=== PATIENT | female | born 1960 | race Caucasian/White ===

== ENCOUNTER 2022-11-15 09:31 | Outpatient (CLI) | payer MEDICAID, SELFPAY ==
--- NOTE | 2022-11-15 09:45 | CRLHL7_ITS ---
For Patients: As a result of the Century Cures Act, medical imaging exams and procedure reports are released immediately into your electronic medical record. You may view this report before your referring provider. If you have questions, please contact your health care provider. BILATERAL DIGITAL SCREENING MAMMOGRAM WITH TOMOSYNTHESIS AND COMPUTER-AIDED DETECTION CLINICAL HISTORY: Routine screening exam. COMPARISON: 10/12/2021, 09/28/2020, 06/02/2019. TECHNIQUE: Digital mammogram in CC and MLO projections including computer-aided detection (CAD). Tomosynthesis utilized. BREAST COMPOSITION: There are areas of scattered fibroglandular density. FINDINGS: RIGHT Breast: No suspicious findings. LEFT Breast: Focal asymmetric density retroareolar plane MLO view only 9 cm from the nipple. IMPRESSION: LEFT breast asymmetry/mass. RECOMMENDATIONS: Additional mammographic views of the LEFT breast including 3D spot compression MLO and 3D true lateral. LEFT breast ultrasound may also be required. BI-RADS Category 0: Incomplete: Need Additional Imaging Evaluation and/or Prior Mammograms for Comparison [facility] will contact the patient for follow-up. A lay language report of this examination will be provided to the patient. Dictated by Noble Bedolla MD @ 11/15/2022 12:45:51 PM jj/Dictated by: Noble Bedolla MD @ 11/15/2022 12:45:00 PM (Electronically Signed)
== END 2022-11-15 09:32 | disposition home or self-care (01) ==
LOC: MAMMO 09:32
PROVIDERS: PCP Family Medicine; Visit Provider Family Medicine
DX: Z12.31 Encounter for screening mammogram for malignant neoplasm of breast (principal); N63.20 Unspecified lump in the left breast, unspecified quadrant
CPT/HCPCS: 77063; 77067

== ENCOUNTER 2022-11-21 09:23 | Outpatient (CLI) | payer MEDICAID, SELFPAY ==
--- NOTE | 2022-11-21 09:45 | CRLHL7_ITS ---
For Patients: As a result of the Cures Act, medical imaging exams and procedure reports are released immediately into your electronic medical record. You may view this report before your referring provider. If you have questions, please contact your health care provider. DIGITAL DIAGNOSTIC LEFT MAMMOGRAM USING TOMOSYNTHESIS AND COMPUTER-AIDED DETECTION CLINICAL HISTORY: LEFT breast mass/asymmetry. COMPARISON: 11/15/2022, 10/12/2021, 09/28/2020. TECHNIQUE: Digital LEFT mammogram in two projections. Tomosynthesis and CAD utilized. BREAST COMPOSITION: There are areas of scattered fibroglandular density. FINDINGS: 3D true lateral and 3D spot compression MLO LEFT breast mammogram images submitted. Benign intramammary lymph node is present within the retroareolar plane 9 cm from the nipple. No suspicious masses or architectural distortion. Benign calcifications. No adenopathy. IMPRESSION: Benign intramammary lymph node measuring 4.5 millimeters. No findings concerning for malignancy. RECOMMENDATIONS: Annual BILATERAL screening mammography. Results and recommendations discussed with the patient. BI-RADS Category 2: Benign A lay language report of this examination will be provided to the patient. Dictated by Noble Bedolla MD @ 11/21/2022 10:08:32 AM jj/Dictated by: Noble Bedolla MD @ 11/21/2022 10:08:00 AM (Electronically Signed)
== END 2022-11-21 09:24 | disposition home or self-care (01) ==
LOC: MAMMO 09:23
PROVIDERS: PCP Family Medicine; Visit Provider Family Medicine
DX: N63.20 Unspecified lump in the left breast, unspecified quadrant (principal); R92.8 Other abnormal and inconclusive findings on diagnostic imaging of breast
CPT/HCPCS: 77065; G0279

== ENCOUNTER 2023-02-06 13:54 | Outpatient (RCR) | payer MEDICAID, SELFPAY | END 2023-06-06 23:59 | disposition home or self-care (01) | PROVIDERS: PCP Family Medicine; Visit Provider Family Medicine | DX: M72.2 Plantar fascial fibromatosis (principal); M62.81 Muscle weakness (generalized); Z51.89 Encounter for other specified aftercare | CPT/HCPCS: 97110; 97162 ==

== ENCOUNTER 2024-01-28 10:03 | Outpatient (CLI) | payer OTHER, SELFPAY | END 2024-01-28 10:04 | disposition home or self-care (01) | LOC: FRMREF 10:05 | PROVIDERS: PCP Family Medicine; Visit Provider Family Medicine | DX: B35.1 Tinea unguium (principal); Z13.228 Encounter for screening for other metabolic disorders | CPT/HCPCS: 80053 ==

== ENCOUNTER 2024-02-19 13:53 | Outpatient (CLI) | payer OTHER, SELFPAY ==
--- NOTE | 2024-02-19 14:00 | CRLHL7_ITS ---
For Patients: As a result of the Century Cures Act, medical imaging exams and procedure reports are released immediately into your electronic medical record. You may view this report before your referring provider. If you have questions, please contact your health care provider. DXA BONE MINERAL DENSITY STUDY Reason for exam: History of osteopenia. Current height (in): 64. Weight (lb): 170. Menopause age: 53. Ethnicity: White. 1. Have you had a previous hip or vertebral fracture? No. 2. Have you had any fractures during your adult life which did not result from significant trauma (e.g., auto accident)? No. 3. Did either of your parents have a hip fracture? No. 4. Do you smoke? No. 5. Have you ever taken Glucocorticoids? Yes. 6. Do you have rheumatoid arthritis? No. 7. Do you have secondary osteoporosis? No. 8. Do you drink 3 or more alcoholic drinks per day? No. 9. Are you being treated for osteoporosis? No. 10. Have you ever taken any of the following medications: Actonel, Evista, Fosamax, Miacalcin, Reclast, Boniva, Forteo, HRT (i.e., estrogen/hormone therapy), Protelos, Prolia, Vitamin D, Calcium, other ??? please specify. ANSWER: Yes, Actonel (i.e., risedronate), vitamin D, and calcium. 11. Do you have any of the following medical conditions: Anorexia or bulimia, asthma or emphysema, end stage renal disease, hyperparathyroidism, any seizure disorders, cancer, inflammatory bowel diseases, hysterectomy, other ??? please specify. ANSWER: Yes, asthma or emphysema, hysterectomy. 12. What was your maximum height (inches)? 65.5. 13. Do you perform weight bearing exercise regularly? Yes. 14. Do you regularly consume dairy products? No. 15. Do you drink caffeinated beverages? Yes. 16. At what age did your period start? 14. 17. Are you premenopausal? No. 18. How many full-term pregnancies have you had? 2. 19. Have you ever missed your period for more than 6 months in a row (not including or menopause)? Yes. TECHNIQUE: Bone mineral density study was performed using the [employer]. FINDINGS: The results of the study expressed as bone mineral density (BMD) are as follows: Lumbar spine L1 to L3: BMD: 0.849 g/cm2. T-score: -1.5. Z-score: 0.0 Neck Left: BMD: 0.601 g/cm2. T-score: -2.2. Z-score: -0.8 Right: BMD: 0.613 g/cm2. T-score: -2.1. Z-score: -0.7 Total Left: BMD: 0.761 g/cm2. T-score: -1.5. Z-score: -0.4 Right: BMD: 0.771 g/cm2. T-score: -1.4. Z-score: -0.3 IMPRESSION: Osteopenia. *Comparison exams done prior to 01/2020 were performed on different unit, [employer]. COMPARISON: Compared with scan of 10/16/2018, the bone mineral density has decreased by 2.2 percent at the spine and decreased by 4.8 percent at the hip. FRAX 10-year Fracture Risk Major Osteoporotic Fracture: 17% Hip Fracture: 2.8% Reported Risk Factors: [place] () Neck BMD=0.601, BMI=29.2, glucocorticoids. ANAYELI VÁSQUEZ M.D. Transcribed: 1:20 p.m. [email or web address] jj/Dictated by: Anayeli Vásquez MD @ 02/21/2024 8:11:00 AM (Electronically Signed)
== END 2024-02-19 13:54 | disposition home or self-care (01) ==
LOC: RAD 13:54
PROVIDERS: PCP Family Medicine; Visit Provider Family Medicine
DX: M85.80 Other specified disorders of bone density and structure, unspecified site (principal); M85.89 Other specified disorders of bone density and structure, multiple sites
CPT/HCPCS: 77080

== ENCOUNTER 2024-05-06 14:01 | Outpatient (CLI) | payer MEDICAID, SELFPAY ==
--- NOTE | 2024-05-06 14:00 | CRLHL7_ITS ---
For Patients: As a result of the Century Cures Act, medical imaging exams and procedure reports are released immediately into your electronic medical record. You may view this report before your referring provider. If you have questions, please contact your health care provider. BILATERAL SCREENING MAMMOGRAM WITH COMPUTER-AIDED DETECTION AND TOMOSYNTHESIS TECHNIQUE: CC and MLO views were obtained. These mammographic images have been obtained using full-field digital technique. These mammographic images were interpreted with the benefit of computer-aided detection. Breast Tomosynthesis was used in this interpretation. COMPARISON FILM: 11/21/22, 11/15/22, 10/12/21. FINDINGS: There are scattered areas of fibroglandular density IMPRESSION: There is no radiographic evidence for malignancy. ASSESSMENT: BI-RADS Category 1: Negative RECOMMENDATION: Routine screening mammogram in 1 year. A lay language report of this examination will be provided to the patient. Noble Bedolla M.D. Diagnostic Radiologist [email or web address] GLENN/Dictated by: Noble Bedolla MD @ 05/14/2024 12:36:00 PM (Electronically Signed)
== END 2024-05-06 14:02 | disposition home or self-care (01) ==
LOC: MAMMO 14:03
PROVIDERS: PCP Family Medicine; Visit Provider Family Medicine
DX: Z12.31 Encounter for screening mammogram for malignant neoplasm of breast (principal)
CPT/HCPCS: 77063; 77067

== ENCOUNTER 2024-12-04 09:05 | Outpatient (CLI) | payer OTHER, SELFPAY | END 2024-12-04 09:06 | disposition home or self-care (01) | PROVIDERS: PCP Family Medicine; Visit Provider Physician Assistant | DX: R10.11 Right upper quadrant pain (principal) | CPT/HCPCS: 80053; 83690 ==

== ENCOUNTER 2024-12-04 10:18 | Outpatient (CLI) | payer OTHER, SELFPAY ==
--- NOTE | 2024-12-04 11:41 | CRLHL7_ITS ---
For Patients: As a result of the Century Cures Act, medical imaging exams and procedure reports are released immediately into your electronic medical record. You may view this report before your referring provider. If you have questions, please contact your health care provider. INDICATION: Right upper quadrant abdomen pain. TECHNIQUE: Ultrasound abdomen limited. Sonographic images of the right upper quadrant were obtained using barrera-scale and color Doppler images. COMPARISON: None. FINDINGS: Liver: Heterogeneous/echogenic hepatic parenchyma suggestive of chronic hepatocellular disease. No suspicious masses. No intrahepatic biliary dilatation. There is a 4.9 centimeter right hepatic lobe echogenic lesion. Gallbladder: Mildly distended gallbladder with biliary sludge and wall thickening. No stones. No pericholecystic fluid. Negative sonographic Bailey`s sign. Common bile duct: 4 mm. Pancreas: Unremarkable. Right kidney: Normal in size. Normal echotexture and cortex. No suspicious masses, stones, or hydronephrosis. Vasculature: Proximal abdominal aorta and IVC are unremarkable. IMPRESSION: Heterogeneous/echogenic hepatic parenchyma suggestive of chronic hepatocellular disease, including steatosis. Mildly distended gallbladder with biliary sludge and wall thickening. No stones or pericholecystic edema. Negative sonographic Bailey`s sign per geographical historian. Constellation of findings are nonspecific and favored to be related to chronic hepatocellular disease. Acute cholecystitis not entirely excluded but thought less likely. Recommend correlation with localized physical examination and laboratory values. No biliary obstruction. Incidental 4.9 centimeter right hepatic lobe echogenic lesion. According to documentation, this is a known hemangioma. However, no prior studies for comparison. Recommend correlation with prior imaging once available. Dictated by Joseph Locke MD @ 12/04/2024 12:17:20 PM (Electronically Signed)
== END 2024-12-04 10:19 | disposition home or self-care (01) ==
LOC: US 10:20
PROVIDERS: PCP Family Medicine; Visit Provider Physician Assistant
DX: R10.11 Right upper quadrant pain (principal); K76.9 Liver disease, unspecified
CPT/HCPCS: 76705

== ENCOUNTER 2024-12-07 09:26 | Day surgery (SDC) | payer OTHER, SELFPAY ==
[2024-12-07] VITALS (21 sets, daily range): BP systolic 124–180; BP diastolic 71–100; PULSE 54–87; RESP 16–18; TEMP 36.2–36.9; O2SAT 2–98; BMI 30.5
--- NOTE | 2024-12-07 10:45 | P.GSHP_ITS ---
History of Present Illness History of Present Illness Date Seen: 12/07/24 Chief complaint: Laparoscopic Cholecystectomy Narrative: The patient is a 64-year-old female who last or 4 days ago, felt upper abdominal pain approximately 11:00 p.m.. She states that it started as a feel ing of gas and bloating across her upper abdomen. This radiated to her back. It got worse and she vomited twice and also had diarrhea. She did have some Zofran at home which helped her symptoms. She also had hydrocodone at home which helped her to fall asleep. The next day she had right upper quadrant tenderness. She then went in to be seen. She states that 1 month ago she had a similar episode. This was less severe. She did not have a fever. Because she continued to have symptoms she was seen in urgent care. There she had labs as well as a gallbladder ultrasound. There was gallbladder wall thickening noted. She tried to eat a protein bar in her symptoms came back. Surgery was called. At the time I did have a discussion with the patient over the phone. She felt that she would prefer to try to eat and if she could get through the weekend by being able to take in liquids at least, then she would like to wait until Saturday to proceed with cholecystectomy. Since our phone conversation, she states that she has not had any further pain. She was able to eat without difficulty this weekend. In 2008 she states she also had abdominal pain worked out. It was felt to be musculoskeletal at the time. She was found to be anemic and also was found to have a liver hemangioma. She has had colon cancer screening with Cologuard which has always been negative. She did have an upper endoscopy and a colonoscopy in 2008 which were negative. Currently she denies any chest pain or shortness of breath. She does have decreased exercise intolerance which she attributes to being out of shape rather than cardiac or pulmonary. [facility] Medical History (Updated 12/07/24 @ 11:03 by Kristina Carnes MD) Sciatica ?M54.30 - Sciatica, unspecified side (ICD-10) Sleep apnea ?G47.30 - Sleep apnea, unspecified (ICD-10) Hair thinning ?L65.9 - Nonscarring hair loss, unspecified (ICD-10) Tear of medial meniscus of right knee ?S83.241A - Other tear of medial meniscus, current injury, right knee, initial encounter (ICD-10) Osteoarthritis of left knee ?M17.12 - Unilateral primary osteoarthritis, left knee (ICD-10) Osteoarthritis of right knee ?M17.11 - Unilateral primary osteoarthritis, right knee (ICD-10) Eczema ?L30.9 - Dermatitis, unspecified (ICD-10) Binge eating ?R63.2 - Polyphagia (ICD-10) Irritable bowel syndrome ?K58.9 - Irritable bowel syndrome without diarrhea (ICD-10) Actinic keratosis ?L57.0 - Actinic keratosis (ICD-10) Left carpal tunnel syndrome ?G56.02 - Carpal tunnel syndrome, left upper limb (ICD-10) GERD (gastroesophageal reflux disease) ?K21.9 - Gastro-esophageal reflux disease without esophagitis (ICD-10) On postmenopausal hormone replacement therapy ?Z79.890 - Hormone replacement therapy (ICD-10) Migraine headache ?G43.909 - Migraine, unspecified, not intractable, without status migrainosus (ICD-10) Environmental and seasonal allergies ?J30.89 - Other allergic rhinitis (ICD-10) Difficulty sleeping ?G47.9 - Sleep disorder, unspecified (ICD-10) Depression ?F32.A - Depression, unspecified (ICD-10) Asthma ?J45.909 - Unspecified asthma, uncomplicated (ICD-10) Guillain-Chazy syndrome (~1996) ?G61.0 - Guillain-Chazy syndrome (ICD-10) LAUREANO (obstructive sleep apnea) ?G47.33 - Obstructive sleep apnea (adult) (pediatric) (ICD-10) Recurrent subluxation of left temporomandibular joint ?M24.49 - Recurrent dislocation, other specified joint (ICD-10) Surgical History (Updated 12/07/24 @ 10:58 by Kristina Carnes MD) H/O gastrostomy ?Z98.890 - Other specified postprocedural states (ICD-10) H/O tracheostomy ?Z98.890 - Other specified postprocedural states (ICD-10) H/O hernia repair ?Z98.890 - Other specified postprocedural states (ICD-10) ?Z87.19 - Personal history of other diseases of the digestive system (ICD-10) History of vaginal hysterectomy ?Z90.710 - Acquired absence of both cervix and uterus (ICD-10) Family History Mother High blood pressure Osteoarthritis Osteoporosis Father Atrial fibrillation Melanoma Renal cell carcinoma Cancer Family history of alcohol abuse Heart disease Paternal Grandmother Stroke Atrial fibrillation Diabetes Son Diabetes Other Alcohol dependence Drug dependence Family history of psychiatric disorder Family history of substance abuse Social History Narrative: . 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 No drug use. 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 She exercises intermittently. Smoking Status: Never smoker Do you use any of these nicotine containing products: None Second hand tobacco smoke exposure: No How often do you have a drink containing alcohol: monthly or less AUDIT-C Alcohol total score: 1 Non-prescribed substance use: denies use Caffeine: No Meds Home Medications and Allergies Home Medications ?Medication ?Instructions ?Recorded ?Confirmed ?Type cholecalciferol (vitamin D3) 50 2,000 unit PO DAILY 02/28/22 12/07/24 History mcg (2,000 unit) tablet SAMe butanedisulfonate 400 ea PO 12/04/24 12/04/24 History mg-betaine 600 mg oral powder packet acetaminophen 650 mg 650 mg PO Q12H 12/04/24 12/07/24 History tablet,extended release (Tylenol Arthritis Pain) multivitamin 1 tab PO QAM 12/04/24 12/07/24 History uhzhbnketuxwy-JX-wbtdebybxxsld 5 ml PO 12/04/24 12/04/24 History mg-10 mg-325 mg/15 mL oral liquid (Vicks DayQuil Cold and Flu Relief) tamsulosin 0.4 mg capsule (Flomax) 0.4 mg PO QDAY 12/04/24 12/07/24 History Allergies Allergy/AdvReac Type Severity Reaction Status Date / Time bupropion Allergy Unknown Tremors Verified 12/04/24 09:30 Cephalosporins Allergy Unknown GI upset Verified 12/04/24 09:30 latex Allergy Unknown Rash Verified 12/04/24 09:30 promethazine Allergy Unknown Legs jump Verified 12/04/24 09:30 Macrolide Antibiotics Allergy Gastrointestinal Verified 12/04/24 09:30 Upset erythromycin base AdvReac Gastrointestinal Verified 12/04/24 09:30 Upset Macrolides Allergy Unknown GI upset Uncoded 12/04/24 09:30 Exam Narrative: Exam Narrative: General appearance: Alert, cooperative, and in no distress Eyes: PERRLA, eye lids clear, and sclera white HENT Head: Normocephalic Ears: External ears normal Pulmonary: Clear to auscultation bilaterally Cardiovascular Heart: Regular rate and rhythm Extremities: warm and well perfused Gastrointestinal Abdominal: Scars consistent with surgical history common mainly GJ tube scar noted in the left upper quadrant as well as a port site scar below the umbilicus. Patient is nontender with a negative Bailey sign though she states that pressure in the upper abdomen does cause some nausea. Musculoskeletal: Extremities: Upper: Both upper extremities have normal joint range of motion and intact strength. Lower: Both lower extremities have normal joint range of motion and intact strength. Skin: Normal skin color, texture, and turgor. Neurologic: No focal deficits Psychiatric: Alert, oriented, cooperative, normal affect. Const: Vital Signs, click to edit/add: Vital Signs - 24 hr 12/07/24 10:04 Temperature 98.4 F Pulse Rate 81 Respiratory Rate 16 Blood Pressure 124/71 Pulse Oximetry 95 Oxygen Delivery Me thod Room Air Results Results Labs: Labs from 12/04: White blood cell count 7.6 with a slight left shift. LFTs remarkable for AST of 139 an ALT of 100. Otherwise bilirubin and alkaline phosphatase within normal limits. Lipase within normal limits. Abdominal ultrasound report/results: report reviewed and image reviewed Additional studies: Abdominal ultrasound 12/04/2024: FINDINGS: Liver: Heterogeneous/echogenic hepatic parenchyma suggestive of chronic hepatocellular disease. No suspicious masses. No intrahepatic biliary dilatation. There is a 4.9 centimeter right hepatic lobe echogenic lesion. Gallbladder: Mildly distended gallbladder with biliary sludge and wall thickening. No stones. No pericholecystic fluid. Negative sonographic Bailey`s sign. Common bile duct: 4 mm. Pancreas: Unremarkable. Right kidney: Normal in size. Normal echotexture and cortex. No suspicious masses, stones, or hydronephrosis. Vasculature: Proximal abdominal aorta and IVC are unremarkable. IMPRESSION: Heterogeneous/echogenic hepatic parenchyma suggestive of chronic hepatocellular disease, including steatosis. Mildly distended gallbladder with biliary sludge and wall thickening. No stones or pericholecystic edema. Negative sonographic Bailey`s sign per biostatistics manager. Constellation of findings are nonspecific and favored to be related to chronic hepatocellular disease. Acute cholecystitis not entirely excluded but thought less likely. Recommend correlation with localized physical examination and laboratory values. No biliary obstruction. Incidental 4.9 centimeter right hepatic lobe echogenic lesion. According to documentation, this is a known hemangioma. However, no prior studies for comparison. Recommend correlation with prior imaging once available. Dictated by Joseph Locke MD @ 12/04/2024 12:17:20 PM Progress Note:A&P Assessment and plan (1) Biliary colic: Status: Acute Plan The patient is a 64-year-old female with what appears to be recent episode of biliary colic and likely cholecystitis based on imaging. I explained that the treatment for this is laparoscopic cholecystectomy. We discussed the procedure as well as risks and benefits of surgery which include bleeding, infection, bile leak, conversion to open or injury to other structures, specifically the common bile duct. We also discussed recovery. She does have mildly elevated AST and ALT, however no biliary dilatation and I believe this is likely secondary to the ultrasound findings of chronic hepatocellular disease/fatty liver. Therefore, I do not think planned cholangiogram is necessary. She is agreeable with this plan. She signed informed consent and we will plan on cholecystectomy today. No contraindications to anesthesia.
[2024-12-07] MEDS: LACTATED RINGERS 1000 ML 1,000 ML 100 ML IV (10:50)
[2024-12-07] MEDS: SODIUM CHLORIDE 0.9 % (FLUSH) 10 ML SYRINGE IVF (10:53)
--- NOTE | 2024-12-07 11:08 | P.GSOP_ITS ---
Operative Note Date of procedure: 12/07/24 Pre-op diagnosis: 1. Biliary colic 2. Concern for early cholecystitis Post-op diagnosis: same Type of Procedure: Laparoscopic cholecystectomy Indications: The patient is a 64-year-old female who presented to urgent care last week with right upper quadrant pain and nausea. She was found to have gallbladder wall thickening and sludge within her gallbladder. AST and ALT were mildly elevated. She had recurrence of symptoms when she tried to eat. However, she elected to go home and try a clear diet. Fortunately her symptoms resolved with this, however because of the severity of her symptoms and her ultrasound findings I recommended cholecystectomy and she agreed to proceed. Procedure Description: After discussing the risks and benefits of the procedure, the patient signed informed consent.? The operative site was marked and the patient was brought to the operating room and placed on the operating table in supine position.? Care was taken to pad the patient's pressure points.?? The patient was then intubated by anesthesia.?? The operative site was then prepped and draped in the usual sterile fashion.? A time-out was then performed. Entrance to the abdomen was gained via Mulligan technique below the umbilicus because the patient had a prior gastrostomy tube in the left upper quadrant. An incision was created and dissection was taken through the subcutaneous fat bluntly. The fascia was grasped between 2 Martin clamps and incised with a Moncada scissors. Peritoneum was then incised and the peritoneal cavity entered. A 10 mm port was then placed. The abdomen was insufflated. The patient's prior gastrostomy tube scarring was noted in the left abdomen. There were no other adhesions. Patient was then placed in reverse Trendelenburg with the right-side up. A 5 mm subxiphoid and 2 additional 5 mm ports along the right costal margin were all placed under direct vision. The gallbladder was noted to be distended. This was grasped and retracted cephalic. There were a few omental adhesions which were taken down with cautery. The infundibulum was grasped. A combination of hook cautery and blunt dissection was used to carefully dissect out the cystic duct and artery until they could clearly be seen entering the gallbladder without any intervening structures. The gallbladder was dissected off the cystic plate to achieve the critical view. Once this was achieved the cystic duct and artery were each clipped with 2 clips proximally and 1 clip distally and transected with the scissors. The gallbladder was then taken off of the liver bed and removed from the abdomen using an Endo-Catch bag. The gallbladder bed w as surveyed for hemostasis which appeared adequate. A small amount of bile and several tiny gallstones which had spilled were suctioned from the abdomen. The ports were then removed and the abdomen desufflated. The umbilical port fascia was closed with 0 Vicryl. The skin was closed with absorbable subcuticular suture. Sterile dressings were applied. Instrument sponge and needle counts were correct at the end of the case. The patient was then woken and transferred to the PACU in stable condition. The patient tolerated the procedure well. Findings: Distended gallbladder with numerous tiny gallstones. Anesthesia: GETA Surgeon: Kristina Carnes MD Estimated blood loss (mL): 10 Specimen: Gallbladder Condition: stable Disposition: PACU
[2024-12-07] MEDS: CEFAZOLIN 1 GM inj IVP (11:26)
[2024-12-07] MEDS: BUPIVACAINE 0.25% 30 ML INJECTION (12:10)
[2024-12-07] MEDS: KETOROLAC 15 MG/ML inj IVP (12:15)
--- NOTE | 2024-12-07 12:36 | P.ANES_ITS ---
Anesthesia Charges Start Date/Time Anesthesia Start Date: 12/07/24 Anesthesia Start Time: 11:04 Stop Date/Time Anesthesia Stop Date: 12/07/24 Anesthesia Stop Time: 12:33 Coding CPT Codes CPT Codes: ANESTH SURG UPPER ABDOMEN - 43734 ([id number]) P3 - PATIENT W/SEVERE SYS DISEASE, QK - FURNITURE FABRICATOR 2-4 CNCRNT ANES PROC, QX - DISPENSING AUDIOLOGIST SVC W/ MD MED DIRECTION
--- NOTE | 2024-12-07 12:36 | W.ANESCHARGE ---
Anesthesia Charges Start Date/Time Anesthesia Start Date: 12/07/24 Anesthesia Start Time: 11:04 Stop Date/Time Anesthesia Stop Date: 12/07/24 Anesthesia Stop Time: 12:33 Coding CPT Codes CPT Codes: ANESTH SURG UPPER ABDOMEN - 47118 ([id number]) P3 - PATIENT W/SEVERE SYS DISEASE, QK - COMMUNITY PLANNING TECHNICIAN 2-4 CNCRNT ANES PROC, QX - PIPE LINER SVC W/ MD MED DIRECTION
--- NOTE | 2024-12-07 12:37 | P.ANES_ITS ---
Anesthesia Charges Start Date/Time Anesthesia Start Date: 12/07/24 Anesthesia Start Time: 11:04 Stop Date/Time Anesthesia Stop Date: 12/07/24 Anesthesia Stop Time: 12:33 Coding CPT Codes CPT Codes: ANESTH SURG UPPER ABDOMEN - 07291 ([id number]) QK - CHIPPER 2-4 CNCRNT ANES PROC, QX - RETAIL SERVICE SPECIALIST SVC W/ MD MED DIRECTION, P3 - PATIENT W/SEVERE SYS DISEASE
--- NOTE | 2024-12-07 12:37 | W.ANESCHARGE ---
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
[2024-12-07] MEDS: ACETAMINOPHEN 325 MG TABLET 650 MG PO ×2 (13:13→18:52)
--- NOTE | 2024-12-07 14:52 | SUR.PHASEII ---
steri strip reinforced with 2x2 and band-aid. slight oozing. controlled.
[2024-12-07] MEDS: IPRAT-ALBUT 0.5-2.5 MG/3 ML NEB 1 NEB IH (15:26)
[2024-12-07] MEDS: HYDROCODONE-ACETAMIN 5-325 MG 1 TAB PO (16:04)
--- NOTE | 2024-12-07 16:15 | CRLHL7_ITS ---
For Patients: As a result of the Cures Act, medical imaging exams and procedure reports are released immediately into your electronic medical record. You may view this report before your referring provider. If you have questions, please contact your health care provider. INDICATION: Low oxygen level post operative TECHNIQUE: Chest radiograph 1 view COMPARISON: 04/24/2016 FINDINGS: The sensitivity and specificity of the exam are moderately limited by the patient`s body habitus. Mediastinum: The mediastinum is normal in appearance. The heart silhouette is normal in size and morphology. Lung: Both lungs are unremarkable in appearance. No sign of pleural effusion seen. No pneumothorax is identified. Bone and Soft tissue: Unremarkable for age. IMPRESSION: 1. No acute cardiopulmonary disease is seen. Dictated by: Kieran Hernandez MD @ 12/07/2024 17:17:46 (Electronically Signed)
--- NOTE | 2024-12-07 16:25 | SUR.PHASEII ---
During phase 2 recovery-Pt has had frequent drop of 02 saturation to 80-85% while sitting, awake. She states that the alarms are what alerts her to needing to take a breath. Her level does pop back up to mid 90's after taking deep breaths from hearing alarm. She does not feel short of breath. Consulted with Anesthesia. Duo neb given. Pt does not have Cpap or 02 at home. Continues to have low 02 spells frequently while awake and talking. Decision made to admit patient overnight due to low 0xygen levels. Dr. Carnes contacted.
--- NOTE | 2024-12-07 18:03 | P.IMCN_ITS ---
Date of Consult Patient: [facility] Patient Consult date: 12/07/24 Requesting Physician: General Surgery Primary Care Provider: Koki De MD Consult Narrative Narrative: Martita Steel is a 64 year old female with asthma admitted to the hospital for laparoscopic cholecystectomy. Procedure performed today by Dr. Carnes. She is requesting consultation for management of postoperative hypoxia. Procedure performed without apparent complications. Postoperatively she has been doing well except in recovery she was noted to be hypoxic. She was placed on supplemental oxygen which resolved the hypoxia. She also received nebulizer treatment which briefly resolved hypoxia but then it returned. She did not have dyspnea associated with her hypoxia. Because that she was admitted for eval uation and management of postoperative hypoxia. She reports no recent respiratory illness. She was feeling well prior to surgery. She has lifelong history of asthma which is managed with Symbicort and p.r.n. albuterol. She reports primarily she has cough variant asthma and uses the albuterol only a couple times a week. She does not typically have wheezing. She does report that she has had some worsening of exertional dyspnea over the years. She has attributed this to being out of shape. Cholecystectomy was done because she was reporting nausea vomiting and back pain and had an ultrasound that showed sludge and gallbladder wall thickening. Also noted was change in the echotexture of the liver suggestive of hepatic steatosis or other chronic hepatitis. She has no previous history of liver disease, jaundice, viral hepatitis except as a young adult she had infectious mono causing acute hepatitis which resolved. Since surgery she reports feeling well. She has had 1 Arcanum tablet for pain. Pain is currently minimal. Review of Systems Narrative: She reports feeling fine with minimal pain and no dyspnea [facility] Medical History (Updated 12/07/24 @ 18:24 by Greg Dorantes MD) Chronic hepatitis ?K73.9 - Chronic hepatitis, unspecified (ICD-10) Sciatica ?M54.30 - Sciatica, unspecified side (ICD-10) Sleep apnea ?G47.30 - Sleep apnea, unspecified (ICD-10) Hair thinning ?L65.9 - Nonscarring hair loss, unspecified (ICD-10) Tear of medial meniscus of right knee ?S83.241A - Other tear of medial meniscus, current injury, right knee, initial encounter (ICD-10) Osteoarthritis of left knee ?M17.12 - Unilateral primary osteoarthritis, left knee (ICD-10) Osteoarthritis of right knee ?M17.11 - Unilateral primary osteoarthritis, right knee (ICD-10) Eczema ?L30.9 - Dermatitis, unspecified (ICD-10) Binge eating ?R63.2 - Polyphagia (ICD-10) Irritable bowel syndrome ?K58.9 - Irritable bowel syndrome without diarrhea (ICD-10) Actinic keratosis ?L57.0 - Actinic keratosis (ICD-10) Left carpal tunnel syndrome ?G56.02 - Carpal tunnel syndrome, left upper limb (ICD-10) GERD (gastroesophageal reflux disease) ?K21.9 - Gastro-esophageal reflux disease without esophagitis (ICD-10) On postmenopausal hormone replacement therapy ?Z79.890 - Hormone replacement therapy (ICD-10) Migraine headache ?G43.909 - Migraine, unspecified, not intractable, without status migrainosus (ICD-10) Environmental and seasonal allergies ?J30.89 - Other allergic rhinitis (ICD-10) Difficulty sleeping ?G47.9 - Sleep disorder, unspecified (ICD-10) Depression ?F32.A - Depression, unspecified (ICD-10) Asthma ?J45.909 - Unspecified asthma, uncomplicated (ICD-10) 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 - Guillain-Martin syndrome (ICD-10) LAUREANO (obstructive sleep apnea) ?G47.33 - Obstructive sleep apnea (adult) (pediatric) (ICD-10) Recurrent subluxation of left temporomandibular joint ?M24.49 - Recurrent dislocation, other specified joint (ICD-10) Surgical History (Updated 12/07/24 @ 18:22 by Greg Dorantes MD) Status post laparoscopic cholecystectomy ?Z90.49 - Acquired absence of other specified parts of digestive tract (ICD- 10) H/O gastrostomy ?Z98.890 - Other specified postprocedural states (ICD-10) H/O tracheostomy ?Z98.890 - Other specified postprocedural states (ICD-10) H/O hernia repair ?Z98.890 - Other specified postprocedural states (ICD-10) ?Z87.19 - Personal history of other diseases of the digestive system (ICD-10) History of vaginal hysterectomy ?Z90.710 - Acquired absence of both cervix and uterus (ICD-10) Family History Mother High blood pressure Osteoarthritis Osteoporosis Father Atrial fibrillation Melanoma Renal cell carcinoma Cancer Family history of alcohol abuse Heart disease Paternal Grandmother Stroke Atrial fibrillation Diabetes Son Diabetes Brother FHx: cancer of prostate Other Alcohol dependence Drug dependence Family history of psychiatric disorder Family history of substance abuse Social History Narrative: . 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 No drug use. 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 She exercises intermittently. Smoking Status: Never smoker Do you use any of these nicotine containing products: None Second hand tobacco smoke exposure: No How often do you have a drink containing alcohol: monthly or less AUDIT-C Alcohol total score: 1 Non-prescribed substance use: denies use Caffeine: No Meds Home Medications and Allergies Home Medications ?Medication ?Instructions ?Recorded ?Confirmed ?Type cholecalciferol (vitamin D3) 50 2,000 unit PO DAILY 02/28/22 12/07/24 History mcg (2,000 unit) tablet SAMe butanedisulfonate 400 ea PO 12/04/24 12/04/24 History mg-betaine 600 mg oral powder packet acetaminophen 650 mg 650 mg PO Q12H 12/04/24 12/07/24 History tablet,extended release (Tylenol Arthritis Pain) multivitamin 1 tab PO QAM 12/04/24 12/07/24 History ofzvglloyyoia-QJ-syeblfadnigxs 5 ml PO 12/04/24 12/04/24 History mg-10 mg-325 mg/15 mL oral liquid (Vicks DayQuil Cold and Flu Relief) tamsulosin 0.4 mg capsule (Flomax) 0.4 mg PO QDAY 12/04/24 12/07/24 History Home Medication Comments: Also albuterol inhaler, Symbicort, escitalopram, estradiol patch and cream, fexofenadine, finasteride, 5 FU cream p.r.n., multivitamin, omeprazole, ondansetron p.r.n., tamsulosin, trazodone 25-50 mg at bedtime. Allergies Allergy/AdvReac Type Severity Reaction Status Date / Time bupropion Allergy Unknown Tremors Verified 12/04/24 09:30 Cephalosporins Allergy Unknown GI upset Verified 12/04/24 09:30 latex Allergy Unknown Rash Verified 12/04/24 09:30 promethazine Allergy Unknown Legs jump Verified 12/04/24 09:30 Macrolide Antibiotics Allergy Gastrointestinal Verified 12/04/24 09:30 Upset erythromycin base AdvReac Gastrointestinal Verified 12/04/24 09:30 Upset Exam Narrative: Exam Narrative: She is alert appears in no distress. Breathing is unlabored. O2 sats are upper 90s on 1 L per nasal cannula then 92-94% on room air. Oropharynx with small airway but otherwise normal. Neck is supple without mass or adenopathy. Respirations are clear to auscultation. No wheezing rales rhonchi. Good air exchange all lung amado. Cardiovascular: S1, S2, regular rate and rhythm. Hands are normal. No clubbing. No cyanosis. Good capillary refill. Lower extremities without edema. Const: Vital Signs, click to edit/add: Vital Signs - 24 hr 12/07/24 10:04 12/07/24 12:33 12/07/24 12:35 Temperature 98.4 F 97.1 F L Pulse Rate 81 80 81 Pulse Rate [Left P ulse Oximeter] Respiratory Rate 16 16 16 Blood Pressure 124/71 155/100 H 175/77 H Blood Pressure [Le ft Arm] Pulse Oximetry 95 95 95 Oxygen Delivery Id thod Room Air Room Air Room Air Oxygen Flow Rate 12/07/24 12:40 12/07/24 12:45 12/07/24 12:50 Temperature 98.0 F Pulse Rate 80 81 80 Pulse Rate [Left P ulse Oximeter] Respiratory Rate 16 16 16 Blood Pressure 180/80 H 144/77 H 147/76 H Blood Pressure [Le ft Arm] Pulse Oximetry 98 98 97 Oxygen Delivery Me thod Room Air Room Air Room Air Oxygen Flow Rate 12/07/24 13:00 12/07/24 13:15 12/07/24 13:30 Temperature 97.8 F Pulse Rate 61 57 L 65 Pulse Rate [Left P ulse Oximeter] Respiratory Rate 16 16 16 Blood Pressure 148/77 H 161/81 H 155/85 H Blood Pressure [Le ft Arm] Pulse Oximetry 92 98 95 Oxygen Delivery Id thod Room Air Nasal Cannula Nasal Cannula Oxygen Flow Rate 2 2 12/07/24 13:45 12/07/24 14:00 12/07/24 14:15 Temperature Pulse Rate 57 L 54 L 75 Pulse Rate [Left P ulse Oximeter] Respiratory Rate 16 16 16 Blood Pressure 147/80 H 142/74 H 140/77 H Blood Pressure [Le ft Arm] Pulse Oximetry 92 95 94 Oxygen Delivery Me thod Nasal Cannula Nasal Cannula Room Air Oxygen Flow Rate 2 2 12/07/24 14:30 12/07/24 15:00 12/07/24 15:01 Temperature Pulse Rate 70 74 Pulse Rate [Left P ulse Oximeter] Respiratory Rate 16 16 Blood Pressure 142/77 H Blood Pressure [Le ft Arm] Pulse Oximetry 94 92 79 L Oxygen Delivery Me thod Room Air Room Air Oxygen Flow Rate 12/07/24 15:30 12/07/24 15:45 12/07/24 16:00 Temperature Pulse Rate 75 72 72 Pulse Rate [Left P ulse Oximeter] Respiratory Rate 16 16 16 Blood Pressure Blood Pressure [Le ft Arm] Pulse Oximetry 98 90 85 L Oxygen Delivery Me thod Room Air Room Air Oxygen Flow Rate 12/07/24 16:15 12/07/24 16:30 12/07/24 16:45 Temperature Pulse Rate 70 87 Pulse Rate [Left P ulse Oximeter] 71 Respiratory Rate 16 16 18 Blood Pressure 138/77 Blood Pressure [Le ft Arm] 140/84 H Pulse Oximetry 90 97 2 L Oxygen Delivery Me thod Nasal Cannula Nasal Cannula Nasal Cannula Oxygen Flow Rate 2 2 2 Documenting provider has reviewed patient's vital signs: yes Assessment and Plan Assessment and plan (1) Postoperative hypoxia: Problem comment: No obvious complication from surgery. Resolved spontaneously over a few hours. Suspected could be related to sedation from anesthesia plus underlying sleep apnea and asthma. Status: Acute (2) Status post laparoscopic cholecystectomy: Problem comment: 12/07/2024, Dr. Carnes. No complications. Status: Acute (3) LAUREANO (obstructive sleep apnea): Problem comment: History of sleep apnea treated with an oral appliance which caused TMJ problems and no longer fit so she no longer uses it. I recommend she revisit sleep apnea evaluation and treatment Status: Acute (4) Chronic hepatitis: Problem comment: Based on ultrasound from November 2024. Suspect hepatic steatosis. Outpatient follow-up of LFTs. Consider hepatitis C testing. Consider evaluation and treatment for metabolic liver disease Status: Acute (5) Asthma: Status: Acute Plan Patient admitted for laparoscopic cholecystectomy with postoperative hypoxia. Postoperative hypoxia is now resolved. I believe she can be safely discharged to home. I recommend outpatient follow-up for liver disease and sleep apnea ev aluation and treatment which she is in agreement with. Total Time Spent Total Time Spent: Total time spent today is 60 minutes in reviewing outside records, coordination of care, discussion with patient and other providers ongoing management of postop hypoxia, liver disease and sleep apnea
--- NOTE | 2024-12-07 18:58 | PC.NURSE ---
Pt on room air, tolerating well, sating >90%. Ambulating in room and denied SOB and lightheadedness. Reports minimal pain, ice and PRN Tylenol effective. After speaking with provider, patient is discharging home. Education reviewed, no questions or concerns at this time. Pt is discharging home via .
== END 2024-12-07 19:30 | disposition home or self-care (01) ==
LOC: OR 10:56 → MEDSURG 18:02
PROVIDERS: PCP Family Medicine; Visit Provider Surgery
PROC: 0FT44ZZ Resection of Gallbladder, Percutaneous Endoscopic Approach (ICD-10-PCS; CPT 47562; principal; 2024-12-07 10:45)
DX: K80.10 Calculus of gallbladder with chronic cholecystitis without obstruction (principal); R10.11 Right upper quadrant pain; G47.33 Obstructive sleep apnea (adult) (pediatric); J45.909 Unspecified asthma, uncomplicated; R09.02 Hypoxemia; K73.9 Chronic hepatitis, unspecified
CPT/HCPCS: 47562; 00790; 71045; 88304; A9270; J0665; J0690; J1100; J1171; J1885; J2704; J2710; J3010; J7120

== ENCOUNTER 2024-12-13 11:08 | Inpatient (IN) | payer OTHER, SELFPAY ==
[2024-12-13] VITALS (7 sets, daily range): BP systolic 127–152; BP diastolic 72–88; PULSE 65–74; RESP 14–24; TEMP 36.1–36.9; O2SAT 92–100; BMI 29.9; BMI 30.3
--- NOTE | 2024-12-13 11:10 | ED.GENADULT ---
HPI - General Adult General Date Seen: 12/13/24 Chief complaint: Abdominal Pain Stated complaint: Gall bladder removed Saturday, Having pain Time Seen by Provider: 12/13/24 11:10 History of Present Illness HPI narrative: 64 yo F with past medical history of gallstones, biliary colic, status post laparoscopic cholecystectomy on 12/[address] Tovar, also past medical history of osteoarthritis, irritable bowel syndrome, GERD, asthma, depression, seasonal allergies, migraine headaches and chronic hepatitis. She reports that her she had her surgery last week and had been doing very well. Having minimal ongoing abdominal pain and generally doing okay. She had taken any Meridian for couple of days. No fevers. Appetite normal. Stool output normal. This morning at about 10 20 she coughed and felt an abrupt onset of us pretty severe pain in her right upper quadrant radiating to her right shoulder, similar to her episodes of biliary colic prior to surgery. The pain is intense. It makes her nauseous but no vomiting. She is not having a fever. She took 1 Meridian but it is not started help with her pain yet. She came here to the ER. She has been having fairly diffuse pain and now feels as though her abdomen is a little bit bloated. Per Dr. tovar's notes, the patient had a laparoscopic cholecystectomy. Operative note mentions omental adhesions which were taken down,. There was a small amount of bile and several tiny gallstones which had spilled from the gallbladder and resection from the abdomen. Per old records from Urgent Care on 12/04 white count was 7.6, hemoglobin 12.8, platelet count 3 per 49. Basic metabolic profile was normal. BUN 17, creatinine 0.6. AST was 139, ALT was 100. Alk-phos was 78. Total bilirubin was 0.8. Lipase was 92. Gallbladder ultrasound 12/04/2024 IMPRESSION: Heterogeneous/echogenic hepatic parenchyma suggestive of chronic hepatocellular disease, including steatosis. Mildly distended gallbladder with biliary sludge and wall thickening. No stones or pericholecystic edema. Negative sonographic Bailey`s sign per centrifugal extractor operator. Constellation of findings are nonspecific and favored to be related to chronic hepatocellular disease. Acute cholecystitis not entirely excluded but thought less likely. Recommend correlation with localized physical examination and laboratory values. No biliary obstruction. Incidental 4.9 centimeter right hepatic lobe echogenic lesion. According to documentation, this is a known hemangioma. However, no prior studies for comparison. Recommend correlation with prior imaging once available. Related Data Home Medications ?Medication ?Instructions ?Recorded ?Confirmed cholecalciferol (vitamin D3) 50 2,000 unit PO DAILY 02/28/22 12/07/24 mcg (2,000 unit) tablet SAMe butanedisulfonate 400 ea PO 12/04/24 12/04/24 mg-betaine 600 mg oral powder packet acetaminophen 650 mg 650 mg PO Q12H 12/04/24 12/07/24 tablet,extended release (Tylenol Arthritis Pain) multivitamin 1 tab PO QAM 12/04/24 12/07/24 [id number]-UX-ckmwbecfsdcru 5 ml PO 12/04/24 12/04/24 mg-10 mg-325 mg/15 mL oral liquid (Vicks DayQuil Cold and Flu Relief) tamsulosin 0.4 mg capsule (Flomax) 0.4 mg PO QDAY 12/04/24 12/07/24 Previous Rx's ?Medication ?Instructions ?Recorded fluorouracil 5 % topical cream 1 applic topical .UD #40 grams 06/06/23 ondansetron 4 mg disintegrating 4 mg PO Q8H PRN nausea and 10/21/23 tablet vomiting #30 tabs albuterol sulfate 90 mcg/actuation 2 puff inhalation Q6H PRN 01/28/24 aerosol inhaler bronchospasm #8.5 grams epinephrine 0.3 mg/0.3 mL 0.3 mg (0.3 mL) IM .As Needed PRN 01/28/24 injection, auto-injector anaphylaxis #2 ea escitalopram oxalate 10 mg tablet 10 mg PO QDAY #90 tabs 01/28/24 estradiol 0.01% (0.1 mg/gram) 1 g vaginal QWEEK #42.5 grams 01/28/24 vaginal cream estradiol 0.05 mg/24 hr semiweekly 1 patch transdermal .Twice Weekly 01/28/24 transdermal patch #8 ea fexofenadine 180 mg tablet 180 mg PO QDAY #90 tabs 01/28/24 ([facility]) omeprazole 20 mg capsule,delayed 20 mg PO DAILY #90 caps 01/28/24 release trazodone 50 mg tablet 50 - 100 mg (1 - 2 x 50 mg) PO 01/28/24 .Bedtime #120 tabs triamcinolone acetonide 0.1 % 1 applic topical BID PRN skin 01/28/24 topical cream reaction #80 grams budesonide-formoterol HFA 160 2 puff inhalation BID #10.2 grams 02/06/24 mcg-4.5 mcg/actuation aerosol inhaler (Symbicort) finasteride 5 mg tablet 5 mg PO DAILY #90 tabs 04/23/24 hydrocodone 5 mg-acetaminophen 325 1 - 2 tab PO Q6H PRN Pain #20 tabs 12/07/24 mg tablet Allergies Allergy/AdvReac Type Severity Reaction Status Date / Time bupropion Allergy Unknown Tremors Verified 12/04/24 09:30 Cephalosporins Allergy Unknown GI upset Verified 12/04/24 09:30 latex Allergy Unknown Rash Verified 12/04/24 09:30 promethazine Allergy Unknown Legs jump Verified 12/04/24 09:30 Macrolide Antibiotics Allergy Gastrointestinal Verified 12/04/24 09:30 Upset erythromycin base AdvReac Gastrointestinal Verified 12/04/24 09:30 Upset PFSH PFSH Medical History (Updated 12/13/24 @ 15:45 by Darius Rodas MD) Biliary colic ?K80.50 - Calculus of bile duct without cholangitis or cholecystitis without obstruction (ICD-10) Chronic hepatitis ?K73.9 - Chronic hepatitis, unspecified (ICD-10) Sciatica ?M54.30 - Sciatica, unspecified side (ICD-10) Sleep apnea ?G47.30 - Sleep apnea, unspecified (ICD-10) Hair thinning ?L65.9 - Nonscarring hair loss, unspecified (ICD-10) Tear of medial meniscus of right knee ?S83.241A - Other tear of medial meniscus, current injury, right knee, initial encounter (ICD-10) Osteoarthritis of left knee ?M17.12 - Unilateral primary osteoarthritis, left knee (ICD-10) Osteoarthritis of right knee ?M17.11 - Unilateral primary osteoarthritis, right knee (ICD-10) Eczema ?L30.9 - Dermatitis, unspecified (ICD-10) Binge eating ?R63.2 - Polyphagia (ICD-10) Irritable bowel syndrome ?K58.9 - Irritable bowel syndrome without diarrhea (ICD-10) Actinic keratosis ?L57.0 - Actinic keratosis (ICD-10) Left carpal tunnel syndrome ?G56.02 - Carpal tunnel syndrome, left upper limb (ICD-10) GERD (gastroesophageal reflux disease) ?K21.9 - Gastro-esophageal reflux disease without esophagitis (ICD-10) On postmenopausal hormone replacement therapy ?Z79.890 - Hormone replacement therapy (ICD-10) Migraine headache ?G43.909 - Migraine, unspecified, not intractable, without status migrainosus (ICD-10) Environmental and seasonal allergies ?J30.89 - Other allergic rhinitis (ICD-10) Difficulty sleeping ?G47.9 - Sleep disorder, unspecified (ICD-10) Depression ?F32.A - Depression, unspecified (ICD-10) Asthma ?J45.909 - Unspecified asthma, uncomplicated (ICD-10) Guillain-[place] syndrome (~1996) ?G61.0 - Guillain-[place] syndrome (ICD-10) LAUREANO (obstructive sleep apnea) ?G47.33 - Obstructive sleep apnea (adult) (pediatric) (ICD-10) Recurrent subluxation of left temporomandibular joint ?M24.49 - Recurrent dislocation, other specified joint (ICD-10) Surgical History (Updated 12/07/24 @ 18:22 by Greg Dorantes MD) Status post laparoscopic cholecystectomy ?Z90.49 - Acquired absence of other specified parts of digestive tract (ICD-10) H/O gastrostomy ?Z98.890 - Other specified postprocedural states (ICD-10) H/O tracheostomy ?Z98.890 - Other specified postprocedural states (ICD-10) H/O hernia repair ?Z98.890 - Other specified postprocedural states (ICD-10) ?Z87.19 - Personal history of other diseases of the digestive system (ICD-10) History of vaginal hysterectomy ?Z90.710 - Acquired absence of both cervix and uterus (ICD-10) Family History Mother High blood pressure Osteoarthritis Osteoporosis Father Atrial fibrillation Melanoma Renal cell carcinoma Cancer Family history of alcohol abuse Heart disease Paternal Grandmother Stroke Atrial fibrillation Diabetes Son Diabetes Brother FHx: cancer of prostate Other Alcohol dependence Drug dependence Family history of psychiatric disorder Family history of substance abuse Social History Narrative: . 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 No drug use. 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 She exercises intermittently. Smoking Status: Never smoker Do you use any of these nicotine containing products: None Second hand tobacco smoke exposure: No How often do you have a drink containing alcohol: monthly or less AUDIT-C Alcohol total score: 1 Non-prescribed substance use: denies use Caffeine: No Exam Narrative: Exam Narrative: Constitutional: Appears well-developed and well-nourished. Alert. Conversant. Uncomfortable and moves very slowly because of abdominal pain. Polite. Non toxic. HENT: Head: Atraumatic. Nose: Nose normal. Mouth/Throat: Oral mucosa is clear and moist. no trismus Eyes: Conjunctivae normal. EOM normal. Pupils equal, round, and reactive to light. No scleral icterus. Neck: Normal range of motion. Neck supple. No tracheal deviation present. Cardiovascular: Normal rate, regular rhythm. No gallop. No friction rub. No murmur heard. Symmetric radial artery pulses Pulmonary/Chest: Effort normal. No stridor. No respiratory distress. No wheezes. No rales. No rhonchi Abdominal: Soft. Bowel sounds normal. Mild distension. Non tympanic. No mass. Diffuse tenderness. No rebound. Fairly diffuse guarding. She has for laparoscopic incisions. All of them are surrounded by a small amount of subcutaneous ecchymosis but no erythema. No large bruising. Musculoskeletal: RUE: Normal range of motion. No tenderness. No deformity LUE: Normal range of motion. No tenderness. No deformity RLE: Normal range of motion. No edema. No tenderness. No deformity LLE: Normal range of motion. No edema. No tenderness. No deformity Neurological: Alert and oriented to person, place, and time. Normal strength. CN II-VII intact. No sensory deficit. GCS eye subscore is 4. GCS verbal subscore is 5. GCS motor subscore is 6. Normal coordination Skin: Skin is warm and dry. No rash noted. No pallor. Normal capillary refill. Psychiatric: Normal mood. Normal affect. Const: Vital Signs, click to edit/add: Vital Signs - 24 hr 12/13/24 11:16 12/13/24 13:30 Temperature 96.9 F L Pulse Rate [Pulse Oximeter] 68 70 Respiratory Rate 24 14 Blood Pressure [Ri ght Upper Arm] 144/85 H 128/78 Pulse Oximetry 100 96 Oxygen Delivery Me thod Room Air Room Air Course Course ED Course: Recheck-feeling better after Dilaudid. Able to accomplish better abdominal and cardiovascular exam. Reevaluation(s) Reevaluation #1: Recheck-discussed with surgery, Dr. Latham who agrees that we should admit the patient for observation and pain control as well as LFT trending and plan for MRCP tomorrow to screen for possible retained CBD stone. Reevaluation #2: Recheck-phone consult placed to hospitalist at 2:39 p.m.. Hospitalist was busy and could not take the admission at that time. Recheck-phone consult again placed hospitalist at 3:39 p.m.. Hospitalist, Dr. Aguilar accepts for admission. Please see hospitalist notes for further details about admission status and further workup. Vital Signs Vital signs: Initial Vital Signs Temperature 96.9 F L 12/13/24 11:16 Temperature Source Temporal Artery Scan 12/13/24 11:16 Pulse Rate 68 12/13/24 11:16 Respiratory Rate 24 12/13/24 11:16 Blood Pressure 144/85 H 12/13/24 11:16 Blood Pressure Mean 104 12/13/24 11:16 Pulse Oximetry 100 12/13/24 11:16 Oxygen Delivery Method Room Air 12/13/24 11:16 Vital Signs Temperature 96.9 F L 12/13/24 11:16 Pulse Rate 68 12/13/24 11:16 Respiratory Rate 24 12/13/24 11:16 Blood Pressure 144/85 H 12/13/24 11:16 Pulse Oximetry 100 12/13/24 11:16 Oxygen Delivery Method Room Air 12/13/24 11:16 Temperature 96.9 F L 12/13/24 11:16 Pulse Rate 70 12/13/24 13:30 Respiratory Rate 14 12/13/24 13:30 Blood Pressure 128/78 12/13/24 13:30 Pulse Oximetry 96 12/13/24 13:30 Oxygen Delivery Method Room Air 12/13/24 13:30 Medications Administered Medications: Generic Name Dose Route Start Last Admin Trade Name Freq PRN Reason Stop Dose Admin Hydromorphone HCl 0.5 mg 12/13/24 11:24 12/13/24 14:42 Hydromorphone 0.5 Mg/0.5 Ml Inj IVP 0.5 mg Q1H PRN Administration Pain Discontinued Medications Generic Name Dose Route Start Last Admin Trade Name Freq PRN Reason Stop Dose Admin Sodium Chloride 500 mls @ 500 mls/hr 12/13/24 11:24 12/13/24 13:24 0.9 % Sodium Chloride 500 Ml IV 12/13/24 12:23 Infused .Q1H ONE Infusion Ondansetron HCl 4 mg 12/13/24 11:24 12/13/24 11:53 Ondansetron 2 Mg/Ml Inj IVP 12/13/24 11:25 4 mg ONCE ONE Administration Medical Decision Making [facility] Narrative Medical decision making narrative: Pleasant 64-year-old female who is 6 days status post laparoscopic cholecystectomy presenting to the ER today with abrupt onset of severe recurrent right upper quadrant pain radiating to her right shoulder blade that happened this morning after she sneeze. She was quite uncomfortable upon presentation but after IV Dilaudid is resting much more comfortably. CT scan is obtained to look for possible bile leak, abscess, bleeding, or other surgical complication. Fortunately CT scan is normal. CT does showed nonobstructing kidney stone but no evidence for hydronephrosis. She is not febrile and white count is normal. LFTs are mildly abnormal with transaminases rising compared to their measurement from 10 days ago. Total bilirubin is still unchanged 0.8. When we look at the fraction of direct versus indirect bilirubin we see an elevated direct bilirubinemia of 0.6, accounting for 75% of her total bilirubin. This raises concern, but is not definitive for, possible biliary obstruction. In consultation with surgery, plan will be to admit to hospitalist service for pain control, hemodynamic and lab monitoring and plans for MRCP tomorrow. I have discussed with the Radiology Department and they confirmed that they do have an open slot for MRCP to be obtained in the morning. At this point, surgery does not think, and I agree, that we need to transfer for immediate ERCP. Discussed the plan of care with the patient was in agreement. Hospitalist, Dr. Aguilar, will admit. Lab Data Labs: Lab Results 12/13/24 Range/Units 12:00 WBC 8.13 (4.50-11.00) K/uL RBC 4.61 (4.00-5.20) m/uL Hgb 13.3 (12.0-16.0) gm/dL Hct 41.2 (33.0-51.0) % MCV 89 (80-100) fL MCH 29 (26-34) pg MCHC 32 (32-36) gm/dL RDW Coeff of Jim 12.0 (11.5-15.5) % Plt Count 389 (140-440) K/uL Neut % (Auto) 71.8 (42.0-72.0) % Lymph % (Auto) 14.8 L (20-44) % [place] % (Auto) 10.1 (0.0-11.0) % Eos % (Auto) 2.3 (0.0-7.0) % Baso % (Auto) 0.5 (0.0-3.0) % Neut # (Auto) 5.84 (1.7-7.0) K/uL Lymph # (Auto) 1.20 (0.90-2.90) K/uL [place] # (Auto) 0.80 (0.00-0.90) K/UL Eos # (Auto) 0.19 (0.00-0.50) K/uL Baso # (Auto) 0.04 (0.00-0.30) K/uL Abs Immat Gran (auto) 0.04 (0.00-0.30) K/uL Imm/Tot Granulo (auto) 0.5 % Sodium 140 (135-149) mmol/L Potassium 3.8 (3.6-5.1) mmol/L Chloride 103 (96-114) mmol/L Carbon Dioxide 30 (20-32) mmol/L Anion Gap 7 (7-15) mEq/L BUN 17 (7-30) mg/dL Creatinine 0.6 (0.5-1.5) mg/dL Estimated Creat Clear 49.72 Estimated GFR 101 ml/min Glucose 109 (60-115) mg/dL Lactate 1.5 (0.5-1.9) mmol/L Calcium 9.7 (8.4-10.6) mg/dL Total Bilirubin 0.8 (0.1-1.5) mg/dL Direct Bilirubin 0.6 H (0.0-0.5) mg/dL AST 252 H (12-35) U/L ALT 102 H (4-35) U/L Alkaline Phosphatase 123 (40-150) U/L Total Protein 7.4 (6.0-8.3) g/dL Albumin 4.3 (3.3-5.0) g/dL Lipase 145 (23-300) U/L Discharge Plan Discharge Clinical Impression: Abdominal pain, RUQ, Abnormal LFTs Patient Disposition: Admitted As Observation Condition: Stable
--- OUTSIDE RECORDS SUMMARY | 2024-12-13 11:10 | XMS_ITS | Clinical Summary ---
Author Organization [facility] Address [address] [place] [address] Care Team Providers Care Blacksmith Apprentice Name Role Phone Koki De MD Primary Care Provider Allergies Active Allergy Reactions Criticality Noted Date Comments Citalopram Behavioral Disturbances 11/09/2020 Excessive eating but does tolerate Escitalopram Cephalosporins Diarrhea 05/18/2011 Lactase Other - Describe In Comment Field 11/09/2020 Asthma exacerbation Erythromycin GI Upset 05/18/2011 Gluten Other - Describe In Comment Field 11/09/2020 Asthma exacerbation - organic gluten products are ok Latex Rash 05/18/2011 Penicillins GI Upset 05/18/2011 Promethazine Anxiety 08/05/2012 Bupropion *Unknown 11/09/2020 Medications ibuprofen (ADVIL; MOTRIN) 200 mg tabletIndications: pain Take 400 mg by mouth every 6 hours if needed. Indications: PAIN Active acetaminophen (TYLENOL EXTRA STRGTH) 500 mg tablet Take 1,000 mg by mouth every 6 hours if needed. Max acetaminophen dose: 4000mg in 24 hrs. Active diclofenac topical (VOLTAREN) 1 % gel Apply topically to affected area(s) 4 times daily. 0 11/10/19 21 Active cholecalciferol (Vitamin D-3) 2,000 unit capsule Take 1 Capsule (2,000 units) by mouth once daily. 0 11/10/19 21 Active triamcinolone (ARISTOCORT; KENALOG) 0.1 % cream APPLY TO AFFECTED AREA(S) TWICE A DAY 04/17/20 22 Active fluorouracil 5% topical (EFUDEX) 5 % cream APPLY TOPICALLY TO AFFECTED AREA/ZONE ONCE WEEKLY DIRECTED 06/06/20 23 Active fexofenadine (HOWIE) 180 mg tabletIndications: Environmental allergies Take one tablet twice daily as needed for allergies. 200 Tablet 3 08/28/19 24 Active ciclopirox (CICLODAN) 8 % topical solution APPLY TO THE AFFECTED AREAS ON THE FEET AND TOES NIGHTLY FOR 4 MONTHS. 02/28/20 24 Active ondansetron (ZOFRAN ODT) [address] 4 mg on the tongue every 8 hours if needed for Nausea/Vomiting. 10/21/19 24 Active benzonatate (TESSALON) 200 mg capsule Take 200 mg by mouth 3 times daily if needed for Cough. 01/28/20 24 Active Phentermine HCl 30 mg capsuleIndications :Overweight TAKE 1 CAPSULE (30 MG) BY MOUTH ONCE DAILY BEFORE A MEAL. 30 Capsule 3 10/02/19 25 Active EPINEPHrine 0.3 mg/0.3 mL auto-injectorIndic ations:Hx of anaphylaxis Inject 0.3 mg (1 Pen) intramuscular each time if needed for Allergic Reaction. 2 Each 3 11/06/19 25 Active escitalopram oxalate 10 mg tabletIndications: Depression, major, in remission Take 1 Tablet (10 mg) by mouth once daily. 100 Tablet 3 11/06/19 25 Active estradioL 0.01% (0.1 mg/g) vaginal creamIndications:M enopausal symptoms Insert 1 g into the vagina once weekly. 42.5 g 2 11/06/19 25 Active omeprazole 20 mg Delayed-Release capsuleIndications :Chronic GERD Take 1 Capsule (20 mg) by mouth once daily before a meal. 100 Capsule 3 11/06/19 25 Active traZODone 50 mg tabletIndications: Sleep disturbance Take 0.5-1 Tablets (25-50 mg) by mouth at bedtime. 100 Tablet 3 11/06/19 25 Active Ventolin HFA 90 mcg/actuation inhalerIndications :Moderate persistent asthma without complication (HC) Inhale 1-2 Puffs by mouth every 4 hours if needed for Shortness Of Breath. 18 g 3 11/06/19 Active finasteride 5 mg tablet Take 1 Tablet (5 mg) by mouth once daily. 11/06/19 Active budesonide-formote roL 160-4.5 mcg/actuation (160-4.5 mcg each actuation) inhalerIndications :Moderate persistent asthma without complication (HC) Inhale 2 Puffs by mouth two times daily. 10.2 g 11 11/06/19 Active Active Problems Problem Noted Date Diagnosed Date Hx of anaphylaxis 05/09/2022 Menopausal symptoms 05/09/2022 Overweight 05/09/2022 Overview (07/24/2022): Using phentermine off label for weight maintenance(infomred consent given). Uses as needed. Environmental allergies 11/10/2020 Asthma, moderate persistent 11/09/2020 Osteopenia 11/09/2020 LAUREANO (obstructive sleep apnea) 11/09/2020 Depression, major, in remission 11/09/2020 Overview (06/15/2021): Psychologist: Zandra Sanches Chronic GERD 11/09/2020 Encounters Date Type Department Care Team Description 12/08/2024 Lab Requisition [facility] [phone] Kristina Carnes MD 12/07/2024 Orders Only [facility] Scanner 1 scan: (1-Ord) [facility], XR CHEST 1V PORTABLE, 12/07/2024 12/07/2024 Orders Only [facility] Scanner 1 scan: (1-Ord) [place], LAPAROSCOPIC CHOLECYSTECTOMY, 12/07/2024 12/04/2024 Orders Only [facility] Scanner 1 scan: (1-Ord) [facility], MULTIPLE LAB RESULTS, 12/04/2024 12/04/2024 Orders Only [facility] Scanner 1 scan: (1-Ord) [facility], US ABDOMEN LIMITED, 12/04/2024 11/05/2024 10:00 AM CDT Office Visit [facility] [address] [place] [address] Koki De MD Medication Management (phentermine); Immunization/Injectio n 11/05/2024 Travel 10/02/2024 Refill [facility] [address] [place] [address] Koki De MD Refill Request (Phentermine Hcl) from Last 3 Months Immunizations Immunization Administration Dates Next Due COVID-19 VACCINE SPIKEVAX (M ODERNA 50MCG/0.5ML) 12YO+ PFS 05/20/2024 COVID-19 vaccine (Moderna 100mcg/0.5mL) PF, MDV 09/06/2020,08/11/2020 COVID-19 vaccine (Moderna 50 mcg/0.5mL) 12YO+ BIVALENT PF, MDV 07/10/2022 Hepatitis A (Adult) 10/17/2016,09/22/2015 Hepatitis B, Unspecified 08/12/2002,08/12/1989,0 08/12/1988 INFLUENZA, IIV3 PF (AGE >= 6 MO) 05/20/2024 Influenza A (H1N1), Inactivated 06/16/2009 Influenza, IIV3 (Age >=3 years) 07/04/2010 Influenza, IIV4 05/14/2023,,06/15/2021,05/17,05/27/2019,05/14/2018 MMR 08/12/1991 Measles 08/12/1978 Mumps 08/12/1971,08/12/1962 Pneumococcal Conj 20-valent (Prevnar 20) 11/05/2024 Pneumococcal Poly,23-Valent (Pneumovax) 11/29/2003 Pneumococcal conj 13-Valent (Prevnar 13) 09/22/2015 Polio Virus, Unspecified 08/12/1973 RSV, Recombinant ADJ Reconst ituted (Arexvy 120MCG/0.5mL) 03/11/2024 Smallpox (Vaccinia) Live [id number] 08/12/1968 Td (Age >=7 Years) 08/12/2001,08/12/1991, 982 Tdap 03/06/2024,08/28/2023,06/02/2013 Zoster (Shingrix-RZV, recombinant) 01/10/2021, Family History Medical History Relation Name Comments Cancer-prostate Brother Alcoholism Father Atrial fibrillation Father Melanoma Father Scalp, metastas ized Obesity Father Anxiety disorder Mother Hypertension Mother Osteoporosis Mother Diabetes Son 1 Obesity Son 1 Relation Name Status Comments Brother Father Alive Mother Alive Son 1 Alive Son 2 Alive Social History Tobacco Use Types Packs/Day Years Used Date Smoking Tobacco: Never Smokeless Tobacco: Never Tobacco Cessation:Counseling Given: Yes Alcohol Use Standard Drinks/Week Comments Yes 0 (1 standard drink = 0.6 oz pur e alcohol) once monthly PHQ-2 Answer Date Recorded PHQ-2 TOTAL SCORE 0 11/05/2024 Social Connections Answer Date Recorded Do you often feel lonely or isolated from those around you? 0 05/15/2024 Financial Resource Strain Answer Date R ecorded Difficulty of Paying Living Expenses 3 05/15/2024 Difficulty of Paying Living Expenses Not on file 05/15/2024 Food Insecurity Answer Date Recorded Do you worry your food will run out before you are able to buy more? 1 05/15/2024 Transportation Needs Answer Date Record ed Does lack of transportation keep you from medica l appointments? 1 05/15/2024 Does lack of transportation keep you from work, meetings or getting things that you need? 1 05/15/2024 Housing Stability Answer Date Recorded What is your housing situation today? 1 05/15/2024 Utilities Answer Date Recorded Do you have trouble paying f or utilities (for example, heat, electricity, water, phone)? 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 Not on file Not on file Obstetrics History Last Filed Vital Signs Vital Sign Reading Time Taken Comments Blood Pressure 133/89 11/05/2024 10:03 AM CDT Pulse 76 11/05/2024 10:03 AM CDT Temperature 36.8 C (98.2 F) 08/05/2012 7:33 AM TURBO GENERATOR OILER Respiratory Rate 24 08/05/2012 7:33 AM TURBO GENERATOR OILER Oxygen Saturation 100% 11/05/2024 10:03 AM CDT Inhaled Oxygen Concentration - - Weight 78.5 kg (173 lb) 11/05/2024 10:03 AM CDT Height 163.8 cm (5' 4.5) 11/05/2024 10:03 AM CD T Body Mass Index 29.24 11/05/2024 10:03 AM CDT Plan of Treatment Upcoming Encounters Date Type Department Care Team (Late st Contact Info) Description 12/22/2024 1:45 PM CDT Office Visit [facility] [address] [place] [address] Kristina Carnes MD [address] [place] [address] 01/27/2025 4:00 PM CDT Office Visit [facility] [address] [place] [address] Koki De MD [address] [place] [address] Health Maintenance Due Date Last Done Comments HIV for age 15-65 1976 Hepatitis C screening for ag e 18-79 1979 Mammogram for age 45-75 05/06/2025 05/06/20 24, 11/21/2022, 11/15/2022, Additional history exists Fecal testing sDNA-FIT ([place] guard) for age 45-75 06/13/2025 06/13/2022 BMI (ht and wt on same day) for age 18+ 11/05/2025 11/05/2024, 08/28/2023, 01/03/2023, Additional history exists Depression screening for age 12+ 11/05/2025 11/05/2024, 05/20/2024, 01/03/2023, Additional history exists Lipids for age 45-75 09/16/2028 09/16/2023, 12/22/19 21 Tetanus booster 03/06/2034 03/06/2024, 08/12, 06/02/2013, Additional history exists Zoster (shingles) series for age 50+ Completed 01/10/2021, 11/09/2020 Tdap Completed 03/06/2024, 08/12, 06/02/2013 RSV vaccine for adults or Completed 03/11/2024 COVID-19 vaccine series Completed 05/20/20 24, 06/26/2023, 07/10/2022, Additional history exists Influenza Vaccine Completed 05/20/2024, , 06/18/2022, Additional history exists Pneumococcal series for age 50+ Completed 11/05/2024, 09/22/2015, 11/29/2003 Medical Devices Implanted Type Area Pulverizer Operator Device Identifier Shelf Expiration Date Model / Serial / Lot Mesh Hernia Inguinal Rt - [id number] Implanted:Qty: 1 on 05/24/[address] [facility] Right: Inguinal 09/12/2015 [id number] # / / [id number] Procedures Procedure Name Priority Date/Time Associated Diagnosis Comments LAB TRACKING EVENT Routine 12/07/2024 12 :00 PM CDT PATH TISSUE EXAM Routine 12/07/2024 12:0 0 PM CDT SCAN-RADIOLOGY REPORT 12/07/2024 12:00 AM CDT SCAN-OPERATIVE/PROC EDURE REPORT 12/07/2024 12:00 AM CDT SCAN-LABORATORY REPORT 12/04/2024 12:00 AM CDT SCAN-ULTRASOUND REPORT 12/04/2024 12:00 AM CDT SCAN-MAMMOGRAPHY REPORT 05/06/2024 12:00 AM CDT LIPID PANEL W REFLEX MEASURED LDL Routine 09/16/2023 7:43 AM TURBO GENERATOR OILER Lipid screening SDNA-FIT EXTERNAL (COLOGUARD) Routine 06/13/2022 10:15 AM CDT Screening for colon cancer from Last 3 Months or Most Recently Relevant to Health Maintenance Results * LAB TRACKING EVENT (12/07/2024 12:00 PM CDT) Other (Other) Client Collect / Unknown 12/07/2024 12:00 PM CDT 12/08/2024 6:37 AM CDT us Kristina Carnes MD LAB BILL ONLY Final Re sult [facility] [address] [place] [address], * PATH TISSUE EXAM (12/07/2024 12:00 PM CDT) Case Report Pathology Report Case: [id number] Authorizing Provider: Kristina Carnes MD Collected: 12/07/2024 1200 Ordering Location: [facility] Received: 12/08/2024 1413 Pathologist: Giovanny Alexander IV, MD Specimen: Gallbladder 12/10/2024 2:53 PM CDT [facility] Final Diagnosis A) GALLBLADDER, CHOLECYSTECTOMY: 1. Chronic cholecystitis 2. Cholelithiasis 3. Negative for dysplasia and malignancy 12/10/2024 2:[address] [facility] at 1453 CDT Clinical Information Ms. Steel is a 64 y.o. who undergoes cholecystectomy. 12/10/2024 2:53 PM CDT [facility] Gross Description A) Received in formalin, labeled with the patient's name and gallbladder, is a 9.8 x 4.5 x 1.3 cm disrupted gallbladder. There are multiple yellow gallstones identified. There is fine yellow stippling in the mucosa; no other lesions are identified. The average wall thickness is 0.2 cm. There is no abnormal wall thickening identified. No cystic duct lymph node is identified. Insulation Cupola Operator sections are submitted in one cassette. EVM 12/08/2024 12/10/2024 2:53 PM CDT [facility] Microscopic Description The final diagnosis is based on microscopic examination of appropriate sections of all specimens. 12/10/2024 2:53 PM CDT [facility] Additional Information Interpreted at [facility] - [address], [place] [address] 12/10/2024 2:[address] [facility] Other SPECIMEN FROM GALLBLADDER / Unknown 12/07/2024 12:00 PM CDT 12/08/2024 2:13 PM CDT us Kristina Carnes MD PATHOLOGY/CYTOLOGY Final Result [facility] [address] [place] [address], [place] * SCAN-RADIOLOGY REPORT (12/07/2024 12:00 AM CDT) Anatomical Region Laterality Modality Other us Scanner OTHER Final Result * SCAN-OPERATIVE/PROCEDURE REPORT (12/07/2024 12:00 AM CDT) us Scanner OTHER Final Result * SCAN-LABORATORY REPORT (12/04/2024 12:00 AM CDT) us Scanner OTHER Final Result * SCAN-ULTRASOUND REPORT (12/04/2024 12:00 AM CDT) Anatomical Region Laterality Modality Other us Scanner OTHER Final Result * SCAN-MAMMOGRAPHY REPORT (05/06/2024 12:00 AM CDT) Anatomical Region Laterality Modality Other us Scanner OTHER Final Result * LIPID PANEL W REFLEX MEASURED LDL (09/16/2023 7:43 AM TURBO GENERATOR OILER) CHOLESTEROL,TOTAL 198 100 - 199 mg/dL 09/16/2023 4:22 PM TURBO GENERATOR OILER [facility] Comment: Cholesterol, Total Reference Ranges Desirable <200 mg/dL Borderline 200-239 mg/dL High >=240 mg/dL TRIGLYCERIDES 88 <150 mg/dL 09/16/2023 4:22 PM TURBO GENERATOR OILER [facility] HDL CHOLESTEROL 62 >40 mg/dL 4:22 PM TURBO GENERATOR OILER [facility] NON-HDL CHOLESTEROL 136 <145 mg/dl 09/16/2023 4:22 PM TURBO GENERATOR OILER [facility] CHOL/HDL RATIO 3.19 <4.50 09/16/2023 4:22 PM TURBO GENERATOR OILER [facility] LDL CHOLESTEROL 118 <=130 mg/dL 09/16/2023 4:22 PM TURBO GENERATOR OILER [facility] VLDL CHOLESTEROL 18 <=30 mg/dL 09/16/2023 4:22 PM TURBO GENERATOR OILER [facility] PROVIDER ORDERED STATUS RANDOM 09/16/2023 4:22 PM TURBO GENERATOR OILER [facility] Blood BLOOD SPECIMEN / Unknown Venipuncture / Unknown 09/16/2023 7:43 AM TURBO GENERATOR OILER 09/16/2023 7:45 AM TURBO GENERATOR OILER us Koki eD MD CHEMISTRY Final Resul t [facility] [address] [place] [address], * sDNA-FIT External (Cologuard) [[id number]] (06/13/2022 10:15 AM CDT) NONINV COLON CA DNA+OCC BLD SCRN STL-IMP Negative Negative 06/21/2022 4:46 AM TURBO GENERATOR OILER [employer] (CLIA #:[id number]) Comment: NEGATIVE TEST RESULT. A negative Cologuard result indicates a low likelihood that a colorectal cancer (CRC) or advanced adenoma (adenomatous polyps with more advanced pre-malignant features) is present. The chance that a person with a negative Cologuard test has a colorectal cancer is less than 1 in 1500 (negative predictive value >99.9%) or has an advanced adenoma is less than 5.3% (negative predictive value 94.7%). These data are based on a prospective cross-sectional study of 10,000 individuals at average risk for colorectal cancer who were screened with both Cologuard and colonoscopy. (Deacon Klein al, N Engl J Med 2014;370(14):6977-9304) The normal value (reference range) for this assay is negative. COLOGUARD RE-SCREENING RECOMMENDATION: Periodic colorectal cancer screening is an important part of preventive healthcare for asymptomatic individuals at average risk for colorectal cancer. Following a negative Cologuard result, the [place] [employer] and U.S. Multi-Society Task Force screening guidelines recommend a Cologuard re-screening interval of 3 years. References: [place] [employer] Guideline for Colorectal Cancer Screening: https://www.cancer.org/cancer/kfyns-exsvfz-xpctiq/rxpqofvyh-lrtkietbf-aqshywo/ac s-rec ommendations.html.; Diogo DK, Gray CR, Eliot OneillK, Colorectal Cancer Screening: Recommendations for Physicians and Patients from the U.S. Multi-Society Task Force on Colorectal Cancer Screening , Am J Gastroenterology 2017; 112:4196-5560. TEST DESCRIPTION: Composite algorithmic analysis of stool DNA-biomarkers with hemoglobin immunoassay. Quantitative values of individual biomarkers are not reportable and are not associated with individual biomarker result reference ranges. Cologuard is intended for colorectal cancer screening of adults of either sex, 45 years or older, who are at average-risk for colorectal cancer (CRC). Cologuard has been approved for use by the U.S. FDA. The performance of Cologuard was established in a cross sectional study of average-risk adults aged 50-84. Cologuard performance in patients ages 45 to 49 years was estimated by sub-group analysis of near-age groups. Colonoscopies performed for a positive result may find as the most clinically significant lesion: colorectal cancer [4.0%], advanced adenoma (including sessile serrated polyps greater than or equal to 1cm diameter) [20%] or non- advanced adenoma [31%]; or no colorectal neoplasia [45%]. These estimates are derived from a prospective cross-sectional screening study of 10,000 individuals at average risk for colorectal cancer who were screened with both Cologuard and colonoscopy. (Deacon Klein al, N Engl J Med 2014;370(14):6605-8985.) Cologuard may produce a false negative or false positive result (no colorectal cancer or precancerous polyp present at colonoscopy follow up). A negative Cologuard test result does not guarantee the absence of CRC or advanced adenoma (pre-cancer). The current Cologuard screening interval is every 3 years. ([place] [employer] and U.S. Multi-Society Task Force). Cologuard performance data in a 10,000 patient pivotal study using colonoscopy as the reference method can be accessed at the following location: [email or web address]/results. Additional description of the Cologuard test process, warnings and precautions can be found at www.colUbimord.com. Stool specimen (specimen) (Rectum) 06/13/2022 10:15 AM CDT 06/14/2022 5:14 PM CDT Caryl Huang MD URINE Final Result [employer] (CLIA #:[id number]) [address] [place] [address], from Last 3 Months or Most Recently Relevant to Health Maintenance Insurance [facility] Advance Directives * Full Code (Latest Code Status on File) Date Activated Date Inactivated Comments 05/24/2011 9:05 AM 05/24/2011 7:25 PM Care Teams Blacksmith Apprentice Relationship Specialty Start Date End Date Koki De MD [address] [place] [address] PCP - General Family Practice 12/18/22
--- NOTE | 2024-12-13 11:24 | CRLHL7_ITS ---
For Patients: As a result of the Century Cures Act, medical imaging exams and procedure reports are released immediately into your electronic medical record. You may view this report before your referring provider. If you have questions, please contact your health care provider. INDICATION: Right upper quadrant pain TECHNIQUE: CT abdomen and pelvis acquired with 85 mL Isovue 370 IV contrast. COMPARISON: Right upper quadrant ultrasound 12/04/2024 FINDINGS: The visualized portions of the lung bases are clear. Lobulated hypoechoic area within the right hepatic lobe measuring up to 5 cm, corresponds to the hyperechoic area seen on the ultrasound and most likely hemangioma. No intrahepatic biliary dilatation. The gallbladder is surgically absent. No unexpected abnormality in the surgical bed. The spleen, pancreas and adrenal glands are unremarkable. The kidneys enhance symmetrically without hydronephrosis. There is a 1.4 x 0.7 cm stone within the lower pole of the right kidney. Negative for left nephrolithiasis. The bladder is partially distended and unremarkable. There are no dilated loops of small bowel to suggest obstruction.The appendix is normal.There is no intraperitoneal free air or fluid. The visualized osseous structures are unremarkable. IMPRESSION: 1. Postsurgical changes of cholecystectomy. 2. Nonobstructing right renal calculi measuring 1.4 x 0.7 cm. Negative for hydronephrosis bilaterally. Dictated by Mabel Parikh MD @ 12/13/2024 1:17:05 PM Please note that all CT scans at this facility use dose modulation, iterative reconstruction, and/or weight-based dosing when appropriate to reduce radiation dose to as low as reasonably achievable. Dictated by: Mabel Parikh MD @ 12/13/2024 13:17:31 (Electronically Signed)
[2024-12-13] MEDS: HYDROmorphone 0.5 mg/0.5 ml inj IVP ×2 (11:53→14:42)
[2024-12-13] MEDS: ONDANSETRON 2 MG/ML inj 4 MG IVP (11:53)
[2024-12-13] MEDS: 0.9 % SODIUM CHLORIDE 500 ML 500 ML IV (11:54)
[2024-12-13 12:03] LABS: Lactate* 1.5 mmol/L (0.5-1.9)
[2024-12-13 12:04] LABS: Basophils Absolute Auto 0.04 K/uL (0.00-0.30); Basophils Percent Auto 0.5 % (0.0-3.0); Eosinophils Absolute Auto 0.19 K/uL (0.00-0.50); Eosinophils Percent Auto 2.3 % (0.0-7.0); Hematocrit 41.2 % (33.0-51.0); Hemoglobin* 13.3 gm/dL (12.0-16.0); Immature Granulocytes Abs Auto 0.04 K/uL (0.00-0.30); Immature Granulocytes Pct Auto 0.5 %; Lymphocytes Percent Auto 14.8 % (20-44); Mean Corpuscular HGB Conc 32 gm/dL (32-36); Mean Corpuscular Hemoglobin 29 pg (26-34); Mean Corpuscular Volume 89 fL (80-100); Monocytes Percent Auto 10.1 % (0.0-11.0); Neutrophils Absolute Auto 5.84 K/uL (1.7-7.0); Neutrophils Percent Auto 71.8 % (42.0-72.0); Platelet Count* 389 K/uL (140-440); Red Blood Count 4.61 m/uL (4.00-5.20); White Blood Count* 8.13 K/uL (4.50-11.00)
--- OUTSIDE RECORDS SUMMARY | 2024-12-13 12:05 | XMS_ITS | Clinical Summary ---
Author Organization [facility] Address [address] [place] [id number] Care Team Providers Care Neurology Technician Name Role Phone Koki De MD Primary Care Provider [phone] Allergies Active Allergy Reactions Criticality Noted Date [...] Department Care Team Description 12/08/2024 Lab Requisition [facility] [phone] Kristina Carnes MD 12/07/2024 Orders Only [facility] Scanner 1 scan: (1-Ord) [facility], XR CHEST 1V PORTABLE, 12/07/2024 12/07/2024 Orders Only [facility] Scanner 1 scan: (1-Ord) [place], LAPAROSCOPIC CHOLECYSTECTOMY, 12/07/2024 12/04/2024 Orders Only [facility] Scanner 1 scan: (1-Ord) [facility], MULTIPLE LAB RESULTS, 12/04/2024 12/04/2024 Orders Only [facility] Scanner 1 scan: (1-Ord) [facility], US ABDOMEN LIMITED, 12/04/2024 11/05/2024 10:00 AM CDT Office Visit [facility] [address] [place] [address] Koki De MD Medication Management (phentermine); Immunization/Injectio n 11/05/2024 Travel 10/02/2024 Refill [facility] [address] [place] [address] Koki De MD Refill Request (Phentermine Hcl) [...] ituted (Arexvy 120MCG/0.5mL) 03/11/2024 Smallpox (Vaccinia) Live [id number] 08[birth year]/1968 Td (Age >=7 Years) 08/12/2001,08/12/1991, 982 [...] on file Legal Sex Female 6:07 AM CAMPAIGN ANALYST Gender Identity Not on file Sexual Orientation Not on file 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 Not on file Not on file Obstetrics History Last Filed Vital Signs Vital Sign Reading Time Taken Comments Blood Pressure 133/89 11/05/2024 10:03 AM CDT Pulse 76 11/05/2024 10:03 AM CDT Temperature 36.8 C (98.2 F) 08/05/2012 7:33 AM CAMPAIGN ANALYST Respiratory Rate 24 08/05/2012 7:33 AM CAMPAIGN ANALYST Oxygen Saturation 100% 11/05/2024 10:03 AM CDT Inhaled Oxygen Concentration - - Weight 78.5 kg (173 lb) 11/05/2024 10:03 AM CDT Height 163.8 cm (5' 4.5) 11/05/2024 10:03 AM CD T Body Mass Index 29.24 11/05/2024 10:03 AM CDT Plan of Treatment Upcoming Encounters Date Type Department Care Team (Late st Contact Info) Description 12/22/2024 1:45 PM CDT Office Visit [facility] [address] [place] [address] Kristina Carnes MD [address] [place] [address] 01/27/2025 4:00 PM CDT Office Visit [facility] [address] [place] [address] Koki De MD [address] [place] [address] Health Maintenance Due Date Last Done Comments HIV for age 15-65 1976 Hepatitis C screening for ag e 18-79 1979 Mammogram for age 45-75 05/06/2025 05/06/20 24, 11/21/2022, 11/15/2022, Additional history exists Fecal testing sDNA-FIT ([place] guard) for age 45-75 06/13/2025 06/13/2022 BMI [...] 09/22/2015, 11/29/2003 Medical Devices Implanted Type Area Computer Forensic Examiner Device Identifier Shelf Expiration Date Model / Serial / Lot Mesh Hernia Inguinal Rt - [id number] Implanted:Qty: 1 on 05/24/2011 at [facility] Right: Inguinal 09/12/2015 [id number] / / [id number] Procedures Procedure Name Priority Date/Time Associated Diagnosis [...] REFLEX MEASURED LDL Routine 09/16/2023 7:43 AM CAMPAIGN ANALYST Lipid screening SDNA-FIT EXTERNAL (COLOGUARD) Routine 06/13/2022 10:15 AM CDT Screening for colon cancer from Last 3 Months or Most Recently Relevant to Health Maintenance Results * LAB TRACKING EVENT (12/07/2024 12:00 PM CDT) Other (Other) Client Collect / Unknown 12/07/2024 12:00 PM CDT 12/08/2024 6:37 AM CDT us Kristina Carnes MD LAB BILL ONLY Final Re sult [facility] [address] [place] [address], * PATH TISSUE EXAM (12/07/2024 12:00 PM CDT) Case Report Pathology Report Case: [id number] Authorizing Provider: Kristina Carnes MD Collected: 12/07/2024 1200 Ordering Location: [facility] Received: 12/08/2024 1413 Pathologist: Giovanny Alexander IV, MD Specimen: Gallbladder 12/10/2024 2:53 PM CDT [facility] Final Diagnosis A) GALLBLADDER, CHOLECYSTECTOMY: 1. Chronic cholecystitis 2. Cholelithiasis 3. Negative for dysplasia and malignancy 12/10/2024 2:[address] [facility] at 1453 CDT Clinical Information Ms. Steel is a 64 y.o. who undergoes cholecystectomy. 12/10/2024 2:53 PM CDT [facility] Gross Description A) [...] No cystic duct lymph node is identified. Health Program Manager sections are submitted in one cassette. EVM 12/08/2024 12/10/2024 2:53 PM CDT [facility] Microscopic Description The final diagnosis is based on microscopic examination of appropriate sections of all specimens. 12/10/2024 2:53 PM CDT [facility] Additional Information Interpreted at [facility] - [address], [place] [address] 12/10/2024 2:[address] [facility] Other SPECIMEN FROM GALLBLADDER / Unknown 12/07/2024 12:00 PM CDT 12/08/2024 2:13 PM CDT us Kristina Carnes MD PATHOLOGY/CYTOLOGY Final Result [facility] [address] [place] [address], [place] * SCAN-RADIOLOGY REPORT (12/07/2024 12:00 AM [...] W REFLEX MEASURED LDL (09/16/2023 7:43 AM CAMPAIGN ANALYST) CHOLESTEROL,TOTAL 198 100 - 199 mg/dL 09/16/2023 4:22 PM CAMPAIGN ANALYST [facility] Comment: Cholesterol, Total Reference Ranges Desirable <200 mg/dL Borderline 200-239 mg/dL High >=240 mg/dL TRIGLYCERIDES 88 <150 mg/dL 09/16/2023 4:22 PM CAMPAIGN ANALYST [facility] HDL CHOLESTEROL 62 >40 mg/dL 4:22 PM CAMPAIGN ANALYST [facility] NON-HDL CHOLESTEROL 136 <145 mg/dl 09/16/2023 4:22 PM CAMPAIGN ANALYST [facility] CHOL/HDL RATIO 3.19 <4.50 09/16/2023 4:22 PM CAMPAIGN ANALYST [facility] LDL CHOLESTEROL 118 <=130 mg/dL 09/16/2023 4:22 PM CAMPAIGN ANALYST [facility] VLDL CHOLESTEROL 18 <=30 mg/dL 09/16/2023 4:22 PM CAMPAIGN ANALYST [facility] PROVIDER ORDERED STATUS RANDOM 09/16/2023 4:22 PM CAMPAIGN ANALYST [facility] Blood BLOOD SPECIMEN / Unknown Venipuncture / Unknown 09/16/2023 7:43 AM CAMPAIGN ANALYST 09/16/2023 7:45 AM CAMPAIGN ANALYST us Koki De MD CHEMISTRY Final Resul t [facility] [address] [place] [address], * sDNA-FIT External (Cologuard) [[id number]] (06/13/2022 10:15 AM CDT) NONINV COLON CA DNA+OCC BLD SCRN STL-IMP Negative Negative 06/21/2022 4:46 AM CAMPAIGN ANALYST [facility] (CLIA #:[id number]) Comment: NEGATIVE TEST RESULT. A negative Cologuard [...] (Deacon Klein al, N Engl J Med 2014;370(14):3462-5272) The normal value (reference range) for this assay is negative. COLOGUARD RE-SCREENING RECOMMENDATION: Periodic colorectal cancer screening is an important part of preventive healthcare for asymptomatic individuals at average risk for colorectal cancer. Following a negative Cologuard result, the [place] Cancer Society and U.S. Multi-Society Task Force screening guidelines recommend a Cologuard re-screening interval of 3 years. References: [place] Cancer Society Guideline for Colorectal Cancer Screening: https://www.cancer.org/cancer/dewgr-ogkpxd-vucors/tzqgkjwwk-drzluvizu-hhzipzu/ac s-rec ommendations.html.; Diogo DK, Gray CR, Eliot OneillK, Colorectal Cancer Screening: Recommendations for Physicians and Patients from the U.S. Multi-Society Task Force on Colorectal Cancer Screening , Am J Gastroenterology 2017; 112:3084-2049. TEST DESCRIPTION: Composite algorithmic analysis of stool [...] (Deacon Klein al, N Engl J Med 2014;370(14):2229-6980.) Cologuard may produce a false negative or false positive result (no colorectal cancer or precancerous polyp present at colonoscopy follow up). A negative Cologuard test result does not guarantee the absence of CRC or advanced adenoma (pre-cancer). The current Cologuard screening interval is every 3 years. ([place] Cancer Society and U.S. Multi-Society Task Force). Cologuard performance data in a 10,000 patient pivotal study using colonoscopy as the reference method can be accessed at the following location: www.Pivotshare.LOAG/results. Additional description of the Cologuard test process, warnings and precautions can be found at www.colOrtho-tagrd.com. Stool specimen (specimen) (Rectum) 06/13/2022 10:15 AM CDT 06/14/2022 5:14 PM CDT Caryl Huang MD URINE Final Result [facility] (CLIA #:[id number]) [address] [place] [address], from Last 3 Months or Most Recently Relevant to Health Maintenance Insurance [facility] Advance Directives * Full Code (Latest Code Status on File) Date Activated Date Inactivated Comments 05/24/2011 9:05 AM 05/24/2011 7:25 PM Care Teams Neurology Technician Relationship Specialty Start Date End Date Koki De MD [address] [place] [address] PCP - General Family Practice 12/18/22
[2024-12-13 12:06] LABS: Slide Review Reflex No
[2024-12-13 12:24] LABS: Albumin* 4.3 g/dL (3.3-5.0); Chloride* 103 mmol/L (96-114); Potassium* 3.8 mmol/L (3.6-5.1); Sodium* 140 mmol/L (135-149)
[2024-12-13 12:26] LABS: Alanine Aminotransferase* 102 U/L (4-35); Anion Gap 7 mEq/L (7-15); Aspartate Amino Transferase* 252 U/L (12-35); Blood Urea Nitrogen* 17 mg/dL (7-30); Carbon Dioxide* 30 mmol/L (20-32); Creatinine* 0.6 mg/dL (0.5-1.5); Est. Creatinine Clearance* 49.72; Estimated Glomerular Filt Rate 101 ml/min
[2024-12-13 12:27] LABS: Alkaline Phosphatase* 123 U/L (40-150); Bilirubin Total* 0.8 mg/dL (0.1-1.5); Calcium* 9.7 mg/dL (8.4-10.6); Glucose* 109 mg/dL (60-115); Lipase* 145 U/L (23-300); Total Protein* 7.4 g/dL (6.0-8.3)
[2024-12-13 14:08] LABS: Bilirubin Direct* 0.6 mg/dL (0.0-0.5)
--- NOTE | 2024-12-13 16:33 | P.IMHP_ITS ---
Assessment and Plan Assessment and plan (1) Abdominal pain, RUQ: Problem comment: -status post laparoscopic cholecystectomy 6 days ago here at [facility]. We will need to rule out the possibility of a retained CBD stone. -Liver enzymes showed an unchanged elevated ALT level of about 100, but AST increased from 139 to 252 in a week. Mildly elevated direct bilirubin at 0.6. - CT abdomen showed Postsurgical changes of cholecystectomy. and a Nonobstructing right renal calculi measuring 1.4 x 0.7 cm. Negative for hydronephrosis bilaterally. -ED doctor contacted our on-call general surgeon Dr. Spence who accepted the patient . -Keep NPO. -pain management, antiemetics p.r.n. -Ordered MRCP. Status: Acute Assessment and Plan: -As above (2) Abnormal LFTs: Problem comment: As above Will trend LFTs Status: Acute (3) Status post laparoscopic cholecystectomy: Problem comment: 12/07/2024, Dr. Carnes. Status: Acute (4) LAUREANO (obstructive sleep apnea): Problem comment: -History of sleep apnea treated with an oral appliance which caused TMJ problems and no longer fit so she no longer uses it. -patient will need to revisit sleep apnea evaluation and treatment Status: Acute (5) Chronic hepatitis: Problem comment: Based on ultrasound from November 2024. Suspect hepatic steatosis. Outpatient follow-up for liver disease workup discussed with the patient and patient is in agreement and states that she will follow-up with her PCP. Status: Acute (6) Asthma: Problem comment: Patient uses inhalers. She states that the last time she needed p.o. steroids was more than a year and that she did not need any admissions for asthma exacerbations after her childhood. Status: Acute (7) GERD (gastroesophageal reflux disease): Problem comment: On omeprazole Status: Acute (8) Depression: Problem comment: On Lexapro Status: Acute Total Time Spent Total Time Spent: Time spent: Today I spent 75 minutes seeing the patient, discussing the patient with ER staff, reviewing Expanse and EPIC notes/diagnostics, discussing the care plan with our care time that includes social work, PT/OT, pharmacy, RT, intermediate and documenting my impressions and plan in the medical record. 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 Patient was doing well after surgery until this morning when she coughed and sneezed and she said after that she had developed a sudden severe right upper quadrant pain. She added that she filled it is just like the pain that she used to have prior to removing her gallbladder. She denies fevers but states that she has nausea. Last bowel movement was yesterday. At the ED, patient was hemodynamically stable. no leukocytosis. Her liver enzymes showed an unchanged elevated ALT level of about 100, but AST increased from 139 to 252 in a week. Mildly elevated direct bilirubin at 0.6. With a normal lipase level. CT abdomen showed Postsurgical changes of cholecystectomy. and a Nonobstructing right renal calculi measuring 1.4 x 0.7 cm. Negative for hydronephrosis bilaterally. ED doctor contacted our on-call general surgeon Dr. Spence who accepted the patient and asked for MRCP. Patient was admitted for further evaluation and treatment. Review of Systems Status of ROS: Reports: 6 or more systems reviewed and unremarkable except as noted in History and below [facility] Medical History (Updated 12/13/24 @ 18:47 by Vero Aguilar MD) Biliary colic ?K80.50 - Calculus of bile duct without cholangitis or cholecystitis without obstruction (ICD-10) Chronic hepatitis ?K73.9 - Chronic hepatitis, unspecified (ICD-10) Sciatica ?M54.30 - Sciatica, unspecified side (ICD-10) Sleep apnea ?G47.30 - Sleep apnea, unspecified (ICD-10) Hair thinning ?L65.9 - Nonscarring hair loss, unspecified (ICD-10) Tear of medial meniscus of right knee ?S83.241A - Other tear of medial meniscus, current injury, right knee, initial encounter (ICD-10) Osteoarthritis of left knee ?M17.12 - Unilateral primary osteoarthritis, left knee (ICD-10) Osteoarthritis of right knee ?M17.11 - Unilateral primary osteoarthritis, right knee (ICD-10) Eczema ?L30.9 - Dermatitis, unspecified (ICD-10) Binge eating ?R63.2 - Polyphagia (ICD-10) Irritable bowel syndrome ?K58.9 - Irritable bowel syndrome without diarrhea (ICD-10) Actinic keratosis ?L57.0 - Actinic keratosis (ICD-10) Left carpal tunnel syndrome ?G56.02 - Carpal tunnel syndrome, left upper limb (ICD-10) GERD (gastroesophageal reflux disease) ?K21.9 - Gastro-esophageal reflux disease without esophagitis (ICD-10) On postmenopausal hormone replacement therapy ?Z79.890 - Hormone replacement therapy (ICD-10) Migraine headache ?G43.909 - Migraine, unspecified, not intractable, without status migrainosus (ICD-10) Environmental and seasonal allergies ?J30.89 - Other allergic rhinitis (ICD-10) Difficulty sleeping ?G47.9 - Sleep disorder, unspecified (ICD-10) Depression ?F32.A - Depression, unspecified (ICD-10) Asthma ?J45.909 - Unspecified asthma, uncomplicated (ICD-10) 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 - Guillain-[place] syndrome (ICD-10) LAUREANO (obstructive sleep apnea) ?G47.33 - Obstructive sleep apnea (adult) (pediatric) (ICD-10) Recurrent subluxation of left temporomandibular joint ?M24.49 - Recurrent dislocation, other specified joint (ICD-10) Surgical History (Updated 12/13/24 @ 18:35 by Vero Aguilar MD) Status post laparoscopic cholecystectomy ?Z90.49 - Acquired absence of other specified parts of digestive tract (ICD- 10) H/O gastrostomy ?Z98.890 - Other specified postprocedural states (ICD-10) H/O tracheostomy ?Z98.890 - Other specified postprocedural states (ICD-10) H/O hernia repair ?Z98.890 - Other specified postprocedural states (ICD-10) ?Z87.19 - Personal history of other diseases of the digestive system (ICD-10) History of vaginal hysterectomy ?Z90.710 - Acquired absence of both cervix and uterus (ICD-10) Family History Mother High blood pressure Osteoarthritis Osteoporosis Father Atrial fibrillation Melanoma Renal cell carcinoma Cancer Family history of alcohol abuse Heart disease Paternal Grandmother Stroke Atrial fibrillation Diabetes Son Diabetes Brother FHx: cancer of prostate Other Alcohol dependence Drug dependence Family history of psychiatric disorder Family history of substance abuse Social History Narrative: . 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 No drug use. 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 She exercises intermittently. What is your current living situation?: I presently have a place to live Problems where you live: no known problems Problems where you live details: none In the past 12 months, utilities in danger of being shut off: no In past 12 months, lack of transportation kept you from medical appts, meetings, work, or getting things needed for daily living: no In the past 12 mos, have been you worried that your food would run out before you had money to buy more?: never true In the past 12 mos, the food you bought just didn't last and you didn't have money to buy more?: never true Highest level of school completed/degree received: Doctoral degree Smoking Status: Never smoker Do you use any of these nicotine containing products: None Second hand tobacco smoke exposure: No How often do you have a drink containing alcohol: monthly or less How often do you have six or more drinks on one occasion: Never AUDIT-C Alcohol total score: 1 Non-prescribed substance use: denies use Caffeine: No How often does anyone, including family, friends and others, physically hurt you : never How often does anyone, including family, friends and others, insult or talk down to you: never How often does anyone, including family, friends and others, threaten you with harm: never How often does anyone, including family, friends and others, scream or curse at you: never service: No Meds Home Medications and Allergies Home Medications ?Medication ?Instructions ?Recorded ?Confirmed ?Type cholecalciferol (vitamin D3) 50 2,000 unit PO DAILY 02/28/22 12/07/24 History mcg (2,000 unit) tablet SAMe butanedisulfonate 400 ea PO 12/04/24 12/04/24 History mg-betaine 600 mg oral powder packet acetaminophen 650 mg 650 mg PO Q12H 12/04/24 12/07/24 History tablet,extended release (Tylenol Arthritis Pain) multivitamin 1 tab PO QAM 12/04/24 12/07/24 History uepkhfrrrzfat-JD-xgxsxokavffsi 5 ml PO 12/04/24 12/04/24 History mg-10 mg-325 mg/15 mL oral liquid (Vicks DayQuil Cold and Flu Relief) tamsulosin 0.4 mg capsule (Flomax) 0.4 mg PO QDAY 12/04/24 12/07/24 History Allergies Allergy/AdvReac Type Severity Reaction Status Date / Time bupropion Allergy Unknown Tremors Verified 12/04/24 09:30 Cephalosporins Allergy Unknown GI upset Verified 12/04/24 09:30 latex Allergy Unknown Rash Verified 12/04/24 09:30 promethazine Allergy Unknown Legs jump Verified 12/04/24 09:30 Macrolide Antibiotics Allergy Gastrointestinal Verified 12/04/24 09:30 Upset erythromycin base AdvReac Gastrointestinal Verified 12/04/24 09:30 Upset Exam Narrative: Exam Narrative: Physical exam GENERAL: Pleasant. Comfortable, no acute distress. HEAD AND NECK: Atraumatic, normocephalic CARDIOVASCULAR: RRR. Normal S1, S2. No murmurs. RESPIRATORY: Clear to auscultation B/L. Good air entry B/L. No wheezes or rhonchi. GASTROINTESTINAL: Not distended, mildly tender to palpation at right upper quadrant. +ve bowel sounds x4. No rigidity, no guarding. No redness, warmth or swelling around the laparoscopic wounds. NEUROLOGY: Alert, awake, oriented X 3. Normal speech. PSYCH: Normal mood, normal affect. Const: Vital Signs, click to edit/add: Vital Signs - 24 hr 12/13/24 11:16 12/13/24 13:30 12/13/24 16:00 Temperature 96.9 F L Pulse Rate [Pulse Oximeter] 68 70 71 Respiratory Rate 24 14 16 Blood Pressure [Ri ght Upper Arm] 144/85 H 128/78 132/72 Pulse Oximetry 100 96 96 Oxygen Delivery Me thod Room Air Room Air Room Air Hospitalist - H&P: Result Labs Labs: Short CBC 12/13/24 Range/Units 12:00 WBC 8.13 (4.50-11.00) K/uL Hgb 13.3 (12.0-16.0) gm/dL Hct 41.2 (33.0-51.0) % Plt Count 389 (140-440) K/uL BMP 12/13/24 12:00 Sodium 140 Potassium 3.8 Chloride 103 Carbon Dioxide 30 BUN 17 Creatinine 0.6 Glucose 109 Calcium 9.7 Liver Function 12/13/24 Range/Units 12:00 Total Bilirubin 0.8 (0.1-1.5) mg/dL Direct Bilirubin 0.6 H (0.0-0.5) mg/dL AST 252 H (12-35) U/L ALT 102 H (4-35) U/L Alkaline Phosphatase 123 (40-150) U/L Albumin 4.3 (3.3-5.0) g/dL Imaging CT scan - abdomen: Attestation: I have reviewed the pertinent imaging results. Radiologist's impression: INDICATION: Right upper quadrant pain TECHNIQUE: CT abdomen and pelvis acquired with 85 mL Isovue 370 IV contrast. COMPARISON: Right upper quadrant ultrasound 12/04/2024 FINDINGS: The visualized portions of the lung bases are clear. Lobulated hypoechoic area within the right hepatic lobe measuring up to 5 cm, corresponds to the hyperechoic area seen on the ultrasound and most likely hemangioma. No intrahepatic biliary dilatation. The gallbladder is surgically absent. No unexpected abnormality in the surgical bed. The spleen, pancreas and adrenal glands are unremarkable. The kidneys enhance symmetrically without hydronephrosis. There is a 1.4 x 0.7 cm stone within the lower pole of the right kidney. Negative for left nephrolithiasis. The bladder is partially distended and unremarkable. There are no dilated loops of small bowel to suggest obstruction.The appendix is normal.There is no intraperitoneal free air or fluid. The visualized osseous structures are unremarkable. IMPRESSION: 1. Postsurgical changes of cholecystectomy. 2. Nonobstructing right renal calculi measuring 1.4 x 0.7 cm. Negative for hydronephrosis bilaterally. Dictated by Mabel Parikh MD @ 12/13/2024 1:17:05 PM Please note that all CT scans at this facility use dose modulation, iterative reconstruction, and/or weight-based dosing when appropriate to reduce radiation dose to as low as reasonably achievable. Dictated by: Mabel Parikh MD @ 12/13/2024 13:17:31
[2024-12-13] MEDS: LACTATED RINGERS 1000 ML 1,000 ML 75 ML IV (18:17)
[2024-12-13] MEDS: MORPHINE 2 MG/ML inj IVP ×2 (18:23→20:35)
--- NOTE | 2024-12-13 19:12 | PC.NURSE ---
End of Shift: Patient pleasant and cooperative. Patient vitally stable, lungs clear, BS WNL, IV running LR at 75. Patient independent in room and rated pain at most 4-5/10, morphine 2mg given once with pain improvement. Last BM yesterday, no urination since admission to floor.
[2024-12-13] MEDS: SODIUM CHLORIDE 0.9 % (FLUSH) 10 ML SYRINGE 5 ML IVF (20:40)
[2024-12-14] MEDS: MORPHINE 2 MG/ML inj IVP ×3 (01:11→10:49)
[2024-12-14 03:00] VITALS: RESP 18
--- NOTE | 2024-12-14 06:45 | PC.NURSE ---
End of shift [id number]: Pt AxOx4, pleasant, and cooperative with cares. Pt reported pain to the abdomen that was managed with repo, active ice, PRN medication, and distraction. LR running @ 75 ml/hr. Tolerating NPO diet well. Indep in room, continent of the bladder. Pt able to sleep for majority of the night. Pt appears resting with call light in reach.
[2024-12-14 06:53] LABS: Hematocrit 39.3 % (33.0-51.0); Hemoglobin* 12.5 gm/dL (12.0-16.0); Mean Corpuscular HGB Conc 32 gm/dL (32-36); Mean Corpuscular Hemoglobin 29 pg (26-34); Mean Corpuscular Volume 91 fL (80-100); Platelet Count* 319 K/uL (140-440); Red Blood Count 4.31 m/uL (4.00-5.20); White Blood Count* 5.36 K/uL (4.50-11.00)
[2024-12-14 06:55] LABS: Albumin* 3.9 g/dL (3.3-5.0); Chloride* 104 mmol/L (96-114); Sodium* 141 mmol/L (135-149)
[2024-12-14 06:56] LABS: Potassium* 4.1 mmol/L (3.6-5.1)
[2024-12-14 06:58] LABS: Alkaline Phosphatase* 185 U/L (40-150); Anion Gap 4 mEq/L (7-15); Blood Urea Nitrogen* 14 mg/dL (7-30); Carbon Dioxide* 33 mmol/L (20-32); Creatinine* 0.8 mg/dL (0.5-1.5); Est. Creatinine Clearance* 49.72; Estimated Glomerular Filt Rate 83 ml/min; Total Protein* 6.9 g/dL (6.0-8.3)
[2024-12-14 06:59] LABS: Glucose* 91 mg/dL (60-115)
[2024-12-14 07:00] VITALS: BP 131/80; PULSE 72; PULSE 73; RESP 18; TEMP 36.9; O2SAT 96
[2024-12-14 07:07] LABS: Slide Review Reflex No
[2024-12-14 07:30] LABS: Alanine Aminotransferase* 882 U/L (4-35); Aspartate Amino Transferase* 1280 U/L (12-35)
[2024-12-14] MEDS: LACTATED RINGERS 1000 ML 1,000 ML 75 ML IV (08:11)
[2024-12-14] MEDS: OMEPRAZOLE 20 MG CAPSULE DR PO (08:58)
[2024-12-14] MEDS: ESCITALOPRAM 10 MG TABLET PO (08:58)
[2024-12-14] MEDS: Budesonide-Formoterol [Symbicort] 160-4.5 mcg/actuation IH (08:58)
[2024-12-14] MEDS: FEXOFENADINE 180 MG TABLET PO (09:00)
[2024-12-14 09:19] LABS: Bilirubin Direct* 2.5 mg/dL (0.0-0.5)
[2024-12-14 09:20] LABS: Bilirubin Total* 3.3 mg/dL (0.1-1.5)
[2024-12-14] MEDS: LACTATED RINGERS 500 ML 500 ML IV (10:23)
[2024-12-14 11:00] VITALS: BP 172/93; PULSE 72; RESP 18; TEMP 37.1; O2SAT 98
[2024-12-14] MEDS: ONDANSETRON 2 MG/ML inj 4 MG IVP (12:32)
[2024-12-14] MEDS: HYDROmorphone 0.5 mg/0.5 ml inj IVP (12:32)
--- NOTE | 2024-12-14 14:55 | PC.NURSE ---
Discharge: Patient pleasant and cooperative, A&O. VSS, afebrile. SpO2 maintained above 90% on RA. Patient reports pain in her abdomen this shift, managed with PRN medication, see MAR. Independent in room. Transferred to higher level of care.
--- NOTE | 2024-12-14 14:55 | PM.GSPN ---
Subjective Subjective Date Seen: 12/14/24 Interval history: Lorenza underwent laparoscopic cholecystectomy 1 week ago. She had been doing well postoperatively with out significant pain and return to baseline GI function, however she was admitted yesterday with abrupt onset of severe pain in the right upper quadrant which radiated to shoulder. This was similar to the pain she had been having prior to surgery. She underwent a CT scan which was unremarkable, however total bilirubin was elevated at 0.08. She was admitted overnight with plans for MRCP. She states that she feels better today than yesterday but continues to have the pain. She noted that it came on with coughing Exam Narrative: Exam Narrative: General: No acute distress CV: Regular rate Respiratory: Breathing nonlabored on room air Abdomen: incisions clean, dry and intact without erythema. She does have ecchymosis around the umbilicus. Const: Vital Signs, click to edit/add: Vital Signs - 24 hr 12/13/24 16:00 12/13/24 16:41 12/13/24 18:54 Temperature 98 F Pulse Rate Pulse Rate [Pulse Oximeter] 71 66 Respiratory Rate 16 16 Blood Pressure [Le ft Arm\] 143/78 H Blood Pressure [Ri ght Upper Arm] 132/72 Pulse Oximetry 96 96 Oxygen Delivery Me thod Room Air Room Air Room Air 12/13/24 19:00 12/13/24 22:16 12/13/24 23:00 Temperature 98.4 F 98.2 F Pulse Rate 69 Pulse Rate [Pulse Oximeter] 65 74 Respiratory Rate 16 18 Blood Pressure [Le ft Arm\] 152/88 H 127/76 Blood Pressure [Ri ght Upper Arm] Pulse Oximetry 92 95 Oxygen Delivery Me thod Room Air Room Air 12/14/24 03:00 12/14/24 07:00 12/14/24 07:00 Temperature 98.5 F Pulse Rate Pulse Rate [Pulse Oximeter] 73 72 Respiratory Rate 18 18 18 Blood Pressure [Le ft Arm\] 131/80 Blood Pressure [Ri ght Upper Arm] Pulse Oximetry 96 Oxygen Delivery Me thod Room Air 12/14/24 11:00 Temperature 98.7 F Pulse Rate Pulse Rate [Pulse Oximeter] 72 Respiratory Rate 18 Blood Pressure [Le ft Arm\] 172/93 H Blood Pressure [Ri ght Upper Arm] Pulse Oximetry 98 Oxygen Delivery Ca thod Room Air Labs/Imaging Labs Labs: White blood cell count yesterday and today were both within normal limits. Total bilirubin 3.3 from 0.8 yesterday Direct bilirubin 2.5 from 0.6 yesterday AST 12 80 from 252 yesterday ALT 882 from 08/13 yesterday Alkaline phosphatase 185 from 09/03 yesterday Lipase yesterday normal Imaging Imaging: CT Abdomen/Pelvis IMPRESSION: 1. Postsurgical changes of cholecystectomy. 2. Nonobstructing right renal calculi measuring 1.4 x 0.7 cm. Negative for hydronephrosis bilaterally. Dictated by: Mabel Parikh MD @ 12/13/2024 13:17:31 Progress Note:A&P Assessment and plan (1) Choledocholithiasis: Status: Acute (2) Abnormal LFTs: Status: Acute Plan The patient is a 64-year-old female who is 1 week status post laparoscopic cholecystectomy now with sudden onset of abdominal pain and elevated LFTs. CT does not show evidence of bile leak. Unable to obtain an MRI because availability (the machine is down) . I suspect that she has a retained common bile duct stone. This likely rolled during surgery given that she had multiple tiny stones identified. Arrangements have been made for the patient to obtain an ERCP. That will be done today.
== END 2024-12-14 13:45 | disposition short-term general hospital (02) | DRG 395 ==
LOC: ED 15:45 → MEDSURG 16:29
PROVIDERS: Student in an Organized Health Care Education/Training Program; Admitting Provider Family Medicine; Emergency Provider Emergency Medicine; PCP Family Medicine; Visit Provider Family Medicine
DX: K91.86 Retained cholelithiasis following cholecystectomy (principal); R94.5 Abnormal results of liver function studies; R10.11 Right upper quadrant pain; K73.9 Chronic hepatitis, unspecified; G47.33 Obstructive sleep apnea (adult) (pediatric); K58.9 Irritable bowel syndrome, unspecified; K21.9 Gastro-esophageal reflux disease without esophagitis; J45.909 Unspecified asthma, uncomplicated; N20.0 Calculus of kidney; F32.A Depression, unspecified
CPT/HCPCS: 36415; 74177; 80053; 82248; 83605; 83690; 85025; 85027; 99284; 99285; A9270; G0378; J1171; J2270; J2405; J7030; J7120; Q9967

== ENCOUNTER 2024-12-14 13:29 | Outpatient (CLI) | payer OTHER, SELFPAY | END 2024-12-14 13:30 | disposition home or self-care (01) | LOC: AMB 12-17 09:44 | PROVIDERS: PCP Family Medicine; Visit Provider Student in an Organized Health Care Education/Training Program | DX: K80.50 Calculus of bile duct without cholangitis or cholecystitis without obstruction (principal); R79.89 Other specified abnormal findings of blood chemistry | CPT/HCPCS: A0425; A0434 ==

== ENCOUNTER 2024-12-17 18:34 | Outpatient (CLI) | payer OTHER, SELFPAY | END 2024-12-17 18:35 | disposition home or self-care (01) | LOC: AMB 12-18 10:27 | PROVIDERS: PCP Family Medicine; Visit Provider Student in an Organized Health Care Education/Training Program | DX: R10.9 Unspecified abdominal pain (principal) ==

== ENCOUNTER 2024-12-17 19:13 | Emergency (ER) | payer OTHER, SELFPAY ==
[2024-12-17] VITALS (21 sets, daily range): BP systolic 125–155; BP diastolic 66–93; PULSE 65–99; RESP 16–18; TEMP 36.4–36.7; O2SAT 87–98; BMI 36.6
--- NOTE | 2024-12-17 19:48 | ED_ITS ---
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 Lorenza had cholecystectomy on December 07. She had increasing pain subsequent to the surgery and on December 14 underwent ERCP with retrieval of a 4 mm stone and placement of a pancreatic duct stent. She was told that the retrieval was somewhat difficult. She notes however that she was feeling much better until today when she had the sudden onset of increasing right upper quadrant pain associated with nausea. She has not had fevers or chills. She was given a t otal of 100 mcg of fentanyl in the ambulance which seemed to help along with Zofran 4 mg. She does note that the pain seems to be increasing at this time. Has not had any diarrhea fevers. Related Data Home Medications ?Medication ?Instructions ?Recorded ?Confirmed cholecalciferol (vitamin D3) 50 2,000 unit PO DAILY 02/28/22 12/14/24 mcg (2,000 unit) tablet SAMe butanedisulfonate 400 ea PO 12/04/24 12/04/24 mg-betaine 600 mg oral powder packet acetaminophen 650 mg 650 mg PO Q12H 12/04/24 12/14/24 tablet,extended release (Tylenol Arthritis Pain) multivitamin 1 tab PO QAM 12/04/24 12/14/24 [id number] 5 ml PO 12/04/24 12/04/24 mg-10 mg-325 mg/15 mL oral liquid (Vicks DayQuil Cold and Flu Relief) tamsulosin 0.4 mg capsule (Flomax) 0.4 mg PO DAILY 12/04/24 12/14/24 escitalopram oxalate 10 mg tablet 10 mg PO DAILY 12/14/24 12/14/24 fexofenadine 180 mg tablet 180 mg PO DAILY 12/14/24 12/14/24 (Carmenza Allergy) phentermine 30 mg capsule 30 mg PO DAILY 12/14/24 12/14/24 trazodone 50 mg tablet 50 - 100 mg PO HS 12/14/24 12/14/24 Previous Rx's ?Medication ?Instructions ?Recorded fluorouracil 5 % topical cream 1 applic topical .UD #40 grams 06/06/23 albuterol sulfate 90 mcg/actuation 2 puff inhalation Q6H PRN 01/28/24 aerosol inhaler bronchospasm #8.5 grams epinephrine 0.3 mg/0.3 mL 0.3 mg (0.3 mL) IM .As Needed PRN 01/28/24 injection, auto-injector anaphylaxis #2 ea estradiol 0.01% (0.1 mg/gram) 1 g vaginal QWEEK #42.5 grams 01/28/24 vaginal cream estradiol 0.05 mg/24 hr semiweekly 1 patch transdermal .Twice Weekly 01/28/24 transdermal patch #8 ea omeprazole 20 mg capsule,delayed 20 mg PO DAILY #90 caps 01/28/24 release triamcinolone acetonide 0.1 % 1 applic topical BID PRN skin 01/28/24 topical cream reaction #80 grams budesonide-formoterol HFA 160 2 puff inhalation BID #10.2 grams 02/06/24 mcg-4.5 mcg/actuation aerosol inhaler (Symbicort) finasteride 5 mg tablet 5 mg PO DAILY #90 tabs 04/23/24 Allergies Allergy/AdvReac Type Severity Reaction Status Date / Time bupropion Allergy Unknown Tremors Verified 12/17/24 20:24 Cephalosporins Allergy Unknown GI upset Verified 12/17/24 20:24 latex Allergy Unknown Rash Verified 12/17/24 20:24 promethazine Allergy Unknown Legs jump Verified 12/17/24 20:24 Macrolide Antibiotics Allergy Gastrointestinal Verified 12/17/24 20:24 Upset erythromycin base AdvReac Gastrointestinal Verified 12/17/24 20:24 Upset Review of Systems Status of ROS: Reports: 6 or more systems reviewed and unremarkable except as noted in History and below [facility] Medical History Biliary colic ?K80.50 - Calculus of bile duct without cholangitis or cholecystitis without obstruction (ICD-10) Chronic hepatitis ?K73.9 - Chronic hepatitis, unspecified (ICD-10) Sciatica ?M54.30 - Sciatica, unspecified side (ICD-10) Sleep apnea ?G47.30 - Sleep apnea, unspecified (ICD-10) Hair thinning ?L65.9 - Nonscarring hair loss, unspecified (ICD-10) Tear of medial meniscus of right knee ?S83.241A - Other tear of medial meniscus, current injury, right knee, initial encounter (ICD-10) Osteoarthritis of left knee ?M17.12 - Unilateral primary osteoarthritis, left knee (ICD-10) Osteoarthritis of right knee ?M17.11 - Unilateral primary osteoarthritis, right knee (ICD-10) Eczema ?L30.9 - Dermatitis, unspecified (ICD-10) Binge eating ?R63.2 - Polyphagia (ICD-10) Irritable bowel syndrome ?K58.9 - Irritable bowel syndrome without diarrhea (ICD-10) Actinic keratosis ?L57.0 - Actinic keratosis (ICD-10) Left carpal tunnel syndrome ?G56.02 - Carpal tunnel syndrome, left upper limb (ICD-10) GERD (gastroesophageal reflux disease) ?K21.9 - Gastro-esophageal reflux disease without esophagitis (ICD-10) On postmenopausal hormone replacement therapy ?Z79.890 - Hormone replacement therapy (ICD-10) Environmental and seasonal allergies ?J30.89 - Other allergic rhinitis (ICD-10) Difficulty sleeping ?G47.9 - Sleep disorder, unspecified (ICD-10) Depression ?F32.A - Depression, unspecified (ICD-10) Asthma ?J45.909 - Unspecified asthma, uncomplicated (ICD-10) 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 - Guillain-[place] syndrome (ICD-10) LAUREANO (obstructive sleep apnea) ?G47.33 - Obstructive sleep apnea (adult) (pediatric) (ICD-10) Recurrent subluxation of left temporomandibular joint ?M24.49 - Recurrent dislocation, other specified joint (ICD-10) Surgical History Status post laparoscopic cholecystectomy ?Z90.49 - Acquired absence of other specified parts of digestive tract (ICD- 10) H/O gastrostomy ?Z98.890 - Other specified postprocedural states (ICD-10) H/O tracheostomy ?Z98.890 - Other specified postprocedural states (ICD-10) H/O hernia repair ?Z98.890 - Other specified postprocedural states (ICD-10) ?Z87.19 - Personal history of other diseases of the digestive system (ICD-10) History of vaginal hysterectomy ?Z90.710 - Acquired absence of both cervix and uterus (ICD-10) Family History Mother High blood pressure Osteoarthritis Osteoporosis Father Atrial fibrillation Melanoma Renal cell carcinoma Cancer Family history of alcohol abuse Heart disease Paternal Grandmother Stroke Atrial fibrillation Diabetes Son Diabetes Brother FHx: cancer of prostate Other Alcohol dependence Drug dependence Family history of psychiatric disorder Family history of substance abuse Social History Narrative: . 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 No drug use. 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 She exercises intermittently. What is your current living situation?: I presently have a place to live Problems where you live: no known problems Problems where you live details: none In the past 12 months, utilities in danger of being shut off: no In past 12 months, lack of transportation kept you from medical appts, meetings, work, or getting things needed for daily living: no In the past 12 mos, have been you worried that your food would run out before you had money to buy more?: never true In the past 12 mos, the food you bought just didn't last and you didn't have money to buy more?: never true Highest level of school completed/degree received: Doctoral degree Smoking Status: Never smoker Do you use any of these nicotine containing products: None Second hand tobacco smoke exposure: No How often do you have a drink containing alcohol: monthly or less How often do you have six or more drinks on one occasion: Never AUDIT-C Alcohol total score: 1 Non-prescribed substance use: denies use Caffeine: No How often does anyone, including family, friends and others, physically hurt you : never How often does anyone, including family, friends and others, insult or talk down to you: never How often does anyone, including family, friends and others, threaten you with harm: never How often does anyone, including family, friends and others, scream or curse at you: never service: No Exam Narrative: Exam Narrative: Alert and oriented. Mentating normally. Speech is normal. Heart with a regular rate and rhythm and lungs are clear. Abdomen shows some slight tende rness in the right upper quadrant. No rebound tenderness. Wounds from surgery are clean dry and intact with no drainage or surrounding erythema. Const: Vital Signs, click to edit/add: Vital Signs - 24 hr 12/17/24 19:21 12/17/24 21:00 Temperature 97.6 F 98.0 F Pulse Rate [Right Pulse Oximeter] 66 78 Respiratory Rate 16 18 Blood Pressure [Ri ght Upper Arm] 155/93 H 125/66 Pulse Oximetry 97 98 Oxygen Delivery Me thod Room Air Room Air Documenting provider has reviewed patient's vital signs: yes Course Course ED Course: Differential diagnosis includes malfunction of pancreatic stent, abdominal bleeding, infection, small-bowel obstruction. Will obtain abdominal CT with contrast. Will give 1 L of normal saline. Patient does note pain is returning and thus will use Dilaudid 0.5 mg IV. Labs to include CBC, comprehensive panel including direct bilirubin. Reevaluation(s) Reevaluation #1: Patient had improvement with Dilaudid. Unfortunately CT does show migration of the pancreatic stent. LFTs are pretty elevated at this time but improved from 12/14. Vital Signs Vital signs: Initial Vital Signs Temperature 97.6 F 12/17/24 19:21 Temperature Source Temporal Artery Scan 12/17/24 19:21 Pulse Rate 66 12/17/24 19:21 Pulse Rhythm Regular 12/17/24 19:21 Pulse Strength 3+ Normal 12/17/24 19:21 Respiratory Rate 16 12/17/24 19:21 Blood Pressure 155/93 H 12/17/24 19:21 Blood Pressure Mean 113 H 12/17/24 19:21 Blood Pressure Position Sitting 12/17/24 19:21 Pulse Oximetry 97 12/17/24 19:21 Oxygen Delivery Method Room Air 12/17/24 19:21 Vital Signs Temperature 97.6 F 12/17/24 19:21 Pulse Rate 66 12/17/24 19:21 Respiratory Rate 16 12/17/24 19:21 Blood Pressure 155/93 H 12/17/24 19:21 Pulse Oximetry 97 12/17/24 19:21 Oxygen Delivery Method Room Air 12/17/24 19:21 Temperature 97.2 F L 12/18/24 00:00 Pulse Rate 64 12/18/24 02:16 Respiratory Rate 18 12/18/24 01:35 Blood Pressure 133/84 12/18/24 00:00 Pulse Oximetry 95 12/18/24 02:16 Oxygen Delivery Method Room Air 12/18/24 01:35 Medications Administered Medications: Discontinued Medications Generic Name Dose Route Start Last Admin Trade Name Freq PRN Reason Stop Dose Admin Hydromorphone HCl 0.5 mg 12/17/24 19:59 12/17/24 20:36 Hydromorphone 0.5 Mg/0.5 Ml Inj IVP 12/17/24 20:00 0.5 mg ONCE ONE Administration Hydromorphone HCl 0.2 - 0.5 mg 12/17/24 23:07 12/18/24 02:44 Hydromorphone 0.5 Mg/0.5 Ml Inj IVP 0.5 mg Q2H PRN Administration Pain Sodium Chloride 1,000 mls @ 1,000 mls/hr 12/17/24 19:59 12/17/24 21:54 0.9 % Sodium Chloride 1000 Ml IV 12/17/24 20:58 Infused .Q1H CARRI Infusion Medical Decision Making MDM Narrative Medical decision making narrative: 1. Pancreatic stent migration-patient is status post cholecystectomy on 12/07 and ERCP with 4 mm stone removal on 12/14 with associated elevation of LFTs at that time. Patient had been doing well until this afternoon when she suddenly had increased pain nausea and vomiting. No fevers associated with this. Patient is noted to have migration of the pancreatic stent. A recheck of enzymes shows them to still be elevated but improved from 12/14. 1 L normal saline has been given. Pain control via EMS was with 100 mcg of fentanyl as well as Zofran. Patient was treated with Dilaudid here in the ED with good results. 2. Disposition-patient has been accepted by the [facility], accepting physician Dr. Goodson as she is needing specialty services with GI. Delayed acceptance given volumes. Patient will likely be in the ED for the majority of the night. Will continue with fluids and pain medications as needed. NPO after 0400 hours. This patient will be signed out to my partner Dr. Ashley pending transfer Medical Records Medical records reviewed: Yes I reviewed the patient's medical records Lab Data Lab results reviewed: Yes I reviewed the patient's lab results Labs: Lab Results 12/17/24 12/19/24 Range/Units Unknown 18:22 WBC 13.93 H (4.50-11.00) K/uL RBC 4.52 (4.00-5.20) m/uL Hgb 13.2 (12.0-16.0) gm/dL Hct 41.0 (33.0-51.0) % MCV 91 (80-100) fL MCH 29 (26-34) pg MCHC 32 (32-36) gm/dL RDW Coeff of Jim 12.3 (11.5-15.5) % Plt Count 394 (140-440) K/uL Neut % (Auto) 83.3 H (42.0-72.0) % Lymph % (Auto) 6.9 L (20-44) % [place] % (Auto) 7.1 (0.0-11.0) % Eos % (Auto) 1.8 (0.0-7.0) % Baso % (Auto) 0.5 (0.0-3.0) % Neut # (Auto) 11.60 H (1.7-7.0) K/uL Lymph # (Auto) 1.00 (0.90-2.90) K/uL [place] # (Auto) 1.00 H (0.00-0.90) K/UL Eos # (Auto) 0.30 (0.00-0.50) K/uL Baso # (Auto) 0.10 (0.00-0.30) K/uL Abs Immat Gran (auto) 0.10 (0.00-0.30) K/uL Imm/Tot Granulo (auto) 0.4 % Sodium 141 (135-149) mmol/L Potassium 3.9 (3.6-5.1) mmol/L Chloride 105 (96-114) mmol/L Carbon Dioxide 25 (20-32) mmol/L Anion Gap 11 (7-15) mEq/L BUN 15 (7-30) mg/dL Creatinine 0.6 (0.5-1.5) mg/dL Estimated Creat Clear 45.54 Estimated GFR 101 ml/min Glucose 105 (60-115) mg/dL Calcium 9.1 (8.4-10.6) mg/dL Total Bilirubin 0.8 (0.1-1.5) mg/dL Direct Bilirubin 0.5 (0.0-0.5) mg/dL AST 63 H (12-35) U/L ALT 268 H (4-35) U/L Alkaline Phosphatase 161 H (40-150) U/L Total Protein 7.5 (6.0-8.3) g/dL Albumin 4.3 (3.3-5.0) g/dL Lipase 237 (23-300) U/L Lab Acknowledgement Test Added Imaging Data CT scan - abdomen: Attestation: I have reviewed the pertinent imaging results. Radiologist's impression: FINDINGS: Lower chest: Scattered atelectasis. Liver: Similar 5 centimeter right inferior hepatic lobe lobulated cystic lesion. Gallbladder and bile ducts: Prior cholecystectomy. No intrahepatic ductal dilation. Pancreas: Unremarkable. No mass or inflammation. Spleen: Unremarkable. Normal in size. No masses. Adrenal glands: Unremarkable. No nodules. Kidneys: 11 millimeter nonobstructing right renal stone. No suspicious masses, or hydronephrosis. GI tract: Incidental 4.5 centimeter tubular radiopaque foreign body in the hepatic flexure colon (series 4/image 67), likely known pancreatic duct stent. Moderate colonic stool burden. No bowel obstruction. Vasculature: Abdominal aorta is normal in caliber. Mesenteric arteries are patent. Lymph nodes: No lymphadenopathy. Peritoneum/Abdominal Wall: Unremarkable. No sign of mass or infiltration. No free air or significant free fluid. Pelvis: Unremarkable. Bones: Unremarkable for age. IMPRESSION: Incidental 4.5 centimeter tubular radiopaque foreign body in the hepatic flexure colon, likely malpositioned pancreatic duct stent. Otherwise, no acute intra-abdominal/pelvic abnormality, including free intraperitoneal air or drainable fluid collections. Moderate colonic stool burden. Discharge Plan Discharge Clinical Impression: Displacement of pancreatic stent Abdominal pain Qualifiers: Abdominal location: right upper quadrant Qualified Code(s): R10.11 - Right upper quadrant pain Patient Disposition: Xfer [facility] Discharge Location: [facility] Condition: Improved Prescriptions: No Action cholecalciferol (vitamin D3) 50 mcg (2,000 unit) tablet 2,000 unit PO DAILY fluorouracil 5 % cream 1 applic topical .UD Qty: 40 0RF Rx Instructions: apply topically to affected area/zone once weekly albuterol sulfate 90 mcg/actuation HFA aerosol inhaler 2 puff inhalation Q6H PRN (Reason: bronchospasm) Qty: 8.5 12RF epinephrine 0.3 mg/0.3 mL auto-injector 0.3 mg IM .As Needed PRN (Reason: anaphylaxis) Qty: 2 12RF estradiol 0.05 mg/24 hr patch semiweekly 1 patch transdermal .Twice Weekly Qty: 8 12RF estradiol 0.01 % (0.1 mg/gram) cream 1 g vaginal QWEEK Qty: 42.5 3RF omeprazole 20 mg capsule,delayed release(DR/EC) 20 mg PO DAILY Qty: 90 3RF triamcinolone acetonide 0.1 % cream 1 applic topical BID PRN (Reason: skin reaction) Qty: 80 3RF tamsulosin [Flomax] 0.4 mg capsule 0.4 mg PO DAILY Vicks DayQuil Cold-Flu Relief 5-10-325 mg/15 mL liquid PO acetaminophen [Tylenol Arthritis Pain] 650 mg tablet extended release 650 mg PO Q12H multivitamin Tablet 1 tab PO QAM SAMe butanedisulfonate-betaine 400-600 mg powder in packet PO phentermine 30 mg capsule 30 mg PO DAILY trazodone 50 mg tablet 50 - 100 mg PO HS fexofenadine [Carmenza Allergy] 180 mg tablet 180 mg PO DAILY escitalopram oxalate 10 mg tablet 10 mg PO DAILY budesonide-formoterol [Symbicort] 160-4.5 mcg/actuation HFA aerosol inhaler 2 puff inhalation BID Qty: 10.2 12RF finasteride 5 mg tablet 5 mg PO DAILY Qty: 90 3RF Stand Alone Forms: [facility] Info Instructions
--- NOTE | 2024-12-17 19:59 | CRLHL7_ITS ---
For Patients: As a result of the Century Cures Act, medical imaging exams and procedure reports are released immediately into your electronic medical record. You may view this report before your referring provider. If you have questions, please contact your health care provider. INDICATION: History of ERCP and pancreatic duct stent. TECHNIQUE: CT abdomen and pelvis acquired with 100 cc Omnipaque 350 IV contrast. COMPARISON: December 13, 2024.. FINDINGS: Lower chest: Scattered atelectasis. Liver: Similar 5 centimeter right inferior hepatic lobe lobulated cystic lesion. Gallbladder and bile ducts: Prior cholecystectomy. No intrahepatic ductal dilation. Pancreas: Unremarkable. No mass or inflammation. Spleen: Unremarkable. Normal in size. No masses. Adrenal glands: Unremarkable. No nodules. Kidneys: 11 millimeter nonobstructing right renal stone. No suspicious masses, or hydronephrosis. GI tract: Incidental 4.5 centimeter tubular radiopaque foreign body in the hepatic flexure colon (series 4/image 67), likely known pancreatic duct stent. Moderate colonic stool burden. No bowel obstruction. Vasculature: Abdominal aorta is normal in caliber. Mesenteric arteries are patent. Lymph nodes: No lymphadenopathy. Peritoneum/Abdominal Wall: Unremarkable. No sign of mass or infiltration. No free air or significant free fluid. Pelvis: Unremarkable. Bones: Unremarkable for age. IMPRESSION: Incidental 4.5 centimeter tubular radiopaque foreign body in the hepatic flexure colon, likely malpositioned pancreatic duct stent. Otherwise, no acute intra-abdominal/pelvic abnormality, including free intraperitoneal air or drainable fluid collections. Moderate colonic stool burden. Please note that all CT scans at this facility use dose modulation, iterative reconstruction, and/or weight-based dosing when appropriate to reduce radiation dose to as low as reasonably achievable. Dictated by Joseph Locke MD @ 12/17/2024 9:07:55 PM (Electronically Signed)
[2024-12-17 20:26] LABS: Basophils Percent Auto 0.5 % (0.0-3.0); Eosinophils Percent Auto 1.8 % (0.0-7.0); Hemoglobin* 13.2 gm/dL (12.0-16.0); Immature Granulocytes Pct Auto 0.4 %; Lymphocytes Percent Auto 6.9 % (20-44); Mean Corpuscular HGB Conc 32 gm/dL (32-36); Mean Corpuscular Hemoglobin 29 pg (26-34); Mean Corpuscular Volume 91 fL (80-100); Monocytes Percent Auto 7.1 % (0.0-11.0); Neutrophils Percent Auto 83.3 % (42.0-72.0); Platelet Count* 394 K/uL (140-440); RDW Coefficient of Variation % 12.3 % (11.5-15.5); Red Blood Count 4.52 m/uL (4.00-5.20); Slide Review Reflex No; White Blood Count* 13.93 K/uL (4.50-11.00)
[2024-12-17 20:29] LABS: Albumin* 4.3 g/dL (3.3-5.0); Chloride* 105 mmol/L (96-114); Potassium* 3.9 mmol/L (3.6-5.1); Sodium* 141 mmol/L (135-149)
[2024-12-17 20:32] LABS: Alanine Aminotransferase* 268 U/L (4-35); Alkaline Phosphatase* 161 U/L (40-150); Anion Gap 11 mEq/L (7-15); Aspartate Amino Transferase* 63 U/L (12-35); Bilirubin Direct* 0.5 mg/dL (0.0-0.5); Bilirubin Total* 0.8 mg/dL (0.1-1.5); Blood Urea Nitrogen* 15 mg/dL (7-30); Calcium* 9.1 mg/dL (8.4-10.6); Carbon Dioxide* 25 mmol/L (20-32); Creatinine* 0.6 mg/dL (0.5-1.5); Est. Creatinine Clearance* 45.54; Estimated Glomerular Filt Rate 101 ml/min; Glucose* 105 mg/dL (60-115); Total Protein* 7.5 g/dL (6.0-8.3)
[2024-12-17] MEDS: 0.9 % SODIUM CHLORIDE 1000 ml 1,000 ML IV (20:34)
[2024-12-17] MEDS: HYDROmorphone 0.5 mg/0.5 ml inj IVP (20:36)
--- OUTSIDE RECORDS SUMMARY | 2024-12-17 21:06 | XMS_ITS | Clinical Summary ---
Author Organization [employer] [facility] Address [address] [place] [address] Care Team Providers Care Senior Chemical Engineer Name Role Phone Koki De MD Primary [...] Promethazine Anxiety 08/05/2012 Bupropion *Unknown 11/09/2020 Medications cholecalciferol (Vitamin D-3) 2,000 unit capsule Take 1 Capsule (2,000 units) by mouth once daily. 0 021 Active ondansetron (ZOFRAN ODT) [address] 4 mg on the tongue every 8 hours if needed for Nausea/Vomiting. 024 Active benzonatate (TESSALON) 200 mg capsule Take 200 mg by mouth 3 times daily if needed for Cough. 024 Active Phentermine HCl 30 mg capsuleIndication s:Overweight TAKE 1 CAPSULE (30 MG) BY MOUTH ONCE DAILY BEFORE A MEAL. 30 Capsule 3 025 Active EPINEPHrine 0.3 mg/0.3 mL auto-injectorIndi cations:Hx of anaphylaxis Inject 0.3 mg (1 Pen) intramuscular each time if needed for Allergic Reaction. 2 Each 3 Active escitalopram oxalate 10 mg tabletIndications :Depression, major, in remission Take 1 Tablet (10 mg) by mouth once daily. 100 Tablet 3 Active estradioL 0.01% (0.1 mg/g) vaginal creamIndications: Menopausal symptoms Insert 1 g into the vagina once weekly. 42.5 g 2 Active omeprazole 20 mg Delayed-Release capsuleIndication s:Chronic GERD Take 1 Capsule (20 mg) by mouth once daily before a meal. 100 Capsule 3 Active traZODone 50 mg tabletIndications :Sleep disturbance Take 0.5-1 Tablets (25-50 mg) by mouth at bedtime. 100 Tablet 3 Active Ventolin HFA 90 mcg/actuation inhalerIndication s:Moderate persistent asthma without complication (HC) Inhale 1-2 Puffs by mouth every 4 hours if needed for Shortness Of Breath. 18 g 3 Active finasteride 5 mg tablet Take 1 Tablet (5 mg) by mouth once daily. Active budesonide-formot Zuri 160-4.5 mcg/actuation (160-4.5 mcg each actuation) inhalerIndication s:Moderate persistent asthma without complication (HC) Inhale 2 Puffs by mouth two times daily. 10.2 g 11 Active fexofenadine (Carmenza Allergy) 60 mg tablet Take 60 mg by mouth two times daily. Active fluorouracil 5 % cream Apply topically to affected area(s) once weekly. APPLY TOPICALLY TO AFFECTED AREA / ZONE OF FACE ONCE WEEKLY Active triamcinolone 0.1 % cream Apply topically to affected area(s) 2 times daily if needed. Active ibuprofen (ADVIL; MOTRIN) 200 mg tabletIndications :pain Take 400 mg by mouth every 6 hours if needed. Indications: PAIN 2024 Discontinued (Pharmacist change per medication history (E-cancel not sent)) acetaminophen (TYLENOL EXTRA STRGTH) 500 mg tablet Take 1,000 mg by mouth every 6 hours if needed. Max acetaminophen dose: 4000mg in 24 hrs. 2024 Discontinued (Pharmacist change per medication history (E-cancel not sent)) diclofenac topical (VOLTAREN) 1 % gel Apply topically to affected area(s) 4 times daily. 0 021 2024 Discontinued (Pharmacist change per medication history (E-cancel not sent)) triamcinolone (ARISTOCORT; KENALOG) 0.1 % cream APPLY TO AFFECTED AREA(S) TWICE A DAY 022 2024 Discontinued (Pharmacist change per medication history (E-cancel not sent)) fluorouracil 5% topical (EFUDEX) 5 % cream APPLY TOPICALLY TO AFFECTED AREA/ZONE ONCE WEEKLY DIRECTED 023 2024 Discontinued (Pharmacist change per medication history (E-cancel not sent)) fexofenadine (CARMENZA) 180 mg tabletIndications :Environmental allergies Take one tablet twice daily as needed for allergies. 200 Tablet 3 024 2024 Discontinued (Pharmacist change per medication history (E-cancel not sent)) ciclopirox (CICLODAN) 8 % topical solution APPLY TO THE AFFECTED AREAS ON THE FEET AND TOES NIGHTLY FOR 4 MONTHS. 024 2024 Discontinued (Pharmacist change per medication history (E-cancel not sent)) Active Problems Problem Noted Date Diagnosed Date Choledocholithiasis 12/14/2024 Overview (12/14/2024): -conferenced with our gen surgery, [facility]. likely needs ERCP today given dramatic rise in bili, AST, ALT, Alk phos and ongoing pain with IV opioid need. Accepted and transfering am of 5/5 Hx of anaphylaxis 05/09/2022 Menopausal symptoms 05/09/2022 Overweight 05/09/2022 Overview (07/24/2022): Using phentermine off label for weight maintenance(infomred consent given). Uses as needed. Environmental allergies 11/10/2020 Asthma, moderate persistent 11/09/2020 Osteopenia 11/09/2020 LAUREANO (obstructive sleep apnea) 11/09/2020 Depression, major, in remission 11/09/2020 Overview (06/15/2021): Psychologist: Zandra Sanches Chronic GERD 11/09/2020 Encounters Date Type Department Care Team Description 5 Patient Outreach [facility] [address] [place] [address] Danisha Fox, RN Primary RN Care Management; Hospital F/U (LACE 66) 5 3:43 PM CDT Anesthesia Event [facility] [address] [place] [address] Jose Luis Rosales MD 5 2:35 PM CDT - 5 10:56 AM CDT Hospital Encounter [facility] [address] [place] [address] Janet Saavedra MD Peterson, Christopher Roy, MD [facility], [facility] Hospitalists Of Gerber Hart MD Puchalski, IRVIN Troy Choledocholithiasis (Primary Dx) Discharge Disposition: Home Self Care 5 1:55 PM CDT - 5 3:00 PM CDT Surgery [facility] [address] [place] [address] Alen Dumas MD ENDOSCOPIC RETROGRADE CHOLANGIOPANCREATOGRAPHY with spincterotomy and stone extraction and stent 5 Travel 5 Orders Only [facility] Scanner 1 scan: (1-Ord) [facility], ABDOMEN PELVIS W/ CON, 12/13/2024 5 Lab Requisition [facility] [phone] Kristina Carnes MD 5 Orders Only [facility] Scanner 1 scan: (1-Ord) [facility], XR CHEST 1V PORTABLE, 12/07/2024 5 Orders Only [facility] Scanner 1 scan: (1-Ord) [place], LAPAROSCOPIC CHOLECYSTECTOMY, 12/07/2024 5 Orders Only [facility] Scanner 1 scan: (1-Ord) [facility], MULTIPLE LAB RESULTS, 12/04/2024 5 Orders Only [facility] Scanner 1 scan: (1-Ord) [facility], US ABDOMEN LIMITED, 12/04/2024 5 10:00 AM CDT Office Visit [facility] [address] [place] [address] Koki De MD Medication Management (phentermine); Immunization/Injection 5 Travel 5 Refill [facility] [address] [place] [address] Koki De MD Refill Request (Phentermine Hcl) [...] IIV3 (Age >=3 years) 07/04/2010 Influenza, IIV4 05/14/2023, 2,06/15/2021,05/17,05/27/2019,05/14/2018 MMR 08/12/1991 Measles 08/12/1978 Mumps 08/12/1971,08/12/1962 Pneumococcal Conj 20-valent (Prevnar 20) 11/05/2024 Pneumococcal Poly,23-Valent (Pneumovax) 11/29/2003 Pneumococcal conj 13-Valent (Prevnar 13) 09/22/2015 Polio Virus, Unspecified 08/12/1973 RSV, Recombinant ADJ Reconst ituted (Arexvy 120MCG/0.5mL) 03/11/2024 Smallpox (Vaccinia) Live [id number] 08/12/1968 Td (Age >=7 Years) 08/12/2001,08/12/1991, 982 [...] or isolated from those around you? 0 12/14/2024 Financial Resource Strain Answer Date R ecorded Difficulty of Paying Living Expenses 3 05/15/2024 Difficulty of Paying Living Expenses Not on file 05/15/2024 Food Insecurity Answer Date Recorded Do you worry your food will run out before you are able to buy more? 1 12/14/2024 Transportation Needs Answer Date Record ed Does lack of transportation keep you from medica l appointments? 1 12/14/2024 Does lack of transportation keep you from work, meetings or getting things that you need? 1 12/14/2024 Housing Stability Answer Date Recorded What is your housing situation today? 1 12/14/2024 Interpersonal Safety Answer Date Record ed Are you being hit, kicked, p ushed or yelled at (see row info)? No 12/14/2024 Interpersonal Safety Abuse 12 - 18 Not on file 12/14/2024 Interpersonal Safety Ambulatory Vulnerability No t on file 12/14/2024 Utilities Answer Date Recorded Do you have trouble paying f or utilities (for example, heat, electricity, water, phone)? 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 Not on file Not on file Obstetrics History Last Filed Vital Signs Vital Sign Reading Time Taken Comments Blood Pressure 113/67 12/15/2024 8:36 AM CDT Pulse 70 12/15/2024 8:36 AM CDT Temperature 36.8 C (98.2 F) 12/15/2024 8:36 AM CDT Respiratory Rate 16 12/15/2024 8:36 AM CDT Oxygen Saturation 97% 12/15/2024 8:36 AM CDT Inhaled Oxygen Concentration - - Weight 78.5 kg (173 lb) 11/05/2024 10:03 AM CDT Height 163.8 cm (5' 4.5) 11/05/2024 10:03 AM CD T Body Mass Index 29.24 11/05/2024 10:03 AM CDT Plan of Treatment Upcoming Encounters Date Type Department Care Team (Late st Contact Info) Description 12/22/2024 1:45 PM CDT Office Visit [facility] [address] [place] [address] Kristina Carnes MD [address] [place] [address] 12/28/2024 10:25 AM CDT Office Visit [facility] [address] [place] [address] Koki De MD [address] [place] [address] 01/27/2025 4:00 PM CDT Office Visit [facility] [address] [place] [address] Koki De MD [address] [place] [address] Health Maintenance Due Date Last Done Comments HIV for age 15-65 1976 Hepatitis C screening for ag e 18-79 1979 Mammogram for age 45-75 05/06/2025 05/06/20 24, 11/21/2022, 11/15/2022, Additional history exists Fecal testing sDNA-FIT ([place] guard) for age 45-75 06/13/2025 06/13/2022, 05/20/2019 BMI (ht and wt on same day) [...] 09/22/2015, 11/29/2003 Medical Devices Implanted Type Area Neighborhood Planner Device Identifier Shelf Expiration Date Model / Serial / Lot Mesh Hernia Inguinal Rt - [id number] Implanted:Qty: 1 on 05/24/2011 at [facility] Right: Inguinal 09/12/2015 [id number] R# / / [id number] Stent Pancreatic [id number] Geenen Sof-Flex No Flap - [id number] Implanted:Qty: 1 on 12/14/2024 by Alen Dumas MD at [facility] 08/21/2027 GPSOS-SF- 5-5 / / [id number] Explanted Type Area Neighborhood Planner Device Identifier Shelf Expiration Date Model / Serial / Lot Stent Pancreatic [id number] Federico Sof-Flex No Flap - [id number] Explanted:Qty: 1 on 12/14/2024 at [facility] 08/21/2027 GPSOS-SF-5 - 5 / / [id number] Procedures Procedure Name Priority Date/Time Associated Diagnosis Comments SCAN CORRESP-LABORATORY RESULTS 12/15/2024 3:46 PM CDT SCAN CORRESP-LABORATORY RESULTS 12/15/2024 3:44 PM CDT SCAN CORRESP-IMAGING 12/15/2024 3:44 PM CDT WHITE BLOOD COUNT Early AM 12/15/2024 6:4 0 AM CDT BILIRUBIN,TOTAL Early AM 12/15/2024 6:40 AM CDT ALK PHOSPHATASE Early AM 12/15/2024 6:40 AM CDT ALT (SGPT) Early AM 12/15/2024 6:40 AM CDT AST (SGOT) Early AM 12/15/2024 6:40 AM CDT PROTIME-INR STAT 12/14/2024 6:41 PM CDT CBC W PLT NO DIFF STAT 12/14/2024 6:2 7 PM CDT BASIC METABOLIC PANEL STAT 12/14/2024 6:27 PM CDT LIPASE STAT 12/14/2024 6:27 PM CDT HEPATIC FUNCTION PANEL STAT 6:27 PM CDT XR ERCP BILIARY ONLY Routine 12/14/2024 5:29 PM CDT ENDOTRACHEAL TUBE Routine 12/14/2024 4:2 2 PM CDT ENDOSCOPY 12/14/2024 3:47 PM CDT ENDOSCOPIC ULTRASOUND UPPER 12/2024 3:33 PM CDT See note ENDOSCOPIC RETROGRADE CHOLANGIOPANCREATOGRAPHY WITH SPHINCTEROTOMY AND STENT PLACEMENT 12/14/2024 3:33 PM CDT See MD note ENDOSCOPY 12/14/2024 2:00 PM CDT SCAN-CT INTERPRETATION 12:00 AM CDT LAB TRACKING EVENT Routine 12/07/2024 12:00 PM CDT PATH TISSUE EXAM Routine 12/07/2024 12:00 PM CDT SCAN-RADIOLOGY REPORT 12/07/2024 12:00 AM CDT SCAN-OPERATIVE/PROCEDURE REPORT 12/07/2024 12:00 AM CDT SCAN-LABORATORY REPORT 12:00 AM CDT SCAN-ULTRASOUND REPORT 12:00 AM CDT SCAN-MAMMOGRAPHY REPORT 05/06/20 24 12:00 AM CDT LIPID PANEL W REFLEX MEASURE D LDL Routine 09/16/2023 7:43 AM HUC Lipid screening SDNA-FIT EXTERNAL (COLOGUARD) Routine 10:15 AM CDT Screening for colon cancer from Last 3 Months or Most Recently Relevant to Health Maintenance Results * SCAN CORRESP-LABORATORY RESULTS (12/15/2024 3:46 PM CDT) Only the most recent of2 resultswithin the time period is included. Narrative 12/15/2024 3:46 PM CDT Ordered by an unspecified provider. us Other Clinical Staff OTHER Final Resul t * SCAN CORRESP-IMAGING (12/15/2024 3:44 PM CDT) Anatomical Region Laterality Modality Other Narrative 12/15/2024 3:44 PM CDT Ordered by an unspecified provider. Other Clinical Staff OTHER Final Resul t * WHITE BLOOD COUNT (12/15/2024 6:40 AM CDT) WHITE BLOOD COUNT 6.8 4.5 - 11.0 thou/cu mm 12/15/2024 7:00 AM CDT [facility] NRBC 0.0 % 12/15/2024 7:00 AM CDT [facility] ABS NRBC 0.0 thou /cu mm 12/15/2024 7:00 AM CDT [facility] Blood BLOOD SPECIMEN / Unknown Venipuncture / Unknown 12/15/2024 6:40 AM CDT 12/15/2024 6:49 AM CDT Gerber Hart MD HEMATOLOGY Final Res ult Performing Organization Address City/[facility]/ZIP Co de Phone Number [facility] [address] [place] [address], [place] * BILIRUBIN,TOTAL (12/15/2024 6:40 AM CDT) BILIRUBIN,TOTA L 0.9 0.0 - 1.2 mg/dL 12/15/2024 7:25 AM CDT [facility] Blood BLOOD SPECIMEN / Unknown Venipuncture / Unknown 12/15/2024 6:40 AM CDT 12/15/2024 6:49 AM CDT Gerber Hart MD CHEMISTRY Final Res ult [facility] [address] [place] [address], [place] * (ABNORMAL) ALT (SGPT) (12/15/2024 6:40 AM CDT) ALT (SGPT) 605(H) 10 - 35 IU/L 12/15/2024 7:25 AM CDT [facility] Blood BLOOD SPECIMEN / Unknown Venipuncture / Unknown 12/15/2024 6:40 AM CDT 12/15/2024 6:49 AM CDT Gerber Hart MD CHEMISTRY Final Res ult Performing Organization Address [facility] Co de Phone Number [facility] [address] [address], [place] * (ABNORMAL) AST (SGOT) (12/15/2024 6:40 AM CDT) AST (SGOT) 360(H) 10 - 35 IU/L 12/15/2024 7:25 AM CDT [facility] Blood BLOOD SPECIMEN / Unknown Venipuncture / Unknown 12/15/2024 6:40 AM CDT 12/15/2024 6:49 AM CDT Gerber Hart MD CHEMISTRY Final Res ult Performing Organization Address [facility] de Phone Number [facility] [address] [address], [place] * (ABNORMAL) ALK PHOSPHATASE (12/15/2024 6:40 AM CDT) ALK PHOSPHATASE 217(H) 35 - 104 IU/L 12/15/2024 7:25 AM CDT [facility] Blood BLOOD SPECIMEN / Unknown Venipuncture / Unknown 12/15/2024 6:40 AM CDT 12/15/2024 6:49 AM CDT Gerber Hart MD CHEMISTRY Final Res ult Performing Organization Address [facility] Co de Phone Number [facility] [address] [place] [id number], [place] * PROTIME-INR (12/14/2024 6:41 PM CDT) INR 1.1 <1.3 12/14/2024 7:00 PM CDT [facility] PROTIME 12.4 10.6 - 12.4 sec 12/14/2024 7:00 PM CDT [facility] Blood BLOOD SPECIMEN / Unknown Non-Lab Venipuncture / Unknown 12/14/2024 6:41 PM CDT 12/14/2024 6:47 PM CDT Narrative [facility] - 12/14/2024 7:00 PM CDT Therapeutic Range 2.0-3.0 for most anticoagulated patients 2.5-3.5 or 4.0 for high risk patients The INR is only used for patients on stable oral anticoagulant therapy. It makes no significant contribution to the diagnosis or treatment of patients whose Protime is prolonged for other reasons. INR results are increased when heparin levels exceed 1.0 U/mL, which corresponds to an aPTT >125 seconds if the patient is on UFH. us Janet Saavedra MD HEMATOLOGY Final Result [facility] [address] [place] [address], * (ABNORMAL) CBC W PLT NO DIFF (12/14/2024 6:27 PM CDT) WHITE BLOOD COUNT 5.7 4.5 - 11.0 thou/cu mm 12/14/2024 6:43 PM CDT [facility] RED BLOOD COUNT 3.98(L) 4.00 - 5.20 mil/cu mm 12/14/2024 6:43 PM CDT [facility] HEMOGLOBIN 12.0 12.0 - 16.0 g/dL 12/14/2024 6:43 PM CDT [facility] HEMATOCRIT 36.8 33.0 - 51.0 % 12/14/2024 6:43 PM CDT [facility] MCV 93 80 - 100 fL 12/14/2024 6:43 PM CDT [facility] MCH 30.2 26.0 - 34.0 pg 12/14/2024 6:43 PM CDT [facility] MCHC 32.6 32.0 - 36.0 g/dL 12/14/2024 6:43 PM CDT [facility] RDW 12.7 11.5 - 15.5 % 12/14/2024 6:43 PM CDT [facility] PLATELET COUNT 485(H) 140 - 440 thou/cu mm 12/14/2024 6:43 PM CDT [facility] MPV 11.9(H) 6.5 - 11.0 fL 12/14/2024 6:43 PM CDT [facility] NRBC 0.0 % 12/14/2024 6:43 PM CDT [facility] ABS NRBC 0.0 thou /cu mm 12/14/2024 6:43 PM CDT [facility] Blood BLOOD SPECIMEN / Unknown Non-Lab Venipuncture / Unknown 12/14/2024 6:27 PM CDT 12/14/2024 6:33 PM CDT us Janet Saavedra MD HEMATOLOGY Final Result Performing Organization Address City/[facility]/ZIP Co de Phone Number [facility] [address] [place] [address], * LIPASE (12/14/2024 6:27 PM CDT) LIPASE 27.2 13.0 - 60.0 IU/L 12/14/2024 6:58 PM CDT [facility] Blood BLOOD SPECIMEN / Unknown Non-Lab Venipuncture / Unknown 12/14/2024 6:27 PM CDT 12/14/2024 6:33 PM CDT us Janet Saavedra MD CHEMISTRY Final Result [facility] [address] [place] [address], [place] * (ABNORMAL) HEPATIC FUNCTION PANEL (12/14/2024 6:27 PM CDT) ALBUMIN 3.6(L) 4.0 - 4.9 g/dL 12/14/2024 7:18 PM CDT [facility] PROTEIN,TOTAL 6.4 6.0 - 8.0 g/dL 12/14/2024 7:18 PM CDT [facility] BILIRUBIN,TOTAL 3.4(H) 0.0 - 1.2 mg/dL 12/14/2024 7:18 PM CDT [facility] BILIRUBIN,DIRECT 1.9(H) 0.0 - 0.2 mg/dL 12/14/2024 7:18 PM CDT [facility] BILIRUBIN,INDIRE CT 1.5(H) 0.2 - 0.8 mg/dL 12/14/2024 7:18 PM CDT [facility] ALK PHOSPHATASE 223(H) 35 - 104 IU/L 12/14/2024 7:18 PM CDT [facility] ALT (SGPT) 846(H) 10 - 35 IU/L 12/14/2024 7:18 PM CDT [facility] AST (SGOT) 838(H) 10 - 35 IU/L 12/14/2024 7:18 PM CDT [facility] Blood BLOOD SPECIMEN / Unknown Non-Lab Venipuncture / Unknown 12/14/2024 6:27 PM CDT 12/14/2024 6:33 PM CDT us Janet Saavedra MD CHEMISTRY Final Result [facility] [address] [place] [address], * (ABNORMAL) BASIC METABOLIC PANEL (12/14/2024 6:27 PM CDT) SODIUM 138 136 - 145 mmol/L 12/14/2024 6:58 PM CDT [facility] POTASSIUM 4.8 3.5 - 5.1 mmol/L 12/14/2024 6:58 PM T [facility] CHLORIDE 103 98 - 107 mmol/L 12/14/2024 6:58 PM T [facility] CO2,TOTAL 21(L) 22 - 29 mmol/L 12/14/2024 6:58 PM CDT [facility] ANION GAP 14 5 - 18 12/14/2024 6:58 PM CDT [facility] GLUCOSE 62(L) 70 - 99 mg/dL 12/14/2024 6:58 PM T [facility] CALCIUM 9.0 8.8 - 10.4 mg/dL 12/14/2024 6:58 PM T [facility] Comment: Reference ranges for this test were updated on 06/16/2024 to reflect our healthy population more accurately. Reference range changes are not retroactively applied to results, but previous results using the same methodology can be interpreted in the context of the new reference range. BUN 11 8 - 23 mg/dL 12/14/2024 6:58 PM [facility] CREATININE 0.73 0.50 - 0.90 mg/dL 12/14/2024 6:58 PM T [facility] BUN/CREAT RATIO 15 10 - 20 6:58 PM T [facility] eGFR >90 >90 mL/min/1.7 3m2 12/14/2024 6:58 PM T [facility] Comment:As of 2021, eG FR is calculated by the CKD-EPI creatinine equation without race adjustment. eGFR can be influenced by muscle mass, exercise, and diet. The reported eGFR is an estimation only and is only applicable if the renal function is stable. Blood BLOOD SPECIMEN / Unknown Non-Lab Venipuncture / Unknown 12/14/2024 6:27 PM CDT 12/14/2024 6:33 PM CDT us Janet Saavedra MD CHEMISTRY Final Result [facility] [address] [place] [address], [place] * XR ERCP BILIARY ONLY (12/14/2024 5:29 PM CDT) Anatomical Region Laterality Modality GALLBLADDER, PANCREAS, LIVER Oth er Narrative 12/14/2024 4:01 PM CDT 16 minutes 9 seconds fluoroscopy time was provided. See operative/procedure report for further information. us Alen Dumas MD FLUOROSCOPY Final Result * HCHG STYLET PR1 (12/14/2024 4:22 PM CDT) Narrative Dean Hernández CRNA - 12/14/2024 4:22 PM CDT Dean Hernández CRNA 12/14/2024 4:23 PM Procedure: ETT Patient location during procedure: OR ETT Properties Mask Ventilation: not attempted Final Technique: direct laryngoscopy and cricoid pressure Location: oral Tube Size: 7.0 mm Stylet: yes Laryngoscope Blade: Mac Blade Size: 3 Cormack-Lehane Grade View: 3 Insertion Attempts: 1 Placement Verification: auscultation, end tidal CO2, symmetrical chest wall movement and cuff palpation Assessment: pharynx clear, dentition unchanged and atraumatic Secured at: 21 Measured From: lips Difficulty: 0 (not difficult) us Jose Luis Rosales MD ANESTHESIA PX NOTE ORDERABL ES Final Result * ENDOSCOPY (12/14/2024 3:47 PM CDT) 12/14/2024 3:47 PM CDT Narrative Transcriptions Alen Dumas MD - 12/14/2024 5:51 PM CDT [facility] Patient Name: Martita Steel Procedure Date: 12/14/2024 Gender: Female Date of : 1960 Admit Type: Inpatient Procedure: ERCP Proceduralist: Alen Dumas MD - [id number] Indications/Pre-Op Diagnosis: Bile duct stone(s) Medications: General Anesthesia Procedure Description: Risk of bleeding, infection, perforation, pancreatitis, need for surgery, remote chance of and alternatives were discussed, andthe patient gave informed consent. The endoscope [id number] was passed through the and advancedto the duodenum. The ERCP was accomplished without difficulty. Thepatient tolerated the procedure well. Complications: No immediate complications. Estimated Blood Loss & Specimen: Estimated blood loss: none. Specimen collected: None Findings: The scope was passed under direct vision through the upper GI tract.The entire examined stomach was normal. The examined duodenum was normal. The major papilla was normal. The bile duct could not be cannulatedwith the short-nosed traction sphincterotome and guidewire. The bile ductwas deeply cannulated with the regular tipped cannula with glidewire. Contrast was injected. I personally interpreted the bile duct images. There was brisk flow of contrast through the ducts. Image quality was excellent. Contrast extended to the hepatic ducts. The lower third of the main bile duct contained one stone, which was 4 mm in diameter. Biliary sphincterotomy was made with a traction (standard) sphincterotome. There was no post-sphincterotomy bleeding. Thebiliary tree was swept with a 9 mm balloon starting at the bifurcation. One stone was removed. No stones remained. One 5 Fr by 5 cm pancreaticstent with two external flaps was placed into the ventral pancreatic duct.The stent was in good position. Impressions/Post-Op Diagnosis: - Choledocholithiasis was found. Complete removal was accomplished by biliary sphincterotomy and balloon extraction. - One pancreatic stent was placed into the ventral pancreatic duct. Recommendation: - Watch for pancreatitis, bleeding, perforation, and cholangitis. - Perform a flat plate abdominal x-ray in 2 weeks. Alen Dumas MD 12/14/2024 5:51:36 PM This report has been signed electronically. Note Initiated On: 12/14/2024 3:47 PM us Alen Dumas MD PROCEDURE ORD Final Result * ENDOSCOPY (12/14/2024 2:00 PM CDT) 12/14/2024 2:00 PM CDT Narrative Transcriptions Alen Dumas MD - 12/14/2024 5:48 PM CDT [facility] Patient Name: Martita Steel Procedure Date: 12/14/2024 Gender: Female Date of : 1960 Admit Type: Emergency Department Procedure: Upper EUS Proceduralist: Alen Dumas MD - [facility] Indications/Pre-Op Diagnosis: Suspected choledocholithiasis Medications: Monitored Anesthesia Care Procedure Description: Risk of bleeding, infection, perforation, pancreatitis, need for surgery, remote chance of and alternatives were discussed, andthe patient gave informed consent. Risk of bleeding, infection, perforation, pancreatitis, need for surgery, remote chance of and alternatives were discussed, andthe patient gave informed consent. The endoscope [id number] was introduced through the mouth, and advanced to the third part of duodenum. The upper EUS wasaccomplished without difficulty. The patient tolerated the procedure well. Complications: No immediate complications. Estimated Blood Loss & Specimen: Estimated blood loss: none. Specimen collected: None Findings: ENDOSCOPIC FINDING: : The entire examined stomach was normal. The examined duodenum was normal. ENDOSONOGRAPHIC FINDING: : There was no sign of significant endosonographic abnormality in the ampulla. No masses were identified. One stone was visualized endosonographically in the common bile duct. The stone measured 4 mm in greatest dimension. It was hyperechoic and characterized by shadowing. There was no sign of significant endosonographic abnormality in the pancreatic head. The pancreatic duct measured up to 2 mm in diameter.No masses, no cysts. Impressions/Post-Op Diagnosis: - One stone was visualized endosonographically in the common bileduct. Recommendation: - Perform an ERCP. Alen Dumas MD 12/14/2024 5:48:29 PM This report has been signed electronically. Note Initiated On: 12/14/2024 2:00 PM Alen Dumas MD PROCEDURE ORD Final Result * SCAN-CT INTERPRETATION (12/13/2024 12:00 AM CDT) Anatomical Region Laterality Modality Other us Scanner OTHER Final Result * LAB TRACKING EVENT (12/07/2024 12:00 PM CDT) Other (Other) Client Collect / Unknown 12/07/2024 12:00 PM CDT 12/08/2024 6:37 AM CDT us Kristina Carnes MD LAB BILL ONLY Final Re sult [facility] [address] [place] [address], * PATH TISSUE EXAM (12/07/2024 12:00 PM CDT) Case Report Pathology Report Case: [id number] Authorizing Provider: Kristina Carnes MD Collected: 12/07/2024 1200 Ordering Location: [facility] Received: 12/08/2024 1413 Pathologist: Giovanny Alexander IV, MD Specimen: Gallbladder 12/10/2024 2:53 PM CDT [facility] [employer] [facility] Final Diagnosis A) GALLBLADDER, CHOLECYSTECTOMY: 1. Chronic cholecystitis 2. Cholelithiasis 3. Negative for dysplasia and malignancy 12/10/2024 2:53 PM CDT [facility] [employer] [facility] EN[facility] at 1453 CDT Clinical Information Ms. Steel is a 64 y.o. who undergoes cholecystectomy. 12/10/2024 2:53 PM CDT [facility] EN[facility] Gross Description A) Received in [...] No cystic duct lymph node is identified. E Merchant sections are submitted in one cassette. EVM 12/08/2024 12/10/2024 2:53 PM CDT [facility] EN[facility] Microscopic Description The final diagnosis is based on microscopic examination of appropriate sections of all specimens. 12/10/2024 2:53 PM CDT [facility] [employer] [facility] ENTR[facility] LAB[facility]ATORY Additional [facility] - [address], [place] [address] 12/10/2024 2:53 PM CDT [facility] EN[facility] LAB[facility] Other SPECIMEN FROM GALLBLADDER / Unknown 12/07/2024 12:00 PM CDT 12/08/2024 2:13 PM CDT us Kristina Carnes MD PATHOLOGY/CYTOLOGY Final Result [facility] [address] [place] [address], [place] * SCAN-RADIOLOGY REPORT (12/07/2024 12:00 AM [...] W REFLEX MEASURED LDL (09/16/2023 7:43 AM HUC) CHOLESTEROL,TOTAL 198 100 - 199 mg/dL 09/16/2023 4:22 PM [facility]UC [facility]ORY Comment: Cholesterol, Total Reference Ranges Desirable <200 mg/dL Borderline 200-239 mg/dL High >=240 mg/dL TRIGLYCERIDES 88 <150 mg/dL 09/16/2023 4:22 PM [facility]UC [facility] TRAL [facility] HDL CHOLESTEROL 62 >40 mg/dL 4:22 PM [facility] NON-HDL CHOLESTEROL 136 <145 mg/dl 09/16/2023 4:22 PM [facility] TRAL LABORATORY CHOL/HDL RATIO 3.19 <4.50 09/16/2023 4:22 PM [facility] LDL CHOLESTEROL 118 <=130 mg/dL 09/16/2023 4:22 PM [facility] VLDL CHOLESTEROL 18 <=30 mg/dL 09/16/2023 4:22 PM [facility] TRAL LABORATORY PROVIDER ORDERED STATUS RANDOM 09/16/2023 4:22 PM [facility] TRAL LABORATORY Blood BLOOD SPECIMEN / Unknown Venipuncture / Unknown 09/16/2023 7:43 AM HUC 09/16/2023 7:45 AM HUC us Koki De MD CHEMISTRY Final Resul t [facility] [address] [place] [address], [place] * sDNA-FIT External (Cologuard) [[id number]] (06/13/2022 10:15 AM CDT) NONINV COLON CA DNA+OCC BLD SCRN STL-IMP Negative Negative 06/21/2022 4:46 AM H[facility] (CLIA #:[id number]) Comment: NEGATIVE TEST RESULT. A negative Cologuard [...] (Deacon Klein al, N Engl J Med 2014;370(14):0928-8958) The normal value (reference range) for this assay is negative. COLOGUARD RE-SCREENING RECOMMENDATION: Periodic colorectal cancer screening is an important part of preventive healthcare for asymptomatic individuals at average risk for colorectal cancer. Following a negative Cologuard result, the [place] Cancer Society and U.S. Multi-Society Task Force screening guidelines recommend a Cologuard re-screening interval of 3 years. References: [place] [employer] Guideline for Colorectal Cancer Screening: https://www.cancer.org/cancer/cvmla-soremb-gjqsyr/navelmleo-emcwjhgyb-klntqkn/ac s-rec ommendations.html.; Diogo DK, Gray CR, Eliot OneillK, Colorectal Cancer Screening: Recommendations for Physicians and Patients from the U.S. Multi-Society Task Force on Colorectal Cancer Screening , Am J Gastroenterology 2017; 112:3564-5593. TEST DESCRIPTION: Composite algorithmic analysis of stool [...] (Deacon Klein al, N Engl J Med 2014;370(14):5531-8025.) Cologuard may produce a false negative or false positive result (no colorectal cancer or precancerous polyp present at colonoscopy follow up). A negative Cologuard test result does not guarantee the absence of CRC or advanced adenoma (pre-cancer). The current Cologuard screening interval is every 3 years. ([place] Cancer Society and U.S. Multi-Society Task Force). Cologuard performance data in a 10,000 patient pivotal study using colonoscopy as the reference method can be accessed at the following location: www.PowWowHR.[facility] [place]/results. Additional description of the Cologuard test process, warnings and precautions can be found at www.TRAN.SL.[facility] [place]. Stool specimen (specimen) (Rectum) 06/13/2022 10:15 AM CDT 06/14/2022 5:14 PM CDT Caryl Huang MD URINE Final Result [facility] (CLIA #:[id number]) [address] [place] [address], [place] [phone] from Last 3 Months or Most Recently Relevant to Health Maintenance Insurance [facility] INDIV[employer] FAMILY [employer] Advance Directives * Full Code (Latest Code Status on File) Date Activated Date Inactivated Comments 12/14/2024 3:46 PM 12/15/2024 1:22 PM Question Answer Comments Code Status Discussion: Unable to Assess Preferences, Provider to review later * Full Code Date Activated Date Inactivated Comments 05/24/2011 9:05 AM 05/24/2011 7:25 PM Care Teams Senior Chemical Engineer Relationship Specialty Start Date End Date Koki De MD [address] [place] [address] PCP - General Family Practice 12/18/22
[2024-12-18] VITALS (11 sets, daily range): BP systolic 133; BP diastolic 84; PULSE 64–81; RESP 18; TEMP 36.2; O2SAT 90–98
[2024-12-18] MEDS: HYDROmorphone 0.5 mg/0.5 ml inj IVP (02:44)
[2024-12-19 18:54] LABS: Lipase* 237 U/L (23-300)
== END 2024-12-18 03:34 | disposition short-term general hospital (02) ==
PROVIDERS: Surgery; Emergency Provider Family Medicine; PCP Family Medicine
DX: R10.11 Right upper quadrant pain (principal); R94.5 Abnormal results of liver function studies; G89.18 Other acute postprocedural pain
CPT/HCPCS: 36415; 74177; 80048; 80076; 83690; 85025; 94761; 96374; 96375; 99284; 99285; J1171; J7030; Q9967

== ENCOUNTER 2024-12-18 02:48 | Outpatient (CLI) | payer OTHER, SELFPAY | END 2024-12-18 23:59 | disposition home or self-care (01) | LOC: AMB 01-01 08:55 | PROVIDERS: PCP Family Medicine; Visit Provider Internal Medicine | DX: R10.11 Right upper quadrant pain (principal); T85.528A Displacement of other gastrointestinal prosthetic devices, implants and grafts, initial encounter | CPT/HCPCS: A0425; A0427 ==

== ENCOUNTER 2024-12-30 10:52 | Emergency (ER) | payer OTHER, SELFPAY ==
[2024-12-30 10:56] VITALS: BP 179/90; PULSE 86; RESP 16; TEMP 36.6; O2SAT 96
--- OUTSIDE RECORDS SUMMARY | 2024-12-30 10:56 | XMS_ITS | Clinical Summary ---
Author Organization [facility] Address [address] [place] [address] Care Team Providers Care Chief Lifestyle Officer Name Role Phone Koki De MD Primary [...] Date Type Department Care Team Description 5 Travel 5 Telephone [facility] [address] [place] [address] Koki De MD Appointment 5 1:30 PM CDT Office Visit [facility] [address] [place] [address] Kristina Carnes MD Post-op (Laparoscopic cholecystectomy 12/07/24) 5 Travel 5 Patient Outreach [facility] [address] [place] [address] Danisha Fox, RN Primary RN Care Management; Hospital F/U (LACE 57) 5 4:01 AM CDT - 5 2:45 PM CDT Hospital Encounter [facility] [address] [place] [address] [facility] [place] Hospitalists Of [place], MD Teresa Whalen, Rani Gomez MD Discharge Disposition: Home Self Care 5 Travel 5 Orders Only [facility] Scanner 1 scan: (1-Ord) [facility], ABDOMEN PELVIS W CON , 12/17/2024 5 Patient Outreach [facility] [address] [place] [address] Danisha Fox, RN Primary RN Care Management; Hospital F/U (LACE 66) 5 3:43 PM CDT Anesthesia Event [facility] [address] [place], [place] [id number] Jose Luis Rosales MD 5 2:35 PM CDT - 5 10:56 AM CDT Hospital Encounter [facility] [address] [place] [address] Janet Saavedra MD Peterson, Ruben Yousif MD [facility] [place] Hospitalists Of Gerber Hart MD Puchalski, IRVIN Troy Choledocholithiasis (Primary Dx) Discharge Disposition: Home Self Care 5 1:55 PM CDT - 5 3:00 PM CDT Surgery [facility] [address] [place] [address] Alen Dumas MD ENDOSCOPIC RETROGRADE CHOLANGIOPANCREATOGRAPHY with spincterotomy and stone extraction and stent 5 Travel 5 Orders Only [facility] Scanner 1 scan: (1-Ord) [facility], ABDOMEN PELVIS W/ CON, 12/13/2024 5 Lab Requisition [facility] [phone] Kristina Carnes MD 5 Orders Only [facility] Scanner 1 scan: (1-Ord) [facility], XR CHEST 1V PORTABLE, 12/07/2024 5 Orders Only [facility] Scanner 1 scan: (1-Ord) [place], LAPAROSCOPIC CHOLECYSTECTOMY, 12/07/2024 5 Orders Only [facility] Scanner 1 scan: (1-Ord) [facility], MULTIPLE LAB RESULTS, 12/04/2024 5 Orders Only [facility] Scanner 1 scan: (1-Ord) [facility], US ABDOMEN LIMITED, 12/04/2024 5 10:00 AM CDT Office Visit [facility] [address] [place] [address] Koki De MD Medication Management (phentermine); Immunization/Injection 5 Travel 5 Refill [facility] [address] [place] [address] Koki De MD Refill Request (Phentermine Hcl) [...] ituted (Arexvy 120MCG/0.5mL) 03/11/2024 Smallpox (Vaccinia) Live [id number] 08/12/1968 Td (Age >=7 Years) 08/12/2001,08/12/1991, 982 [...] or isolated from those around you? 0 12/18/2024 Financial Resource Strain Answer Date R ecorded Difficulty of Paying Living Expenses 3 05/15/2024 Difficulty of Paying Living Expenses Not on file 05/15/2024 Food Insecurity Answer Date Recorded Do you worry your food will run out before you are able to buy more? 1 12/18/2024 Transportation Needs Answer Date Record ed Does lack of transportation keep you from medica l appointments? 1 12/18/2024 Does lack of transportation keep you from work, meetings or getting things that you need? 1 12/18/2024 Housing Stability Answer Date Recorded What is your housing situation today? 1 12/18/2024 Interpersonal Safety Answer Date Record ed Are you being hit, kicked, p ushed or yelled at (see row info)? No 12/18/2024 Interpersonal Safety Abuse 12 - 18 Not on file 12/18/2024 Interpersonal Safety Ambulatory Vulnerability No t on file 12/18/2024 Utilities Answer Date Recorded Do you have trouble paying f or utilities (for example, heat, electricity, water, phone)? 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 Not on file Not on file Obstetrics History Last Filed Vital Signs Vital Sign Reading Time Taken Comments Blood Pressure 132/78 12/22/2024 1:40 PM CDT Pulse 82 12/22/2024 1:40 PM CDT Temperature 36.6 C (97.8 F) 12/18/2024 8:30 AM CDT Respiratory Rate 16 12/18/2024 8:30 AM CDT Oxygen Saturation 99% 12/22/2024 1:40 PM CDT Inhaled Oxygen Concentration - - Weight 80 kg (176 lb 6.4 oz) 12/22/2024 1:40 PM CDT with shoes Height 163.8 cm (5' 4.5) 12/18/2024 4:00 AM CDT Body Mass Index 29.81 12/18/2024 4:00 AM CDT Plan of Treatment Upcoming Encounters Date Type Department Care Team (Late st Contact Info) Description 01/06/2025 1:55 PM CDT Office Visit [facility] [address] [place] [address] Koki De MD [address] [place] [address] 01/27/2025 4:00 PM CDT Office Visit [facility] [address] [place] [address] Koki De MD [address] [place] [address] Health Maintenance Due Date Last Done Comments HIV for age 15-65 1976 Hepatitis C screening for ag e 18-79 1979 Mammogram for age 45-75 05/06/2025 05/06/20 24, 11/21/2022, 11/15/2022, Additional history exists Fecal testing sDNA-FIT (Wiseman guard) for age 45-75 06/13/2025 06/13/2022, 05/20/2019 BMI (ht and wt on same day) for age 18+ 11/05/2025 11/05/2024, 08/28/2023, 01/03/2023, Additional history exists Depression screening for age 12+ 11/05/2025 11/06/19 25 Lipids for age 45-75 09/16/2028 09/16/2023, 12/22/19 21 Tetanus booster 03/06/2034 03/06/2024, 08/12, 06/02/2013, Additional history exists Hepatitis B series for 19+ Completed 08/12, 08/12/1989, 08/12/1988 Zoster (shingles) series for age 50+ Completed 01/10/2021, 11/09/2020 Tdap Completed 03/06/2024, 08/12, 06/02/2013 RSV vaccine for adults or Completed 03/11/2024 COVID-19 vaccine series Completed 05/20/20 24, 06/26/2023, 07/10/2022, Additional history exists Influenza Vaccine Completed 05/20/2024, , 06/18/2022, Additional history exists Pneumococcal series for age 50+ Completed 11/05/2024, 09/22/2015, 11/29/2003 Medical Devices Implanted Type Area Packaging Associate Device Identifier Shelf Expiration Date Model / Serial / Lot Mesh Hernia Inguinal Rt - [id number] Implanted:Qty: 1 on 05/24/2011 at [facility] Right: Inguinal 09/12/2015 [id number] R# / / [id number] Stent Pancreatic [id number] Geenen Sof-Flex No Flap - [id number] Implanted:Qty: 1 on 12/14/2024 by Alen Dumas MD at [facility] 08/21/2027 GPSOS-SF- 5-5 / / [id number] Explanted Type Area Packaging Associate Device Identifier Shelf Expiration Date Model / Serial / Lot Stent Pancreatic [id number] Geenen Sof-Flex No Flap - [id number] Explanted:Qty: 1 on 12/14/2024 at [facility] 08/21/2027 GPSOS-SF-5 - 5 / / [id number] Procedures Procedure Name Priority Date/Time Associated Diagnosis Comments HEMOGLOBIN Routine 12/22/2024 2:17 PM CDT Anemia, unspecified type HEPATIC FUNCTION PANEL Routine 2:17 PM CDT Elevated LFTs SCAN CORRESP-LABORATORY RESULTS 12/18/2024 1:38 PM CDT CBC W PLT NO DIFF Early AM 12/18/2024 6:2 7 AM CDT CREATININE Early AM 12/18/2024 6:27 AM CDT HEPATIC FUNCTION PANEL Early AM 6:27 AM CDT SCAN-CT INTERPRETATION 12:00 AM CDT SCAN CORRESP-LABORATORY RESULTS 12/15/2024 3:46 PM CDT [...] REPORT 12:00 AM CDT SCAN-MAMMOGRAPHY REPORT 05/06/20 12:00 AM CDT LIPID PANEL W REFLEX MEASURE D LDL Routine 09/16/2023 7:43 AM CONTROL PANEL OPERATOR CRUDE UNIT Lipid screening SDNA-FIT EXTERNAL (COLOGUARD) Routine 10:15 AM CDT Screening for colon cancer from Last 3 Months or Most Recently Relevant to Health Maintenance Results * HEMOGLOBIN (12/22/2024 2:17 PM CDT) HEMOGLOBIN 12.1 11.7 - 15.5 g/dL [facility] Blood BLOOD SPECIMEN / Unknown 12/22/2024 2:17 PM CDT 12/22/2024 2:17 PM CDT us Kristina Carnes MD HEMATOLOGY Final Re sult [employer] [facility] [address] [place] [address], [facility] [address] [place] [address] * (ABNORMAL) HEPATIC FUNCTION PANEL (12/22/2024 2:17 PM CDT) Only the most recent of3 resultswithin the time period is included. PROTEIN, TOTAL 6.6 6.1 - 8.1 g/dL [facility] ALBUMIN 4.1 3.6 - 5.1 g/dL [facility] GLOBULIN 2.5 1.9 - 3.7 g/dL (calc) [facility] ALBUMIN/GLOBULIN RATIO 1.6 1.0 - 2.5 (calc) [facility] BILIRUBIN, TOTAL 0.4 0.2 - 1.2 mg/dL [facility] BILIRUBIN, DIRECT 0.1 < OR = 0.2 mg/dL [facility] BILIRUBIN, INDIRECT 0.3 0.2 - 1.2 mg/dL (calc) [facility] ALKALINE PHOSPHATASE 137 37 - 153 U/L [facility] AST 21 10 - 35 U/L [facility] ALT 59(H) 6 - 29 U/L [facility] Blood BLOOD SPECIMEN / Unknown 12/22/2024 2:17 PM CDT 12/22/2024 2:17 PM CDT Kristina Carnes MD CHEMISTRY Final Re sult [employer] [facility] [address] [place] [address], [facility] [address] [place] [address] * SCAN CORRESP-LABORATORY RESULTS (12/18/2024 1:38 PM CDT) Only the most recent of3 resultswithin the time period is included. Narrative 12/18/2024 1:38 PM CDT Ordered by an unspecified provider. Other Clinical Staff OTHER Final Resul t * (ABNORMAL) CBC (12/18/2024 6:27 AM [facility]) Only the most recent of2 resultswithin the time period is included. WHITE BLOOD COUNT 6.5 4.5 - 11.0 thou/cu mm 12/18/2024 7:[address] [facility] RED BLOOD COUNT 3.86(L) 4.00 - 5.20 mil/cu mm 12/18/2024 7:[address] [facility] HEMOGLOBIN 11.1(L) 12.0 - 16.0 g/dL 12/18/2024 7:[address] [facility] HEMATOCRIT 35.1 33.0 - 51.0 % 12/18/2024 7:[address] [facility] MCV 91 80 - 100 fL 12/18/2024 7:[address] [facility] MCH 28.8 26.0 - 34.0 pg 12/18/2024 7:[address] [facility] MCHC 31.6(L) 32.0 - 36.0 g/dL 12/18/2024 7:[address] [facility] RDW 12.5 11.5 - 15.5 % 12/18/2024 7:[address] [facility] PLATELET COUNT 321 140 - 440 thou/cu mm 12/18/2024 7:[address] [facility] MPV 11.3(H) 6.5 - 11.0 fL 12/18/2024 7:[address] [facility] NRBC 0.0 % 12/18/2024 7:[address] [facility] ABS NRBC 0.0 thou /cu mm 12/18/2024 7:[address] [facility] Blood BLOOD SPECIMEN / Unknown Venipuncture / Unknown 12/18/2024 6:27 AM CDT 12/18/2024 6:52 AM CDT Yamila Franco MD HEMATOLOGY Final Resu lt Performing Organization Address [facility] Co de Phone Number [facility] [address] [place] [address], * CREATININE (12/18/2024 6:27 AM CDT) eGFR >90 >90 mL/min/1.7 3m2 12/18/2024 7:30 AM CDT [facility] Comment:As of 2021, eG FR is calculated by the CKD-EPI creatinine equation without race adjustment. eGFR can be influenced by muscle mass, exercise, and diet. The reported eGFR is an estimation only and is only applicable if the renal function is stable. CREATININE 0.67 0.50 - 0.90 mg/dL 12/18/2024 7:30 AM CDT [facility] Blood BLOOD SPECIMEN / Unknown Venipuncture / Unknown 12/18/2024 6:27 AM CDT 12/18/2024 6:52 AM CDT Yamila Franco MD CHEMISTRY Final Resu lt Performing Organization Address [facility] Co de Phone Number [facility] [address] [place] [address], * SCAN-CT INTERPRETATION (12/17/2024 12:00 AM CDT) Only the most recent of2 resultswithin the time period is included. Anatomical Region Laterality Modality Other us Scanner OTHER Final Result * SCAN CORRESP-IMAGING (12/15/2024 3:44 PM CDT) Anatomical Region Laterality Modality Other Narrative 12/15/2024 3:44 PM CDT Ordered by an unspecified provider. us Other Clinical Staff OTHER Final Resul t * WHITE BLOOD COUNT (12/15/2024 6:40 AM CDT) WHITE BLOOD COUNT 6.8 4.5 - 11.0 thou/cu mm 12/15/2024 7:00 AM CDT [facility] NRBC 0.0 % 12/15/2024 7:00 AM CDT [facility] ABS NRBC 0.0 thou /cu mm 12/15/2024 7:00 AM CDT [facility] Blood BLOOD SPECIMEN / Unknown Venipuncture / Unknown 12/15/2024 6:40 AM CDT 12/15/2024 6:49 AM CDT Gerber Hart MD HEMATOLOGY Final Res ult Performing Organization Address City/[facility]/ZIP Co de Phone Number [facility] [address] [place] [address], [place] * BILIRUBIN,TOTAL (12/15/2024 6:40 AM CDT) BILIRUBIN,TOTA L 0.9 0.0 - 1.2 mg/dL 12/15/2024 7:25 AM CDT [facility] Blood BLOOD SPECIMEN / Unknown Venipuncture / Unknown 12/15/2024 6:40 AM CDT 12/15/2024 6:49 AM CDT Gerber Hart MD CHEMISTRY Final Res ult Performing Organization Address [facility]/ZIP Co de Phone Number [facility] [address] [place] [address], [place] * (ABNORMAL) ALT (SGPT) (12/15/2024 6:40 AM CDT) ALT (SGPT) 605(H) 10 - 35 IU/L 12/15/2024 7:25 AM CDT [facility] Blood BLOOD SPECIMEN / Unknown Venipuncture / Unknown 12/15/2024 6:40 AM CDT 12/15/2024 6:49 AM CDT us Gerber Hart MD CHEMISTRY Final Res ult [facility] [address] [address], [place] * (ABNORMAL) AST (SGOT) (12/15/2024 6:40 AM CDT) AST (SGOT) 360(H) 10 - 35 IU/L 12/15/2024 7:25 AM CDT [facility] Blood BLOOD SPECIMEN / Unknown Venipuncture / Unknown 12/15/2024 6:40 AM CDT 12/15/2024 6:49 AM CDT Gerber Hart MD CHEMISTRY Final Res ult Performing Organization Address City/[facility]/ZIP Co de Phone Number [facility] [address] [address], [place] * (ABNORMAL) ALK PHOSPHATASE (12/15/2024 6:40 AM CDT) ALK PHOSPHATASE 217(H) 35 - 104 IU/L 12/15/2024 7:25 AM CDT [facility] Blood BLOOD SPECIMEN / Unknown Venipuncture / Unknown 12/15/2024 6:40 AM CDT 12/15/2024 6:49 AM CDT Gerber Hart MD CHEMISTRY Final Res ult [facility] [address] [address], [place] * PROTIME-INR (12/14/2024 6:41 PM CDT) INR 1.1 <1.3 12/14/2024 7:00 PM CDT [facility] PROTIME 12.4 10.6 - 12.4 sec 12/14/2024 7:00 PM CDT [facility] Blood BLOOD SPECIMEN / Unknown [...] seconds if the patient is on UFH. Janet Saavedra MD HEMATOLOGY Final Result Performing Organization Address [facility] Co de Phone Number [facility] [address] [place] [address], * LIPASE (12/14/2024 6:27 PM CDT) LIPASE 27.2 13.0 - 60.0 IU/L 12/14/2024 6:58 PM CDT [facility] Blood BLOOD SPECIMEN / Unknown Non-Lab Venipuncture / Unknown 12/14/2024 6:27 PM CDT 12/14/2024 6:33 PM CDT Janet Saavedra MD CHEMISTRY Final Result Performing Organization Address [facility] Co de Phone Number [facility] [address] [place] [address], * (ABNORMAL) BASIC METABOLIC PANEL (12/14/2024 6:27 PM CDT) SODIUM 138 136 - 145 mmol/L 12/14/2024 6:58 PM CDT [facility] POTASSIUM 4.8 3.5 - 5.1 mmol/L 12/14/2024 6:58 PM CDT [facility] CHLORIDE 103 98 - 107 mmol/L 12/14/2024 6:58 PM CDT [facility] CO2,TOTAL 21(L) 22 - 29 mmol/L 12/14/2024 6:58 PM CDT [facility] ANION GAP 14 5 - 18 12/14/2024 6:58 PM CDT [facility] GLUCOSE 62(L) 70 - 99 mg/dL 12/14/2024 6:58 PM CDT [facility] CALCIUM 9.0 8.8 - 10.4 mg/dL 12/14/2024 6:58 PM CDT [facility] Comment: Reference ranges for this test were updated on 06/16/2024 to reflect our healthy population more accurately. Reference range changes are not retroactively applied to results, but previous results using the same methodology can be interpreted in the context of the new reference range. BUN 11 8 - 23 mg/dL 12/14/2024 6:58 PM CDT [facility] CREATININE 0.73 0.50 - 0.90 mg/dL 12/14/2024 6:58 PM CDT [facility] BUN/CREAT RATIO 15 10 - 20 6:58 PM CDT [facility] eGFR >90 >90 mL/min/1.7 3m2 12/14/2024 6:58 PM CDT [facility] Comment:As of 2021, eG FR [...] [facility] [address] [place] [address], [place] * XR ERCP BILIARY ONLY (12/14/2024 5:29 PM CDT) Anatomical Region Laterality Modality GALLBLADDER, PANCREAS, LIVER Oth er Narrative 12/14/2024 4:01 PM CDT 16 minutes 9 seconds fluoroscopy time was provided. See operative/procedure report for further information. us Alen Dumas MD FLUOROSCOPY Final Result * HCHG STYLET PR1 (12/14/2024 4:22 PM CDT) Narrative Dean Hernández, SHOE TREER - 12/14/2024 4:22 PM CDT Dean Hernández, SHOE TREER 12/14/2024 4:23 PM Procedure: ETT Patient location [...] [facility] Patient Name: Martita Setel Procedure Date: 12/14/2024 Gender: Female Date of : 1960 Admit Type: Inpatient Procedure: ERCP Proceduralist: Alen Dumas MD - [facility] Indications/Pre-Op Diagnosis: Bile duct stone(s) Medications: General Anesthesia Procedure Description: Risk of bleeding, infection, perforation, pancreatitis, need for surgery, remote chance of and alternatives were discussed, andthe patient gave informed consent. The endoscope [id number] was passed through the and advancedto the [...] electronically. Note Initiated On: 12/14/2024 3:47 PM Alen Dumas MD PROCEDURE ORD Final Result * ENDOSCOPY (12/14/2024 2:00 PM CDT) 12/14/2024 2:00 PM CDT Narrative Transcriptions Alen Dumas MD - 12/14/2024 5:48 PM CDT [facility] Patient Name: Martita Steel Procedure Date: 12/14/2024 Gender: Female Date of : 1960 Admit Type: Emergency Department Procedure: Upper EUS Proceduralist: Alen Dumas MD - [facility] Indications/Pre-Op Diagnosis: Suspected choledocholithiasis Medications: Monitored Anesthesia Care Procedure Description: Risk of bleeding, infection, perforation, pancreatitis, need for surgery, remote chance of and alternatives were discussed, andthe patient gave informed consent. Risk of bleeding, infection, perforation, pancreatitis, need for surgery, remote chance of and alternatives were discussed, andthe patient gave informed consent. The endoscope [id number] was introduced through the mouth, and advanced [...] Dumas MD PROCEDURE ORD Final Result * LAB TRACKING EVENT (12/07/2024 12:00 PM CDT) Other (Other) Client Collect / Unknown 12/07/2024 12:00 PM CDT 12/08/2024 6:37 AM CDT Kristina Carnes MD LAB BILL ONLY Final Re sult [facility] [address] [place] [address], * PATH TISSUE EXAM (12/07/2024 12:00 PM CDT) Case Report Pathology Report Case: [id number] Authorizing Provider: Kristina Carnes MD Collected: 12/07/2024 1200 Ordering Location: [facility] Received: 12/08/2024 1413 Pathologist: Giovanny Alexander IV, MD Specimen: Gallbladder 12/10/2024 2:53 PM CDT [facility] Final Diagnosis A) GALLBLADDER, CHOLECYSTECTOMY: 1. Chronic cholecystitis 2. Cholelithiasis 3. Negative for dysplasia and malignancy 12/10/2024 2:53 PM CDT [facility] at 1453 CDT Clinical Information Ms. Steel is a 64 y.o. who undergoes cholecystectomy. 12/10/2024 2:53 PM CDT [facility] Gross Description A) Received in formalin, [...] No cystic duct lymph node is identified. Wastewater Treatment Supervisor sections are submitted in one cassette. EVM 12/08/2024 12/10/2024 2:53 PM CDT [facility] Microscopic Description The final diagnosis is based on microscopic examination of appropriate sections of all specimens. 12/10/2024 2:53 PM CDT [facility] Additional Information Interpreted at [facility] - [address] [place] [address]. [facility] [address] [address] 12/10/2024 2:53 PM CDT [facility] Other SPECIMEN FROM GALLBLADDER / Unknown 12/07/2024 12:00 PM CDT 12/08/2024 2:13 PM CDT us Kristina Carnes MD PATHOLOGY/CYTOLOGY Final Result Performing Organization Address City/State/[facility] Co de Phone Number [facility] [address] [place] [address], [place] * SCAN-RADIOLOGY REPORT (12/07/2024 12:00 AM [...] W REFLEX MEASURED LDL (09/16/2023 7:43 AM CONTROL PANEL OPERATOR CRUDE UNIT) CHOLESTEROL,TOTAL 198 100 - 199 mg/dL 09/16/2023 4:22 PM CONTROL PANEL OPERATOR CRUDE UNIT [facility] Comment: Cholesterol, Total Reference Ranges Desirable <200 mg/dL Borderline 200-239 mg/dL High >=240 mg/dL TRIGLYCERIDES 88 <150 mg/dL 09/16/2023 4:22 PM CONTROL PANEL OPERATOR CRUDE UNIT [facility] HDL CHOLESTEROL 62 >40 mg/dL 4:22 PM CONTROL PANEL OPERATOR CRUDE UNIT [facility] NON-HDL CHOLESTEROL 136 <145 mg/dl 09/16/2023 4:22 PM CONTROL PANEL OPERATOR CRUDE UNIT [facility] CHOL/HDL RATIO 3.19 <4.50 09/16/2023 4:22 PM CONTROL PANEL OPERATOR CRUDE UNIT [facility] LDL CHOLESTEROL 118 <=130 mg/dL 09/16/2023 4:22 PM CONTROL PANEL OPERATOR CRUDE UNIT [facility] VLDL CHOLESTEROL 18 <=30 mg/dL 09/16/2023 4:22 PM CONTROL PANEL OPERATOR CRUDE UNIT [facility] PROVIDER ORDERED STATUS RANDOM 09/16/2023 4:22 PM CONTROL PANEL OPERATOR CRUDE UNIT [facility] Blood BLOOD SPECIMEN / Unknown Venipuncture / Unknown 09/16/2023 7:43 AM CONTROL PANEL OPERATOR CRUDE UNIT 09/16/2023 7:45 AM CONTROL PANEL OPERATOR CRUDE UNIT us Koki De MD CHEMISTRY Final Resul t [facility] [address] [place] [address], [place] * sDNA-FIT External (Cologuard) [[id number]] (06/13/2022 10:15 AM CDT) NONINV COLON CA DNA+OCC BLD SCRN STL-IMP Negative Negative 06/21/2022 4:46 AM [facility] [employer] (CLIA #:[id number]) Comment: NEGATIVE TEST RESULT. A negative Cologuard [...] screened with both Cologuard and colonoscopy. (Deacon Ware et al, N Engl J Med 2014;370(14):7911-6714) The normal value (reference range) for this assay is negative. COLOGUARD RE-SCREENING RECOMMENDATION: Periodic colorectal cancer screening is an important part of preventive healthcare for asymptomatic individuals at average risk for colorectal cancer. Following a negative Cologuard result, the [place] [employer] and U.S. Multi-Society Task Force screening guidelines recommend a Cologuard re-screening interval of 3 years. References: [place] [employer] Guideline for Colorectal Cancer Screening: https://www.cancer.org/cancer/zuhlr-enrnxl-vlbqmq/kdilgdxff-eepnlkmuz-rkkchuz/ac s-rec ommendations.html.; Diogo LOUIS, Gray GARCIA, Eliot OneillK, Colorectal Cancer Screening: Recommendations for Physicians and Patients from the [place]. Multi-Society Task Force on Colorectal Cancer Screening , Am J Gastroenterology 2017; 112:3912-4399. TEST DESCRIPTION: Composite algorithmic analysis of stool [...] screened with both Cologuard and colonoscopy. (Deacon Hutton. et al, N Engl J Med 2014;370(14):3409-5952.) Cologuard may produce a false negative or false positive result (no colorectal cancer or precancerous polyp present at colonoscopy follow up). A negative Cologuard test result does not guarantee the absence of CRC or advanced adenoma (pre-cancer). The current Cologuard screening interval is every 3 years. ([employer] [employer] and [place] Multi-Society Task Force). Cologuard performance data in a 10,000 patient pivotal study using colonoscopy as the reference method can be accessed at the following location: www.SportsCrunch/results. Additional description of the Cologuard test process, warnings and precautions can be found at [email or web address]. Stool specimen (specimen) (Rectum) 06/13/2022 10:15 AM CDT 06/14/2022 5:14 PM CDT Caryl Huang MD URINE Final Result [employer] (CLIA #:[id number]) [place] [address], from Last 3 Months or Most Recently Relevant to Health Maintenance Insurance [facility] [employer] [facility] [employer]ILY [employer] Advance Directives * Full Code (Latest Code Status on File) Date Activated Date Inactivated Comments 12/18/2024 4:13 AM 12/18/2024 4:51 PM Question Answer Comments Code Status Discussion: Reviewed Preferences * Full Code Date Activated Date Inactivated Comments 12/14/2024 3:46 PM 12/15/2024 1:22 PM Question Answer Comments Code Status Discussion: Unable to Assess Preferences, Provider to review later * Full Code Date Activated Date Inactivated Comments 05/24/2011 9:05 AM 05/24/2011 7:25 PM Care Teams Chief Lifestyle Officer Relationship Specialty Start Date End Date Koki De MD [address] [place] [address] PCP - General Family Practice 12/18/22
--- NOTE | 2024-12-30 11:20 | CRLHL7_ITS ---
For Patients: As a result of the Century Cures Act, medical imaging exams and procedure reports are released immediately into your electronic medical record. You may view this report before your referring provider. If you have questions, please contact your health care provider. INDICATION: Right upper quadrant abdomen pain. TECHNIQUE: Ultrasound abdomen limited. Sonographic images of the right upper quadrant were obtained using barrera-scale and color Doppler images. COMPARISON: December 17, 2024. FINDINGS: Liver: Mild heterogeneous/echogenic hepatic parenchyma. Similar 4.6 centimeter right hepatic lobe echogenic lesion thought to represent hemangioma. No suspicious masses. No intrahepatic biliary dilatation. Gallbladder: Prior cholecystectomy. No drainable fluid collections. Common bile duct: 6 mm. Pancreas: Unremarkable. Right kidney: Normal in size. Normal echotexture and cortex. No suspicious masses, stones, or hydronephrosis. Vasculature: Proximal abdominal aorta and IVC are unremarkable. IMPRESSION: Prior cholecystectomy. No drainable fluid collections. No biliary obstruction. Similar 4.6 centimeter right hepatic lobe echogenic lesion thought to represent hemangioma. Mild heterogeneous/echogenic hepatic parenchyma, possibly chronic hepatocellular disease. Dictated by Joseph Locke MD @ 12/30/2024 12:40:09 PM (Electronically Signed)
--- NOTE | 2024-12-30 11:22 | ED.ABDPAIN ---
HPI - Abdominal Pain General Date Seen: 12/30/24 Chief Complaint: Abdominal Pain Stated Complaint: gallbladder removal back in November- having pain Time Seen by Provider: 12/30/24 11:11 Source: patient Mode of arrival: ambulatory Limitations: no limitations History of Present Illness HPI narrative: Patient is a 64-year-old female presenting to the emergency department with right upper quadrant pain. On December 07 she reported cholecystectomy. After that she return on 12/13/2024 and was transferred to [facility] for an ERCP. At that time a pancreatic stent was placed. She was doing well and then sent home but returned on 12/17/2024 and a stent home was malpositioned and was transferred back to [place]. By time she got avid was sent was within her abdomen and her symptoms have resolved. She was doing well up until this morning or 01:00 she had right upper quadrant pain again. She states it felt like her previous few episodes of pain but not nearly as severe. States pain got to a size about a 4/10 sharp stabbing pain. Pain is now a 2/10 after she took the oxycodone. She spoke to her pneumonia surgeon and was recommend to come to the emergency department for re-evaluation. She states her pain is tolerable at this time has minimal associated nausea. For states she feels comfortable at this time wants to make sure nothing else is going on. The denies fevers, chills, diarrhea, constipation, headache, lightheadedness, weakness, numbness, chest pain, abdominal pain. Related Data Home Medications ?Medication ?Instructions ?Recorded ?Confirmed cholecalciferol (vitamin D3) 50 2,000 unit PO DAILY 02/28/22 12/30/24 mcg (2,000 unit) tablet SAMe butanedisulfonate 400 ea PO 12/04/24 12/04/24 mg-betaine 600 mg oral powder packet acetaminophen 650 mg 650 mg PO Q12H 12/04/24 12/30/24 tablet,extended release (Tylenol Arthritis Pain) multivitamin 1 tab PO QAM 12/04/24 12/30/24 sjktvctskfheu-AK-[id number] 5 ml PO 12/04/24 12/04/24 mg-10 mg-325 mg/15 mL oral liquid (Vicks DayQuil Cold and Flu Relief) tamsulosin 0.4 mg capsule (Flomax) 0.4 mg PO DAILY 12/04/24 12/30/24 escitalopram oxalate 10 mg tablet 10 mg PO DAILY 12/14/24 12/30/24 fexofenadine 180 mg tablet 180 mg PO DAILY 12/14/24 12/30/24 (Carmenza Allergy) phentermine 30 mg capsule 30 mg PO DAILY 12/14/24 12/30/24 trazodone 50 mg tablet 50 - 100 mg PO HS 12/14/24 12/30/24 Previous Rx's ?Medication ?Instructions ?Recorded fluorouracil 5 % topical cream 1 applic topical .UD #40 grams 06/06/23 albuterol sulfate 90 mcg/actuation 2 puff inhalation Q6H PRN 01/28/24 aerosol inhaler bronchospasm #8.5 grams epinephrine 0.3 mg/0.3 mL 0.3 mg (0.3 mL) IM .As Needed PRN 01/28/24 injection, auto-injector anaphylaxis #2 ea estradiol 0.01% (0.1 mg/gram) 1 g vaginal QWEEK #42.5 grams 01/28/24 vaginal cream estradiol 0.05 mg/24 hr semiweekly 1 patch transdermal .Twice Weekly 01/28/24 transdermal patch #8 ea omeprazole 20 mg capsule,delayed 20 mg PO DAILY #90 caps 01/28/24 release triamcinolone acetonide 0.1 % 1 applic topical BID PRN skin 01/28/24 topical cream reaction #80 grams budesonide-formoterol HFA 160 2 puff inhalation BID #10.2 grams 02/06/24 mcg-4.5 mcg/actuation aerosol inhaler (Symbicort) finasteride 5 mg tablet 5 mg PO DAILY #90 tabs 04/23/24 Allergies Allergy/AdvReac Type Severity Reaction Status Date / Time bupropion Allergy Unknown Tremors Verified 12/30/24 12:57 Cephalosporins Allergy Unknown GI upset Verified 12/30/24 12:57 latex Allergy Unknown Rash Verified 12/30/24 12:57 promethazine Allergy Unknown Legs jump Verified 12/30/24 12:57 Macrolide Antibiotics Allergy Gastrointestinal Verified 12/30/24 12:57 Upset erythromycin base AdvReac Gastrointestinal Verified 12/30/24 12:57 Upset Review of Systems Status of ROS Reports: 10 or more systems reviewed and unremarkable except as noted in History and below [facility] Medical History Biliary colic ?K80.50 - Calculus of bile duct without cholangitis or cholecystitis without obstruction (ICD-10) Chronic hepatitis ?K73.9 - Chronic hepatitis, unspecified (ICD-10) Sciatica ?M54.30 - Sciatica, unspecified side (ICD-10) Sleep apnea ?G47.30 - Sleep apnea, unspecified (ICD-10) Hair thinning ?L65.9 - Nonscarring hair loss, unspecified (ICD-10) Tear of medial meniscus of right knee ?S83.241A - Other tear of medial meniscus, current injury, right knee, initial encounter (ICD-10) Osteoarthritis of left knee ?M17.12 - Unilateral primary osteoarthritis, left knee (ICD-10) Osteoarthritis of right knee ?M17.11 - Unilateral primary osteoarthritis, right knee (ICD-10) Eczema ?L30.9 - Dermatitis, unspecified (ICD-10) Binge eating ?R63.2 - Polyphagia (ICD-10) Irritable bowel syndrome ?K58.9 - Irritable bowel syndrome without diarrhea (ICD-10) Actinic keratosis ?L57.0 - Actinic keratosis (ICD-10) Left carpal tunnel syndrome ?G56.02 - Carpal tunnel syndrome, left upper limb (ICD-10) GERD (gastroesophageal reflux disease) ?K21.9 - Gastro-esophageal reflux disease without esophagitis (ICD-10) On postmenopausal hormone replacement therapy ?Z79.890 - Hormone replacement therapy (ICD-10) Environmental and seasonal allergies ?J30.89 - Other allergic rhinitis (ICD-10) Difficulty sleeping ?G47.9 - Sleep disorder, unspecified (ICD-10) Depression ?F32.A - Depression, unspecified (ICD-10) Asthma ?J45.909 - Unspecified asthma, uncomplicated (ICD-10) 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.0 - Guillain-[place] syndrome (ICD-10) LAUREANO (obstructive sleep apnea) ?G47.33 - Obstructive sleep apnea (adult) (pediatric) (ICD-10) Recurrent subluxation of left temporomandibular joint ?M24.49 - Recurrent dislocation, other specified joint (ICD-10) Surgical History Status post laparoscopic cholecystectomy ?Z90.49 - Acquired absence of other specified parts of digestive tract (ICD-10) H/O gastrostomy ?Z98.890 - Other specified postprocedural states (ICD-10) H/O tracheostomy ?Z98.890 - Other specified postprocedural states (ICD-10) H/O hernia repair ?Z98.890 - Other specified postprocedural states (ICD-10) ?Z87.19 - Personal history of other diseases of the digestive system (ICD-10) History of vaginal hysterectomy ?Z90.710 - Acquired absence of both cervix and uterus (ICD-10) Family History Mother High blood pressure Osteoarthritis Osteoporosis Father Atrial fibrillation Melanoma Renal cell carcinoma Cancer Family history of alcohol abuse Heart disease Paternal Grandmother Stroke Atrial fibrillation Diabetes Son Diabetes Brother FHx: cancer of prostate Other Alcohol dependence Drug dependence Family history of psychiatric disorder Family history of substance abuse Social History Narrative: . 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 No drug use. 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 She exercises intermittently. What is your current living situation?: I presently have a place to live Problems where you live: no known problems Problems where you live details: none In the past 12 months, utilities in danger of being shut off: no In past 12 months, lack of transportation kept you from medical appts, meetings, work, or getting things needed for daily living: no In the past 12 mos, have been you worried that your food would run out before you had money to buy more?: never true In the past 12 mos, the food you bought just didn't last and you didn't have money to buy more?: never true Highest level of school completed/degree received: Doctoral degree Smoking Status: Never smoker Do you use any of these nicotine containing products: None Second hand tobacco smoke exposure: No How often do you have a drink containing alcohol: monthly or less How often do you have six or more drinks on one occasion: Never AUDIT-C Alcohol total score: 1 Non-prescribed substance use: denies use Caffeine: No How often does anyone, including family, friends and others, physically hurt you: never How often does anyone, including family, friends and others, insult or talk down to you: never How often does anyone, including family, friends and others, threaten you with harm: never How often does anyone, including family, friends and others, scream or curse at you: never service: No Exam Narrative: Exam Narrative: Const: Well-nourished, Well-developed, in mild distress Eyes: PERRL, no conjunctival injection, and symmetrical lids HENT: Atraumatic external nose and ears. Moist mucous membranes. Neck: Symmetric, trachea midline, No thyromegaly. CVS: RRR, No murmurs or gallops. Peripheral pulses 2+ and equal in all extremities RESP: Unlabored respiratory effort. Clear to auscultation bilaterally. GI: Moderate right upper quadrant tenderness, Nondistended, No rebound or guarding. MSK:Extremities w/o deformity, Normal Active ROM Skin: Warm, Dry. No rashes or lesions. Neuro: Normal Muscle tone, No focal neurological deficits. Psych: Awake, Alert, & Oriented x3. Appropriate mood and affect. Const: Vital Signs, click to edit/add: Vital Signs - 24 hr 12/30/24 10:56 Temperature 97.8 F Pulse Rate [Right Pulse Oximeter] 86 Respiratory Rate 16 Blood Pressure [Ri ght Upper Arm] 179/90 H Pulse Oximetry 96 Oxygen Delivery Me thod Room Air Course Vital Signs Vital signs: Initial Vital Signs Temperature 97.8 F 12/30/24 10:56 Temperature Source Temporal Artery Scan 12/30/24 10:56 Pulse Rate 86 12/30/24 10:56 Pulse Rhythm Regular 12/30/24 10:56 Pulse Strength 3+ Normal 12/30/24 10:56 Respiratory Rate 16 12/30/24 10:56 Blood Pressure 179/90 H 12/30/24 10:56 Blood Pressure Mean 119 H 12/30/24 10:56 Blood Pressure Position Sitting 12/30/24 10:56 Pulse Oximetry 96 12/30/24 10:56 Oxygen Delivery Method Room Air 12/30/24 10:56 Vital Signs Temperature 97.8 F 12/30/24 10:56 Pulse Rate 86 12/30/24 10:56 Respiratory Rate 16 12/30/24 10:56 Blood Pressure 179/90 H 12/30/24 10:56 Pulse Oximetry 96 12/30/24 10:56 Oxygen Delivery Method Room Air 12/30/24 10:56 Temperature 97.8 F 12/30/24 10:56 Pulse Rate 86 12/30/24 10:56 Respiratory Rate 16 12/30/24 10:56 Blood Pressure 179/90 H 12/30/24 10:56 Pulse Oximetry 96 12/30/24 10:56 Oxygen Delivery Method Room Air 12/30/24 10:56 MDM - Abdominal Pain MDM Narrative Medical decision making narrative: Patient is a 64-year-old female presenting for right upper quadrant abdominal pain. Symptoms are concerning for possible obstructing stone again this. Seems unlikely to be SBO but was a possibility with her recent surgeries. Possibly pancreatitis. Order an ultrasound for better evaluation initially in the class inconclusive will move on to CT scan. She is not requesting anything for pain or nausea at this time. Will also order CBC, CMP, lipase. Lab work returned showing no concerning abnormalities. She has improving LFTs. Ultrasound returned showing some echogenic hepatic parenchyma possibly chronic hepatocellular disease. No other abnormality seen. CT returned showing no acute concerning abnormalities. Patient is feeling much better at this time. States her symptoms have almost fully resolved. Will discharge her home at this time. Lab Data Labs: Lab Results 12/30/24 Range/Units 11:33 WBC 6.38 (4.50-11.00) K/uL RBC 3.99 L (4.00-5.20) m/uL Hgb 11.5 L (12.0-16.0) gm/dL Hct 36.1 (33.0-51.0) % MCV 91 (80-100) fL MCH 29 (26-34) pg MCHC 32 (32-36) gm/dL RDW Coeff of Jim 12.0 (11.5-15.5) % Plt Count 330 (140-440) K/uL Neut % (Auto) 62.2 (42.0-72.0) % Lymph % (Auto) 20.5 (20-44) % Graves % (Auto) 11.0 (0.0-11.0) % Eos % (Auto) 4.9 (0.0-7.0) % Baso % (Auto) 0.9 (0.0-3.0) % Neut # (Auto) 3.97 (1.7-7.0) K/uL Lymph # (Auto) 1.31 (0.90-2.90) K/uL Graves # (Auto) 0.70 (0.00-0.90) K/UL Eos # (Auto) 0.31 (0.00-0.50) K/uL Baso # (Auto) 0.06 (0.00-0.30) K/uL Abs Immat Gran (auto) 0.03 (0.00-0.30) K/uL Imm/Tot Granulo (auto) 0.5 % Sodium 142 (135-149) mmol/L Potassium 3.8 (3.6-5.1) mmol/L Chloride 106 (96-114) mmol/L Carbon Dioxide 30 (20-32) mmol/L Anion Gap 6 L (7-15) mEq/L BUN 15 (7-30) mg/dL Creatinine 0.7 (0.5-1.5) mg/dL Estimated Creat Clear 49.72 Estimated GFR 97 ml/min Glucose 97 (60-115) mg/dL Calcium 9.1 (8.4-10.6) mg/dL Total Bilirubin 0.8 (0.1-1.5) mg/dL AST 37 H (12-35) U/L ALT 40 H (4-35) U/L Alkaline Phosphatase 91 (40-150) U/L Total Protein 6.8 (6.0-8.3) g/dL Albumin 4.1 (3.3-5.0) g/dL Lipase 92 (23-300) U/L Imaging Data CT scan abdomen pelvis: Radiologist's impression: No acute intra-abdominal or pelvic abnormality. Dictated by Judd Sánchez MD @ 12/30/2024 1:14:27 PM Please note that all CT scans at this facility use dose modulation, iterative reconstruction, and/or weight-based dosing when appropriate to reduce radiation dose to as low as reasonably achievable. Dictated by: Judd Sánchez MD @ 12/30/2024 13:14:45 US - abdomen: Attestation: I have reviewed the pertinent imaging results. Radiologist's impression: Prior cholecystectomy. No drainable fluid collections. No biliary obstruction. Similar 4.6 centimeter right hepatic lobe echogenic lesion thought to represent hemangioma. Mild heterogeneous/echogenic hepatic parenchyma, possibly chronic hepatocellular disease. Dictated by Joseph Locke MD @ 12/30/2024 12:40:09 PM Discharge Plan Discharge Clinical Impression: Abdominal pain, RUQ Patient Disposition: Home, Self-Care Condition: Stable Prescriptions: No Action cholecalciferol (vitamin D3) 50 mcg (2,000 unit) tablet 2,000 unit PO DAILY fluorouracil 5 % cream 1 applic topical .UD Qty: 40 0RF Rx Instructions: apply topically to affected area/zone once weekly albuterol sulfate 90 mcg/actuation HFA aerosol inhaler 2 puff inhalation Q6H PRN (Reason: bronchospasm) Qty: 8.5 12RF epinephrine 0.3 mg/0.3 mL auto-injector 0.3 mg IM .As Needed PRN (Reason: anaphylaxis) Qty: 2 12RF estradiol 0.05 mg/24 hr patch semiweekly 1 patch transdermal .Twice Weekly Qty: 8 12RF estradiol 0.01 % (0.1 mg/gram) cream 1 g vaginal QWEEK Qty: 42.5 3RF omeprazole 20 mg capsule,delayed release(DR/EC) 20 mg PO DAILY Qty: 90 3RF triamcinolone acetonide 0.1 % cream 1 applic topical BID PRN (Reason: skin reaction) Qty: 80 3RF tamsulosin [Flomax] 0.4 mg capsule 0.4 mg PO DAILY Vicks DayQuil Cold-Flu Relief 5-10-325 mg/15 mL liquid PO acetaminophen [Tylenol Arthritis Pain] 650 mg tablet extended release 650 mg PO Q12H multivitamin Tablet 1 tab PO QAM SAMe butanedisulfonate-betaine 400-600 mg powder in packet PO phentermine 30 mg capsule 30 mg PO DAILY trazodone 50 mg tablet 50 - 100 mg PO HS fexofenadine [Carmenza Allergy] 180 mg tablet 180 mg PO DAILY escitalopram oxalate 10 mg tablet 10 mg PO DAILY budesonide-formoterol [Symbicort] 160-4.5 mcg/actuation HFA aerosol inhaler 2 puff inhalation BID Qty: 10.2 12RF finasteride 5 mg tablet 5 mg PO DAILY Qty: 90 3RF Follow Up/Referrals: Koki De MD [Primary Care Provider, Obstetrics] Stand Alone Forms: GN[employer] Analytic[employer]h Info Instructions
--- OUTSIDE RECORDS SUMMARY | 2024-12-30 11:32 | XMS_ITS | Clinical Summary ---
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 Role Phone Koki De MD Primary [...] Care Team Description 5 Travel 5 Telephone [facility] [address] [place] [address] Koki De MD Appointment 5 1:30 PM CDT Office Visit [facility] [address] [place] [address] Kristina Carnes MD Post-op (Laparoscopic cholecystectomy 12/07/24) 5 Travel 5 Patient Outreach [facility] [address] [place] [address] Danisha Fox, RN Primary RN Care Management; Hospital F/U (LACE 57) 5 4:01 AM CDT - 5 2:45 PM CDT Hospital Encounter [facility] [address] [place] [address] [facility] Hospitalists Of [place], MD Teresa Whalen, Rani Gomez MD Discharge Disposition: Home Self Care 5 Travel 5 Orders Only [facility] Scanner 1 scan: (1-Ord) [facility], ABDOMEN PELVIS W CON , 12/17/2024 5 Patient Outreach [facility] [address] [place] [address] Danisha Fox, RN Primary RN Care Management; Hospital F/U (LACE 66) 5 3:43 PM CDT Anesthesia Event [facility] [address] [place], [place] [id number] Jose Luis Rosales MD 5 2:35 PM CDT - 5 10:56 AM CDT Hospital Encounter [facility] [address] [place] [address] Janet Saavedra MD Peterson, Ruben Yousif MD [facility], [facility] Hospitalists Of Gerber Hart MD Puchalski, IRVIN Troy Choledocholithiasis (Primary Dx) Discharge Disposition: Home Self Care 5 1:55 PM CDT - 5 3:00 PM CDT Surgery [facility] [address] [place] [address] Alen Dumas MD ENDOSCOPIC RETROGRADE CHOLANGIOPANCREATOGRAPHY with spincterotomy and stone extraction and stent 5 Travel 5 Orders Only [facility] Scanner 1 scan: (1-Ord) [facility], ABDOMEN PELVIS W/ CON, 12/13/[address] [facility] [phone] Kristina Carnes MD 5 Orders Only [facility] Scanner 1 scan: (1-Ord) [facility], XR CHEST 1V PORTABLE, 12/07/2024 5 Orders Only [facility] Scanner 1 scan: (1-Ord) [place], LAPAROSCOPIC CHOLECYSTECTOMY, 12/07/2024 5 Orders Only [facility] Scanner 1 scan: (1-Ord) [facility], MULTIPLE LAB RESULTS, 12/04/2024 5 Orders Only [facility] Scanner 1 scan: (1-Ord) [facility], US ABDOMEN LIMITED, 12/04/2024 5 10:00 AM CDT Office Visit [facility] [address] [place] [address] Koki De MD Medication Management (phentermine); Immunization/Injection 5 Travel 5 Refill [facility] [address] [place] [address] Koki De MD Refill Request (Phentermine Hcl) [...] ituted (Arexvy 120MCG/0.5mL) 03/11/2024 Smallpox (Vaccinia) Live [id number] 08/[birth year]/1968 Td (Age >=7 Years) 08/12/2001,08/12/1991, 982 [...] on file Legal Sex Female 6:07 AM PROCED TECH Gender Identity Not on file Sexual Orientation [...] Description 01/06/2025 1:55 PM CDT Office Visit [facility] [address] [place] [address] Koki De MD [address] [place] [address] 01/27/2025 4:00 PM CDT Office Visit [facility] [address] [place] [address] Koki De MD [address] [place] [address] Health Maintenance Due Date Last Done Comments HIV for age 15-65 1976 Hepatitis C screening for ag e 18-79 1979 Mammogram for age 45-75 05/06/2025 05/06/20 24, 11/21/2022, 11/15/2022, Additional history exists Fecal testing sDNA-FIT (Woodrow guard) for age 45-75 06/13/2025 06/13/2022, 05/20/2019 [...] 09/22/2015, 11/29/2003 Medical Devices Implanted Type Area Research Soil Scientist Device Identifier Shelf Expiration Date Model / Serial / Lot Mesh Hernia Inguinal Rt - [id number] Implanted:Qty: 1 on 05/24/2011 at [facility] Right: Inguinal 09/12/2015 [id number]# / / [id number] Stent Pancreatic 2phw7uh Geenen Sof-Flex No Flap - [id number] Implanted:Qty: 1 on 12/14/2024 by Alen Dumas MD at [facility] Endoscopy 08/21/2027 GPSOS-SF- 5-5 / / [id number] Explanted Type Area Research Soil Scientist Device Identifier Shelf Expiration Date Model / Serial / Lot Stent Pancreatic [id number] Geenen Sof-Flex No Flap - [id number] Explanted:Qty: 1 on 12/14/2024 at [facility] Endoscopy 08/21/2027 GPSOS-SF-5 - 5 / / [id number] Procedures Procedure Name Priority Date/Time Associated Diagnosis [...] MEASURE D LDL Routine 09/16/2023 7:43 AM PROCED TECH Lipid screening SDNA-FIT EXTERNAL (COLOGUARD) Routine 10:15 AM CDT Screening for colon cancer from Last 3 Months or Most Recently Relevant to Health Maintenance Results * HEMOGLOBIN (12/22/2024 2:17 PM CDT) HEMOGLOBIN 12.1 11.7 - 15.5 g/dL [email or web address] Blood BLOOD SPECIMEN / Unknown 12/22/2024 2:17 PM CDT 12/22/2024 2:17 PM CDT us Kristina Carnes MD HEMATOLOGY Final Re sult [facility] [address] [place] [address], [email or web address] [address] [place] [address] * (ABNORMAL) HEPATIC FUNCTION PANEL (12/22/2024 2:17 PM CDT) Only the most recent of3 resultswithin the time period is included. PROTEIN, TOTAL 6.6 6.1 - 8.1 g/dL [facility] ALBUMIN 4.1 3.6 - 5.1 g/dL [email or web address] GLOBULIN 2.5 1.9 - 3.7 g/dL (calc) [facility] ALBUMIN/GLOBULIN RATIO 1.6 1.0 - 2.5 (calc) [facility] BILIRUBIN, TOTAL 0.4 0.2 - 1.2 mg/dL [facility] BILIRUBIN, DIRECT 0.1 < OR = 0.2 mg/dL [email or web address] BILIRUBIN, INDIRECT 0.3 0.2 - 1.2 mg/dL (calc) [facility] ALKALINE PHOSPHATASE 137 37 - 153 U/L [email or web address] AST 21 10 - 35 U/L [email or web address] ALT 59(H) 6 - 29 U/L [email or web address] Blood BLOOD SPECIMEN / Unknown 12/22/2024 2:17 PM CDT 12/22/2024 2:17 PM CDT Kristina Carnes MD CHEMISTRY Final Re sult [facility] [address] [place] [address], [email or web address] [address] [place] [address] * SCAN CORRESP-LABORATORY RESULTS (12/18/2024 1:38 PM CDT) Only the most recent of3 resultswithin the time period is included. Narrative 12/18/2024 1:38 PM CDT Ordered by an unspecified provider. Other Clinical Staff OTHER Final Resul t * (ABNORMAL) CBC (12/18/2024 6:27 AM [facility]) Only the most recent of2 resultswithin the time period is included. WHITE BLOOD COUNT 6.5 4.5 - 11.0 thou/cu mm 12/18/2024 7:01 AM [facility] RED BLOOD COUNT 3.86(L) 4.00 - 5.20 mil/cu mm 12/18/2024 7:01 AM [facility] HEMOGLOBIN 11.1(L) 12.0 - 16.0 g/dL 12/18/2024 7:01 AM [facility] HEMATOCRIT 35.1 33.0 - 51.0 % 12/18/2024 7:01 AM [facility] MCV 91 80 - 100 fL 12/18/2024 7:01 AM [facility] MCH 28.8 26.0 - 34.0 pg 12/18/2024 7:01 AM [facility] MCHC 31.6(L) 32.0 - 36.0 g/dL 12/18/2024 7:01 AM [facility] RDW 12.5 11.5 - 15.5 % 12/18/2024 7:01 AM [facility] PLATELET COUNT 321 140 - 440 thou/cu mm 12/18/2024 7:01 AM [facility] MPV 11.3(H) 6.5 - 11.0 fL 12/18/2024 7:01 AM [facility] NRBC 0.0 % 12/18/2024 7:01 AM [facility] ABS NRBC 0.0 thou /cu mm 12/18/2024 7:01 AM [facility] Blood BLOOD SPECIMEN / Unknown Venipuncture / Unknown 12/18/2024 6:27 AM CDT 12/18/2024 6:52 AM CDT Yamila Franco MD HEMATOLOGY Final Resu lt Performing Organization Address [facility] Co de Phone Number [facility] [address] [place] [address], * CREATININE (12/18/2024 6:27 AM CDT) eGFR >90 >90 mL/min/1.7 3m2 12/18/2024 7:30 AM CDT [facility] Comment:As of 2021, eG FR is calculated by the CKD-EPI creatinine equation without race adjustment. eGFR can be influenced by muscle mass, exercise, and diet. The reported eGFR is an estimation only and is only applicable if the renal function is stable. CREATININE 0.67 0.50 - 0.90 mg/dL 12/18/2024 7:30 AM CDT [facility] Blood BLOOD SPECIMEN / Unknown Venipuncture / Unknown 12/18/2024 6:27 AM CDT 12/18/2024 6:52 AM CDT Yamila Franco MD CHEMISTRY Final Resu lt Performing Organization Address [facility] Co de Phone Number [facility] [address] [place] [address], * SCAN-CT INTERPRETATION (12/17/2024 12:00 AM CDT) [...] 11.0 thou/cu mm 12/15/2024 7:00 AM CDT [facility] NRBC 0.0 % 12/15/2024 7:00 AM CDT [facility] ABS NRBC 0.0 thou /cu mm 12/15/2024 7:00 AM CDT [facility] Blood BLOOD SPECIMEN / Unknown Venipuncture / Unknown 12/15/2024 6:40 AM CDT 12/15/2024 6:49 AM CDT Gerber Hart MD HEMATOLOGY Final Res ult Performing Organization Address City/[facility]/ZIP Co de Phone Number [facility] [address] [place] [address], [place] * BILIRUBIN,TOTAL (12/15/2024 6:40 AM CDT) BILIRUBIN,TOTA L 0.9 0.0 - 1.2 mg/dL 12/15/2024 7:25 AM CDT [facility] Blood BLOOD SPECIMEN / Unknown Venipuncture / Unknown 12/15/2024 6:40 AM CDT 12/15/2024 6:49 AM CDT Gerber Hart MD CHEMISTRY Final Res ult Performing Organization Address [facility]/ZIP Co de Phone Number [facility] [address] [place] [address], [place] * (ABNORMAL) ALT (SGPT) (12/15/2024 6:40 AM CDT) ALT (SGPT) 605(H) 10 - 35 IU/L 12/15/2024 7:25 AM CDT [facility] Blood BLOOD SPECIMEN / Unknown Venipuncture / Unknown 12/15/2024 6:40 AM CDT 12/15/2024 6:49 AM CDT us Gerber Hart MD CHEMISTRY Final Res ult [facility] [address] [address], [place] * (ABNORMAL) AST (SGOT) (12/15/2024 6:40 AM CDT) AST (SGOT) 360(H) 10 - 35 IU/L 12/15/2024 7:25 AM CDT [facility] Blood BLOOD SPECIMEN / Unknown Venipuncture / Unknown 12/15/2024 6:40 AM CDT 12/15/2024 6:49 AM CDT Gerber Hart MD CHEMISTRY Final Res ult Performing Organization Address City/[facility]/ZIP Co de Phone Number [facility] [address] [address], [place] * (ABNORMAL) ALK PHOSPHATASE (12/15/2024 6:40 AM CDT) ALK PHOSPHATASE 217(H) 35 - 104 IU/L 12/15/2024 7:25 AM CDT [facility] Blood BLOOD SPECIMEN / Unknown Venipuncture / Unknown 12/15/2024 6:40 AM CDT 12/15/2024 6:49 AM CDT Gerber Hart MD CHEMISTRY Final Res ult [facility] [address] [address], [place] * PROTIME-INR (12/14/2024 6:41 PM CDT) INR 1.1 <1.3 12/14/2024 7:00 PM CDT [facility] PROTIME 12.4 10.6 - 12.4 sec 12/14/2024 7:00 PM CDT [facility] Blood BLOOD SPECIMEN / Unknown Non-Lab Venipuncture / Unknown 12/14/2024 6:41 PM CDT 12/14/2024 6:47 PM CDT Narrative [facility] - 12/14/2024 7:00 PM CDT [...] MD HEMATOLOGY Final Result Performing Organization Address [facility] Co de Phone Number [facility] [address] [place] [address], * LIPASE (12/14/2024 6:27 PM CDT) LIPASE 27.2 13.0 - 60.0 IU/L 12/14/2024 6:58 PM CDT [facility] Blood BLOOD SPECIMEN / Unknown Non-Lab Venipuncture / Unknown 12/14/2024 6:27 PM CDT 12/14/2024 6:33 PM CDT Janet Saavedra MD CHEMISTRY Final Result Performing Organization Address [facility] Co de Phone Number [facility] [address] [place] [address], * (ABNORMAL) BASIC METABOLIC PANEL (12/14/2024 6:27 PM CDT) SODIUM 138 136 - 145 mmol/L 12/14/2024 6:58 PM CDT [facility] POTASSIUM 4.8 3.5 - 5.1 mmol/L 12/14/2024 6:58 PM CDT [facility] CHLORIDE 103 98 - 107 mmol/L 12/14/2024 6:58 PM CDT [facility] CO2,TOTAL 21(L) 22 - 29 mmol/L 12/14/2024 6:58 PM CDT [facility] ANION GAP 14 5 - 18 12/14/2024 6:58 PM CDT [facility] GLUCOSE 62(L) 70 - 99 mg/dL 12/14/2024 6:58 PM CDT [facility] CALCIUM 9.0 8.8 - 10.4 mg/dL 12/14/2024 6:58 PM CDT [facility] Comment: Reference ranges for this test were updated on 06/16/2024 to reflect our healthy population more accurately. Reference range changes are not retroactively applied to results, but previous results using the same methodology can be interpreted in the context of the new reference range. BUN 11 8 - 23 mg/dL 12/14/2024 6:58 PM CDT [facility] CREATININE 0.73 0.50 - 0.90 mg/dL 12/14/2024 6:58 PM CDT [facility] BUN/CREAT RATIO 15 10 - 20 6:58 PM CDT [facility] eGFR >90 >90 mL/min/1.7 3m2 12/14/2024 6:58 PM CDT [facility] Comment:As of [...] us Janet Saavedra MD CHEMISTRY Final Result [facility] [address] [place] [address], [place] * XR ERCP BILIARY ONLY (12/14/2024 5:29 PM CDT) Anatomical Region Laterality Modality GALLBLADDER, PANCREAS, LIVER Oth er Narrative 12/14/2024 4:01 PM CDT 16 minutes 9 seconds fluoroscopy time was provided. See operative/procedure report for further information. us Alen Dumas MD FLUOROSCOPY Final Result * HCHG STYLET PR1 (12/14/2024 4:22 PM CDT) Narrative Dean Hernández, SENIOR LIVING ADVISOR - 12/14/2024 4:22 PM CDT Dean Hernández, SENIOR LIVING ADVISOR 12/14/2024 4:23 PM Procedure: ETT Patient location [...] Procedure: ERCP Proceduralist: Alen Dumas MD - [facility] Indications/Pre-Op Diagnosis: Bile duct stone(s) Medications: General Anesthesia Procedure Description: Risk of bleeding, infection, perforation, pancreatitis, need for surgery, remote chance of and alternatives were discussed, andthe patient gave informed consent. The endoscope [id number] was passed through the and advancedto the [...] Dumas MD - 12/14/2024 5:48 PM CDT [facility] Patient Name: Martita Steel [...] andthe patient gave informed consent. The endoscope [id number] was introduced through the mouth, and advanced [...] MD LAB BILL ONLY Final Re sult [facility] [address] [place] [address], * PATH TISSUE EXAM (12/07/2024 12:00 PM CDT) Case Report Pathology Report Case: [id number] Authorizing Provider: Kristina Carnes MD Collected: 12/07/2024 1200 Ordering Location: [facility] Received: 12/08/2024 1413 Pathologist: Giovanny Alexander IV, MD Specimen: Gallbladder 12/10/2024 2:53 PM CDT [facility] Final Diagnosis A) GALLBLADDER, CHOLECYSTECTOMY: 1. Chronic cholecystitis 2. Cholelithiasis 3. Negative for dysplasia and malignancy 12/10/2024 2:53 PM CDT [facility] at 1453 CDT Clinical Information Ms. Steel is a 64 y.o. who undergoes cholecystectomy. 12/10/2024 2:53 PM CDT [facility] Gross Description A) Received in formalin, [...] No cystic duct lymph node is identified. Haul Driver sections are submitted in one cassette. EVM 12/08/2024 12/10/2024 2:53 PM CDT [facility] Microscopic Description The final diagnosis is based on microscopic examination of appropriate sections of all specimens. 12/10/2024 2:53 PM CDT [facility] Additional Information Interpreted at [facility] - [address] [place] [address]. [facility] [address], [place] [address] 12/10/2024 2:53 PM CDT [facility] Other SPECIMEN FROM GALLBLADDER / Unknown 12/07/2024 12:00 PM CDT 12/08/2024 2:13 PM CDT us Kristina Carnes MD PATHOLOGY/CYTOLOGY Final Result Performing Organization Address City/State/[facility] Co de Phone Number [facility] [address] [place] [address], [place] * SCAN-RADIOLOGY REPORT (12/07/2024 12:00 AM [...] W REFLEX MEASURED LDL (09/16/2023 7:43 AM PROCED TECH) CHOLESTEROL,TOTAL 198 100 - 199 mg/dL 09/16/2023 4:22 PM PROCED TECH [facility] Comment: Cholesterol, Total Reference Ranges Desirable <200 mg/dL Borderline 200-239 mg/dL High >=240 mg/dL TRIGLYCERIDES 88 <150 mg/dL 09/16/2023 4:22 PM PROCED TECH [facility] HDL CHOLESTEROL 62 >40 mg/dL 4:22 PM PROCED TECH [facility] NON-HDL CHOLESTEROL 136 <145 mg/dl 09/16/2023 4:22 PM PROCED TECH [facility] CHOL/HDL RATIO 3.19 <4.50 09/16/2023 4:22 PM PROCED TECH [facility] LDL CHOLESTEROL 118 <=130 mg/dL 09/16/2023 4:22 PM PROCED TECH [facility] VLDL CHOLESTEROL 18 <=30 mg/dL 09/16/2023 4:22 PM PROCED TECH [facility] PROVIDER ORDERED STATUS RANDOM 09/16/2023 4:22 PM PROCED TECH [facility] Blood BLOOD SPECIMEN / Unknown Venipuncture / Unknown 09/16/2023 7:43 AM PROCED TECH 09/16/2023 7:45 AM PROCED TECH us Koki De MD CHEMISTRY Final Resul t [facility] [address] [place] [address], [place] * sDNA-FIT External (Cologuard) [[id number]] (06/13/2022 10:15 AM CDT) NONINV COLON CA DNA+OCC BLD SCRN STL-IMP Negative Negative 06/21/2022 4:46 AM [facility] (CLIA #:[id number]) Comment: NEGATIVE TEST RESULT. A negative Cologuard [...] Ware et al, N Engl J Med 2014;370(14):6628-1183) The normal value (reference range) for this assay is negative. COLOGUARD RE-SCREENING RECOMMENDATION: Periodic colorectal cancer screening is an important part of preventive healthcare for asymptomatic individuals at average risk for colorectal cancer. Following a negative Cologuard result, the [employer] and U.S. Multi-Society Task Force screening guidelines recommend a Cologuard re-screening interval of 3 years. References: [employer] Guideline for Colorectal Cancer Screening: https://www.cancer.org/cancer/mfsaf-ckcziw-vxcbrz/rfbpxrqau-iyyvcputq-kdisxzm/ac s-rec ommendations.html.; Diogo LOUIS, Gray GARCIA, Eliot OneillK, Colorectal Cancer Screening: Recommendations for Physicians and Patients from the U.S. Multi-Society Task Force on Colorectal Cancer Screening , Am J Gastroenterology 2017; 112:2025-2153. TEST DESCRIPTION: Composite algorithmic analysis of stool [...] Hutton. et al, N Engl J Med 2014;370(14):7785-3095.) Cologuard may produce a false negative or false positive result (no colorectal cancer or precancerous polyp present at colonoscopy follow up). A negative Cologuard test result does not guarantee the absence of CRC or advanced adenoma (pre-cancer). The current Cologuard screening interval is every 3 years. ([employer] and U.S. Multi-Society Task Force). Cologuard performance data in a 10,000 patient pivotal study using colonoscopy as the reference method can be accessed at the following location: www.Voxy/results. Additional description of the Cologuard test process, warnings and precautions can be found at www.Bloomfirerd.com. Stool specimen (specimen) (Rectum) 06/13/2022 10:15 AM CDT 06/14/2022 5:14 PM CDT Caryl Huang MD URINE Final Result [facility] (CLIA #:[id number]) 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
[2024-12-30 11:39] LABS: Basophils Absolute Auto 0.06 K/uL (0.00-0.30); Basophils Percent Auto 0.9 % (0.0-3.0); Eosinophils Absolute Auto 0.31 K/uL (0.00-0.50); Eosinophils Percent Auto 4.9 % (0.0-7.0); Hematocrit 36.1 % (33.0-51.0); Hemoglobin* 11.5 gm/dL (12.0-16.0); Immature Granulocytes Abs Auto 0.03 K/uL (0.00-0.30); Immature Granulocytes Pct Auto 0.5 %; Lymphocytes Absolute Auto 1.31 K/uL (0.90-2.90); Lymphocytes Percent Auto 20.5 % (20-44); Mean Corpuscular HGB Conc 32 gm/dL (32-36); Mean Corpuscular Hemoglobin 29 pg (26-34); Mean Corpuscular Volume 91 fL (80-100); Neutrophils Absolute Auto 3.97 K/uL (1.7-7.0); Neutrophils Percent Auto 62.2 % (42.0-72.0); Platelet Count* 330 K/uL (140-440); Red Blood Count 3.99 m/uL (4.00-5.20); White Blood Count* 6.38 K/uL (4.50-11.00)
[2024-12-30 11:41] LABS: Slide Review Reflex No
[2024-12-30 11:57] LABS: Albumin* 4.1 g/dL (3.3-5.0); Chloride* 106 mmol/L (96-114); Potassium* 3.8 mmol/L (3.6-5.1); Sodium* 142 mmol/L (135-149)
[2024-12-30 11:59] LABS: Blood Urea Nitrogen* 15 mg/dL (7-30); Creatinine* 0.7 mg/dL (0.5-1.5); Est. Creatinine Clearance* 49.72; Estimated Glomerular Filt Rate 97 ml/min
[2024-12-30 12:00] LABS: Alanine Aminotransferase* 40 U/L (4-35); Alkaline Phosphatase* 91 U/L (40-150); Anion Gap 6 mEq/L (7-15); Aspartate Amino Transferase* 37 U/L (12-35); Bilirubin Total* 0.8 mg/dL (0.1-1.5); Calcium* 9.1 mg/dL (8.4-10.6); Carbon Dioxide* 30 mmol/L (20-32); Glucose* 97 mg/dL (60-115); Lipase* 92 U/L (23-300); Total Protein* 6.8 g/dL (6.0-8.3)
--- NOTE | 2024-12-30 12:14 | CRLHL7_ITS ---
For Patients: As a result of the Cures Act, medical imaging exams and procedure reports are released immediately into your electronic medical record. You may view this report before your referring provider. If you have questions, please contact your health care provider. INDICATION: Right upper quadrant pain. Recent cholecystectomy and pancreatic stent removal. TECHNIQUE: CT abdomen and pelvis acquired with 85 cc of Isovue 370 IV contrast. COMPARISON: CT abdomen and pelvis 12/17/2024. FINDINGS: Lower chest: Unremarkable. Liver: Lobulated lesion with peripheral enhancement suggesting hemangioma, unchanged. No new focal liver lesion. No intrahepatic biliary ductal dilatation. Spleen: Unremarkable. Pancreas: Unremarkable. Gallbladder and bile ducts: Cholecystectomy. Mild stranding about the gallbladder fossa is unchanged. Common bile duct is normal in caliber. Kidneys: Nonobstructing right renal stone is unchanged. No ureteral stones or hydronephrosis. Adrenal glands: Unremarkable. GI tract: Fecal loading of the colon. Previous stent in the GI tract is no longer present. No obstruction or acute inflammatory changes. No free air or free fluid. Lymph nodes: No pathologic lymphadenopathy. Vascular structures: Mild atherosclerotic disease. No abdominal aortic aneurysm. Pelvic Organs: Unremarkable. Bones: No acute or suspicious osseous abnormality. IMPRESSION: No acute intra-abdominal or pelvic abnormality. Dictated by Judd Sánchez MD @ 12/30/2024 1:14:27 PM Please note that all CT scans at this facility use dose modulation, iterative reconstruction, and/or weight-based dosing when appropriate to reduce radiation dose to as low as reasonably achievable. Dictated by: Judd Sánchez MD @ 12/30/2024 13:14:45 (Electronically Signed)
== END 2024-12-30 13:41 | disposition home or self-care (01) ==
PROVIDERS: Emergency Provider Student in an Organized Health Care Education/Training Program; PCP Family Medicine
DX: R10.11 Right upper quadrant pain (principal)
CPT/HCPCS: 36415; 74177; 76705; 80053; 83690; 85025; 99284; 99285; Q9967

== ENCOUNTER 2025-01-11 14:29 | Outpatient (CLI) | payer OTHER, SELFPAY | END 2025-01-11 14:30 | disposition home or self-care (01) | LOC: NFLDUCREF 14:30 | PROVIDERS: PCP Family Medicine; Visit Provider Physician Assistant | DX: R06.02 Shortness of breath (principal) | CPT/HCPCS: 85379 ==

== ENCOUNTER 2025-01-27 13:36 | Outpatient (CLI) | payer OTHER, SELFPAY ==
--- NOTE | 2025-01-27 13:40 | CRLHL7_ITS ---
For Patients: As a result of the Century Cures Act, medical imaging exams and procedure reports are released immediately into your electronic medical record. You may view this report before your referring provider. If you have questions, please contact your health care provider. INDICATION: BILATERAL SCREENING MAMMOGRAM, ASYMPTOMATIC 64 Y/O FEMALE COMPARISON: 05/06/2024, 11/15/2022, 10/12/2021 TECHNIQUE: Digital mammogram in CC and MLO projections including computer-aided detection (CAD) and tomosynthesis. BREAST COMPOSITION: There are scattered areas of fibroglandular density. FINDINGS: No suspicious findings. ASSESSMENT: BI-RADS 1 Negative RECOMMENDATION: Annual screening mammogram. A lay language report of this examination will be provided to the patient. Dictated by: Noble Bedolla MD @ 01/28/2025 10:07:16 (Electronically Signed)
== END 2025-01-27 13:37 | disposition home or self-care (01) ==
LOC: MAMMO 13:36
PROVIDERS: PCP Family Medicine; Visit Provider Family Medicine
DX: Z12.31 Encounter for screening mammogram for malignant neoplasm of breast (principal)
CPT/HCPCS: 77063; 77067

== ENCOUNTER 2025-01-30 23:51 | Emergency (ER) | payer OTHER, SELFPAY ==
--- OUTSIDE RECORDS SUMMARY | 2024-12-21 11:04 | XMS_ITS | Continuity of Care Document ---
Author Organization [facility] Address [address] [address] [place] [address] Phone Care Team Providers Care Technician Helper Instrument Name Role Phone German Bro DO Unavailable Unavailable Procedures Procedure Date Init Inpt E&M High Prolonged inpatient/obser Init Inpt E&M Moderate Subsqt Inpt Moderate Ugi Endo; W/endo Ultrasound Ex Ercp; W/sphincterotomy/papillo Ercp; W/endo Retro Remov Stone ERCP w/stent & sphinc Advance Directives Directive Yes / No Effective Date File Name No Information Encounters Encounter Description Practice Location Reason(s) For Visit Diagnoses Date Provider Providers Copied on Encounter [facility], [address] [address], [place], [id number], [place] tel:[phone] [facility] Choledocholithia sis 5 Adali Ackerman. [address] [facility], [facility] [place], [address] , [place]. tel: [phone] Init Inpt E&M High [facility], [address] [address], [place], [id number], [place] tel:[phone] [facility] No Information 5 Ever Cast. [address] [facility], [facility] [place], [id number] , [place]. tel:[phone] Referring Provider: Koki De MD, [address] [facility], [place], [address] . tel:[phone] [facility], [address] [address], [place], [place], [address], [place] tel:[phone] [facility] Choledocholithia sis 5 Alesia Lowry. [address] [facility], [place], [place], [address] , [place]. [phone] Init Inpt E&M Moderate [facility], [address] [address], [place], [address], [place] tel:[phone] [facility] No Information Adali MANZANO German. [address] [facility], [address], [place], [address] , [place]. [phone] Referring Provider: Koki De MD, [address] [facility], [place], [address] . tel:[phone] [facility], [address] [address], [place], [address], [place] tel:[phone] [facility] No Information Alesia Lowry. [address] [facility], [place], [address] , [place]. [phone] [place]: [place], [address] [place] [address] [address], [place], [address] . tel:[phone] Family History Family Member Type Diagnosis Age At Onset No Information Payers Payer name Insurance type Covered alliance party ID Authoriza tion(s) No Information Social History Type Description Quantity Date Captured Comments Sex Female Smoking Status No Information Chief Complaint And Reason For Visit No Information Reason For Referral Reason For Referral No Information Plan Of Treatment Date Type Action Status Referral Ordered: CMP Appointment date/timeframe: 01/04/2025 ordered Referral Ordered: Xray Abdomen Complete Appointment date/timeframe: 01/04/2025 ordered Referral Ordered: Xray Abdomen; Limited (AP View Only) (KUB) Appointment date/timeframe: 12/29/2024 ordered History Of Present Illness Encounter Date Complaint History Of Prese nt Illness No Information Functional Status Date Functional Assessmen t No Information Instructions Date Instruction Additional Infor mation No Information Assessments Type Assessment Date assessment Choledocholithiasis Patient Care Teams Name Effective Dates (start - stop) Status Members No Information
--- OUTSIDE RECORDS SUMMARY | 2024-12-21 11:04 | XMS_ITS | Continuity of Care Document ---
Author Organization [facility] Address [address] [address] [place] [address] Phone Care Team Providers Care Field Party Manager Name Role Phone German Bro DO Unavailable [...] Provider Providers Copied on Encounter [facility], [address] [address], [place], [address], [place] tel:[phone] [facility] Choledocholithia sis 5 Adali Ackerman. [address] [facility], [facility] [address], [facility] [place], [address] , [place]. tel:[phone] Init Inpt E&M High [facility], [address] [address], [place], [address], [place] tel:[phone] [facility] No Information 5 Ever Cast. [address] [facility], [facility] [address], [facility] [place], [address] , [place]. tel:[phone] Referring Provider: Koki De MD, [address] [facility], [place], [address] . tel:[phone] [facility], [address] [address], [place], [place], [address], [place] tel:[phone] [facility] Choledocholithia sis 5 Alesia Lowry. [address] [facility], [address], [place], [address] , [place]. [phone] Init Inpt E&M Moderate [facility], [address] [address], [place], [address], [place] tel:[phone] [facility] No Information Adali MANZANO German. [address] [facility], [address], [place], [place], [address] , [place]. [phone] Referring Provider: Koki De MD, [address] [facility], [place], [address] . tel:[phone] [facility], [address] [address], [place], [address], [place] tel:[phone] [facility] No Information Alesia Lowry. [address] [facility], [facility] [address], [place], [address] , [place]. [phone] Ref[place]: [place], [address] [place] [address] [address], [place], [address] . tel:[phone] Family History Family Member Type Diagnosis Age At Onset No Information Payers Payer name Insurance type Covered democrat ID Authoriza tion(s) No Information Social History [...]
--- OUTSIDE RECORDS SUMMARY | 2025-01-30 23:53 | XMS_ITS | Continuity of Care Document ---
Author Organization [place] [facility] Address [address] [place] [address] Assessment Encounter Date Assessment Date Assessment LastModified by Organization Details LastModified Time 01/14/2025 01/14/2025 ASSESSMENT: Patient is a good candidate for conservative care and the prognosis is for a favorable outcome that achieves the patients' goals. We discussed etiology, activity modifications, home care, and other treatment options. Initially, it is recommended that the patient receive in-office treatment 1 times per week for 8 weeks at which time a re-evaluation will be performed to determine an appropriate change in plan. Initially, treatment will focus on joint manipulation to restore range of motion and reduce pain. We will slowly progress to therapeutic exercises and activities to improve function, strength, and stability may also be used as warranted. If the patient is not responding as expected, more invasive procedures will be discussed along with a referral. All considerations above were discussed with the patient and questions answered to satisfaction. If the patient should have any additional questions, or should the condition evolve or worsen, the patient should not hesitate to contact our office. [email or web address] Not available 01/14/2025 19:34:32 Plan of Treatment Reminders Order Date Submit Date Provider Last Modified By Organization Details Last Modified Time Details Appointments None record ed. Lab None record ed. Referral None record ed. Procedures None record ed. Surgeries None record ed. Imaging None record ed. Medication Orders None record ed. Patient TargetsNo targets recorded. Patient InstructionsNo instructions recorded. Reason for Referral None Reported. Problems Name Problem SNOMED Code Status Onset Date Resolution Date Notes Provider Name and Address Organization Details Recorded Time Thoracic segmental dysfunction 460291823 Active 2024 Jefferson Andrade DC [address], [place], [address] , [place] [facility] 5 20:24:36 Neck pain 37302970 Active 2024 Not Available [facility] 09:55:49 Cervical segmental dysfunction 386793765 Active 2024 Jefferson Andrade [place] [address], [place], [address] , [place] [facility] 5 20:24:36 Lumbar segmental dysfunction 983907914 Active 2024 Jefferson Andrade [place] [address], [place], [address] , [place] [facility] 20:24:37 Lesion of lumbar spine 077692767 Active 2024 [facility] Luís AndradeSAVANNAH, [place] [address], [place], [address] , [facility] - [facility] 5 20:24:37 Low back pain 080741796 Active 2024 Jefferson AndradeSAVANNAH, DC [address], [place], [address] , [facility] - [facility] 5 10:50:54 Somatic dysfunction of sacral spine 010300505 Active 2024 Jefferson Andrade [place] [address], [place], [address] , [facility] - [facility] 5 10:50:54 Problem Notes None recorded. Procedures Surgical History Date Name Laterality Status Provider Name and Address Organization Details Recorded Time 5 23297: Spinal manipulation , 3 to 4 regions completed [place], [place] [address], [place], [address], [facility] - [facility] 01/28/2025 10:51:37 5 94241: Spinal manipulation , 3 to 4 regions completed [place], [place] [address], [place], [address], [facility] - [facility] 01/21/2025 14:53:15 5 12348: Spinal manipulation , 3 to 4 regions completed [facility] Luís Andrade [place] [address], [place], [address], [facility] [employer] [facility] 01/14/2025 19:34:32 5 25927: Spinal manipulation , 3 to 4 regions completed Jefferson AndradeSAVANNAH, [place] [address], [place], [address], [facility] [employer] [facility] 01/07/2025 20:24:49 Imaging Results None recorded. Procedure Notes None recorded. Medical Equipment None Reported. Medications Name Sig Start Date Stop Date Status Note LastModified by Organization Details LastModified Time prednisone 10 mg tablet TAKE 4 TABLETS BY MOUTH FOR 3 DAYS, 3 TABS FOR 3 DAYS, 2 TABS FOR 2 DAYS, AND 1 TABLET PER DAY FOR THE LAST 2 DAYS. active Not Available Not Available No t Available albuterol sulfate 2.5 mg/3 mL (0.083 %) solution for nebulization USE ONE VIAL IN NEBULIZER EVERY 4-6 HOURS NEEDED FOR SHORTNESS OF BREATH OR WHEEZING. active Not Available Not Available No t Available trazodone 50 mg tablet TAKE 0.5-1 TABLETS (25-50 MG) BY MOUTH AT BEDTIME. active Not Available Not Available No t Available fluconazole 150 mg tablet TAKE 1 TABLET (150 MG) BY MOUTH ONE TIME FOR 1 DOSE. IF SYMPTOMS PERSISTENT AFTER 72 HOURS, TAKE THE SECOND TABLET. active Not Available Not Available No t Available benzonatate 200 mg capsule TAKE 1 CAPSULE BY MOUTH TWICE A DAY NEEDED FOR COUGH. active Not Available Not Available No t Available hydrocodone 5 mg-acetamino phen 325 mg tablet TAKE 1 TO 2 TABLETS BY MOUTH EVERY SIX HOURS NEEDED FOR PAIN active Not Available Not Available No t Available fexofenadine 180 mg tablet TAKE ONE TABLET BY MOUTH EVERY DAY active Not Available Not Available No t Available estradiol 0.05 mg/24 hr semiweekly transdermal patch APPLY 1 PATCH TRANSDERMAL LY TWICE WEEKLY active Not Available Not Available No t Available triamcinolon e acetonide 0.1 % topical cream APPLY TO AFFECTED AREAS ON BODY 1-2X DAILY FOR UP TO 2 WEEKS AT A TIME, THEN TAKE A 2 WEEK BREAK. RESUME NEEDED. active Not Available Not Available No t Available phentermine 30 mg capsule TAKE 1 CAPSULE (30 MG) BY MOUTH ONCE DAILY BEFORE A MEAL. active Not Available Not Available No t Available ciclopirox 8 % topical solution APPLY TO THE AFFECTED AREAS ON THE FEET AND TOES NIGHTLY FOR 4 MONTHS. active Not Available Not Available No t Available terbinafine HCl 250 mg tablet TAKE ONE TABLET BY MOUTH ONCE DAILY FOR 8 WEEKS. active Not Available Not Available No t Available omeprazole 20 mg capsule,soha yed release TAKE 1 CAPSULE (20 MG) BY MOUTH ONCE DAILY BEFORE A MEAL. active Not Available Not Available No t Available epinephrine 0.3 mg/0.3 mL injection, auto-injecto r INJECT 0.3 MG (0.3 ML) INTRAMUSCUL LAKSHMI NEEDED NEEDED FOR ANAPHYLAXIS active Not Available Not Available Not Available estradiol 0.01% (0.1 mg/gram) vaginal cream INSERT 1 GRAM INTO THE VAGINA ONCE WEEKLY active Not Available Not Available Not Available finasteride 5 mg tablet TAKE ONE TABLET BY MOUTH (5MG) DAILY active Not Available Not Available No t Available Ventolin HFA 90 mcg/actuatio n aerosol inhaler INHALE 1-2 PUFFS BY MOUTH EVERY 4 HOURS IF NEEDED FOR SHORTNESS OF BREATH. active Not Available Not Available N ot Available escitalopram 10 mg tablet TAKE 1 TABLET (10 MG) BY MOUTH ONCE DAILY. active Not Available Not Available No t Available lisdexamfeta mine 20 mg capsule TAKE ONE CAPSULE BY MOUTH EVERY MORNING active Not Available Not Available No t Available Breyna 160 mcg-4.5 mcg/actuatio n HFA aerosol inhaler INHALE 2 PUFFS BY MOUTH TWO TIMES DAILY. active Not Available Not Available No t Available Vitals None Recorded Social History None recorded. Functional Status None recorded. Mental Status None recorded. Family History Nothing Reported. Medical History No medical history recorded. Gynecological HistoryNo gynecological history recorded. Obstetrics History GPAL:G 0 P 0 0 0 0 Past Encounters Encounter ID Performer Location Encounter Start Date Encounter Closed Date Diagnosis/Indication Diagnosis SNOMED-CT Code Diagnosis ICD10 Code Diagnosis Note [id number] Jefferson Andrade DC [facility] [address] [facility] [place] [place] [address] 01/07/2025 10:34:51 01/12/2025 17:01:39 Cervical segmental dysfunction 139518530 M99.01 Neck pain 23811868 M54.2 Thoracic s egmental dysfunction 017080947 M99.02 Lumbar seg mental dysfunction 955136378 M99.03 Lesion of lumbar spine 795355238 M99.01 [id number] Jefferson Andrade DC [facility] [address] [facility] [place] [address] 01/14/2025 10:57:34 01/15/2025 09:08:11 Cervical segmental dysfunction 819001396 M99.01 Neck pain 15628175 M54.2 Thoracic s egmental dysfunction 211819505 M99.02 Lumbar seg mental dysfunction 253484621 M99.03 Lesion of lumbar spine 373215087 M99.01 Health Concerns Section Related Observation LastModified by Organization Detai ls LastModified Time None Recorded Concern Status LastModified by Organization Details LastModified Time None Recorded Payers Encounter Date Sequence Insurance Name Policy Number Policy Ridley Covered Member ID Ridley Member ID Guarantor Name 01/14/2025 [facility] Lorenza Steel [id number] Lorenza Steel Notes Date Note Type Note Provider Name and Address Organization Details Recorded Time 01/14/2025 text/html HPI - Cervical SpineReported bypatient.Location: left Quality:aching Severity:moderate Duration:2 weeks Timing:gradual Alleviating Factors:ice Aggravating Factors:sitting Associated Symptoms:no numbness/tingling Jefferson Andrade DC [address], [place], [address], [facility] - [facility] 01/14/2025 19:35:18 OBGyn Episode No OBEpisode recorded.
--- OUTSIDE RECORDS SUMMARY | 2025-01-30 23:53 | XMS_ITS | Continuity of Care Document ---
Author Organization [place] [facility] Address [address] [place] [address] Assessment Encounter Date Assessment Date Assessment LastModified by Organization Details LastModified Time 01/21/2025 01/21/2025 ASSESSMENT: Patient is a good candidate for [...] to contact our office. [email or web address] Not available 01/21/2025 14:53:15 Plan of Treatment Reminders Order Date Submit [...] Organization Details Recorded Time Thoracic segmental dysfunction 761933116 Active 2024 Jefferson Andrade DC [address], [place], [address] , [place] [facility] 5 20:24:36 Neck pain 88071069 Active 2024 Not Available [facility] 09:55:49 Cervical segmental dysfunction 517757945 Active 2024 Jefferson Andrade [place] [address], [place], [address] , [place] [facility] 5 20:24:36 Lumbar segmental dysfunction 949563293 Active 2024 Jefferson Andrade [place] [address], [place], [address] , [place] [facility] 20:24:37 Lesion of lumbar spine 663348537 Active 2024 [facility] Lu[place], [place] [address], [place], [address] , [facility] - [facility] 5 20:24:37 Low back pain 105914019 Active 2024 [place], [place] [address], [place], [address] , [facility] - [facility] 5 10:50:54 Somatic dysfunction of sacral spine 167543620 Active 2024 Jefferson Andrade [place] [address], [place], [address] , [facility] - [facility] 5 10:50:54 Problem Notes None recorded. Procedures Surgical History Date Name Laterality Status Provider Name and Address Organization Details Recorded Time 5 59140: Spinal manipulation , 3 to 4 regions completed [place], [place] [address], [place], [address], [facility] - [facility] 01/28/2025 10:51:37 5 06581: Spinal manipulation , 3 to 4 regions completed [place], [place] [address], [place], [address], [facility] 01/21/2025 14:53:15 5 61041: Spinal manipulation , 3 to 4 regions completed [facility] Luís Andrade [place] [address], [place], [address], [facility] [employer] [facility] 01/14/2025 19:34:32 5 19735: Spinal manipulation , 3 to 4 regions completed [place]LIN[place], [place] [address], [place], [address], [facility] [employer] [facility] 01/07/2025 20:24:49 Imaging Results None recorded. Procedure [...] SNOMED-CT Code Diagnosis ICD10 Code Diagnosis Note [id number] Jefferson Andrade DC [facility] [address] [facility] [place] [address] 01/07/2025 10:34:51 01/12/2025 17:01:39 Cervical segmental dysfunction 800362525 M99.01 Neck pain 52629543 M54.2 Thoracic s egmental dysfunction 694014852 M99.02 Lumbar seg mental dysfunction 735214647 M99.03 Lesion of lumbar spine 684596068 M99.01 [id number] Jefferson Andrade DC [facility] [address] [facility] [place] [address] 01/14/2025 10:57:34 01/15/2025 09:08:11 Cervical segmental dysfunction 660643892 M99.01 Neck pain 17433861 M54.2 Thoracic s egmental dysfunction 834507257 M99.02 Lumbar seg mental dysfunction 082320442 M99.03 Lesion of lumbar spine 374544508 M99.01 [id number] Jefferson Andrade DC [facility] [address] [place] [address] 01/21/2025 14:50:40 01/22/2025 09:00:58 Cervical segmental dysfunction 736238374 M99.01 Neck pain 90560714 M54.2 Thoracic s egmental dysfunction 144044662 M99.02 Lumbar seg mental dysfunction 846114062 M99.03 Lesion of lumbar spine 838529744 M99.01 Health Concerns Section Related Observation LastModified by Organization Detai ls LastModified Time None Recorded Concern Status LastModified by Organization Details LastModified Time None Recorded Payers Encounter Date Sequence Insurance Name Policy Number Policy Ridley Covered Member ID Ridley Member ID Guarantor Name 01/21/2025 [facility] Lorenza Steel [id number] Lorenza Steel Notes Date Note Type Note Provider Name and Address Organization Details Recorded Time 01/21/2025 text/html HPI - Cervical SpineReported bypatient.Location: left Quality:aching Severity:moderate Duration:2 weeks Timing:gradual Alleviating Factors:ice Aggravating Factors:sitting Associated Symptoms:no numbness/tingling Jefferson Andrade DC [address], [place], [address], [facility] 01/21/2025 14:54:21 OBGyn Episode No OBEpisode recorded.
--- OUTSIDE RECORDS SUMMARY | 2025-01-30 23:53 | XMS_ITS | Clinical Summary ---
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 024 Active EPINEPHrine 0.3 mg/0.3 mL auto-injectorIndi cations:Hx [...] daily before a meal. 100 Capsule 3 025 Active traZODone 50 mg tabletIndications :Sleep disturbance Take 0.5-1 Tablets (25-50 mg) by mouth at bedtime. 100 Tablet Active Ventolin HFA 90 mcg/actuation inhalerIndication s:Moderate persistent asthma without complication (HC) Inhale 1-2 Puffs by mouth every 4 hours if needed for Shortness Of Breath. 18 g 025 Active finasteride 5 mg tablet Take 1 [...] area(s) 2 times daily if needed. Active Phentermine HCl 30 mg capsuleIndication s:Overweight TAKE 1 CAPSULE (30 MG) BY MOUTH ONCE DAILY BEFORE A MEAL. 30 Capsule 5 025 Active predniSONE 1 mg tabletIndications :Moderate persistent asthma with exacerbation (HC),History of adrenal insufficiency Take 9 tablets daily x 4 days. Decrease by 1 tablet every 4 days until gone. 180 Tablet 025 Active Phentermine HCl 30 mg capsuleIndication s:Overweight TAKE 1 CAPSULE (30 MG) BY MOUTH ONCE DAILY BEFORE A MEAL. 30 Capsule 3 025 2024 Discontinued fluconazole 150 mg tabletIndications :Thrush Take 1 Tablet (150 mg) by mouth one time for 1 dose. If symptoms persistent after 72 hours, take the second tablet. 2 Tablet 1 025 2024 Active Problems Problem Noted Date Diagnosed Date Choledocholithiasis 12/14/2024 Overview (12/14/2024): -conferenced with our gen surgery, MNALEXX. likely needs ERCP today given dramatic rise in bili, AST, ALT, Alk phos and ongoing pain with IV opioid need. Accepted and transfering am of 12/14 Hx of anaphylaxis 05/09/2022 Menopausal symptoms 05/09/2022 Overweight 05/09/2022 Overview (07/24/2022): Using phentermine off label for weight maintenance(infomred consent given). Uses as needed. Environmental allergies 11/10/2020 Asthma, moderate persistent 11/09/2020 Osteopenia 11/09/2020 LAUREANO (obstructive sleep apnea) 11/09/2020 Depression, major, in remission 11/09/2020 Overview (06/15/2021): Psychologist: Zandra Sanches Chronic GERD 11/09/2020 Encounters Date Type Department Care Team Description 5 4:00 PM CDT Office Visit [facility] [address] [place] [address] Koki De MD Physical (Patient would like to discuss tapering off prednisone for asthma) [address] [facility] Scanner 1 scan: (1-Ord) [facility], BILAT SCREENING MAMMO, ASYMPTOMATIC , 01/27/2025 5 Travel 5 Travel 5 Refill [facility] [address] [place] [address] Koki De MD Refill Request (Phentermine Hcl) 5 1:55 PM CDT Office Visit [facility] [address] [facility] [place] [address] Koki De MD ER Follow up (12/30/24 Abdominal pain ) 5 Travel [address] [facility] Scanner 1 scan: (1-Ord) [place], CT ABDOMEN , 12/30/[address] [facility] Scanner 1 scan: (1-Ord) [facility], 12/30/2024 5 Travel 5 Telephone [facility] [address] [facility] [place] [address] Koki De MD Appointment 5 1:30 PM CDT Office Visit [facility] [address] [place] [address] Kristina Carnes MD Post-op (Laparoscopic cholecystectomy 12/07/24) 5 Travel 5 Patient Outreach [facility] [address] [place] [address] Danisha Fox, RN Primary RN Care Management; Hospital F/U (LACE 57) 5 4:01 AM CDT - 5 2:45 PM CDT Hospital Encounter [facility] [address] [place], [place] [id number] [facility], [facility] Hospitalists Of Yamila Franco MD Schmidt, Rani Gomez MD Discharge Disposition: Home Self Care 5 Travel [address] [facility] Scanner 1 scan: (1-Ord) [facility], ABDOMEN PELVIS W CON , 12/17/2024 5 Patient Outreach [facility] [address] [place] [address] Danisha Fox, RN Primary RN Care Management; Hospital F/U (LACE 66) 5 3:43 PM CDT Anesthesia Event [facility] [address] [place] [address] Jose Luis Rosales MD 5 2:35 PM CDT - 5 10:56 AM CDT Hospital Encounter [facility] [address] [place] [address] Janet Saavedra MD Peterson, Christopher Roy, MD [facility], [facility] Hospitalists Of Gerber Hart MD Puchalski, IRVIN Troy Choledocholithiasis (Primary Dx) Discharge Disposition: Home Self Care 5 1:55 PM CDT - 5 3:00 PM CDT Surgery [facility] [address] [place] [address] Alen Dumas MD ENDOSCOPIC RETROGRADE CHOLANGIOPANCREATOGRAPHY with spincterotomy and stone extraction and stent 5 Travel [address] [facility] Scanner 1 scan: (1-Ord) [facility], ABDOMEN PELVIS W/ CON, 12/13/2024 5 Lab Requisition [facility] [phone] Kristina Carnes MD [address] [facility] Scanner 1 scan: (1-Ord) [facility], XR CHEST 1V PORTABLE, 12/07/[address] [facility] Scanner 1 scan: (1-Ord) [place], LAPAROSCOPIC CHOLECYSTECTOMY, 12/07/[address] [facility] Scanner 1 scan: (1-Ord) [facility], MULTIPLE LAB RESULTS, 12/04/[address] [facility] Scanner 1 scan: (1-Ord) [facility], [place] ABDOMEN LIMITED, 12/04/2024 5 10:00 AM CDT Office Visit [facility] [address] [place] [address] Koki De MD Medication Management (phentermine); Immunization/Injection 5 Travel from Last 3 Months Immunizations Immunization Administration Dates Next Due COVID-19 VACCINE SPIKEVAX (Peng SOLARES 50G/0.5ML) 12YO+ PFS 05/20/2024 COVID-19 vaccine (Moderna 100mcg/0.5mL) [...] ituted (Arexvy 120MCG/0.5mL) 03/11/2024 Smallpox (Vaccinia) Live [id number] 08/[birth year]/1968 Td (Age >=7 Years) 08/12/2001,08/12/1991, 982 [...] on file Legal Sex Female 6:07 AM 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 Gender Identity Not on file Sexual Orientation Not on file 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 Not on file Not on file Travel History Travel Start Travel End [place] 01/01/2025 01/04/2025 Obstetrics History Last Filed Vital Signs Vital Sign Reading Time Taken Comments Blood Pressure 128/83 01/27/2025 3:59 PM CDT Pulse 82 01/27/2025 3:59 PM CDT Temperature 37.1 C (98.7 F) 01/06/2025 2:09 PM CDT Respiratory Rate 16 12/18/2024 8:30 AM CDT Oxygen Saturation 96% 01/27/2025 3:59 PM CDT Inhaled Oxygen Concentration - - Weight 80.1 kg (176 lb 9.6 oz) 01/27/2025 3:59 P M CDT Height 163.8 cm (5' 4.49) 01/27/2025 3:59 PM CD T Body Mass Index 29.86 01/27/2025 3:59 PM CDT Plan of Treatment Health Maintenance Due Date Last Done Comments Fecal testing sDNA-FIT (Star guard) for age 45-75 06/13/2025 06/13/2022, 05/20/2019 Depression screening for age 12+ 11/05/2025 11/05/2024, 05/20/2024, 01/03/2023, Additional history exists BMI (ht and wt on same day) for age 18+ 01/27/2026 01/27/2025, 11/05/2024, 08/28/2023, Additional history exists Mammogram for age 45-75 01/27/2026 01/28/20, 05/06/2024, 11/21/2022, Additional history exists Lipids for age 45-75 [...] for age 50+ Completed 11/05/2024, 09/22/2015, 11/29/2003 HIV for age 15-65 Completed 01/06/2025 Hepatitis C screening for ag e 18-79 Completed 01/06/2025 Medical Devices Implanted Type Area Wood Pole Treater Device Identifier Shelf Expiration Date Model / Serial / Lot Mesh Hernia Inguinal Rt - [id number] Implanted:Qty: 1 on 05/24/2011 at [facility] Right: Inguinal 09/12/2015 [id number] R# / / [id number] Stent Pancreatic [id number] Geenen Sof-Flex No Flap - [id number] Implanted:Qty: 1 on 12/14/2024 by Alen Dumas MD at [facility] 08/21/2027 GPSOS-SF- 5-5 / / [id number] Explanted Type Area Wood Pole Treater Device Identifier Shelf Expiration Date Model / Serial / Lot Stent Pancreatic [id number] Geenen Sof-Flex No Flap - [id number] Explanted:Qty: 1 on 12/14/2024 at [facility] 08/21/2027 GPSOS-SF-5 - 5 / / [id number] Procedures Procedure Name Priority Date/Time Associated Diagnosis Comments SCAN-MAMMOGRAPHY REPORT 01/28/20 12:00 AM CDT ALT (SGPT) Routine 01/06/2025 3:02 PM CDT Abnormal liver ultrasound AST (SGOT) Routine 01/06/2025 3:02 PM CDT Abnormal liver ultrasound FERRITIN Routine 01/06/2025 3:02 PM CDT Abnormal liver ultrasound IRON PLUS IRON BINDING CAP Routine 01/06 3:02 PM CDT Abnormal liver ultrasound ANTI HIV 1/2 Routine 01/06/2025 3:02 PM CDT Screening for HIV (human immunodeficiency virus) ANTI HCV Routine 01/06/2025 3:02 PM CDT Abnormal liver ultrasound IGM ANTI-HBC Routine 01/06/2025 3:02 PM CDT Abnormal liver ultrasound HBSAG (HBS) Routine 01/06/2025 3:02 PM CDT Abnormal liver ultrasound ANTI HBS QUANT AHS Routine 01/06/2025 3:02 PM CDT Abnormal liver ultrasound SCAN-CT INTERPRETATION 12:00 AM CDT SCAN-ULTRASOUND REPORT 12:00 AM CDT HEMOGLOBIN Routine 12/22/2024 2:17 PM CDT Anemia, unspecified type HEPATIC FUNCTION PANEL Routine 2:17 PM CDT Elevated LFTs SCAN CORRESP-LABORATORY RESULTS 12/18/2024 1:38 PM CDT CBC W PLT NO DIFF Early AM 12/18/2024 6:27 AM CDT CREATININE Early AM 12/18/2024 6:27 AM CDT HEPATIC FUNCTION PANEL Early AM 6:27 AM CDT SCAN-CT INTERPRETATION 12:00 AM CDT SCAN CORRESP-LABORATORY RESULTS 12/15/2024 3:46 PM CDT SCAN CORRESP-LABORATORY RESULTS 12/15/2024 3:44 PM CDT SCAN CORRESP-IMAGING 12/15/2024 3:44 PM CDT WHITE BLOOD COUNT Early AM 12/15/2024 6:40 AM CDT BILIRUBIN,TOTAL Early AM 12/15/2024 6:40 AM CDT ALK PHOSPHATASE Early AM 12/15/2024 6:40 AM CDT ALT (SGPT) Early AM 12/15/2024 6:40 AM CDT AST (SGOT) Early AM 12/15/2024 6:40 AM CDT PROTIME-INR STAT 12/14/2024 6:41 PM CDT CBC W PLT NO DIFF STAT 12/14/2024 6:27 PM CDT BASIC METABOLIC PANEL STAT 12/14/2024 6:27 PM CDT LIPASE STAT 12/14/2024 6:27 PM CDT HEPATIC FUNCTION PANEL STAT 6:27 PM CDT XR ERCP BILIARY ONLY Routine 12/14/2024 5:29 PM CDT ENDOTRACHEAL TUBE Routine 12/14/2024 4:22 PM CDT ENDOSCOPY 12/14/2024 3:47 PM CDT ENDOSCOPIC ULTRASOUND UPPER 12/2024 3:33 PM CDT See note ENDOSCOPIC RETROGRADE CHOLANGIOPANCREATOGRAPHY WITH SPHINCTEROTOMY AND STENT PLACEMENT 12/14/2024 3:33 PM CDT See MD [employer] ENDOSCOPY 12/14/2024 2:00 PM CDT SCAN-CT INTERPRETATION 12:00 AM CDT LAB TRACKING EVENT Routine 12/07/2024 12:00 PM CDT PATH TISSUE EXAM Routine 12/07/2024 12:00 PM CDT SCAN-RADIOLOGY REPORT 12/07/2024 12:00 AM CDT SCAN-OPERATIVE/PROCEDURE REPORT 12/07/2024 12:00 AM CDT SCAN-LABORATORY REPORT 12:00 AM CDT SCAN-ULTRASOUND REPORT 12:00 AM CDT LIPID PANEL W REFLEX MEASURE D LDL Routine 09/16/2023 7:43 AM 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 Lipid screening SDNA-FIT EXTERNAL (COLOGUARD) Routine 10:15 AM CDT Screening for colon cancer from Last 3 Months or Most Recently Relevant to Health Maintenance Results * SCAN-MAMMOGRAPHY REPORT (01/27/2025 12:00 AM CDT) Anatomical Region Laterality Modality Other us Scanner OTHER Final Result * IRON PLUS IRON BINDING CAP (01/06/2025 3:02 PM CDT) IRON, TOTAL 114 45 - 160 mcg/dL [facility] IRON BINDING CAPACITY 414 250 - 450 mcg/dL (calc) [facility] % SATURATION 28 16 - 45 % (calc) [facility] Blood BLOOD SPECIMEN / Unknown 01/06/2025 3:02 PM CDT 01/06/2025 3:03 PM CDT Koki De MD CHEMISTRY Final Resul t Performing Organization Address City/[facility]/ZIP Co de Phone Number [facility] [address] [address], [place] [phone] [facility] [address] [place] [address] * HBSAG (01/06/2025 3:02 PM CDT) HEPATITIS B SURFACE ANTIGEN NON-REACTI VE NON-REACTI VE [facility] Comment: For additional information, please refer to http://education.[employer].AudioBoo/faq/GHO586 (This link is being provided for informational/ educational purposes only.) Blood BLOOD SPECIMEN / Unknown 01/06/2025 3:02 PM CDT 01/06/2025 3:03 PM CDT Koki De MD SEND OUTS Final Resul t Performing Organization Address [facility]/ZIP Co de Phone Number [facility] [place] [phone] [facility] [place] [address], [place] [phone] [facility] [address] [place] [address] * ANTI HCV (01/06/2025 3:02 PM CDT) Pathologist [facility] HEPATITIS C ANTIBODY NON-REACTI VE NON-REACT UCHE [facility] Comment: HCV antibody was non-reactive. There is no laboratory evidence of HCV infection. In most cases, no further action is required. However, if recent HCV exposure is suspected, a test for HCV RNA (test code 34196) is suggested. For additional information please refer to http://Verold.Verimatrix/faq/CEE54o6 (This link is being provided for informational/ educational purposes only.) Blood BLOOD SPECIMEN / Unknown 01/06/2025 3:02 PM CDT 01/06/2025 3:03 PM CDT Koki De MD SEND OUTS Final Resul t Performing Organization Address [facility] de Phone Number [employer] [facility] [employer] [address] [address], [facility] [address] [place] [address] * ANTI HBS QUANT AHS (01/06/2025 3:02 PM CDT) Pathologist [facility] HEPATITIS B SURFACE AB IMMUNITY, QN 91 > OR = 10 mIU/mL [facility] Comment: Patient has immunity to hepatitis B virus. For additional information, please refer to http://education.Verimatrix/faq/IQS011 (This link is being provided for informational/ educational purposes only). Blood BLOOD SPECIMEN / Unknown 01/06/2025 3:02 PM CDT 01/06/2025 3:03 PM CDT Koki De MD SEND OUTS Final Resul t Performing Organization Address [facility] de Phone Number [facility] [address] [place] [address], [facility] [address] [place] [address] * IGM ANTI-HBC (01/06/2025 3:02 PM CDT) Pathologist [facility] HEPATITIS B CORE ANTIBODY (IGM) NON-REACTI VE NON-REACTI VE [facility] Comment: For additional information, please refer to http://Verold.Verimatrix/faq/WIK633 (This link is being provided for informational/ educational purposes only.) Blood BLOOD SPECIMEN / Unknown 01/06/2025 3:02 PM CDT 01/06/2025 3:03 PM CDT us Koki De MD SEND OUTS Final Resul t [facility] [address] [place] [address], [facility] [address] [place] [address] * ANTI HIV 1/2 [24534.0] (01/06/2025 3:02 PM CDT) Pathologist [facility] HIV AG/AB, 4TH GEN NON-REACT UCHE NON-REACT UCHE [facility] Comment: HIV-1 antigen and HIV-1/HIV-2 antibodies were not detected. There is no laboratory evidence of HIV infection. PLEASE NOTE: This information has been disclosed to you from records whose confidentiality may be protected by state law. If your state requires such protection, then the state law prohibits you from making any further disclosure of the information without the specific written consent of the person to whom it pertains, or as otherwise permitted by law. A general authorization for the release of medical or other information is NOT sufficient for this purpose. For additional information please refer to http://[employer]/faq/GTK422 (This link is being provided for informational/ educational purposes only.) The performance of this assay has not been clinically validated in patients less than 2 years old. Blood BLOOD SPECIMEN / Unknown 01/06/2025 3:02 PM CDT 01/06/2025 3:03 PM CDT us Koki De MD SEND OUTS Final Resul t Performing Organization Address City/[facility]/ZIP Co de Phone Number [facility] [address] [place] [address], [place] [phone] [facility] [address] [place] [address] * ALT (SGPT) (01/06/2025 3:02 PM CDT) Only the most recent of2 resultswithin the time period is included. ALT 24 6 - 29 U/L [facility] Blood BLOOD SPECIMEN / Unknown 01/06/2025 3:02 PM CDT 01/06/2025 3:03 PM CDT us Koki De MD CHEMISTRY Final Resul t Performing Organization Address [facility] de Phone Number [employer] [facility] [employer] [facility] [address] [place] [address], [place] [phone] [facility] [address] [place] [address] * AST (SGOT) (01/06/2025 3:02 PM CDT) Only the most recent of2 resultswithin the time period is included. AST 23 10 - 35 U/L [facility] Blood BLOOD SPECIMEN / Unknown 01/06/2025 3:02 PM CDT 01/06/2025 3:03 PM CDT us Koki De MD CHEMISTRY Final Resul t Performing Organization Address [facility] Co de Phone Number [facility] [facility] [address] [place] [address], [place] [phone] [facility] [address] [facility] [place] [address] * (ABNORMAL) FERRITIN (01/06/2025 3:02 PM CDT) FERRITIN 14(L) 16 - 288 ng/mL [facility] Blood BLOOD SPECIMEN / Unknown 01/06/2025 3:02 PM CDT 01/06/2025 3:03 PM CDT us Koki De MD CHEMISTRY Final Resul t Performing Organization Address City/[facility]/ZIP Co de Phone Number [facility] [address] [facility] [place] [place] [address], [facility] [address] [place] [address] * SCAN-ULTRASOUND REPORT (12/30/2024 12:00 AM CDT) Only the most recent of2 resultswithin the time period is included. Anatomical Region Laterality Modality Other us Scanner OTHER Final Result * SCAN-CT INTERPRETATION (12/30/2024 12:00 AM CDT) Only the most recent of3 resultswithin the time period is included. Anatomical Region Laterality Modality Other us Scanner OTHER Final Result * HEMOGLOBIN (12/22/2024 2:17 PM CDT) HEMOGLOBIN 12.1 11.7 - 15.5 g/dL [facility] Blood BLOOD SPECIMEN / Unknown 12/22/2024 2:17 PM CDT 12/22/2024 2:17 PM CDT us Kristina Carnes MD HEMATOLOGY Final Re sult [facility] [address] [place] [address] [place] [address], [place] [phone] [facility] [address] [facility] [place] [address] * (ABNORMAL) HEPATIC FUNCTION PANEL (12/22/2024 2:17 PM CDT) Only the most recent of3 resultswithin the time period is included. Pathologist [facility] PROTEIN, TOTAL 6.6 6.1 - 8.1 g/dL [facility] ALBUMIN 4.1 3.6 - 5.1 g/dL [facility] GLOBULIN 2.5 1.9 - 3.7 g/dL (calc) [facility] ALBUMIN/GLOBULIN RATIO 1.6 1.0 - 2.5 (calc) [facility] BILIRUBIN, TOTAL 0.4 0.2 - 1.2 mg/dL [facility] BILIRUBIN, DIRECT 0.1 < OR = 0.2 mg/dL [facility] BILIRUBIN, INDIRECT 0.3 0.2 - 1.2 mg/dL (calc) [facility] ALKALINE PHOSPHATASE 137 37 - 153 U/L [facility] AST 21 10 - 35 U/L [facility] ALT 59(H) 6 - 29 U/L [facility] Blood BLOOD SPECIMEN / Unknown 12/22/2024 2:17 PM CDT 12/22/2024 2:17 PM CDT Kristina Carnes MD CHEMISTRY Final Re sult [facility] [place] [facility] [address] [facility] [place] [address], [facility] [address] [place] [address] * SCAN CORRESP-LABORATORY RESULTS (12/18/2024 1:38 PM CDT) Only the most recent of3 resultswithin the time period is included. Narrative 12/18/2024 1:38 PM CDT Ordered by an unspecified provider. Other Clinical Staff OTHER Final Resul t * (ABNORMAL) CBC (12/18/2024 6:27 AM [facility] Only the most recent of2 resultswithin the time period is included. WHITE BLOOD COUNT 6.5 4.5 - 11.0 thou/cu mm 12/18/2024 7:01 AM [facility] RED BLOOD COUNT 3.86(L) 4.00 - 5.20 mil/cu mm 12/18/2024 7:01 AM [facility] HEMOGLOBIN 11.1(L) 12.0 - 16.0 g/dL 12/18/2024 7:01 AM [facility] HEMATOCRIT 35.1 33.0 - 51.0 % 12/18/2024 7:01 AM [facility] MCV 91 80 - 100 fL 12/18/2024 7:01 AM [facility] MCH 28.8 26.0 - 34.0 pg 12/18/2024 7:01 AM [facility] MCHC 31.6(L) 32.0 - 36.0 g/dL 12/18/2024 7:01 AM [facility] RDW 12.5 11.5 - 15.5 % 12/18/2024 7:01 AM [facility] PLATELET COUNT 321 140 - 440 thou/cu mm 12/18/2024 7:01 AM [facility] MPV 11.3(H) 6.5 - 11.0 fL 12/18/2024 7:01 AM [facility] NRBC 0.0 % 12/18/2024 7:01 AM [facility] ABS NRBC 0.0 thou /cu mm 12/18/2024 7:01 AM [facility] Blood BLOOD SPECIMEN / Unknown Venipuncture / Unknown 12/18/2024 6:27 AM CDT 12/18/2024 6:52 AM CDT Yamila Franco MD HEMATOLOGY Final Resu lt Performing Organization Address [facility] Co de Phone Number [facility] [address] [place] [address], [place] * CREATININE (12/18/2024 6:27 AM CDT) eGFR >90 >90 mL/min/1.7 3m2 12/18/2024 7:30 AM CDT [facility] Comment:As of 2021, eG FR is calculated by the CKD-EPI creatinine equation without race adjustment. eGFR can be influenced by muscle mass, exercise, and diet. The reported eGFR is an estimation only and is only applicable if the renal function is stable. CREATININE 0.67 0.50 - 0.90 mg/dL 12/18/2024 7:30 AM CDT [facility] Blood BLOOD SPECIMEN / Unknown Venipuncture / Unknown 12/18/2024 6:27 AM CDT 12/18/2024 6:52 AM CDT Yamila Franco MD CHEMISTRY Final Resu lt Performing Organization Address [facility] Co de Phone Number [facility] [address] [place] [address], [place] * SCAN CORRESP-IMAGING (12/15/2024 3:44 PM CDT) Anatomical Region Laterality Modality Other Narrative 12/15/2024 3:44 PM CDT Ordered by an unspecified provider. Other Clinical Staff OTHER Final Resul t * WHITE BLOOD COUNT (12/15/2024 6:40 AM CDT) WHITE BLOOD COUNT 6.8 4.5 - 11.0 thou/cu mm 12/15/2024 7:00 AM CDT [facility] NRBC 0.0 % 12/15/2024 7:00 AM CDT [facility] ABS NRBC 0.0 thou /cu mm 12/15/2024 7:00 AM CDT [facility] Blood BLOOD SPECIMEN / Unknown Venipuncture / Unknown 12/15/2024 6:40 AM CDT 12/15/2024 6:49 AM CDT Gerber Hart MD HEMATOLOGY Final Res ult Performing Organization Address City/[facility]/ZIP Co de Phone Number [facility] [address] [phone], [place] * BILIRUBIN,TOTAL (12/15/2024 6:40 AM CDT) BILIRUBIN,TOTA L 0.9 0.0 - 1.2 mg/dL 12/15/2024 7:25 AM CDT [facility] Blood BLOOD SPECIMEN / Unknown Venipuncture / Unknown 12/15/2024 6:40 AM CDT 12/15/2024 6:49 AM CDT Gerber Hart MD CHEMISTRY Final Res ult Performing Organization Address [facility] Co de Phone Number [facility] [address] [place] [phone], [place] * (ABNORMAL) ALK PHOSPHATASE (12/15/2024 6:40 AM CDT) ALK PHOSPHATASE 217(H) 35 - 104 IU/L 12/15/2024 7:25 AM CDT [facility] Blood BLOOD SPECIMEN / Unknown Venipuncture / Unknown 12/15/2024 6:40 AM CDT 12/15/2024 6:49 AM CDT Gerber Hart MD CHEMISTRY Final Res ult Performing Organization Address City/[facility]/ZIP Co de Phone Number [facility] [address] [place], [place] [id number], [place] * PROTIME-INR (12/14/2024 6:41 PM CDT) INR 1.1 <1.3 12/14/2024 7:00 PM CDT [facility] PROTIME 12.4 10.6 - 12.4 sec 12/14/2024 7:00 PM CDT [facility] Blood BLOOD SPECIMEN / Unknown Non-Lab Venipuncture / Unknown 12/14/2024 6:41 PM CDT 12/14/2024 6:47 PM CDT Narrative [facility] - 12/14/2024 7:00 PM CDT Therapeutic [...] MD HEMATOLOGY Final Result Performing Organization Address City/[facility]/ZIP Co de Phone Number [facility] [address] [place] [address], * LIPASE (12/14/2024 6:27 PM CDT) LIPASE 27.2 13.0 - 60.0 IU/L 12/14/2024 6:58 PM CDT [facility] Blood BLOOD SPECIMEN / Unknown Non-Lab Venipuncture / Unknown 12/14/2024 6:27 PM CDT 12/14/2024 6:33 PM CDT Janet Saavedra MD CHEMISTRY Final Result Performing Organization Address [facility]/ZIP Co de Phone Number [facility] [address] [place] [address], * (ABNORMAL) BASIC METABOLIC PANEL (12/14/2024 6:27 PM CDT) SODIUM 138 136 - 145 mmol/L 12/14/2024 6:58 PM CDT [facility] POTASSIUM 4.8 3.5 - 5.1 mmol/L 12/14/2024 6:58 PM T [facility] CHLORIDE 103 98 - 107 mmol/L 12/14/2024 6:58 PM T [facility] CO2,TOTAL 21(L) 22 - 29 mmol/L 12/14/2024 6:58 PM CDT [facility] ANION GAP 14 5 - 18 12/14/2024 6:58 PM T [facility] GLUCOSE 62(L) 70 - 99 mg/dL 12/14/2024 6:58 PM T [facility] CALCIUM 9.0 8.8 - 10.4 mg/dL 12/14/2024 6:58 PM T [facility] Comment: Reference ranges for this test were updated on 06/16/2024 to reflect our healthy population more accurately. Reference range changes are not retroactively applied to results, but previous results using the same methodology can be interpreted in the context of the new reference range. BUN 11 8 - 23 mg/dL 12/14/2024 6:58 PM [facility] CREATININE 0.73 0.50 - 0.90 mg/dL 12/14/2024 6:58 PM T [facility] BUN/CREAT RATIO 15 10 - 20 6:58 PM T [facility] eGFR >90 >90 mL/min/1.7 3m2 12/14/2024 6:58 PM T [facility] Comment:As of 2021, eG FR [...] CDT Janet Saavedra MD CHEMISTRY Final Result [facility] [address] [place] [address], [place] * XR ERCP BILIARY ONLY (12/14/2024 [...] Procedure: ERCP Proceduralist: Alen Dumas MD - [facility] Indications/Pre-Op Diagnosis: Bile duct stone(s) Medications: General Anesthesia Procedure Description: Risk of bleeding, infection, perforation, pancreatitis, need for surgery, remote chance of and alternatives were discussed, andthe patient gave informed consent. The endoscope [id number] was passed through the and advancedto the [...] Dumas MD - 12/14/2024 5:48 PM CDT [place] [facility] Patient Name: Martita Steel Procedure Date: 12/14/2024 Gender: Female Date of : 1960 Admit Type: Emergency Department Procedure: Upper EUS Proceduralist: Alen Dumas MD - [facility] Indications/Pre-Op Diagnosis: Suspected choledocholithiasis Medications: Monitored Anesthesia Care Procedure Description: Risk of bleeding, infection, perforation, pancreatitis, need for surgery, remote chance of and alternatives were discussed, andthe patient gave informed consent. Risk of bleeding, infection, perforation, pancreatitis, need for surgery, remote chance of and alternatives were discussed, andthe patient gave informed consent. The endoscope [id number] was introduced through the mouth, and advanced [...] MD LAB BILL ONLY Final Re sult [facility] [address] [place] [address], * PATH TISSUE EXAM (12/07/2024 12:00 PM CDT) Case Report Pathology Report Case: [id number] Authorizing Provider: Kristina Carnes MD Collected: 12/07/2024 1200 Ordering Location: [facility] Received: 12/08/2024 1413 Pathologist: Giovanny Alexander IV, MD Specimen: Gallbladder 12/10/2024 2:53 PM CDT [facility] Final Diagnosis A) GALLBLADDER, CHOLECYSTECTOMY: 1. Chronic cholecystitis 2. Cholelithiasis 3. Negative for dysplasia and malignancy 12/10/2024 2:53 PM CDT [facility] at 1453 CDT Clinical Information Ms. Steel is a 64 y.o. who undergoes cholecystectomy. 12/10/2024 2:53 PM CDT [facility] Gross Description A) Received in [...] No cystic duct lymph node is identified. Potline Monitor sections are submitted in one cassette. EVM 12/08/2024 12/10/2024 2:53 PM CDT [facility] Microscopic Description The final diagnosis is based on microscopic examination of appropriate sections of all specimens. 12/10/2024 2:53 PM CDT [facility] Additional Information Interpreted at [facility] - [address], [place] [address] 12/10/2024 2:53 PM CDT [facility] Other SPECIMEN FROM GALLBLADDER / Unknown 12/07/2024 12:00 PM CDT 12/08/2024 2:13 PM CDT us Kristina Carnes MD PATHOLOGY/CYTOLOGY Final Result [facility] [address] [place] [address], [place] * SCAN-RADIOLOGY REPORT (12/07/2024 12:00 AM CDT) Anatomical Region Laterality Modality Other us Scanner OTHER Final Result * SCAN-OPERATIVE/PROCEDURE REPORT (12/07/2024 12:00 AM CDT) us Scanner OTHER Final Result * SCAN-LABORATORY REPORT (12/04/2024 12:00 AM CDT) us Scanner OTHER Final Result * LIPID PANEL W REFLEX MEASURED LDL (09/16/2023 7:43 AM 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) CHOLESTEROL,TOTAL 198 100 - 199 mg/dL 09/16/2023 4:22 PM 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 [facility] Comment: Cholesterol, Total Reference Ranges Desirable <200 mg/dL Borderline 200-239 mg/dL High >=240 mg/dL TRIGLYCERIDES 88 <150 mg/dL 09/16/2023 4:22 PM 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 [facility] HDL CHOLESTEROL 62 >40 mg/dL 4:22 PM 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 [facility] NON-HDL CHOLESTEROL 136 <145 mg/dl 09/16/2023 4:22 PM 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 [facility] CHOL/HDL RATIO 3.19 <4.50 09/16/2023 4:22 PM 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 [facility] LDL CHOLESTEROL 118 <=130 mg/dL 09/16/2023 4:22 PM 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 [facility] VLDL CHOLESTEROL 18 <=30 mg/dL 09/16/2023 4:22 PM 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 [facility] PROVIDER ORDERED STATUS RANDOM 09/16/2023 4:22 PM 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 [facility] Blood BLOOD SPECIMEN / Unknown Venipuncture / Unknown 09/16/2023 7:43 AM 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 09/16/2023 7:45 AM 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 us Koki De MD CHEMISTRY Final Resul t [facility] [address] [place] [address], * sDNA-FIT External (Cologuard) [[id number]] (06/13/2022 10:15 AM CDT) NONINV COLON CA DNA+OCC BLD SCRN STL-IMP Negative Negative 06/21/2022 4:46 AM [facility] (CLIA #:[id number]) Comment: NEGATIVE TEST RESULT. A negative Cologuard [...] Hutton. et al, N Engl J Med 2014;370(14):7466-9677) The normal value (reference range) for this assay is negative. COLOGUARD RE-SCREENING RECOMMENDATION: Periodic colorectal cancer screening is an important part of preventive healthcare for asymptomatic individuals at average risk for colorectal cancer. Following a negative Cologuard result, the [place] Cancer Society and U.S. Multi-Society Task Force screening guidelines recommend a Cologuard re-screening interval of 3 years. References: [place] [employer] Society Guideline for Colorectal Cancer Screening: https://www.cancer.org/cancer/obujy-jfjglq-wazgwn/pxpvhzvsw-axjbfvbfe-jhwqdwa/ac s-rec ommendations.html.; Diogo LOUIS, Gray GARCIA, Eliot OneillK, Colorectal Cancer Screening: Recommendations for Physicians and Patients from the U.S. Multi-Society Task Force on Colorectal Cancer Screening , Am J Gastroenterology 2017; 112:4864-7402. TEST DESCRIPTION: Composite algorithmic analysis of stool [...] Hutton. et al, N Engl J Med 2014;370(14):2673-6720.) Cologuard may produce a false negative or false positive result (no colorectal cancer or precancerous polyp present at colonoscopy follow up). A negative Cologuard test result does not guarantee the absence of CRC or advanced adenoma (pre-cancer). The current Cologuard screening interval is every 3 years. ([place] Cancer Society and U.S. Multi-Society Task Force). Cologuard performance data in a 10,000 patient pivotal study using colonoscopy as the reference method can be accessed at the following location: www.[employer]/results. Additional description of the Cologuard test process, warnings and precautions can be found at www.cologuard.com. Stool specimen (specimen) (Rectum) 06/13/2022 10:15 AM CDT 06/14/2022 5:14 PM CDT Carly Huang MD URINE Final Result [facility] (CLIA #:[id number]) [place] [address] [place] [address], from Last 3 Months or Most Recently Relevant to Health Maintenance Insurance M[place] [employer]ESS [id number] [facility] INDIVIDUAL AND FAMILY PLANS Advance Directives [...] 9:05 AM 05/24/2011 7:25 PM Care Teams Commodities Broker Relationship Specialty Start Date End Date Koki De MD [address] [place] [address] PCP - General Family Practice 12/18/22
--- OUTSIDE RECORDS SUMMARY | 2025-01-30 23:53 | XMS_ITS | Continuity of Care Document ---
Author Organization [place] - [facility] Address [address] [place] [address] Assessment Encounter Date Assessment Date Assessment LastModified by Organization Details LastModified Time 01/28/2025 01/28/2025 ASSESSMENT: Patient is a good candidate for [...] to contact our office. [email or web address] Not available 01/28/2025 10:50:53 Plan of Treatment Reminders Order Date Submit [...] Organization Details Recorded Time Thoracic segmental dysfunction 750324414 Active 2024 Jefferson Andrade [place] [address], [place], [address] , [place] [facility] 5 20:24:36 Neck pain 78820714 Active 2024 Not Available [facility] 09:55:49 Cervical segmental dysfunction 084432838 Active 2024 Jefferson Andrade [place] [address], [place], [address] , [place] - [facility] 5 20:24:36 Lumbar segmental dysfunction 185508119 Active 2024 Jefferson Andrade [place] [address], [place], [address] , [place] [facility] 20:24:37 Lesion of lumbar spine 258096083 Active 2024 [facility] [place] [address], [place], [address] , [facility] - [facility] 5 20:24:37 Low back pain 097893773 Active 2024 [place] [address], [place], [address] , [facility] - [facility] 5 10:50:54 Somatic dysfunction of sacral spine 761357814 Active 2024 Jefferson Andrade [place] [address], [place], [address] , [facility] - [facility] 5 10:50:54 Problem Notes None recorded. Procedures Surgical History Date Name Laterality Status Provider Name and Address Organization Details Recorded Time 5 90560: Spinal manipulation , 3 to 4 regions completed [place] [address], [place], [address], [facility] - [facility] 01/28/2025 10:51:37 5 77964: Spinal manipulation , 3 to 4 regions completed [place] [address], [place], [address], [facility] - [facility] 01/21/2025 14:53:15 5 84706: Spinal manipulation , 3 to 4 regions completed [facility] Luís Andrade [place] [address], [place], [address], [facility] 01/14/2025 19:34:32 5 07815: Spinal manipulation , 3 to 4 regions completed [place] [address], [place], [address], [facility] [employer] [facility] 01/07/2025 20:24:49 Imaging Results None recorded. [...] SNOMED-CT Code Diagnosis ICD10 Code Diagnosis Note [id number] Jefferson Andrade DC [facility] [address] [facility] [place] [address] 01/07/2025 10:34:51 01/12/2025 17:01:39 Cervical segmental dysfunction 859716569 M99.01 Neck pain 88808065 M54.2 Thoracic s egmental dysfunction 378167654 M99.02 Lumbar seg mental dysfunction 138143815 M99.03 Lesion of lumbar spine 848214148 M99.01 [id number] Jefferson Andrade DC [facility] & [address] [place] [address] 01/14/2025 10:57:34 01/15/2025 09:08:11 Cervical segmental dysfunction 088587281 M99.01 Neck pain 03638922 M54.2 Thoracic s egmental dysfunction 840290831 M99.02 Lumbar seg mental dysfunction 619760191 M99.03 Lesion of lumbar spine 714487975 M99.01 [id number] Jefferson Andrade DC [address] [place] [address] 01/21/2025 14:50:40 01/22/2025 09:00:58 Cervical segmental dysfunction 324521858 M99.01 Neck pain 02099322 M54.2 Thoracic s egmental dysfunction 268755432 M99.02 Lumbar seg mental dysfunction 520457297 M99.03 Lesion of lumbar spine 145936196 M99.01 [id number] Jefferson Andrade [place] [facility] & [address] [place] [address] 01/28/2025 09:50:13 01/28/2025 10:53:38 Lumbar segmental dysfunction 196525825 M99.03 Low back pain 902408152 M54.50 Somatic dy sfunction of sacral spine 355913755 M99.04 Thoracic s egmental dysfunction 110658558 M99.02 Health Concerns Section Related Observation LastModified by Organization Detai ls LastModified Time None Recorded Concern Status LastModified by Organization Details LastModified Time None Recorded Payers Encounter Date Sequence Insurance Name Policy Number Policy Ridley Covered Member ID Ridley Member ID Guarantor Name 01/28/2025 [facility] Lorenza Damián [id number] Lorenza Steel Notes Date Note Type Note Provider Name and Address Organization Details Recorded Time 01/28/2025 text/html HPI - Lumbar SpineReported bypatient.Location: left Quality:aching Severity:moderate Timing:morning Aggravating Factors:walking; lifting; carrying; twisting Alleviating Factors:rest Jefferson Andrade [place] [address], [place], [address], [facility] 01/28/2025 10:51:58 OBGyn Episode No OBEpisode recorded.
--- OUTSIDE RECORDS SUMMARY | 2025-01-30 23:54 | XMS_ITS | Data Portability ---
Author Organization [place] - [facility], [employer] - [facility] Address [address] [place] [address] Assessment Encounter Date Assessment Date Assessment LastModified by Organization Details LastModified Time 01/07/2025 01/07/2025 ASSESSMENT: Patient is a good candidate for [...] should not hesitate to contact our office. Not available 01/07/2025 20:24:36 01/14/2025 01/14/2025 ASSESSMENT: Patient is a good [...] should not hesitate to contact our office. Not available 01/14/2025 19:34:32 01/21/2025 01/21/2025 ASSESSMENT: Patient is a good [...] should not hesitate to contact our office. Not available 01/21/2025 14:53:15 01/28/2025 01/28/2025 ASSESSMENT: Patient is a good [...] should not hesitate to contact our office. Not available 01/28/2025 10:50:53 Plan of Treatment [...] Organization Details Recorded Time Thoracic segmental dysfunction 300130673 Active 2024 [facility] Lu[address] L[address], [place], [address] , [facility] 5 20:24:36 Neck pain 27236947 Active 2024 Not Available [facility] 09:55:49 Cervical segmental dysfunction 974970260 Active [address], [place], [address] , [facility] 5 20:24:36 Lumbar segmental dysfunction 636317146 Active [address], [place], [address] , [facility] 5 20:24:37 Lesion of lumbar spine 459704210 Active 2024 [facility] Luís [address], [place], [address] , [place] - [facility] 5 20:24:37 Low back pain 779420339 Active [address], [place], [address] , [place] [facility] 5 10:50:54 Somatic dysfunction of sacral spine 009201759 Active [address], [place], [address] , [facility] 5 10:50:54 Problem Notes None recorded. Procedures Surgical History Date Name Laterality Status Provider Name and Address Organization Details Recorded Time 5 37429: Spinal manipulation , 3 to 4 regions completed [facility] [place] [address], [place], [address], [facility] 01/28/2025 10:51:37 5 80633: Spinal manipulation , 3 to 4 regions completed [facility] [place] [address], [place], [address], [facility] 01/21/2025 14:53:15 5 00535: Spinal manipulation , 3 to 4 regions completed [facility] [place] [address], [place], [address], [facility] 01/14/2025 19:34:32 5 10039: Spinal manipulation , 3 to 4 regions completed [facility] [place] [address], [place], [address], [facility] 01/07/2025 20:24:49 Imaging Results None [...] SNOMED-CT Code Diagnosis ICD10 Code Diagnosis Note [id number] Jefferson Andrade [place] [facility] [address] [place] [address] 01/07/2025 10:34:51 01/12/2025 17:01:39 Cervical segmental dysfunction 705216144 M99.01 Neck pain 98363126 M54.2 Thoracic s egmental dysfunction 781933005 M99.02 Lumbar seg mental dysfunction 095665951 M99.03 Lesion of lumbar spine 594098655 M99.01 [id number] Jefferson Andrade DC [facility] & [address] [place] [address] 01/14/2025 10:57:34 01/15/2025 09:08:11 Cervical segmental dysfunction 179416721 M99.01 Neck pain 83160758 M54.2 Thoracic s egmental dysfunction 210180713 M99.02 Lumbar seg mental dysfunction 884658626 M99.03 Lesion of lumbar spine 818044566 M99.01 [id number] Jefferson Andrade [place] [address] [place] [address] 01/21/2025 14:50:40 01/22/2025 09:00:58 Cervical segmental dysfunction 943248288 M99.01 Neck pain 71449844 M54.2 Thoracic s egmental dysfunction 870312552 M99.02 Lumbar seg mental dysfunction 665748327 M99.03 Lesion of lumbar spine 447359412 M99.01 [id number] Jefferson Andrade [place] [facility] & [address] [place] [address] 01/28/2025 09:50:13 01/28/2025 10:53:38 Lumbar segmental dysfunction 393366285 M99.03 Low back pain 131095098 M54.50 Somatic dy sfunction of sacral spine 486505551 M99.04 Thoracic s egmental dysfunction 122527912 M99.02 Health Concerns Section Related Observation LastModified by Organization Detai ls LastModified Time None Recorded Concern Status LastModified by Organization Details LastModified Time None Recorded Advance Directives Directive None Recorded Payers Insurance Date Sequence Insurance Name Policy Number Policy Ridley Covered Member ID Ridley Member ID Guarantor Name 01/07/2025 [facility] Lorenza Steel [id number] Lorenza Steel 01/07/2025 1 [employer] [id number] Martita Steel [id number] Lorenza Steel Notes Date Note Type Note Provider Name and Address Organization Details Recorded Time 01/07/2025 text/html HPI - Cervical SpineReported bypatient.Location: left Quality:aching Severity:moderate Duration:2 weeks Timing:gradual Alleviating Factors:ice Aggravating Factors:sitting Associated Symptoms:no numbness/tingling Scot [place] [address], [place], [address], [facility] 01/07/2025 20:25:16 01/14/2025 text/html HPI - Cervical SpineReported bypatient.Location: left Quality:aching Severity:moderate Duration:2 weeks Timing:gradual Alleviating Factors:ice Aggravating Factors:sitting Associated Symptoms:no numbness/tingling Scot Lu[place], [place] [address], [place], [address], [facility] 01/14/2025 19:35:18 01/21/2025 text/html HPI - Cervical SpineReported bypatient.Location: left Quality:aching Severity:moderate Duration:2 weeks Timing:gradual Alleviating Factors:ice Aggravating Factors:sitting Associated Symptoms:no numbness/tingling Scot Lu[place], [place] [address], [place], [address], [facility] 01/21/2025 14:54:21 01/28/2025 text/html HPI - Lumbar SpineReported bypatient.Location: left Quality:aching Severity:moderate Timing:morning Aggravating Factors:walking; lifting; carrying; twisting Alleviating Factors:rest Scot Luís [place], [place] [address], [place], [address], [facility] 01/28/2025 10:51:58 OBGyn Episode No OBEpisode recorded.
--- OUTSIDE RECORDS SUMMARY | 2025-01-30 23:54 | XMS_ITS | Continuity of Care Document ---
Author Organization [place] [facility] Address [address] [place] [address] Assessment Encounter Date Assessment Date Assessment LastModified [...] to contact our office. [email or web address] Not available 01/07/2025 20:24:36 Plan of Treatment Reminders Order Date Submit [...] Organization Details Recorded Time Thoracic segmental dysfunction 372598819 Active 2024 Jefferson Andrade [place] [address], [place], [address] , [place] [facility] 5 20:24:36 Neck pain 28997300 Active 2024 Not Available [facility] 09:55:49 Cervical segmental dysfunction 842574583 Active 2024 Jefferson Andrade [place] [address], [place], [address] , [place] [facility] 5 20:24:36 Lumbar segmental dysfunction 671109286 Active 2024 Jefferson Andrade [place] [address], [place], [address] , [place] [facility] 20:24:37 Lesion of lumbar spine 368817382 Active 2024 [facility]ly [facility] Luís AndradeINTERLAKEN, [place] [address], [place], [address] , [facility] - [facility] 5 20:24:37 Low back pain 539245644 Active 2024 Jefferson AndradeINTERLAKEN, [place] [address], [place], [address] , [facility] - [facility] 5 10:50:54 Somatic dysfunction of sacral spine 575793431 Active 2024 Jefferson Andrade [place] [address], [place], [address] , [facility] - [facility] 5 10:50:54 Problem Notes None recorded. Procedures Surgical History Date Name Laterality Status Provider Name and Address Organization Details Recorded Time 5 13713: Spinal manipulation , 3 to 4 regions completed Louann, DC [address], [place], [address], [facility] - [facility] 01/28/2025 10:51:37 5 18055: Spinal manipulation , 3 to 4 regions completed Louann, [place] [address], [place], [address], [facility] - [facility] 01/21/2025 14:53:15 5 22536: Spinal manipulation , 3 to 4 regions completed [facility] Luís Andrade [place] [address], [place], [address], [facility] 01/14/2025 19:34:32 5 80926: Spinal manipulation , 3 to 4 regions completed Jefferson AndradeINTERLAKEN, [place] [address], [place], [address], [facility] [employer] [facility] 01/07/2025 20:24:49 Imaging Results None recorded. [...] SNOMED-CT Code Diagnosis ICD10 Code Diagnosis Note [id number] Jefferson Andrade DC [facility] [address] [facility] [place] [address] 01/07/2025 10:34:51 01/12/2025 17:01:39 Cervical segmental dysfunction 449820339 M99.01 Neck pain 13878624 M54.2 Thoracic s egmental dysfunction 310165080 M99.02 Lumbar seg mental dysfunction 021467396 M99.03 Lesion of lumbar spine 739922185 M99.01 Health Concerns Section Related Observation LastModified by Organization Detai ls LastModified Time None Recorded Concern Status LastModified by Organization Details LastModified Time None Recorded Payers Encounter Date Sequence Insurance Name Policy Number Policy Ridley Covered Member ID Ridley Member ID Guarantor Name 01/07/2025 ON LICENSE OF [facility] Lorenza Steel [id number] Lorenza Steel Notes Date Note Type Note Provider Name and Address Organization Details Recorded Time 01/07/2025 text/html HPI - Cervical SpineReported bypatient.Location: left Quality:aching Severity:moderate Duration:2 weeks Timing:gradual Alleviating Factors:ice Aggravating Factors:sitting Associated Symptoms:no numbness/tingling Jefferson Andrade DC [address] [place] [address], [place], [address], [facility] - [facility] 01/07/2025 20:25:16 OBGyn Episode No OBEpisode recorded.
[2025-01-31] VITALS: BP 153/83; PULSE 74; RESP 16; TEMP 36.3; O2SAT 100; BMI 30.9
--- NOTE | 2025-01-31 00:04 | ED.ABDPAIN ---
HPI - Abdominal Pain General Time Seen by Provider: 00:04 Date Seen: 01/31/25 Chief Complaint: Abdominal Pain Stated Complaint: abdominal pain, vomiting Time Seen by Provider: 01/31/25 00:04 Source: patient and RN notes reviewed Mode of arrival: ambulatory Limitations: no limitations History of Present Illness HPI narrative: This 64-year-old female is coming in with epigastric pain and nausea starting between 7 and 8:00 p.m. tonight. She had been outside doing some weeding, does not feel she had significant heat exposure. She did have some asthma that was problematic due to the [place] smoke, had 2 weeks of about 40 mg of prednisone daily. She has been tapering her prednisone now it is down to 9 mg. She is wondering about stress dosing steroids as she has been on steroids, does not feel should be able to take her own prednisone tonight due to her symptoms. The pain is sharp, radiates into the breast, does not feel like cardiac pain. She did have 2 smaller stools tonight, more mushy. She had her gallbladder out here on December 07 for biliary colic in concern for early cholecystitis. She was admitted on December 17 for increased right upper quadrant pain and elevated LFTs. MRI was unable to be done due to malfunction. She was transferred for ERCP for presumed retained common bile duct stone which was found. She notes no fevers. Pain is radiating into the breast, does go into her midback. She has tried Gas-X and Pepto-Bismol but did vomit both of those back up. She did just return from traveling, she does bring up possibility of gastroenteritis or food poisoning, her is not sick. Did discuss with Lorenza whom is a physician colleague that pancreatitis and bowel obstruction are also in my differential. MD elicited complaint: abdominal pain Related Data Home Medications ?Medication ?Instructions ?Recorded ?Confirmed cholecalciferol (vitamin D3) 50 2,000 unit PO DAILY 02/28/22 01/15/25 mcg (2,000 unit) tablet SAMe butanedisulfonate 400 ea PO 12/04/24 01/15/25 mg-betaine 600 mg oral powder packet acetaminophen 650 mg 650 mg PO Q12H 12/04/24 01/15/25 tablet,extended release (Tylenol Arthritis Pain) multivitamin 1 tab PO QAM 04/25/25 06/06/25 nctiexecowxfk-ST-eqmjygjiztllf 5 ml PO 12/04/24 01/15/25 mg-10 mg-325 mg/15 mL oral liquid (Vicks DayQuil Cold and Flu Relief) tamsulosin 0.4 mg capsule (Flomax) 0.4 mg PO DAILY 12/04/24 01/15/25 escitalopram oxalate 10 mg tablet 10 mg PO DAILY 12/14/24 01/15/25 fexofenadine 180 mg tablet 180 mg PO DAILY 12/14/24 01/15/25 (Carmenza Allergy) phentermine 30 mg capsule 30 mg PO DAILY 12/14/24 01/15/25 trazodone 50 mg tablet 50 - 100 mg PO HS 12/14/24 01/15/25 Previous Rx's ?Medication ?Instructions ?Recorded fluorouracil 5 % topical cream 1 applic topical .UD #40 grams 06/06/23 albuterol sulfate 90 mcg/actuation 2 puff inhalation Q6H PRN 01/28/24 aerosol inhaler bronchospasm #8.5 grams epinephrine 0.3 mg/0.3 mL 0.3 mg (0.3 mL) IM .As Needed PRN 01/28/24 injection, auto-injector anaphylaxis #2 ea estradiol 0.01% (0.1 mg/gram) 1 g vaginal QWEEK #42.5 grams 01/28/24 vaginal cream estradiol 0.05 mg/24 hr semiweekly 1 patch transdermal .Twice Weekly 01/28/24 transdermal patch #8 ea omeprazole 20 mg capsule,delayed 20 mg PO DAILY #90 caps 01/28/24 release triamcinolone acetonide 0.1 % 1 applic topical BID PRN skin 01/28/24 topical cream reaction #80 grams budesonide-formoterol HFA 160 2 puff inhalation BID #10.2 grams 02/06/24 mcg-4.5 mcg/actuation aerosol inhaler (Symbicort) finasteride 5 mg tablet 5 mg PO DAILY #90 tabs 04/23/24 albuterol sulfate 2.5 mg/3 mL 2.5 mg (3 mL) inhalation Q4-6H PRN 01/11/25 (0.083 %) solution for nebulization shortness of breath or wheezing #90 mL albuterol sulfate 2.5 mg/3 mL 2.5 mg (3 mL) inhalation Q4-6H PRN 01/15/25 (0.083 %) solution for nebulization shortness of breath or wheezing #180 mL prednisone 10 mg tablet 10 mg PO DIRECTED #27 tabs 01/15/25 Allergies Allergy/AdvReac Type Severity Reaction Status Date / Time bupropion Allergy Unknown Tremors Verified 01/15/25 08:58 Cephalosporins Allergy Unknown GI upset Verified 01/15/25 08:58 latex Allergy Unknown Rash Verified 01/15/25 08:58 promethazine Allergy Unknown Legs jump Verified 01/15/25 08:58 Macrolide Antibiotics Allergy Gastrointestinal Verified 01/15/25 08:58 Upset venlafaxine Allergy Verified 01/15/25 08:58 erythromycin base AdvReac Gastrointestinal Verified 01/15/25 08:58 Upset Review of Systems Status of ROS Reports: 6 or more systems reviewed and unremarkable except as noted in History and below [facility] Medical History Biliary colic ?K80.50 - Calculus of bile duct without cholangitis or cholecystitis without obstruction (ICD-10) Chronic hepatitis ?K73.9 - Chronic hepatitis, unspecified (ICD-10) Sciatica ?M54.30 - Sciatica, unspecified side (ICD-10) Sleep apnea ?G47.30 - Sleep apnea, unspecified (ICD-10) Hair thinning ?L65.9 - Nonscarring hair loss, unspecified (ICD-10) Tear of medial meniscus of right knee ?S83.241A - Other tear of medial meniscus, current injury, right knee, initial encounter (ICD-10) Osteoarthritis of left knee ?M17.12 - Unilateral primary osteoarthritis, left knee (ICD-10) Osteoarthritis of right knee ?M17.11 - Unilateral primary osteoarthritis, right knee (ICD-10) Eczema ?L30.9 - Dermatitis, unspecified (ICD-10) Binge eating ?R63.2 - Polyphagia (ICD-10) Irritable bowel syndrome ?K58.9 - Irritable bowel syndrome without diarrhea (ICD-10) Actinic keratosis ?L57.0 - Actinic keratosis (ICD-10) Left carpal tunnel syndrome ?G56.02 - Carpal tunnel syndrome, left upper limb (ICD-10) GERD (gastroesophageal reflux disease) ?K21.9 - Gastro-esophageal reflux disease without esophagitis (ICD-10) On postmenopausal hormone replacement therapy ?Z79.890 - Hormone replacement therapy (ICD-10) Environmental and seasonal allergies ?J30.89 - Other allergic rhinitis (ICD-10) Difficulty sleeping ?G47.9 - Sleep disorder, unspecified (ICD-10) Depression ?F32.A - Depression, unspecified (ICD-10) Asthma ?J45.909 - Unspecified asthma, uncomplicated (ICD-10) 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 - Guillain-Belington syndrome (ICD-10) LAUREANO (obstructive sleep apnea) ?G47.33 - Obstructive sleep apnea (adult) (pediatric) (ICD-10) Recurrent subluxation of left temporomandibular joint ?M24.49 - Recurrent dislocation, other specified joint (ICD-10) Surgical History Status post laparoscopic cholecystectomy ?Z90.49 - Acquired absence of other specified parts of digestive tract (ICD-10) H/O gastrostomy ?Z98.890 - Other specified postprocedural states (ICD-10) H/O tracheostomy ?Z98.890 - Other specified postprocedural states (ICD-10) H/O hernia repair ?Z98.890 - Other specified postprocedural states (ICD-10) ?Z87.19 - Personal history of other diseases of the digestive system (ICD-10) History of vaginal hysterectomy ?Z90.710 - Acquired absence of both cervix and uterus (ICD-10) Family History Mother High blood pressure Osteoarthritis Osteoporosis Father Atrial fibrillation Melanoma Renal cell carcinoma Cancer Family history of alcohol abuse Heart disease Paternal Grandmother Stroke Atrial fibrillation Diabetes Son Diabetes Brother FHx: cancer of prostate Other Alcohol dependence Drug dependence Family history of psychiatric disorder Family history of substance abuse Social History Narrative: . 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 No drug use. 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 She exercises intermittently. What is your current living situation?: I presently have a place to live Problems where you live: no known problems Problems where you live details: none In the past 12 months, utilities in danger of being shut off: no In past 12 months, lack of transportation kept you from medical appts, meetings, work, or getting things needed for daily living: no In the past 12 mos, have been you worried that your food would run out before you had money to buy more?: never true In the past 12 mos, the food you bought just didn't last and you didn't have money to buy more?: never true Highest level of school completed/degree received: Doctoral degree Smoking Status: Never smoker Do you use any of these nicotine containing products: None Second hand tobacco smoke exposure: No How often do you have a drink containing alcohol: monthly or less How often do you have six or more drinks on one occasion: Never AUDIT-C Alcohol total score: 1 Non-prescribed substance use: denies use Caffeine: No How often does anyone, including family, friends and others, physically hurt you: never How often does anyone, including family, friends and others, insult or talk down to you: never How often does anyone, including family, friends and others, threaten you with harm: never How often does anyone, including family, friends and others, scream or curse at you: never service: No Exam Const: Vital Signs, click to edit/add: Vital Signs - 24 hr 01/31/25 00:00 01/31/25 01:51 Temperature 97.4 F L 97.6 F Pulse Rate [Pulse Oximeter] 74 73 Respiratory Rate 16 14 Blood Pressure [Ri ght Upper Arm] 153/83 H 170/86 H Pulse Oximetry 100 100 Oxygen Delivery Me thod Room Air Nasal Cannula Oxygen Flow Rate 2 This 64-year-old female is alert, interactive, no apparent distress. She is hanging onto an emesis bag. Sclera clear, face atraumatic. Speech is normal. Lungs are clear come good air entry, wheeze or crackles, no tachypnea, no accessory muscle use. CV regular, no murmur, normal S1-S2. Abdomen is soft, no specific tenderness but she states she just globally feels discomfort but I am not really hurting her when palpating. There is no rebound or guarding, no organomegaly or masses. Skin visualized without jaundice or rash. Patient was ambulatory into the ED of her own accord. Documenting provider has reviewed patient's vital signs: yes Course Course ED Course: I do have concerns about pancreatitis or possibly bowel obstruction. Agree with her that this certainly could be gastroenteritis or food poisoning. At this time, we are placing an IV, will give her L of IV fluids, 4 mg IV Zofran and will give her 0.5 mg IV Dilaudid for her discomfort. We will proceed with CT imaging of her abdomen pelvis to help further identify any specific intra-abdominal pathology. Will get a full complement of labs. She is in agreement to this plan. For her asthma with her recent steroid use, will do 100 mg of IV hydrocortisone for stress dose treating. Reevaluation(s) Time of Reevaluation #1: 00:45 Reevaluation #1: Lorenza is having increased pain, will order more dilaudid. Time of Reevaluation #2: 01:54 Reevaluation #2: Have reviewed catheterization these labs and her CT report with her. She is feeling much better. It is possible that this is gastroenteritis. Did review that she had a normal troponin. Her nausea has improved. She only has a few tablets left of Zofran at home, will plan on giving her some a from [facility]. Did provide the 10 tablets. Given that we are not finding any acute pathology, will plan to discharge to home. Vital Signs Vital signs: Initial Vital Signs Temperature 97.4 F L 01/31/25 00:00 Temperature Source Temporal Artery Scan 01/31/25 00:00 Pulse Rate 74 01/31/25 00:00 Respiratory Rate 16 01/31/25 00:00 Blood Pressure 153/83 H 01/31/25 00:00 Blood Pressure Mean 106 H 01/31/25 00:00 Blood Pressure Position Sitting 01/31/25 00:00 Pulse Oximetry 100 01/31/25 00:00 Oxygen Delivery Method Room Air 01/31/25 00:00 Vital Signs Temperature 97.4 F L 01/31/25 00:00 Pulse Rate 74 01/31/25 00:00 Respiratory Rate 16 01/31/25 00:00 Blood Pressure 153/83 H 01/31/25 00:00 Pulse Oximetry 100 01/31/25 00:00 Oxygen Delivery Method Room Air 01/31/25 00:00 Temperature 97.6 F 01/31/25 01:51 Pulse Rate 73 01/31/25 01:51 Respiratory Rate 14 01/31/25 01:51 Blood Pressure 170/86 H 01/31/25 01:51 Pulse Oximetry 100 01/31/25 01:51 Oxygen Delivery Method Nasal Cannula 01/31/25 01:51 Oxygen Flow Rate 2 01/31/25 01:51 Medications Administered Medications: Generic Name Dose Route Start Last Admin Trade Name Joeq PRN Reason Stop Dose Admin Hydromorphone HCl 0.2 - 0.5 mg 01/31/25 00:46 01/31/25 01:01 Hydromorphone 0.5 Mg/0.5 Ml Inj IVP 0.5 mg Q1H PRN Administration Pain Sodium Chloride 1,000 mls @ 500 mls/hr 01/31/25 00:11 01/31/25 00:18 0.9 % Sodium Chloride 1000 Ml IV 01/31/25 02:10 500 mls/hr .Q2H CARRI Administration Discontinued Medications Generic Name Dose Route Start Last Admin Trade Name Joeq PRN Reason Stop Dose Admin Hydrocortisone Sodium Succinate 100 mg 01/31/25 00:12 01/31/25 00:17 Hydrocortisone Sod Succinate 50 Mg/Ml Inj IVP 01/31/25 00:13 100 mg ONCE ONE Administration Hydromorphone HCl 0.5 mg 01/31/25 00:09 01/31/25 00:17 Hydromorphone 0.5 Mg/0.5 Ml Inj IVP 01/31/25 00:10 0.5 mg ONCE ONE Administration Ondansetron HCl 4 mg 01/31/25 00:09 01/31/25 00:05 Ondansetron 2 Mg/Ml Inj IVP 01/31/25 00:10 4 mg ONCE ONE Administration MDM - Abdominal Pain Lab Data Labs: Lab Results 01/31/25 01/31/25 Range/Units 00:05 00:15 WBC 15.93 H (4.50-11.00) K/uL RBC 4.51 (4.00-5.20) m/uL Hgb 13.0 (12.0-16.0) gm/dL Hct 40.8 (33.0-51.0) % MCV 91 (80-100) fL MCH 29 (26-34) pg MCHC 32 (32-36) gm/dL RDW Coeff of Jim 12.6 (11.5-15.5) % Plt Count 368 (140-440) K/uL Neut % (Auto) 81.7 H (42.0-72.0) % Lymph % (Auto) 10.0 L (20-44) % Wythe % (Auto) 6.9 (0.0-11.0) % Eos % (Auto) 0.9 (0.0-7.0) % Baso % (Auto) 0.1 (0.0-3.0) % Neut # (Auto) 13.00 H (1.7-7.0) K/uL Lymph # (Auto) 1.60 (0.90-2.90) K/uL Wythe # (Auto) 1.10 H (0.00-0.90) K/UL Eos # (Auto) 0.10 (0.00-0.50) K/uL Baso # (Auto) 0.00 (0.00-0.30) K/uL Abs Immat Gran (auto) 0.10 (0.00-0.30) K/uL Imm/Tot Granulo (auto) 0.4 % Sodium 138 (135-149) mmol/L Potassium 3.9 (3.6-5.1) mmol/L Chloride 102 (96-114) mmol/L Carbon Dioxide 30 (20-32) mmol/L Anion Gap 6 L (7-15) mEq/L BUN 20 (7-30) mg/dL Creatinine 1.0 (0.5-1.5) mg/dL Estimated Creat Clear 49.72 Estimated GFR 63 ml/min Glucose 141 H (60-115) mg/dL Lactate 1.0 (0.5-1.9) mmol/L Calcium 9.2 (8.4-10.6) mg/dL Total Bilirubin 0.4 (0.1-1.5) mg/dL Direct Bilirubin 0.1 (0.0-0.5) mg/dL AST 89 H (12-35) U/L ALT 45 H (4-35) U/L Alkaline Phosphatase 88 (40-150) U/L Troponin I < 0.01 (0.01-0.04) ng/mL C-Reactive Protein < 0.5 L (0.5-1.0) mg/dL Total Protein 7.1 (6.0-8.3) g/dL Albumin 4.3 (3.3-5.0) g/dL Lipase 150 (23-300) U/L POC Creatinine 1.0 (0.6-1.3) mg/dl Discharge Plan Discharge Clinical Impression: Epigastric abdominal pain Patient Disposition: Home, Self-Care Condition: Stable Instructions: Gastroenteritis (ED), Epigastric Pain (ED) Additional Instructions: Can use Zofran per prescription is needed for further nausea/vomiting. Recommend frequent small sips of fluids every 5-10 minutes for hydration, can increase her diet as tolerated as you feel better. If you are not improving in the next couple of days, feel you are worsening at any point, please seek re-evaluation. If you develop fevers with the vomiting and have this ongoing abdominal pain, do recommend re-evaluation. It is possible that this is a gastroenteritis or ?food poisoning?. White blood count certainly could be elevated from illness or from your steroid use for your asthma. Other labs are reassuring and certainly the CT scan is reassuring. Activity Level: Activity as Tolerated Prescriptions: No Action cholecalciferol (vitamin D3) 50 mcg (2,000 unit) tablet 2,000 unit PO DAILY fluorouracil 5 % cream 1 applic topical .UD Qty: 40 0RF Rx Instructions: apply topically to affected area/zone once weekly albuterol sulfate 90 mcg/actuation HFA aerosol inhaler 2 puff inhalation Q6H PRN (Reason: bronchospasm) Qty: 8.5 12RF epinephrine 0.3 mg/0.3 mL auto-injector 0.3 mg IM .As Needed PRN (Reason: anaphylaxis) Qty: 2 12RF estradiol 0.05 mg/24 hr patch semiweekly 1 patch transdermal .Twice Weekly Qty: 8 12RF estradiol 0.01 % (0.1 mg/gram) cream 1 g vaginal QWEEK Qty: 42.5 3RF omeprazole 20 mg capsule,delayed release(DR/EC) 20 mg PO DAILY Qty: 90 3RF triamcinolone acetonide 0.1 % cream 1 applic topical BID PRN (Reason: skin reaction) Qty: 80 3RF tamsulosin [Flomax] 0.4 mg capsule 0.4 mg PO DAILY Vicks DayQuil Cold-Flu Relief 5-10-325 mg/15 mL liquid PO acetaminophen [Tylenol Arthritis Pain] 650 mg tablet extended release 650 mg PO Q12H multivitamin Tablet 1 tab PO QAM SAMe butanedisulfonate-betaine 400-600 mg powder in packet PO albuterol sulfate 2.5 mg /3 mL (0.083 %) solution for nebulization 2.5 mg inhalation Q4-6H PRN (Reason: shortness of breath or wheezing) Qty: 90 0RF prednisone 10 mg tablet 10 mg PO DIRECTED Qty: 27 1RF Rx Instructions: Take 4 pills per day for the first 3 days, 3 pills per day for the next 3 days, 2 pills for 2 days and 1 pill per day for the last 2 days. albuterol sulfate 2.5 mg /3 mL (0.083 %) solution for nebulization 2.5 mg inhalation Q4-6H PRN (Reason: shortness of breath or wheezing) Qty: 180 0RF phentermine 30 mg capsule 30 mg PO DAILY trazodone 50 mg tablet 50 - 100 mg PO HS fexofenadine [Carmenza Allergy] 180 mg tablet 180 mg PO DAILY escitalopram oxalate 10 mg tablet 10 mg PO DAILY budesonide-formoterol [Symbicort] 160-4.5 mcg/actuation HFA aerosol inhaler 2 puff inhalation BID Qty: 10.2 12RF finasteride 5 mg tablet 5 mg PO DAILY Qty: 90 3RF Follow Up/Referrals: Koki De MD [Primary Care Provider, Obstetrics] Stand Alone Forms: [employer] Info Instructions
[2025-01-31 00:05] VITALS: O2SAT 98
[2025-01-31] MEDS: ONDANSETRON 2 MG/ML inj 4 MG IVP (00:05)
--- NOTE | 2025-01-31 00:10 | CRLHL7_ITS ---
For Patients: As a result of the Cures Act, medical imaging exams and procedure reports are released immediately into your electronic medical record. You may view this report before your referring provider. If you have questions, please contact your health care provider. INDICATION: EPIGASTRIC PAIN, N/V FOLLOWING CHOLECYSTECTOMY. TECHNIQUE: CT abdomen and pelvis acquired with 89 cc of Isovue 370 IV contrast. COMPARISON: CT abdomen and pelvis 12/30/2024. FINDINGS: Lower chest: Unremarkable. Liver: Unchanged large hemangioma within the right hepatic lobe. No suspicious mass. Gallbladder and bile ducts: Status post cholecystectomy. No abnormal biliary ductal dilatation. Pancreas: Unremarkable. No mass or inflammation. Spleen: Unremarkable. Normal in size. No masses. Adrenal glands: Unremarkable. No nodules. Kidneys: 14 mm nonobstructing right nephrolith within the inferior pole GI tract: Unremarkable. Normal in caliber. No sign of mass or inflammation. Normal appendix. Vasculature: Abdominal aorta is normal in caliber. Mesenteric arteries are patent. Lymph nodes: No lymphadenopathy. Peritoneum/Abdominal Wall: Unremarkable. No free air or significant free fluid. Pelvis: Unremarkable. Bones: Unremarkable for age. IMPRESSION: No acute findings within the abdomen and pelvis. No evidence for cholecystectomy complication. Please note that all CT scans at this facility use dose modulation, iterative reconstruction, and/or weight-based dosing when appropriate to reduce radiation dose to as low as reasonably achievable. Dictated by Darius Corcoran MD @ 01/31/2025 1:20:55 AM (Electronically Signed)
--- OUTSIDE RECORDS SUMMARY | 2025-01-31 00:16 | XMS_ITS | Clinical Summary ---
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 Name Role Phone Koki De MD Primary [...] Description 5 4:00 PM CDT Office Visit [facility] [address] [place] [address] Koki De MD Physical (Patient would like to discuss tapering off prednisone for asthma) 5 Orders Only [facility] Scanner 1 scan: (1-Ord) [facility], BILAT SCREENING MAMMO, ASYMPTOMATIC , 01/27/2025 5 Travel 5 Travel 5 Refill [facility] [address] [place] [id number] Koki De MD Refill Request (Phentermine Hcl) 5 1:55 PM CDT Office Visit [facility] [address] [facility] [place] [id number] Koki De MD ER Follow up (12/30/24 Abdominal pain ) 5 Travel 5 Orders Only [facility] Scanner 1 scan: (1-Ord) [place], CT ABDOMEN , 12/30/2024 5 Orders Only [facility] Scanner 1 scan: (1-Ord) [facility], [facility], 12/30/2024 5 Travel 5 Telephone [facility] [address] [facility] [place] [id number] Koki De MD Appointment 5 1:30 PM CDT Office Visit [facility] [address] [place] [address] Kristina Carnes MD Post-op (Laparoscopic cholecystectomy 12/07/24) 5 Travel 5 Patient Outreach [facility] [address] [place] [address] Danisha Fox, RN Primary RN Care Management; Hospital F/U (LACE 57) 5 4:01 AM CDT - 5 2:45 PM CDT Hospital Encounter [facility] [address] [place], [place] [id number] [facility] [place] Hospitalists Of Yamila Franco MD Schmidt, Rani Gomez MD Discharge Disposition: Home Self Care 5 Travel 5 Orders Only [facility] Scanner 1 scan: (1-Ord) [facility], ABDOMEN PELVIS W CON , 12/17/2024 5 Patient Outreach [facility] [address] [place] [address] Danisha Fox, RN Primary RN Care Management; Hospital F/U (LACE 66) 5 3:43 PM CDT Anesthesia Event [facility] [address] [place] [address] Jose Luis Rosales MD 5 2:35 PM CDT - 5 10:56 AM CDT Hospital Encounter [facility] [address] [place] [address] Janet Saavedra MD Peterson, Christopher Roy, MD [facility], [facility] Hospitalists Of Gerber Hart MD Puchalski, IRVIN Troy Choledocholithiasis (Primary Dx) Discharge Disposition: Home Self Care 5 1:55 PM CDT - 5 3:00 PM CDT Surgery [facility] [address] [place] [address] Alen Dumas MD ENDOSCOPIC RETROGRADE CHOLANGIOPANCREATOGRAPHY with spincterotomy and stone extraction and stent 5 Travel 5 Orders Only [facility] Scanner 1 scan: (1-Ord) [facility], ABDOMEN PELVIS W/ CON, 12/13/2024 5 Lab Requisition [facility] [phone] Kristina Carnes MD 5 Orders Only [facility] Scanner 1 scan: (1-Ord) [facility], XR CHEST 1V PORTABLE, 12/07/2024 5 Orders Only [facility] Scanner 1 scan: (1-Ord) [place], LAPAROSCOPIC CHOLECYSTECTOMY, 12/07/2024 5 Orders Only [facility] Scanner 1 scan: (1-Ord) [facility], MULTIPLE LAB RESULTS, 12/04/2024 5 Orders Only [facility] Scanner 1 scan: (1-Ord) [facility], [place] ABDOMEN LIMITED, 12/04/2024 5 10:00 AM CDT Office Visit [facility] [address] [place] [address] Koki De MD Medication Management (phentermine); Immunization/Injection [...] ituted (Arexvy 120MCG/0.5mL) 03/11/2024 Smallpox (Vaccinia) Live [id number] 08/[birth year]/1968 Td (Age >=7 Years) 08/12/2001,08/12/1991, 982 [...] on file 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 Gender Identity Not on file Sexual Orientation Not on file 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 Right: Inguinal 09/12/2015 [id number] R# / / [id number] Stent Pancreatic [id number] Geenen Sof-Flex No Flap - [id number] Implanted:Qty: 1 on 12/14/2024 by Alen Dumas MD at [facility] 08/21/2027 GPSOS-SF- 5-5 / / [id number] Explanted Type Area Toll Line Repairer Device Identifier Shelf Expiration Date Model / Serial / Lot Stent Pancreatic [id number] Geenen Sof-Flex No Flap - [id number] Explanted:Qty: 1 on 12/14/2024 at [facility] 08/21/2027 GPSOS-SF-5 - 5 / / [id number] Procedures Procedure Name Priority Date/Time Associated Diagnosis [...] MEASURE D LDL Routine 09/16/2023 7:43 AM 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 SUPERVISOR Lipid screening SDNA-FIT EXTERNAL (COLOGUARD) Routine 10:15 [...] CHEMISTRY Final Resul t Performing Organization Address City/[facility] [address]/ZIP Co de Phone Number [facility] [address] [address], [place] [phone] [facility] [address] [place] [address] * HBSAG (01/06/2025 3:02 PM CDT) HEPATITIS B SURFACE ANTIGEN NON-REACTI VE NON-REACTI VE [facility] Comment: For additional information, please refer to http://education.MyRefers.Valyoo Technologies/faq/ZAC989 (This link is being provided for informational/ educational purposes only.) Blood BLOOD SPECIMEN / Unknown 01/06/2025 3:02 PM CDT 01/06/2025 3:03 PM CDT Koki De MD SEND OUTS Final Resul t Performing Organization Address [facility] [address]/ZIP Co de Phone Number [facility] [place] [address] [facility] [place] [address], [place] [phone] [employer] [address] [place] [address] * ANTI HCV (01/06/2025 3:02 PM CDT) Pathologist [facility] HEPATITIS C ANTIBODY NON-REACTI VE NON-REACT UCHE [employer] [facility] Comment: HCV antibody was non-reactive. There is no laboratory evidence of HCV infection. In most cases, no further action is required. However, if recent HCV exposure is suspected, a test for HCV RNA (test code 57511) is suggested. For additional information please refer to http://Blue Calypso.Dealo/faq/SDU62c5 (This link is being provided for informational/ educational purposes only.) Blood BLOOD SPECIMEN / Unknown 01/06/2025 3:02 PM CDT 01/06/2025 3:03 PM CDT Koki De MD SEND OUTS Final Resul t Performing Organization Address [facility] de Phone Number [facility] [address] [address], [facility] [address] [place] [address] * ANTI HBS QUANT AHS (01/06/2025 3:02 PM CDT) Pathologist [facility] HEPATITIS B SURFACE AB IMMUNITY, QN 91 > OR = 10 mIU/mL [facility] Comment: Patient has immunity to hepatitis B virus. For additional information, please refer to http://education.Dealo/faq/LIS838 (This link is being provided for informational/ educational purposes only). Blood BLOOD SPECIMEN / Unknown 01/06/2025 3:02 PM CDT 01/06/2025 3:03 PM CDT Koki De MD SEND OUTS Final Resul t Performing Organization Address [facility] de Phone Number [facility] [address] [place] [address], [facility] [address] [place] [address] * IGM ANTI-HBC (01/06/2025 3:02 PM CDT) Pathologist [facility] HEPATITIS B CORE ANTIBODY (IGM) NON-REACTI VE NON-REACTI VE [facility] Comment: For additional information, please refer to http://Blue Calypso.Dealo/faq/EDA672 (This link is being provided for informational/ educational purposes only.) Blood BLOOD SPECIMEN / Unknown 01/06/2025 3:02 PM CDT 01/06/2025 3:03 PM CDT us Koki De MD SEND OUTS Final Resul t [employer] [address] [place] [address], [employer] [facility] [address] [place] [address] * ANTI HIV 1/2 [12154.0] (01/06/2025 3:02 PM CDT) Pathologist [facility] HIV AG/AB, 4TH GEN NON-REACT UCHE NON-REACT UCHE [employer] [facility] Comment: HIV-1 antigen and HIV-1/HIV-2 antibodies [...] purpose. For additional information please refer to http://Ethertronics/faq/BTF788 (This link is being provided for informational/ educational purposes only.) The performance of this assay has not been clinically validated in patients less than 2 years old. Blood BLOOD SPECIMEN / Unknown 01/06/2025 3:02 PM CDT 01/06/2025 3:03 PM CDT us Koki De MD SEND OUTS Final Resul t Performing Organization Address City/[facility]/ZIP Co de Phone Number [employer] [address] [place] [address], [place] [phone] [facility] [address] [place] [address] * ALT (SGPT) (01/06/2025 3:02 PM CDT) Only the most recent of2 resultswithin the time period is included. ALT 24 6 - 29 U/L [facility] Blood BLOOD SPECIMEN / Unknown 01/06/2025 3:02 PM CDT 01/06/2025 3:03 PM CDT us Koki De MD CHEMISTRY Final Resul t Performing Organization Address [facility] de Phone Number [employer] [address] [place] [address], [place] [phone] [facility] [address] [place] [address] * AST (SGOT) (01/06/2025 3:02 PM CDT) Only the most recent of2 resultswithin the time period is included. AST 23 10 - 35 U/L [facility] Blood BLOOD SPECIMEN / Unknown 01/06/2025 3:02 PM CDT 01/06/2025 3:03 PM CDT us Koki De MD CHEMISTRY Final Resul t Performing Organization Address [facility] Co de Phone Number [employer] [address] [facility] [place] [address], [place] [phone] [facility] [address] [facility] [place] [address] * (ABNORMAL) FERRITIN (01/06/2025 3:02 PM CDT) FERRITIN 14(L) 16 - 288 ng/mL [facility] Blood BLOOD SPECIMEN / Unknown 01/06/2025 3:02 PM CDT 01/06/2025 3:03 PM CDT us Koki De MD CHEMISTRY Final Resul t Performing Organization Address City/[facility]/ZIP Co de Phone Number [facility] [address] [facility] [place] [address], [facility] [address] [place] [address] * SCAN-ULTRASOUND REPORT (12/30/2024 12:00 AM CDT) [...] Kristina Carnes MD HEMATOLOGY Final Re sult [facility] [address] [place] [address] [place] [address], [place] [phone] [facility] [address] [place] [address] * (ABNORMAL) HEPATIC FUNCTION PANEL (12/22/2024 2:17 PM CDT) Only the most recent of3 resultswithin the time period is included. Pathologist [facility] PROTEIN, TOTAL 6.6 6.1 - 8.1 g/dL [facility] ALBUMIN 4.1 3.6 - 5.1 g/dL [facility] GLOBULIN 2.5 1.9 - 3.7 g/dL (calc) [facility] ALBUMIN/GLOBULIN RATIO 1.6 1.0 - 2.5 (calc) [facility] BILIRUBIN, TOTAL 0.4 0.2 - 1.2 mg/dL [facility] BILIRUBIN, DIRECT 0.1 < OR = 0.2 mg/dL [facility] BILIRUBIN, INDIRECT 0.3 0.2 - 1.2 mg/dL (calc) [facility] ALKALINE PHOSPHATASE 137 37 - 153 U/L [facility] AST 21 10 - 35 U/L [facility] ALT 59(H) 6 - 29 U/L [facility] Blood BLOOD SPECIMEN / Unknown 12/22/2024 2:17 PM CDT 12/22/2024 2:17 PM CDT Kristina Carnes MD CHEMISTRY Final Re sult [facility] [address] [facility] [address], [facility] [address] [place] [address] * SCAN CORRESP-LABORATORY RESULTS (12/18/2024 1:38 PM CDT) Only the most recent of3 resultswithin the time period is included. Narrative 12/18/2024 1:38 PM CDT Ordered by an unspecified provider. Other Clinical Staff OTHER Final Resul t * (ABNORMAL) CBC (12/18/2024 6:27 AM [facility]) Only the most recent of2 resultswithin the time period is included. WHITE BLOOD COUNT 6.5 4.5 - 11.0 thou/cu mm 12/18/2024 7:01 AM [facility] RED BLOOD COUNT 3.86(L) 4.00 - 5.20 mil/cu mm 12/18/2024 7:01 AM [facility] HEMOGLOBIN 11.1(L) 12.0 - 16.0 g/dL 12/18/2024 7:01 AM [facility] HEMATOCRIT 35.1 33.0 - 51.0 % 12/18/2024 7:01 AM [facility] MCV 91 80 - 100 fL 12/18/2024 7:01 AM [facility] MCH 28.8 26.0 - 34.0 pg 12/18/2024 7:01 AM [facility] MCHC 31.6(L) 32.0 - 36.0 g/dL 12/18/2024 7:01 AM [facility] RDW 12.5 11.5 - 15.5 % 12/18/2024 7:01 AM [facility] PLATELET COUNT 321 140 - 440 thou/cu mm 12/18/2024 7:01 AM [facility] MPV 11.3(H) 6.5 - 11.0 fL 12/18/2024 7:01 AM [facility] NRBC 0.0 % 12/18/2024 7:01 AM [facility] ABS NRBC 0.0 thou /cu mm 12/18/2024 7:01 AM [facility] Blood BLOOD SPECIMEN / Unknown Venipuncture / Unknown 12/18/2024 6:27 AM CDT 12/18/2024 6:52 AM CDT Yamila Franco MD HEMATOLOGY Final Resu lt Performing Organization Address [facility] Co de Phone Number [facility] [address] [place] [address], [place] * CREATININE (12/18/2024 6:27 AM CDT) eGFR >90 >90 mL/min/1.7 3m2 12/18/2024 7:30 AM CDT [facility] Comment:As of 2021, eG FR is calculated by the CKD-EPI creatinine equation without race adjustment. eGFR can be influenced by muscle mass, exercise, and diet. The reported eGFR is an estimation only and is only applicable if the renal function is stable. CREATININE 0.67 0.50 - 0.90 mg/dL 12/18/2024 7:30 AM CDT [facility] Blood BLOOD SPECIMEN / Unknown Venipuncture / Unknown 12/18/2024 6:27 AM CDT 12/18/2024 6:52 AM CDT Yamila Franco MD CHEMISTRY Final Resu lt Performing Organization Address [facility] Co de Phone Number [facility] [address] [place] [address], [place] * SCAN CORRESP-IMAGING (12/15/2024 3:44 PM CDT) Anatomical Region Laterality Modality Other Narrative 12/15/2024 3:44 PM CDT Ordered by an unspecified provider. Other Clinical Staff OTHER Final Resul t * WHITE BLOOD COUNT (12/15/2024 6:40 AM CDT) WHITE BLOOD COUNT 6.8 4.5 - 11.0 thou/cu mm 12/15/2024 7:00 AM CDT [facility] NRBC 0.0 % 12/15/2024 7:00 AM CDT [facility] ABS NRBC 0.0 thou /cu mm 12/15/2024 7:00 AM CDT [facility] Blood BLOOD SPECIMEN / Unknown Venipuncture / Unknown 12/15/2024 6:40 AM CDT 12/15/2024 6:49 AM CDT Gerber Hart MD HEMATOLOGY Final Res ult Performing Organization Address City/[facility]/ZIP Co de Phone Number [facility] [address] [phone], [place] * BILIRUBIN,TOTAL (12/15/2024 6:40 AM CDT) BILIRUBIN,TOTA L 0.9 0.0 - 1.2 mg/dL 12/15/2024 7:25 AM CDT [facility] Blood BLOOD SPECIMEN / Unknown Venipuncture / Unknown 12/15/2024 6:40 AM CDT 12/15/2024 6:49 AM CDT Gerber Hart MD CHEMISTRY Final Res ult Performing Organization Address [facility] Co de Phone Number [facility] [address] [phone], [place] * (ABNORMAL) ALK PHOSPHATASE (12/15/2024 6:40 AM CDT) ALK PHOSPHATASE 217(H) 35 - 104 IU/L 12/15/2024 7:25 AM CDT [facility] Blood BLOOD SPECIMEN / Unknown Venipuncture / Unknown 12/15/2024 6:40 AM CDT 12/15/2024 6:49 AM CDT Gerber Hart MD CHEMISTRY Final Res ult Performing Organization Address City/[facility]/ZIP Co de Phone Number [facility] [address] [place], [place] [phone], [place] * PROTIME-INR (12/14/2024 6:41 PM CDT) INR 1.1 <1.3 12/14/2024 7:00 PM CDT [facility] PROTIME 12.4 10.6 - 12.4 sec 12/14/2024 7:00 PM CDT [facility] Blood BLOOD SPECIMEN / Unknown Non-Lab Venipuncture / Unknown 12/14/2024 6:41 PM CDT 12/14/2024 6:47 PM CDT Narrative [facility] - 12/14/2024 7:00 PM CDT Therapeutic [...] MD HEMATOLOGY Final Result Performing Organization Address City/[facility]/ZIP Co de Phone Number [facility] [address] [place] [address], * LIPASE (12/14/2024 6:27 PM CDT) LIPASE 27.2 13.0 - 60.0 IU/L 12/14/2024 6:58 PM CDT [facility] Blood BLOOD SPECIMEN / Unknown Non-Lab Venipuncture / Unknown 12/14/2024 6:27 PM CDT 12/14/2024 6:33 PM CDT Janet Saavedra MD CHEMISTRY Final Result Performing Organization Address [facility]/ZIP Co de Phone Number [facility] [address] [place] [address], * (ABNORMAL) BASIC METABOLIC PANEL (12/14/2024 6:27 PM CDT) SODIUM 138 136 - 145 mmol/L 12/14/2024 6:58 PM CDT [facility] POTASSIUM 4.8 3.5 - 5.1 mmol/L 12/14/2024 6:58 PM T [facility] CHLORIDE 103 98 - 107 mmol/L 12/14/2024 6:58 PM T [facility] CO2,TOTAL 21(L) 22 - 29 mmol/L 12/14/2024 6:58 PM CDT [facility] ANION GAP 14 5 - 18 12/14/2024 6:58 PM T [facility] GLUCOSE 62(L) 70 - 99 mg/dL 12/14/2024 6:58 PM T [facility] CALCIUM 9.0 8.8 - 10.4 mg/dL 12/14/2024 6:58 PM T [facility] Comment: Reference ranges for this test were updated on 06/16/2024 to reflect our healthy population more accurately. Reference range changes are not retroactively applied to results, but previous results using the same methodology can be interpreted in the context of the new reference range. BUN 11 8 - 23 mg/dL 12/14/2024 6:58 PM [facility] CREATININE 0.73 0.50 - 0.90 mg/dL 12/14/2024 6:58 PM T [facility] BUN/CREAT RATIO 15 10 - 20 6:58 PM T [facility] eGFR >90 >90 mL/min/1.7 3m2 12/14/2024 6:58 PM T [facility] Comment:As of 2021, eG FR [...] CDT Janet Saavedra MD CHEMISTRY Final Result [facility] [address] [place] [address], [place] * XR ERCP BILIARY ONLY (12/14/2024 [...] CDT) 12/14/2024 3:47 PM CDT Narrative Transcriptions Aeln Dumas MD - 12/14/2024 5:51 PM CDT [facility] Patient Name: Martita Steel Procedure Date: 12/14/2024 Gender: Female Date of : 1960 Admit Type: Inpatient Procedure: ERCP Proceduralist: Alen Dumas MD - [facility] Indications/Pre-Op Diagnosis: Bile duct stone(s) Medications: General Anesthesia Procedure Description: Risk of bleeding, infection, perforation, pancreatitis, need for surgery, remote chance of and alternatives were discussed, andthe patient gave informed consent. The endoscope [id number] was passed through the and advancedto the [...] Dumas MD - 12/14/2024 5:48 PM CDT [facility] Patient Name: Martita Steel Procedure Date: 12/14/2024 Gender: Female Date of : 1960 Admit Type: Emergency Department Procedure: Upper EUS Proceduralist: Alen Dumas MD - [facility] Indications/Pre-Op Diagnosis: Suspected choledocholithiasis Medications: Monitored Anesthesia Care Procedure Description: Risk of bleeding, infection, perforation, pancreatitis, need for surgery, remote chance of and alternatives were discussed, andthe patient gave informed consent. Risk of bleeding, infection, perforation, pancreatitis, need for surgery, remote chance of and alternatives were discussed, andthe patient gave informed consent. The endoscope [id number] was introduced through the mouth, and advanced [...] common bileduct. Recommendation: - Perform an ERCP. Aeln Dumas MD 12/14/2024 5:48:29 PM This report has been signed electronically. Note Initiated On: 12/14/2024 2:00 PM Alen Dumas MD PROCEDURE ORD Final Result * LAB TRACKING EVENT (12/07/2024 12:00 PM CDT) Other (Other) Client Collect / Unknown 12/07/2024 12:00 PM CDT 12/08/2024 6:37 AM CDT Kristina Carnes MD LAB BILL ONLY Final Re sult [facility] [address] [place] [address], * PATH TISSUE EXAM (12/07/2024 12:00 PM CDT) Case Report Pathology Report Case: [id number] Authorizing Provider: Kristina Carnes MD Collected: 12/07/2024 1200 Ordering Location: [facility] Received: 12/08/2024 1413 Pathologist: Giovanny Alexander IV, MD Specimen: Gallbladder 12/10/2024 2:53 PM CDT [facility] Final Diagnosis A) GALLBLADDER, CHOLECYSTECTOMY: 1. Chronic cholecystitis 2. Cholelithiasis 3. Negative for dysplasia and malignancy 12/10/2024 2:53 PM CDT [facility] at 1453 CDT Clinical Information Ms. Steel is a 64 y.o. who undergoes cholecystectomy. 12/10/2024 2:53 PM CDT [facility] Gross Description A) Received in [...] No cystic duct lymph node is identified. Irrigation Laborer sections are submitted in one cassette. EVM 12/08/2024 12/10/2024 2:53 PM CDT [facility] Microscopic Description The final diagnosis is based on microscopic examination of appropriate sections of all specimens. 12/10/2024 2:53 PM CDT [facility] Additional Information Interpreted at [facility] - [address], [place] [address] 12/10/2024 2:53 PM CDT [facility] Other SPECIMEN FROM GALLBLADDER / Unknown 12/07/2024 12:00 PM CDT 12/08/2024 2:13 PM CDT us Kristina Carnes MD PATHOLOGY/CYTOLOGY Final Result [facility] [address] [place] [address], [place] * SCAN-RADIOLOGY REPORT (12/07/2024 12:00 AM CDT) Anatomical Region Laterality Modality Other us Scanner OTHER Final Result * SCAN-OPERATIVE/PROCEDURE REPORT (12/07/2024 12:00 AM CDT) us Scanner OTHER Final Result * SCAN-LABORATORY REPORT (12/04/2024 12:00 AM CDT) us Scanner OTHER Final Result * LIPID PANEL W REFLEX MEASURED LDL (09/16/2023 7:43 AM [employer]EARCH [employer]EN[employer] SUPERVISOR) CHOLESTEROL,TOTAL 198 100 - 199 mg/dL 09/16/2023 4:22 PM [employer]EARCH [employer]EN[employer] SUPERVISOR [facility] Comment: Cholesterol, Total Reference Ranges Desirable <200 mg/dL Borderline 200-239 mg/dL High >=240 mg/dL TRIGLYCERIDES 88 <150 mg/dL 09/16/2023 4:22 PM [employer]EARCH [employer]EN[employer]SE SUPERVISOR [facility] [facility] HDL CHOLESTEROL 62 >40 mg/dL 4:22 PM [employer] [facility] NON-HDL CHOLESTEROL 136 <145 mg/dl 09/16/2023 4:22 PM [employer] [facility] CHOL/HDL RATIO 3.19 <4.50 09/16/2023 4:22 PM [employer] [facility] LDL CHOLESTEROL 118 <=130 mg/dL 09/16/2023 4:22 PM [employer] [facility] VLDL CHOLESTEROL 18 <=30 mg/dL 09/16/2023 4:22 PM [employer] [facility] PROVIDER ORDERED STATUS RANDOM 09/16/2023 4:22 PM [employer] [facility] Blood BLOOD SPECIMEN / Unknown Venipuncture / Unknown 09/16/2023 7:43 AM [employer]PER[employer]OR 09/16/2023 7:45 AM [employer] us Koki De MD CHEMISTRY Final Resul t [facility] [address] [place] [address], * sDNA-FIT External (Cologuard) [[id number]] (06/13/2022 10:15 AM CDT) NONINV COLON CA DNA+OCC BLD SCRN STL-IMP Negative Negative 06/21/2022 4:46 AM IdenIve (CLIA #:[id number]) Comment: NEGATIVE TEST RESULT. A negative Cologuard [...] Hutton. et al, N Engl J Med 2014;370(14):3429-1200) The normal value (reference range) for this assay is negative. COLOGUARD RE-SCREENING RECOMMENDATION: Periodic colorectal cancer screening is an important part of preventive healthcare for asymptomatic individuals at average risk for colorectal cancer. Following a negative Cologuard result, the [place] Cancer Society and U.S. Multi-Society Task Force screening guidelines recommend a Cologuard re-screening interval of 3 years. References: [place] Cancer Society Guideline for Colorectal Cancer Screening: https://www.cancer.org/cancer/qarfb-nyxvbp-yzstkf/btjxxcaqz-fezexdmbc-nluidej/ac s-rec ommendations.html.; Diogo LOUIS, Gray GARCIA, Eliot OneillK, Colorectal Cancer Screening: Recommendations for Physicians and Patients from the U.S. Multi-Society Task Force on Colorectal Cancer Screening , Am J Gastroenterology 2017; 112:4988-2748. TEST DESCRIPTION: Composite algorithmic analysis of stool [...] screened with both Cologuard and colonoscopy. (Deacon Htuton. et al, N Engl J Med 2014;370(14):8631-5011.) Cologuard may produce a false negative or false positive result (no colorectal cancer or precancerous polyp present at colonoscopy follow up). A negative Cologuard test result does not guarantee the absence of CRC or advanced adenoma (pre-cancer). The current Cologuard screening interval is every 3 years. (Australian Cancer Society and U.S. Multi-Society Task Force). Cologuard performance data in a 10,000 patient pivotal study using colonoscopy as the reference method can be accessed at the following location: www.Shout/results. Additional description of the Cologuard test process, warnings and precautions can be found at www.cologuard.com. Stool specimen (specimen) (Rectum) 06/13/2022 10:15 AM CDT 06/14/2022 5:14 PM CDT Caryl Huang MD URINE Final Result travayl (CLIA #:[id number]) [place] [address], from Last 3 Months or Most Recently Relevant to Health Maintenance Insurance [employer]ESS [id number] [facility] IN[employer]ID[employer] AND FAMILY PLANS Advance Directives [...] 9:05 AM 05/24/2011 7:25 PM Care Teams [employer] Supervisor Relationship Specialty Start Date End Date Koki De MD [address] [place] [address] PCP - General Family Practice 12/18/22
[2025-01-31] MEDS: HYDROmorphone 0.5 mg/0.5 ml inj IVP ×2 (00:17→01:01)
[2025-01-31] MEDS: HYDROCORTISONE SOD SUCCINATE 50 MG/ML inj 100 MG IVP (00:17)
[2025-01-31] MEDS: 0.9 % SODIUM CHLORIDE 1000 ml 1,000 ML 500 ML IV (00:18)
[2025-01-31 00:34] LABS: Albumin* 4.3 g/dL (3.3-5.0); Chloride* 102 mmol/L (96-114)
[2025-01-31 00:35] LABS: Potassium* 3.9 mmol/L (3.6-5.1); Sodium* 138 mmol/L (135-149)
[2025-01-31 00:37] LABS: Anion Gap 6 mEq/L (7-15); Blood Urea Nitrogen* 20 mg/dL (7-30); Carbon Dioxide* 30 mmol/L (20-32); Est. Creatinine Clearance* 49.72; Estimated Glomerular Filt Rate 63 ml/min
[2025-01-31 00:38] LABS: Alanine Aminotransferase* 45 U/L (4-35); Alkaline Phosphatase* 88 U/L (40-150); Aspartate Amino Transferase* 89 U/L (12-35); Bilirubin Direct* 0.1 mg/dL (0.0-0.5); Bilirubin Total* 0.4 mg/dL (0.1-1.5); Calcium* 9.2 mg/dL (8.4-10.6); Glucose* 141 mg/dL (60-115); Total Protein* 7.1 g/dL (6.0-8.3)
[2025-01-31 00:48] LABS: C Reactive Protein* < 0.5 mg/dL (0.5-1.0)
[2025-01-31 00:54] LABS: Troponin I* < 0.01 ng/mL (0.01-0.04)
[2025-01-31 00:56] LABS: Lipase* 150 U/L (23-300)
[2025-01-31 01:00] LABS: Basophils Percent Auto 0.1 % (0.0-3.0); Eosinophils Percent Auto 0.9 % (0.0-7.0); Hematocrit 40.8 % (33.0-51.0); Immature Granulocytes Pct Auto 0.4 %; Mean Corpuscular HGB Conc 32 gm/dL (32-36); Mean Corpuscular Hemoglobin 29 pg (26-34); Mean Corpuscular Volume 91 fL (80-100); Monocytes Percent Auto 6.9 % (0.0-11.0); Neutrophils Percent Auto 81.7 % (42.0-72.0); Platelet Count* 368 K/uL (140-440); RDW Coefficient of Variation % 12.6 % (11.5-15.5); Red Blood Count 4.51 m/uL (4.00-5.20); White Blood Count* 15.93 K/uL (4.50-11.00)
[2025-01-31 01:01] LABS: Slide Review Reflex No
[2025-01-31 01:51] VITALS: BP 170/86; PULSE 73; RESP 14; TEMP 36.4; O2SAT 100
== END 2025-01-31 02:26 | disposition home or self-care (01) ==
PROVIDERS: Emergency Provider Family Medicine; PCP Family Medicine
DX: R10.13 Epigastric pain (principal); R11.0 Nausea; J45.909 Unspecified asthma, uncomplicated
CPT/HCPCS: 36415; 74177; 80053; 82248; 82565; 83605; 83690; 84484; 85025; 86140; 94761; 96374; 96375; 99284; 99285; J1171; J1720; J2405; J7030; Q9967

== ENCOUNTER 2025-03-07 04:22 | Outpatient (CLI) | payer OTHER, SELFPAY | END 2025-03-07 04:23 | disposition home or self-care (01) | PROVIDERS: PCP Family Medicine; Visit Provider Family Medicine | DX: R10.9 Unspecified abdominal pain (principal); R11.2 Nausea with vomiting, unspecified | CPT/HCPCS: A0425; A0427 ==

== ENCOUNTER 2025-03-07 04:56 | Inpatient (IN) | payer OTHER, SELFPAY ==
[2025-03-07] VITALS (8 sets, daily range): BP systolic 133–175; BP diastolic 74–119; PULSE 71–97; RESP 16–20; TEMP 36.2–36.6; O2SAT 85–100; BMI 30.9; BMI 30.7; BMI 30.8
--- OUTSIDE RECORDS SUMMARY | 2025-03-07 04:58 | XMS_ITS | Continuity of Care Document ---
Author Organization [place] [facility] Address [address] [place] [address] Assessment Encounter Date Assessment Date Assessment LastModified [...] Organization Details Recorded Time Thoracic segmental dysfunction 172403310 Active 2024 Jefferson Andrade [place] [address], [place], [address] , [facility] 5 20:24:36 Neck pain 77489536 Active 2024 Not Available [facility] 5 09:55:49 Cervical segmental dysfunction 992847445 Active 2024 Jefferson Andrade [place] [address], [place], [address] , [facility] 5 20:24:36 Lumbar segmental dysfunction 580961426 Active 2024 Jefferson Andrade [place] [address], [place], [address] , [facility] - [facility] 5 20:24:37 Lesion of lumbar spine 593133503 Active 2024 Jefferson Andrade [place] [address], [place], [address] , [facility] 5 20:24:37 Low back pain 507822341 Active 2024 Jefferson Andrade [place] [address], [place], [address] , [facility] 5 10:50:54 Somatic dysfunction of sacral spine 531129133 Active 2024 Jefferson Andrade [place] [address], [place], [address] , [facility] 5 10:50:54 Problem Notes None recorded. Procedures Surgical History Date Name Laterality Status Provider Name and Address Organization Details Recorded Time 5 35272: Spinal manipulation , 3 to 4 regions [facility] [place] [address], [place], [address], [facility] 01/28/2025 10:51:37 5 05488: Spinal manipulation , 3 to 4 regions completed [facility] Luís AndradeJACKSON, [place] [address], [place], [address], [facility] 01/21/2025 14:53:15 5 04964: Spinal manipulation , 3 to 4 regions completed [facility] Luís Andrade [place] [address], [place], [address], [facility] 01/14/2025 19:34:32 5 14756: Spinal manipulation , 3 to 4 regions completed Jefferson Andrade [place] [address], [place], [address], [facility] 01/07/2025 20:24:49 Imaging Results None recorded. [...] SNOMED-CT Code Diagnosis ICD10 Code Diagnosis Note [id number] Jefferson Andrade DC [facility] [address] [place] [address] [facility] [place] [address] 01/07/2025 10:34:51 01/12/2025 17:01:39 Cervical segmental dysfunction 806154051 M99.01 Neck pain 83771655 M54.2 Thoracic s egmental dysfunction 734473968 M99.02 Lumbar seg mental dysfunction 840017290 M99.03 Lesion of lumbar spine 228268136 M99.01 [id number] Jefferson Andrade DC [facility] & [address] [facility] [address] 01/14/2025 10:57:34 01/15/2025 09:08:11 Cervical segmental dysfunction 878777746 M99.01 Neck pain 54107809 M54.2 Thoracic s egmental dysfunction 853025916 M99.02 Lumbar seg mental dysfunction 847805715 M99.03 Lesion of lumbar spine 563606147 M99.01 [id number] Jefferson Andrade DC [facility] [address] [place] [address] 01/21/2025 14:50:40 01/22/2025 09:00:58 Cervical segmental dysfunction 012466391 M99.01 Neck pain 91111777 M54.2 Thoracic s egmental dysfunction 573209759 M99.02 Lumbar seg mental dysfunction 104002389 M99.03 Lesion of lumbar spine 191894655 M99.01 Health Concerns Section Related Observation LastModified by Organization Detai ls LastModified Time None Recorded Concern Status LastModified by Organization Details LastModified Time None Recorded Payers Encounter Date Sequence Insurance Name Policy Number Policy Ridley Covered Member ID Ridley Member ID Guarantor Name 01/21/2025 [facility] Lorenza tSeel [id number] Lorenza [employer] Notes Date Note Type Note Provider Name and Address Organization Details Recorded Time 01/21/2025 text/html HPI - Cervical SpineReported by PatientHPIFor location, patient reportsleft. For quality, patient reportsaching. For severity, patient reportsmoderate. For duration, patient reports2 weeks. For timing, patient reportsgradual. For alleviating factors, patient reportsice. For aggravating factors, patient reportssitting. For associated symptoms, patient reportsno numbness/tingling. Jefferson Andrade DC [address], [place], [address], [facility] 01/21/2025 14:54:21 OBGyn Episode No OBEpisode recorded.
--- OUTSIDE RECORDS SUMMARY | 2025-03-07 04:58 | XMS_ITS | Clinical Summary ---
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 0 11/10/19 21 Active ondansetron (ZOFRAN ODT) [address] 4 mg on the tongue every 8 hours if needed for Nausea/Vomiting. 10/21/19 24 Active benzonatate (TESSALON) 200 mg capsule Take 200 mg by mouth 3 times daily if needed for Cough. 01/28/20 24 Active EPINEPHrine 0.3 mg/0.3 mL auto-injectorIndic ations:Hx of anaphylaxis Inject 0.3 mg (1 Pen) intramuscular each time if needed for Allergic Reaction. 2 Each 11/06/19 Active escitalopram oxalate 10 mg tabletIndications: Depression, major, in remission Take 1 Tablet (10 mg) by mouth once daily. 100 Tablet 11/06/19 25 Active estradioL 0.01% (0.1 mg/g) vaginal creamIndications:M enopausal symptoms Insert 1 g into the vagina once weekly. 42.5 g 2 11/06/19 Active omeprazole 20 mg Delayed-Release capsuleIndications :Chronic GERD Take 1 Capsule (20 mg) by mouth once daily before a meal. 100 Capsule 11/06/19 25 Active traZODone 50 mg tabletIndications: Sleep disturbance Take 0.5-1 Tablets (25-50 mg) by mouth at bedtime. 100 Tablet 11/06/19 Active Ventolin HFA 90 mcg/actuation inhalerIndications :Moderate persistent asthma without complication (HC) Inhale 1-2 Puffs by mouth every 4 hours if needed for Shortness Of Breath. 18 g 11/06/19 Active finasteride 5 mg tablet Take 1 Tablet (5 mg) by mouth once daily. 11/06/19 Active budesonide-formote roL 160-4.5 mcg/actuation (160-4.5 mcg each actuation) inhalerIndications :Moderate persistent asthma without complication (HC) Inhale 2 Puffs by mouth two times daily. 10.2 g 11 11/06/19 Active fexofenadine (Carmenza Allergy) 60 mg tablet Take 60 mg by mouth two times daily. Active fluorouracil 5 % cream Apply topically to affected area(s) once weekly. APPLY TOPICALLY TO AFFECTED AREA / ZONE OF FACE ONCE WEEKLY Active triamcinolone 0.1 % cream Apply topically to affected area(s) 2 times daily if needed. Active Phentermine HCl 30 mg capsuleIndications :Overweight TAKE 1 CAPSULE (30 MG) BY MOUTH ONCE DAILY BEFORE A MEAL. 30 Capsule 5 01/22/20 25 Active predniSONE 1 mg tabletIndications: Moderate persistent asthma with exacerbation (HC),History of adrenal insufficiency Take 9 tablets daily x 4 days. Decrease by 1 tablet every 4 days until gone. 180 Tablet 01/28/20 Active Active Problems Problem Noted Date Diagnosed Date Choledocholithiasis 12/14/2024 Overview (12/14/2024): -conferenced with our gen surgery, MAXIMILIAN. likely needs ERCP today given dramatic rise [...] Date Type Department Care Team Description 5 Refill [facility] [address] [place] [address] Koki De MD Refill Request (Estradiol patches) 5 Orders Only [facility] Scanner 1 scan: (1-Ord) [facility], ABDOMEN PELVIS W, 01/31/2025 5 4:00 PM CDT Office Visit [facility] [address] [place] [address] Koki De MD Physical (Patient would like to discuss tapering off prednisone for asthma) 5 Orders Only [facility] Scanner 1 scan: (1-Ord) [facility], BILAT SCREENING MAMMO, ASYMPTOMATIC , 01/27/2025 5 Travel 5 Travel 5 Refill [facility] [address] [place] [address] Koki De MD Refill Request (Phentermine Hcl) 5 1:55 PM CDT Office Visit [facility] [address] [place] [address] Koki De MD ER Follow up (12/30/24 Abdominal pain ) 5 Travel 5 Orders Only [facility] Scanner 1 scan: (1-Ord) [facility], [facility] ABDOMEN , 12/30/2024 5 Orders Only [facility] Scanner 1 scan: (1-Ord) [facility], 12/30/2024 5 Travel 5 Telephone [facility] [address] [place] [address] Koki De MD Appointment 5 1:30 PM CDT Office Visit [facility] [address] [place] [address] Kristina Carnes MD Post-op (Laparoscopic cholecystectomy 12/07/24) 5 Travel 5 Patient Outreach [facility] [address] [place] [address] Danisha Fox, RN Primary RN Care Management; Hospital F/U (LACE 57) 5 4:01 AM CDT - 5 2:45 PM CDT Hospital Encounter [facility] [address] [place] [address] [facility] Yamila Franco MD Schmidt, Christine Ann, MD Discharge Disposition: Home Self Care 5 Travel 5 Orders Only [facility] Scanner 1 scan: (1-Ord) [facility], ABDOMEN PELVIS W CON , 12/17/2024 5 Patient Outreach [facility] [address] [place] [address] Danisha Fox, RN Primary RN Care Management; Hospital F/U (LACE 66) 5 3:43 PM CDT Anesthesia Event [facility] [address] [place] [address] Jose Luis Rosales MD 5 2:35 PM CDT - 5 10:56 AM CDT Hospital Encounter [facility] [address] [place] [address] Janet Saavedra MD Peterson, Ruben Yousif MD [facility] [place], MD Yared Myers, IRVIN Troy Choledocholithiasis (Primary Dx) Discharge Disposition: Home Self Care 5 1:55 PM CDT - 5 3:00 PM CDT Surgery [facility] [address] [place] [address] Alen Dumas MD ENDOSCOPIC RETROGRADE CHOLANGIOPANCREATOGRAPHY with spincterotomy and stone extraction and stent 5 Travel 5 Orders Only [facility] Scanner 1 scan: (1-Ord) [facility], ABDOMEN PELVIS W/ CON, 12/13/2024 5 Lab Requisition [facility] [phone] Kristina Carnes MD 5 Orders Only [facility] Scanner 1 scan: (1-Ord) [facility], XR CHEST 1V PORTABLE, 12/07/2024 5 Orders Only [facility] Scanner 1 scan: (1-Ord) [facility], LAPAROSCOPIC CHOLECYSTECTOMY, 12/07/2024 from Last 3 Months Immunizations Immunization Administration [...] ituted (Arexvy 120MCG/0.5mL) 03/11/2024 Smallpox (Vaccinia) Live [id number] 08/[birth year]/1968 Td (Age >=7 Years) 08/12/2001,08/12/1991, 982 [...] on file Legal Sex Female 6:07 AM [employer] Gender Identity Not on file Sexual Orientation [...] Health Maintenance Due Date Last Done Comments Influenza Vaccine (#1) 2025 , 05/14/2023, 06/18/2022, Additional history exists Depression screening for age 12+ 11/05/2025 11/05/2024, 05/20/2024, 01/03/2023, Additional history exists BMI (ht and wt on same day) for age 18+ 01/27/2026 01/27/2025, 11/05/2024, 08/28/2023, Additional history exists Mammogram for age 45-75 01/27/2026 01/28/20, 05/06/2024, 11/21/2022, Additional history exists Fecal testing sDNA-FIT ([place] guard) for age 45-75 01/27/2028 01/26/2025, 06/13/2022, 05/20/2019 Lipids for age 45-75 09/16/2028 09/16/2023, 12/22/19 Tetanus booster 03/06/2034 03/06/2024, 08/12, 06/02/2013, Additional history exists Hepatitis B series for 19+ Completed 08/12, 08/12/1989, 08/12/1988 Zoster (shingles) series for age 50+ Completed 01/10/2021, 11/09/2020 RSV vaccine for adults or Completed 03/11/2024 COVID-19 vaccine series Completed 05/20/20 24, 06/26/2023, 07/10/2022, Additional history exists Pneumococcal series for age 50+ Completed 11/05/2024, 09/22/2015, 11/29/2003 HIV for age 15-65 Completed 01/06/2025 Hepatitis C screening for ag e 18-79 Completed 01/06/2025 Medical Devices Implanted Type Area Ball Warper Tender Device Identifier Shelf Expiration Date Model / Serial / Lot Mesh Hernia Inguinal Rt - [id number] Implanted:Qty: 1 on 05/24/2011 at [facility] Right: Inguinal 09/12/2015 [id number]# / / [id number] Stent Pancreatic [id number] Geenen Sof-Flex No Flap - [id number] Implanted:Qty: 1 on 12/14/2024 by Alen Dumas MD at [facility] Endoscopy 08/21/2027 GPSOS-SF- 5-5 / / [id number] Explanted Type Area Ball Warper Tender Device Identifier Shelf Expiration Date Model / Serial / Lot Stent Pancreatic [id number] Geenen Sof-Flex No Flap - [id number] Explanted:Qty: 1 on 12/14/2024 at [facility] Endoscopy 08/21/2027 GPSOS-SF-5 - 5 / / [id number] Procedures Procedure Name Priority Date/Time Associated Diagnosis Comments SCAN-CT INTERPRETATION 12:00 AM CDT SCAN-MAMMOGRAPHY REPORT 01/28/20 12:00 AM CDT ALT [...] STENT PLACEMENT 12/14/2024 3:33 PM CDT See note ENDOSCOPY 12/14/2024 2:00 PM CDT SCAN-CT INTERPRETATION 12:00 AM CDT LAB TRACKING EVENT Routine 12/07/2024 12:00 PM CDT PATH TISSUE EXAM Routine 12/07/2024 12:00 PM CDT SCAN-RADIOLOGY REPORT 12/07/2024 12:00 AM CDT SCAN-OPERATIVE/PROCEDURE REPORT 12/07/2024 12:00 AM CDT LIPID PANEL W REFLEX MEASURE D LDL Routine 09/16/2023 7:43 AM [employer] Lipid screening SDNA-FIT EXTERNAL (COLOGUARD) Routine 10:15 AM CDT Screening for colon cancer from Last 3 Months or Most Recently Relevant to Health Maintenance Results * SCAN-CT INTERPRETATION (01/31/2025 12:00 AM CDT) Only the most recent of4 resultswithin the time period is included. Anatomical Region Laterality Modality Other us Scanner OTHER Final Result * SCAN-MAMMOGRAPHY REPORT (01/27/2025 12:00 AM CDT) Anatomical Region Laterality Modality Other us Scanner OTHER Final Result * IRON PLUS IRON BINDING CAP (01/06/2025 3:02 PM CDT) IRON, TOTAL 114 45 - 160 mcg/dL [facility] IRON BINDING CAPACITY 414 250 - 450 mcg/dL (calc) [facility] % SATURATION 28 16 - 45 % (calc) [facility] Blood BLOOD SPECIMEN / Unknown 01/06/2025 3:02 PM CDT 01/06/2025 3:03 PM CDT us Koki De MD CHEMISTRY Final Resul t Performing Organization Address [facility] de Phone Number [email or web address] [facility] [address] [place] [address], [email or web address] [address] [place] [address] * HBSAG (01/06/2025 3:02 PM CDT) HEPATITIS B SURFACE ANTIGEN NON-REACTI VE NON-REACTI VE [facility] Comment: For additional information, please refer to http://[employer]HotelTonight/faq/QQP363 (This link is being provided for informational/ educational purposes only.) Blood BLOOD SPECIMEN / Unknown 01/06/2025 3:02 PM CDT 01/06/2025 3:03 PM CDT us Koki De MD SEND OUTS Final Resul t Performing Organization Address [facility] de Phone Number [email or web address] [facility] [address] [place] [phone], [email or web address] [address] [place] [address] * ANTI HCV (01/06/2025 3:02 PM CDT) HEPATITIS C ANTIBODY NON-REACTI VE NON-REACT UC[facility] Comment: HCV antibody was non-reactive. There is no laboratory evidence of HCV infection. In most cases, no further action is required. However, if recent HCV exposure is suspected, a test for HCV RNA (test code 22659) is suggested. For additional information please refer to http://[employer]HotelTonight/faq/DYU93f1 (This link is being provided for informational/ educational purposes only.) Blood BLOOD SPECIMEN / Unknown 01/06/2025 3:02 PM CDT 01/06/2025 3:03 PM CDT Koki De MD SEND OUTS Final Resul t Performing Organization Address [facility] de Phone Number [facility] [address] [place] [address], [place] [phone] [facility] [address] [place] [address] * ANTI HBS QUANT AHS (01/06/2025 3:02 PM CDT) HEPATITIS B SURFACE AB IMMUNITY, QN 91 > OR = 10 mIU/mL [facility] Comment: Patient has immunity to hepatitis B virus. For additional information, please refer to http://[employer]/faq/DNJ687 (This link is being provided for informational/ educational purposes only). Blood BLOOD SPECIMEN / Unknown 01/06/2025 3:02 PM CDT 01/06/2025 3:03 PM CDT Koki De MD SEND OUTS Final Resul t Performing Organization Address [facility] Co de Phone Number [facility] [employer] [facility] [address] [place] [address], [place] [phone] [facility] [address] [place] [address] * IGM ANTI-HBC (01/06/2025 3:02 PM CDT) HEPATITIS B CORE ANTIBODY (IGM) NON-REACTI VE NON-REACTI VE [facility] Comment: For additional information, please refer to http://[employer]/faq/ZCH206 (This link is being provided for informational/ educational purposes only.) Blood BLOOD SPECIMEN / Unknown 01/06/2025 3:02 PM CDT 01/06/2025 3:03 PM CDT Koki De MD SEND OUTS Final Resul t Performing Organization Address [facility]/ZIP Co de Phone Number [email or web address] [facility] [address] [place] [address], [facility] [address] [place] [address] * ANTI HIV 1/2 [21180.0] (01/06/2025 3:02 PM CDT) HIV AG/AB, 4TH GEN NON-REACT UCHE NON-REACT UCHE [facility] Comment: HIV-1 antigen and HIV-1/HIV-2 antibodies were [...] purpose. For additional information please refer to http://education.HotelTonight/faq/TKZ110 (This link is being provided for informational/ educational purposes only.) The performance of this assay has not been clinically validated in patients less than 2 years old. Blood BLOOD SPECIMEN / Unknown 01/06/2025 3:02 PM CDT 01/06/2025 3:03 PM CDT Koki De MD SEND OUTS Final Resul t [email or web address] [facility] [address] [facility] [place] [address], [facility] [address] [place] [address] * ALT (SGPT) (01/06/2025 3:02 PM CDT) Only the most recent of2 resultswithin the time period is included. ALT 24 6 - 29 U/L [facility] Blood BLOOD SPECIMEN / Unknown 01/06/2025 3:02 PM CDT 01/06/2025 3:03 PM CDT us Koki De MD CHEMISTRY Final Resul t [email or web address] [facility] [address] [place] [address], [place] [phone] [facility] [address] [place] [address] * AST (SGOT) (01/06/2025 3:02 PM CDT) Only the most recent of2 resultswithin the time period is included. AST 23 10 - 35 U/L [facility] Blood BLOOD SPECIMEN / Unknown 01/06/2025 3:02 PM CDT 01/06/2025 3:03 PM CDT us Koki De MD CHEMISTRY Final Resul t Performing Organization Address [facility]/ZIP Co de Phone Number [email or web address] [facility] [address] [place] [phone], [facility] [address] [place] [address] * (ABNORMAL) FERRITIN (01/06/2025 3:02 PM CDT) FERRITIN 14(L) 16 - 288 ng/mL [facility] Blood BLOOD SPECIMEN / Unknown 01/06/2025 3:02 PM CDT 01/06/2025 3:03 PM CDT us Koki De MD CHEMISTRY Final Resul t Performing Organization Address [facility] Co de Phone Number [email or web address] [facility] [address] [place] [address], [facility] [address] [place] [address] * SCAN-ULTRASOUND REPORT (12/30/2024 12:00 AM CDT) Anatomical Region Laterality Modality Other us Scanner OTHER Final Result * HEMOGLOBIN (12/22/2024 2:17 PM CDT) HEMOGLOBIN 12.1 11.7 - 15.5 g/dL [facility] Blood BLOOD SPECIMEN / Unknown 12/22/2024 2:17 PM CDT 12/22/2024 2:17 PM CDT Kristina Carnes MD HEMATOLOGY Final Re sult Performing Organization Address [facility] Co de Phone Number [email or web address] [facility] [address] [place] [phone], [email or web address] [address] [place] [phone] * (ABNORMAL) HEPATIC FUNCTION PANEL (12/22/2024 2:17 PM CDT) Only the most recent of3 resultswithin the time period is included. PROTEIN, TOTAL 6.6 6.1 - 8.1 g/dL [facility] ALBUMIN 4.1 3.6 - 5.1 g/dL [facility] GLOBULIN 2.5 1.9 - 3.7 g/dL (calc) [facility] ALBUMIN/GLOBULIN RATIO 1.6 1.0 - 2.5 (calc) [facility] BILIRUBIN, TOTAL 0.4 0.2 - 1.2 mg/dL [facility] BILIRUBIN, DIRECT 0.1 < OR = 0.2 mg/dL [facility] BILIRUBIN, INDIRECT 0.3 0.2 - 1.2 mg/dL (calc) [facility] ALKALINE PHOSPHATASE 137 37 - 153 U/L [facility] AST 21 10 - 35 U/L [facility] ALT 59(H) 6 - 29 U/L [facility] Blood BLOOD SPECIMEN / Unknown 12/22/2024 2:17 PM CDT 12/22/2024 2:17 PM CDT Kristina Carnes MD CHEMISTRY Final Re sult [email or web address] [facility] [address] [place] [address], [facility] [address] [place] [address] * SCAN CORRESP-LABORATORY RESULTS (12/18/2024 1:38 PM CDT) Only the most recent of3 resultswithin the time period is included. Narrative 12/18/2024 1:38 PM CDT Ordered by an unspecified provider. Other Clinical Staff OTHER Final Resul t * (ABNORMAL) CBC (12/18/2024 6:27 AM CDT) Only the most recent of2 resultswithin the time period is included. WHITE BLOOD COUNT 6.5 4.5 - 11.0 thou/cu mm 12/18/2024 7:01 AM CDT [facility] RED BLOOD COUNT 3.86(L) 4.00 - 5.20 mil/cu mm 12/18/2024 7:01 AM CDT [facility] HEMOGLOBIN 11.1(L) 12.0 - 16.0 g/dL 12/18/2024 7:01 AM CDT [facility] HEMATOCRIT 35.1 33.0 - 51.0 % 12/18/2024 7:01 AM CDT [facility] MCV 91 80 - 100 fL 12/18/2024 7:01 AM CDT [facility] MCH 28.8 26.0 - 34.0 pg 12/18/2024 7:01 AM CDT [facility] MCHC 31.6(L) 32.0 - 36.0 g/dL 12/18/2024 7:01 AM CDT [facility] RDW 12.5 11.5 - 15.5 % 12/18/2024 7:01 AM CDT [facility] PLATELET COUNT 321 140 - 440 thou/cu mm 12/18/2024 7:01 AM CDT [facility] MPV 11.3(H) 6.5 - 11.0 fL 12/18/2024 7:01 AM T [facility] NRBC 0.0 % 12/18/2024 7:01 AM CDT [facility] ABS NRBC 0.0 thou /cu mm 12/18/2024 7:01 AM T [facility] Blood BLOOD SPECIMEN / Unknown Venipuncture / Unknown 12/18/2024 6:27 AM CDT 12/18/2024 6:52 AM CDT Yamila Franco MD HEMATOLOGY Final Resu lt [facility] [address] [place] [address], * CREATININE (12/18/2024 6:27 AM CDT) eGFR >90 >90 mL/min/1.7 3m2 12/18/2024 7:30 AM CDT [facility] Comment:As of 2021, eG FR is calculated by the CKD-EPI creatinine equation without race adjustment. eGFR can be influenced by muscle mass, exercise, and diet. The reported eGFR is an estimation only and is only applicable if the renal function is stable. CREATININE 0.67 0.50 - 0.90 mg/dL 12/18/2024 7:30 AM CDT [facility] Blood BLOOD SPECIMEN / Unknown Venipuncture / Unknown 12/18/2024 6:27 AM CDT 12/18/2024 6:52 AM CDT us Yamila Franco MD CHEMISTRY Final Resu lt Performing Organization Address [facility] Co de Phone Number [facility] [address] [address], [place] * SCAN CORRESP-IMAGING (12/15/2024 3:44 PM CDT) Anatomical Region Laterality Modality Other Narrative 12/15/2024 3:44 PM CDT Ordered by an unspecified provider. us Other Clinical Staff OTHER Final Resul t * WHITE BLOOD COUNT (12/15/2024 6:40 AM CDT) WHITE BLOOD COUNT 6.8 4.5 - 11.0 thou/cu mm 12/15/2024 7:00 AM CDT [facility] NRBC 0.0 % 12/15/2024 7:00 AM CDT [facility] ABS NRBC 0.0 thou /cu mm 12/15/2024 7:00 AM CDT [facility] Blood BLOOD SPECIMEN / Unknown Venipuncture / Unknown 12/15/2024 6:40 AM CDT 12/15/2024 6:49 AM CDT us Gerber Hart MD HEMATOLOGY Final Res ult Performing Organization Address [facility]/ZIP Co de Phone Number [facility] [address] [address], [place] * BILIRUBIN,TOTAL (12/15/2024 6:40 AM CDT) BILIRUBIN,TOTA L 0.9 0.0 - 1.2 mg/dL 12/15/2024 7:25 AM CDT [facility] Blood BLOOD SPECIMEN / Unknown Venipuncture / Unknown 12/15/2024 6:40 AM CDT 12/15/2024 6:49 AM CDT Gerber Hart MD CHEMISTRY Final Res ult Performing Organization Address City/[facility]/ZIP Co de Phone Number [facility] [address] [place] [address], * (ABNORMAL) ALK PHOSPHATASE (12/15/2024 6:40 AM CDT) ALK PHOSPHATASE 217(H) 35 - 104 IU/L 12/15/2024 7:25 AM CDT [facility] Blood BLOOD SPECIMEN / Unknown Venipuncture / Unknown 12/15/2024 6:40 AM CDT 12/15/2024 6:49 AM CDT Gerber Hart MD CHEMISTRY Final Res ult Performing Organization Address [facility] Co de Phone Number [facility] [address] [place] [address], [place] * PROTIME-INR (12/14/2024 6:41 PM CDT) INR 1.1 <1.3 12/14/2024 7:00 PM CDT [facility] PROTIME 12.4 10.6 - 12.4 sec 12/14/2024 7:00 PM CDT [facility] Blood BLOOD SPECIMEN / Unknown Non-Lab Venipuncture / Unknown 12/14/2024 6:41 PM CDT 12/14/2024 6:47 PM CDT Narrative [facility] - 12/14/2024 7:00 PM CDT [...] us Janet Saavedra MD HEMATOLOGY Final Result [facility] [address] [place] [address], * LIPASE (12/14/2024 6:27 PM CDT) LIPASE 27.2 13.0 - 60.0 IU/L 12/14/2024 6:58 PM CDT [facility] Blood BLOOD SPECIMEN / Unknown Non-Lab Venipuncture / Unknown 12/14/2024 6:27 PM CDT 12/14/2024 6:33 PM CDT Janet Saavedra MD CHEMISTRY Final Result Performing Organization Address City/[facility]/ZIP Co de Phone Number [facility] [address] [place] [address], * (ABNORMAL) BASIC METABOLIC PANEL (12/14/2024 6:27 PM CDT) SODIUM 138 136 - 145 mmol/L 12/14/2024 6:58 PM CDT [facility] POTASSIUM 4.8 3.5 - 5.1 mmol/L 12/14/2024 6:58 PM CDT [facility] CHLORIDE 103 98 - 107 mmol/L 12/14/2024 6:58 PM CDT [facility] CO2,TOTAL 21(L) 22 - 29 mmol/L 12/14/2024 6:58 PM CDT [facility] ANION GAP 14 5 - 18 12/14/2024 6:58 PM CDT [facility] GLUCOSE 62(L) 70 - 99 mg/dL 12/14/2024 6:58 PM CDT [facility] CALCIUM 9.0 8.8 - 10.4 mg/dL 12/14/2024 6:58 PM CDT [facility] Comment: Reference ranges for this test were updated on 06/16/2024 to reflect our healthy population more accurately. Reference range changes are not retroactively applied to results, but previous results using the same methodology can be interpreted in the context of the new reference range. BUN 11 8 - 23 mg/dL 12/14/2024 6:58 PM CDT [facility] CREATININE 0.73 0.50 - 0.90 mg/dL 12/14/2024 6:58 PM CDT [facility] BUN/CREAT RATIO 15 10 - 20 6:58 PM CDT [facility] eGFR >90 >90 mL/min/1.7 3m2 12/14/2024 6:58 PM CDT [facility] Comment:As of 2021, eG [...] CDT Janet Saavedra MD CHEMISTRY Final Result [facility] [address] [place] [address], * XR ERCP BILIARY ONLY (12/14/2024 5:29 PM CDT) Anatomical Region Laterality Modality GALLBLADDER, PANCREAS, LIVER Oth er Narrative 12/14/2024 4:01 PM CDT 16 minutes 9 seconds fluoroscopy time was provided. See operative/procedure report for further information. Alen Dumas MD FLUOROSCOPY Final Result * [facility] STYLET PR1 (12/14/2024 4:22 PM CDT) Narrative Dean Hernández PROGRAM ANALYST - 12/14/2024 4:22 PM CDT Dean Hernández [...] Dumas MD - 12/14/2024 5:51 PM CDT [facility] Patient Name: Martita Steel Procedure Date: 12/14/2024 Gender: Female Date of : 1960 Admit Type: Inpatient Procedure: ERCP Proceduralist: Alen Dumas MD - [facility] Indications/Pre-Op Diagnosis: Bile duct stone(s) Medications: General Anesthesia Procedure Description: Risk of bleeding, infection, perforation, pancreatitis, need for surgery, remote chance of and alternatives were discussed, andthe patient gave informed consent. The endoscope [id number] was passed through the and advancedto the [...] Dumas MD - 12/14/2024 5:48 PM CDT [facility] Patient Name: Martita Steel Procedure Date: 12/14/2024 Gender: Female Date of : 1960 Admit Type: Emergency Department Procedure: Upper EUS Proceduralist: MD Stephania Samuel [facility] Indications/Pre-Op Diagnosis: Suspected choledocholithiasis Medications: Monitored Anesthesia Care Procedure Description: Risk of bleeding, infection, perforation, pancreatitis, need for surgery, remote chance of and alternatives were discussed, andthe patient gave informed consent. Risk of bleeding, infection, perforation, pancreatitis, need for surgery, remote chance of and alternatives were discussed, andthe patient gave informed consent. The endoscope [id number] was introduced through the mouth, and advanced [...] MD LAB BILL ONLY Final Re sult [facility] [address] [place] [address], [place] * PATH TISSUE EXAM (12/07/2024 12:00 PM CDT) Case Report Pathology Report Case: [id number] Authorizing Provider: Kristina Carnes MD Collected: 12/07/2024 1200 Ordering Location: [facility] Received: 12/08/2024 1413 Pathologist: Giovanny Alexander IV, MD Specimen: Gallbladder 12/10/2024 2:53 PM CDT [facility] Final Diagnosis A) GALLBLADDER, CHOLECYSTECTOMY: 1. Chronic cholecystitis 2. Cholelithiasis 3. Negative for dysplasia and malignancy 12/10/2024 2:53 PM CDT [facility] at 1453 CDT Clinical Information Ms. Steel is a 64 y.o. who undergoes cholecystectomy. 12/10/2024 2:53 PM CDT [facility] Gross Description A) Received [...] No cystic duct lymph node is identified. Sailmaker sections are submitted in one cassette. EVM 12/08/2024 12/10/2024 2:53 PM CDT [facility] Microscopic Description The final diagnosis is based on microscopic examination of appropriate sections of all specimens. 12/10/2024 2:53 PM CDT [facility] Additional Information Interpreted at [facility] - [address] [facility] [address] [address] 12/10/2024 2:53 PM CDT [facility] Other SPECIMEN FROM GALLBLADDER / Unknown 12/07/2024 12:00 PM CDT 12/08/2024 2:13 PM CDT us Kristina Carnes MD PATHOLOGY/CYTOLOGY Final Result Performing Organization Address City/State/[facility] Co de Phone Number [facility] [address] [place] [address], [place] * SCAN-RADIOLOGY REPORT (12/07/2024 12:00 AM CDT) Anatomical Region Laterality Modality Other us Scanner OTHER Final Result * SCAN-OPERATIVE/PROCEDURE REPORT (12/07/2024 12:00 AM CDT) us Scanner OTHER Final Result * LIPID PANEL W REFLEX MEASURED LDL (09/16/2023 7:43 AM [employer]) CHOLESTEROL,TOTAL 198 100 - 199 mg/dL 09/16/2023 4:22 PM [employer] [facility] Comment: Cholesterol, Total Reference Ranges Desirable <200 mg/dL Borderline 200-239 mg/dL High >=240 mg/dL TRIGLYCERIDES 88 <150 mg/dL 09/16/2023 4:22 PM [employer] [facility] HDL CHOLESTEROL 62 >40 mg/dL 4:22 PM [employer] [facility] NON-HDL CHOLESTEROL 136 <145 mg/dl 09/16/2023 4:22 PM [employer] [facility] CHOL/HDL RATIO 3.19 <4.50 09/16/2023 4:22 PM [employer] [facility] LDL CHOLESTEROL 118 <=130 mg/dL 09/16/2023 4:22 PM [employer] [facility] VLDL CHOLESTEROL 18 <=30 mg/dL 09/16/2023 4:22 PM [employer] [facility] PROVIDER ORDERED STATUS RANDOM 09/16/2023 4:22 PM [employer] [facility] Blood BLOOD SPECIMEN / Unknown Venipuncture / Unknown 09/16/2023 7:43 AM [employer] 09/16/2023 7:45 AM [employer] us Koki De MD CHEMISTRY Final Resul t [facility] 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
--- OUTSIDE RECORDS SUMMARY | 2025-03-07 04:59 | XMS_ITS | Data Portability ---
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 [facility] Address [address] [place] [address] Assessment Encounter Date Assessment Date Assessment LastModified [...] Organization Details Recorded Time Thoracic segmental dysfunction 420596442 Active 2024 [facility] Luís Leonard[address], [place], [address] , [facility] 5 20:24:36 Neck pain 24846943 Active 2024 Not Available [facility] 09:55:49 Cervical segmental dysfunction 225142331 Active 2024 [facility] Luís Landon[address], [place], [address] , [facility] 5 20:24:36 Lumbar segmental dysfunction 458215724 Active 2024 [facility] Lu[address] L[address], [place], [address] , [facility] 5 20:24:37 Lesion of lumbar spine 261376275 Active 2024 [facility] Lu[address], [place], [address] , [facility] 5 20:24:37 Low back pain 425921531 Active 2024 [facility] Lu[address], [place], [address] , [facility] 5 10:50:54 Somatic dysfunction of sacral spine 446313979 Active 2024 [facility] Lu[address], [place], [address] , [facility] 5 10:50:54 Problem Notes None recorded. Procedures Surgical History Date Name Laterality Status Provider Name and Address Organization Details Recorded Time 5 80908: Spinal manipulation , 3 to 4 regions completed [facility] [place] [address], [place], [address], [facility] 01/28/2025 10:51:37 5 23715: Spinal manipulation , 3 to 4 regions completed [place], [place] [address], [place], [address], [facility] 01/21/2025 14:53:15 5 59219: Spinal manipulation , 3 to 4 regions completed [place], [place] [address], [place], [address], [facility] 01/14/2025 19:34:32 5 98244: Spinal manipulation , 3 to 4 regions completed [place] [address], [place], [address], [facility] 01/07/2025 20:24:49 Imaging Results None recorded. Procedure [...] SNOMED-CT Code Diagnosis ICD10 Code Diagnosis Note [id number] Jefferson Andrade [place] [facility] & [address] [place] [address] 01/07/2025 10:34:51 01/12/2025 17:01:39 Cervical segmental dysfunction 823137028 M99.01 Neck pain 27268766 M54.2 Thoracic s egmental dysfunction 873139087 M99.02 Lumbar seg mental dysfunction 231196007 M99.03 Lesion of lumbar spine 608223768 M99.01 [id number] Jefferson Andrade DC [facility] & [address] [address] 01/14/2025 10:57:34 01/15/2025 09:08:11 Cervical segmental dysfunction 078468454 M99.01 Neck pain 93484574 M54.2 Thoracic s egmental dysfunction 567264122 M99.02 Lumbar seg mental dysfunction 384394926 M99.03 Lesion of lumbar spine 047021755 M99.01 [id number] Jefferson Andrade [place] [address] [address] 01/21/2025 14:50:40 01/22/2025 09:00:58 Cervical segmental dysfunction 806154713 M99.01 Neck pain 55205317 M54.2 Thoracic s egmental dysfunction 215848002 M99.02 Lumbar seg mental dysfunction 819452414 M99.03 Lesion of lumbar spine 847646974 M99.01 [id number] Jefferson Andrade [place] [facility] & [address] [place] [address] 01/28/2025 09:50:13 01/28/2025 10:53:38 Lumbar segmental dysfunction 196161447 M99.03 Low back pain 702316062 M54.50 Somatic dy sfunction of sacral spine 986051490 M99.04 Thoracic s egmental dysfunction 905238897 M99.02 Health Concerns Section Related Observation LastModified by Organization Detai ls LastModified Time None Recorded Concern Status LastModified by Organization Details LastModified Time None Recorded Advance Directives Directive None Recorded Payers Insurance Date Sequence Insurance Name Policy Number Policy Ridley Covered Member ID Ridley Member ID Guarantor Name 01/07/2025 [facility] Lorenza Steel [id number] Lorenza Steel 01/07/2025 1 [employer]) [id number] 1 Martita Steel [id number] Lorenza Steel Notes Date Note Type Note Provider Name and Address Organization Details Recorded Time 01/07/2025 text/html HPI - Cervical SpineReported by PatientHPIFor location, patient reportsleft. For quality, patient reportsaching. For severity, patient reportsmoderate. For duration, patient reports2 weeks. For timing, patient reportsgradual. For alleviating factors, patient reportsice. For aggravating factors, patient reportssitting. For associated symptoms, patient reportsno numbness/tingling. Jefferson Staley Aishaadrian [address], [place], [address], [facility] 01/07/2025 20:25:16 01/14/2025 text/html HPI - Cervical SpineReported by PatientHPIFor location, patient reportsleft. For quality, patient reportsaching. For severity, patient reportsmoderate. For duration, patient reports2 weeks. For timing, patient reportsgradual. For alleviating factors, patient reportsice. For aggravating factors, patient reportssitting. For associated symptoms, patient reportsno numbness/tingling. Jefferson Andrade[address], [address], [facility] [employer] [facility] 01/14/2025 19:35:18 01/21/2025 text/html HPI - Cervical SpineReported by PatientHPIFor location, patient reportsleft. For quality, patient reportsaching. For severity, patient reportsmoderate. For duration, patient reports2 weeks. For timing, patient reportsgradual. For alleviating factors, patient reportsice. For aggravating factors, patient reportssitting. For associated symptoms, patient reportsno numbness/tingling. Jefferson Andrade [place] [address], [place], [address], [facility] 01/21/2025 14:54:21 01/28/2025 text/html HPI - Lumbar SpineReported by PatientHPIFor location, patient reportsleft. For quality, patient reportsaching. For severity, patient reportsmoderate. For timing, patient reportsmorning. For aggravating factors, patient reportswalking,lifti ng,carrying, andtwisting. For alleviating factors, patient reportsrest. Jefferson Andrade [place] [address], [place], [address], [facility] 01/28/2025 10:51:58 OBGyn Episode No OBEpisode recorded.
--- OUTSIDE RECORDS SUMMARY | 2025-03-07 04:59 | XMS_ITS | Continuity of Care Document ---
Author Organization [place] - [facility] Address [address] [place] [address] Assessment Encounter Date Assessment Date Assessment LastModified [...] Organization Details Recorded Time Thoracic segmental dysfunction 661889884 Active 2024 Jefferson Andrade [place] [address], [place], [address] , [facility] 5 20:24:36 Neck pain 21553057 Active 2024 Not Available [facility] 09:55:49 Cervical segmental dysfunction 714439730 Active 2024 Jefferson Andrade [place] [address] [facility], [place], [address] , [facility] - [facility] 5 20:24:36 Lumbar segmental dysfunction 801020592 Active 2024 Jefferson Andrade [place] [address], [place], [address] , [facility] - [facility] 5 20:24:37 Lesion of lumbar spine 980376459 Active 2024 Jefferson Andrade [place] [address] [facility], [place], [address] , [facility] 5 20:24:37 Low back pain 063451646 Active 2024 Jefferson Andrade [place] [address], [place], [address] , [facility] 5 10:50:54 Somatic dysfunction of sacral spine 424741010 Active 2024 Jefferson Andrade [place] [address] [facility], [place], [address] , [facility] 5 10:50:54 Problem Notes None recorded. Procedures Surgical History Date Name Laterality Status Provider Name and Address Organization Details Recorded Time 5 08231: Spinal manipulation , 3 to 4 regions [facility] [place] [address] [facility], [place], [address], [facility] 01/28/2025 10:51:37 5 07305: Spinal manipulation , 3 to 4 regions completed [facility] Luís [place], [place] [address], [place], [address], [facility] 01/21/2025 14:53:15 5 87916: Spinal manipulation , 3 to 4 regions completed [facility] Luís Andrade [place] [address] [facility], [place], [address], [facility] 01/14/2025 19:34:32 5 18955: Spinal manipulation , 3 to 4 regions completed Jefferson Andrade [place] [address] [facility], [place], [address], [facility] 01/07/2025 20:24:49 Imaging Results None recorded. [...] SNOMED-CT Code Diagnosis ICD10 Code Diagnosis Note [id number] Jefferson Andrade DC [facility] [address] [place] [address] [place] [address] 01/07/2025 10:34:51 01/12/2025 17:01:39 Cervical segmental dysfunction 838563056 M99.01 Neck pain 47550211 M54.2 Thoracic s egmental dysfunction 455980080 M99.02 Lumbar seg mental dysfunction 239339011 M99.03 Lesion of lumbar spine 217912214 M99.01 [id number] Jefferson Andrade [place] [facility] & [address] [place] [address] 01/14/2025 10:57:34 01/15/2025 09:08:11 Cervical segmental dysfunction 148193058 M99.01 Neck pain 59818844 M54.2 Thoracic s egmental dysfunction 537683574 M99.02 Lumbar seg mental dysfunction 289104580 M99.03 Lesion of lumbar spine 230120236 M99.01 [id number] Jefferson Andrade DC [facility] & [address] [place] [address] 01/21/2025 14:50:40 01/22/2025 09:00:58 Cervical segmental dysfunction 574080105 M99.01 Neck pain 89926057 M54.2 Thoracic s egmental dysfunction 177844659 M99.02 Lumbar seg mental dysfunction 553287201 M99.03 Lesion of lumbar spine 119244099 M99.01 [id number] Jefferson Andrade [place] [facility] & [address] [place] [address] 01/28/2025 09:50:13 01/28/2025 10:53:38 Lumbar segmental dysfunction 698298943 M99.03 Low back pain 145401312 M54.50 Somatic dy sfunction of sacral spine 442385842 M99.04 Thoracic s egmental dysfunction 490236778 M99.02 Health Concerns Section Related Observation LastModified by Organization Detai ls LastModified Time None Recorded Concern Status LastModified by Organization Details LastModified Time None Recorded Payers Encounter Date Sequence Insurance Name Policy Number Policy Ridley Covered Member ID Ridley Member ID Guarantor Name 01/28/2025 [facility] Lorenza Steel [id number] Lorenza Steel Notes Date Note Type Note Provider Name and Address Organization Details Recorded Time 01/28/2025 text/html HPI - Lumbar SpineReported by PatientHPIFor location, patient reportsleft. For quality, patient reportsaching. For severity, patient reportsmoderate. For timing, patient reportsmorning. For aggravating factors, patient reportswalking,lift ing,carrying, andtwisting. For alleviating factors, patient reportsrest. Jefferson Andrade [place] [address] [facility], [place], [address], [facility] 01/28/2025 10:51:58 OBGyn Episode No OBEpisode recorded.
--- NOTE | 2025-03-07 05:40 | CRLHL7_ITS ---
For Patients: As a result of the Century Cures Act, medical imaging exams and procedure reports are released immediately into your electronic medical record. You may view this report before your referring provider. If you have questions, please contact your health care provider. INDICATION: Nausea, vomiting and diarrhea. Epigastric abdomen pain. TECHNIQUE: CT abdomen and pelvis acquired with 89 cc Isovue 370 IV contrast. COMPARISON: January 31, 2025. FINDINGS: Lower chest: Unremarkable. Liver: A 4 cm cavernous hemangioma in the inferior right lobe. Otherwise unremarkable. Gallbladder and bile ducts: Cholecystectomy. Pancreas: Mild peripancreatic edema. No focal lesion. Spleen: Unremarkable. Normal in size. No masses. Adrenal glands: Unremarkable. No nodules. Kidneys: A 1 cm nonobstructive stone in an inferior calyx of the right kidney. Kidneys otherwise unremarkable. GI tract: Unremarkable. Normal in caliber. No sign of mass or inflammation. Normal appendix. Vasculature: Abdominal aorta is normal in caliber. Mesenteric arteries are patent. Lymph nodes: No lymphadenopathy. Peritoneum/Abdominal Wall: Unremarkable. No sign of mass or infiltration. No free air or significant free fluid. Pelvis: Unremarkable. Bones: Unremarkable for age. IMPRESSION: Acute uncomplicated pancreatitis of moderate severity. Please note that all CT scans at this facility use dose modulation, iterative reconstruction, and/or weight-based dosing when appropriate to reduce radiation dose to as low as reasonably achievable. Dictated by Derik Vásquez MD @ 03/07/2025 6:49:01 AM (Electronically Signed)
[2025-03-07] MEDS: ONDANSETRON 2 MG/ML inj 4 MG IVP (05:47)
[2025-03-07] MEDS: LACTATED RINGERS 1000 ML 1,000 ML IV (05:47)
[2025-03-07 05:57] LABS: Creatinine, Point-of-Care* 0.8 mg/dl (0.6-1.3)
[2025-03-07 05:59] LABS: Hematocrit 44.4 % (33.0-51.0); Hemoglobin* 14.6 gm/dL (12.0-16.0); Immature Granulocytes Pct Auto 0.3 %; Mean Corpuscular HGB Conc 33 gm/dL (32-36); Mean Corpuscular Hemoglobin 29 pg (26-34); Mean Corpuscular Volume 87 fL (80-100); RDW Coefficient of Variation % 12.6 % (11.5-15.5); Red Blood Count 5.10 m/uL (4.00-5.20); White Blood Count* 20.77 K/uL (4.50-11.00)
--- NOTE | 2025-03-07 05:59 | ED.GENADULT ---
HPI - General Adult General Chief complaint: Abdominal Pain Stated complaint: nausea vomiting Time Seen by Provider: 03/07/25 05:29 Source: patient and EMS Mode of arrival: EMS Limitations: no limitations History of Present Illness HPI narrative: 64-year-old female presents to the emergency department for evaluation of abdominal pain, mainly epigastric in nature for the past 2-1/2 hours with gas and diarrhea starting about 3-1/2 hours ago. No trauma or injury. Called 911 due to severity. Is also having vomiting, partially digested food and bilious. No bloody stools or hematemesis. Has had monthly episodes similar to this since her cholecystectomy 3 months ago. Reports that this was otherwise uncomplicated. Achy constant pain mainly in the epigastric region is now radiating a little bit to the back. Was given fentanyl and Zofran via the EMS team and pain improved nausea somewhat but not completely. No recent abdominal imaging, no recent labs. No prior history of bowel obstructions. Cholecystectomy as stated above 3 months ago has also had an inguinal hernia repair and a vaginal hysterectomy, denies any other abdominal surgeries. No gynecological changes. No other systemic symptoms of illness, no dysuria. Did not try any other interventions prior to coming to ED, as she was unable to hold down any medications. Patient reports her past medical history is notable for history of GERD and IBS. She also has a history of sleep apnea, abnormal liver enzymes and prior mental health issues. Reports that her medications are appropriately up-to-date. Multiple allergies noted and reviewed. Prior cholecystectomy notes reviewed. Nonsmoker. ROS is notable for the GI symptoms and some generalized weakness as above, otherwise denies times 12 systems. Related Data Home Medications ?Medication ?Instructions ?Recorded ?Confirmed cholecalciferol (vitamin D3) 50 2,000 unit PO DAILY 02/28/22 02/25/25 mcg (2,000 unit) tablet SAMe butanedisulfonate 400 ea PO 12/04/24 02/25/25 mg-betaine 600 mg oral powder packet acetaminophen 650 mg 650 mg PO Q12H 12/04/24 02/25/25 tablet,extended release (Tylenol Arthritis Pain) multivitamin 1 tab PO QAM 12/04/24 02/25/25 iqqyibreebkvz-HF-qdcbqdmcqqtnb 5 ml PO 12/04/24 02/25/25 mg-10 mg-325 mg/15 mL oral liquid (Vicks DayQuil Cold and Flu Relief) tamsulosin 0.4 mg capsule (Flomax) 0.4 mg PO DAILY 12/04/24 02/25/25 escitalopram oxalate 10 mg tablet 10 mg PO DAILY 12/14/24 02/25/25 fexofenadine 180 mg tablet 180 mg PO DAILY 12/14/24 02/25/25 (Carmenza Allergy) phentermine 30 mg capsule 30 mg PO DAILY 12/14/24 02/25/25 trazodone 50 mg tablet 50 - 100 mg PO HS 12/14/24 02/25/25 Previous Rx's ?Medication ?Instructions ?Recorded fluorouracil 5 % topical cream 1 applic topical .UD #40 grams 06/06/23 albuterol sulfate 90 mcg/actuation 2 puff inhalation Q6H PRN 01/28/24 aerosol inhaler bronchospasm #8.5 grams epinephrine 0.3 mg/0.3 mL 0.3 mg (0.3 mL) IM .As Needed PRN 01/28/24 injection, auto-injector anaphylaxis #2 ea estradiol 0.01% (0.1 mg/gram) 1 g vaginal QWEEK #42.5 grams 01/28/24 vaginal cream omeprazole 20 mg capsule,delayed 20 mg PO DAILY #90 caps 01/28/24 release triamcinolone acetonide 0.1 % 1 applic topical BID PRN skin 01/28/24 topical cream reaction #80 grams budesonide-formoterol HFA 160 2 puff inhalation BID #10.2 grams 02/06/24 mcg-4.5 mcg/actuation aerosol inhaler (Symbicort) finasteride 5 mg tablet 5 mg PO DAILY #90 tabs 04/23/24 albuterol sulfate 2.5 mg/3 mL 2.5 mg (3 mL) inhalation Q4-6H PRN 01/11/25 (0.083 %) solution for nebulization shortness of breath or wheezing #90 mL albuterol sulfate 2.5 mg/3 mL 2.5 mg (3 mL) inhalation Q4-6H PRN 01/15/25 (0.083 %) solution for nebulization shortness of breath or wheezing #180 mL prednisone 10 mg tablet 10 mg PO DIRECTED #27 tabs 01/15/25 estradiol 0.05 mg/24 hr semiweekly 1 patch transdermal .Twice Weekly 02/16/25 transdermal patch #8 ea Allergies Allergy/AdvReac Type Severity Reaction Status Date / Time bupropion Allergy Unknown Tremors Verified 03/07/25 06:24 Cephalosporins Allergy Unknown GI upset Verified 03/07/25 06:24 latex Allergy Unknown Rash Verified 03/07/25 06:24 promethazine Allergy Unknown Legs jump Verified 03/07/25 06:24 Macrolide Antibiotics Allergy Gastrointestinal Verified 03/07/25 06:24 Upset venlafaxine Allergy Verified 03/07/25 06:24 erythromycin base AdvReac Gastrointestinal Verified 03/07/25 06:24 Upset PFSH PFSH Medical History Biliary colic ?K80.50 - Calculus of bile duct without cholangitis or cholecystitis without obstruction (ICD-10) Chronic hepatitis ?K73.9 - Chronic hepatitis, unspecified (ICD-10) Sciatica ?M54.30 - Sciatica, unspecified side (ICD-10) Sleep apnea ?G47.30 - Sleep apnea, unspecified (ICD-10) Hair thinning ?L65.9 - Nonscarring hair loss, unspecified (ICD-10) Tear of medial meniscus of right knee ?S83.241A - Other tear of medial meniscus, current injury, right knee, initial encounter (ICD-10) Osteoarthritis of left knee ?M17.12 - Unilateral primary osteoarthritis, left knee (ICD-10) Osteoarthritis of right knee ?M17.11 - Unilateral primary osteoarthritis, right knee (ICD-10) Eczema ?L30.9 - Dermatitis, unspecified (ICD-10) Binge eating ?R63.2 - Polyphagia (ICD-10) Irritable bowel syndrome ?K58.9 - Irritable bowel syndrome without diarrhea (ICD-10) Actinic keratosis ?L57.0 - Actinic keratosis (ICD-10) Left carpal tunnel syndrome ?G56.02 - Carpal tunnel syndrome, left upper limb (ICD-10) GERD (gastroesophageal reflux disease) ?K21.9 - Gastro-esophageal reflux disease without esophagitis (ICD-10) On postmenopausal hormone replacement therapy ?Z79.890 - Hormone replacement therapy (ICD-10) Environmental and seasonal allergies ?J30.89 - Other allergic rhinitis (ICD-10) Difficulty sleeping ?G47.9 - Sleep disorder, unspecified (ICD-10) Depression ?F32.A - Depression, unspecified (ICD-10) Asthma ?J45.909 - Unspecified asthma, uncomplicated (ICD-10) 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 - Guillain-[place] syndrome (ICD-10) LAUREANO (obstructive sleep apnea) ?G47.33 - Obstructive sleep apnea (adult) (pediatric) (ICD-10) Recurrent subluxation of left temporomandibular joint ?M24.49 - Recurrent dislocation, other specified joint (ICD-10) Surgical History Status post laparoscopic cholecystectomy ?Z90.49 - Acquired absence of other specified parts of digestive tract (ICD-10) H/O gastrostomy ?Z98.890 - Other specified postprocedural states (ICD-10) H/O tracheostomy ?Z98.890 - Other specified postprocedural states (ICD-10) H/O hernia repair ?Z98.890 - Other specified postprocedural states (ICD-10) ?Z87.19 - Personal history of other diseases of the digestive system (ICD-10) History of vaginal hysterectomy ?Z90.710 - Acquired absence of both cervix and uterus (ICD-10) Family History Mother High blood pressure Osteoarthritis Osteoporosis Father Atrial fibrillation Melanoma Renal cell carcinoma Cancer Family history of alcohol abuse Heart disease Paternal Grandmother Stroke Atrial fibrillation Diabetes Son Diabetes Brother FHx: cancer of prostate Other Alcohol dependence Drug dependence Family history of psychiatric disorder Family history of substance abuse Social History Narrative: . 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 No drug use. 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 She exercises intermittently. What is your current living situation?: I presently have a place to live Problems where you live: no known problems Problems where you live details: none In the past 12 months, utilities in danger of being shut off: no In past 12 months, lack of transportation kept you from medical appts, meetings, work, or getting things needed for daily living: no In the past 12 mos, have been you worried that your food would run out before you had money to buy more?: never true In the past 12 mos, the food you bought just didn't last and you didn't have money to buy more?: never true Highest level of school completed/degree received: Doctoral degree Smoking Status: Never smoker Do you use any of these nicotine containing products: None Second hand tobacco smoke exposure: No How often do you have a drink containing alcohol: monthly or less How often do you have six or more drinks on one occasion: Never AUDIT-C Alcohol total score: 1 Non-prescribed substance use: denies use Caffeine: No How often does anyone, including family, friends and others, physically hurt you: never How often does anyone, including family, friends and others, insult or talk down to you: never How often does anyone, including family, friends and others, threaten you with harm: never How often does anyone, including family, friends and others, scream or curse at you: never service: No Exam Const: Vital Signs, click to edit/add: Vital Signs - 24 hr 03/07/25 05:03 03/07/25 06:28 Temperature 97.4 F L Pulse Rate [Pulse Oximeter] 76 93 Respiratory Rate 16 18 Blood Pressure [Ri ght Upper Arm] 174/119 H 175/112 H Pulse Oximetry 95 97 Oxygen Delivery Me thod Room Air Room Air Documenting provider has reviewed patient's vital signs: yes Other: Diaphoretic, weak appearing. HENMT: Common normals: normocephalic Head and scalp: normocephalic Other: Dry oral membranes but otherwise mucosa appears normal. Lips are acyanotic. Eye: Common normals: conjunctivae normal and no scleral icterus General eye: normal appearance of both eyes Conjunctiva: conjunctiva(e) normal Neck & C-Spine: General: normal visual inspection Resp: Common normals: normal respiratory effort, no use of accessory muscles and clear to auscultation bilaterally Effort & inspection: able to speak in complete sentences Auscultation: clear to auscultation bilaterally Cardio: Common normals: regular rate and regular rhythm Rate: regular rate Rhythm: regular rhythm Other: Slight mid systolic click, S2 is normal. No gallop. GI: Other: Abdomen appears mildly distended. Healed laparoscopic scars noted. Bowel sounds are hyperactive in the left upper quadrant and hypoactive elsewhere. Tender to palpation of the epigastrium and left upper quadrant. No guarding. No obvious mass. Back & Pelvis: Common normals: thoracic and lumbar spine normal to inspection Extremity: Common normals: normal to inspection, full ROM, normal capillary refill and no pedal edema Psych: Common normals: cooperative and affect normal Attitude: engaged Insight: insight good Judgement: judgment good Skin: Common normals: no rashes or lesions noted General skin exam: no rashes or lesions noted Course Course ED Course: 64-year-old female with distended abdomen, abdominal pain and vomiting. Differential diagnosis suspicious for obstruction. Cannot exclude mass, pancreatitis, gallbladder surgery complication, ischemic bowel, viral syndrome, colitis, internal hernia, volvulus, gynecological issue, amongst many others. Recommend point of care creatinine so we can quickly proceed with CT of the abdomen. Peripheral IV has been placed. Fentanyl starting to wear off, will give 0.5 mg of IV Dilaudid. I do not think that any anti nausea medicine will be particularly effective but I would like to try an additional dose of Zofran. Typical intra-abdominal labs. Will bolus 1 L of LR, await findings. Update: Review of the records does show that she has been evaluated in both december and January for similar symptoms with no significant pertinent findings. Reevaluation(s) Time of Reevaluation #1: 07:20 Reevaluation #1: Counseled patient on findings. We are still waiting on the lipase level and I did call to confirm from lab that it had to be diluted and that is why it is not reported. That means it must be over 20,000. Certainly the CT is suggestive of acute pancreatitis also. Is quite curious as to why this is happening. She is not drinking alcohol, she does not have a history of significantly elevated lipids. I do wonder if there was potentially an injury to the pancreatic duct or common bile duct from her stone retrieval or the stent placement. She has had the suspicious episodes several times now. I have started her on maintenance IV fluids and we still have Dilaudid ordered p.r.n. but I think she would benefit from hospitalization for this pancreatitis and also should have an MRCP. Update: I have discussed my thoughts and findings with the hospitalist and they have accepted admission. I do not see any indications for antibiotics at this time but would certainly have a low threshold for starting those if fever or any hypotension develops. Vital Signs Vital signs: Initial Vital Signs Temperature 97.4 F L 03/07/25 05:03 Temperature Source Oral 03/07/25 05:03 Pulse Rate 76 03/07/25 05:03 Respiratory Rate 16 03/07/25 05:03 Blood Pressure 174/119 H 03/07/25 05:03 Blood Pressure Mean 137 H 03/07/25 05:03 Blood Pressure Position High-Fowlers 03/07/25 05:03 Pulse Oximetry 95 03/07/25 05:03 Oxygen Delivery Method Room Air 03/07/25 05:03 Vital Signs Temperature 97.4 F L 03/07/25 05:03 Pulse Rate 76 03/07/25 05:03 Respiratory Rate 16 03/07/25 05:03 Blood Pressure 174/119 H 03/07/25 05:03 Pulse Oximetry 95 03/07/25 05:03 Oxygen Delivery Method Room Air 03/07/25 05:03 Temperature 97.4 F L 03/07/25 05:03 Pulse Rate 93 03/07/25 06:28 Respiratory Rate 18 03/07/25 06:28 Blood Pressure 175/112 H 03/07/25 06:28 Pulse Oximetry 97 03/07/25 06:28 Oxygen Delivery Method Room Air 03/07/25 06:28 Medications Administered Medications: Generic Name Dose Route Start Last Admin Trade Name Freq PRN Reason Stop Dose Admin Hydromorphone HCl 0.5 mg 03/07/25 05:40 03/07/25 07:19 Hydromorphone 0.5 Mg/0.5 Ml Inj IVP 0.5 mg Q1H PRN Administration Pain Lactated Ringer's 1,000 mls @ 125 mls/hr 03/07/25 07:05 03/07/25 07:19 Lactated Ringers 1000 Ml IV 125 mls/hr .Q8H CARRI Administration Discontinued Medications Generic Name Dose Route Start Last Admin Trade Name Freq PRN Reason Stop Dose Admin Hydromorphone HCl 0.5 mg 03/07/25 05:40 03/07/25 05:47 Hydromorphone 0.5 Mg/0.5 Ml Inj IVP 03/07/25 05:41 0.5 mg ONCE ONE Administration Lactated Ringer's 1,000 mls @ 1,000 mls/hr 03/07/25 05:40 03/07/25 06:56 Lactated Ringers 1000 Ml IV 03/07/25 06:39 Infused .Q1H ONE Infusion Ondansetron HCl 4 mg 03/07/25 05:40 03/07/25 05:47 Ondansetron 2 Mg/Ml Inj IVP 03/07/25 05:41 4 mg ONCE ONE Administration Medical Decision Making Lab Data Lab results reviewed: Yes I reviewed the patient's lab results Lab results narrative: Significant leukocytosis, lipase is elevated and needs to be diluted but is not fully reported as of yet. There are no signs of biliary obstruction or major electrolyte abnormalities. Labs: Lab Results 03/07/25 03/07/25 03/07/25 Range/Units 05:40 05:50 06:34 WBC 20.77 H (4.50-11.00) K/uL RBC 5.10 (4.00-5.20) m/uL Hgb 14.6 (12.0-16.0) gm/dL Hct 44.4 (33.0-51.0) % MCV 87 (80-100) fL MCH 29 (26-34) pg MCHC 33 (32-36) gm/dL RDW Coeff of Jim 12.6 (11.5-15.5) % Plt Count 359 (140-440) K/uL Neut % (Auto) 87.2 H (42.0-72.0) % Lymph % (Auto) 5.4 L (20-44) % [place] % (Auto) 6.5 (0.0-11.0) % Eos % (Auto) 0.5 (0.0-7.0) % Baso % (Auto) 0.1 (0.0-3.0) % Neut # (Auto) 18.10 H (1.7-7.0) K/uL Lymph # (Auto) 1.10 (0.90-2.90) K/uL [place] # (Auto) 1.40 H (0.00-0.90) K/UL Eos # (Auto) 0.10 (0.00-0.50) K/uL Baso # (Auto) 0.00 (0.00-0.30) K/uL Abs Immat Gran (auto) 0.10 (0.00-0.30) K/uL Imm/Tot Granulo (auto) 0.3 % Sodium 141 (135-149) mmol/L Potassium 3.5 L (3.6-5.1) mmol/L Chloride 103 (96-114) mmol/L Carbon Dioxide 26 (20-32) mmol/L Anion Gap 12 (7-15) mEq/L BUN 21 (7-30) mg/dL Creatinine 0.7 (0.5-1.5) mg/dL Estimated Creat Clear 49.72 Estimated GFR 97 ml/min Glucose 158 H (60-115) mg/dL Lactate 1.2 (0.5-1.9) mmol/L Calcium 10.0 (8.4-10.6) mg/dL Total Bilirubin 0.6 (0.1-1.5) mg/dL AST 47 H (12-35) U/L ALT 35 (4-35) U/L Alkaline Phosphatase 93 (40-150) U/L C-Reactive Protein < 0.5 L (0.5-1.0) mg/dL Total Protein 7.7 (6.0-8.3) g/dL Albumin 4.5 (3.3-5.0) g/dL Procalcitonin 0.04 (<0.50) ng/mL Urine Color Yellow (Yellow) Urine Appearance Clear (Clear) Urine pH 8.0 (5.0-8.5) Ur Specific [place] 1.015 (1.000-1.030) Urine Protein 1+ A (Negative) Urine Glucose (UA) Negative (Negative) Urine Ketones Trace A (Negative) Urine Blood Negative (Negative) Urine Nitrite Negative (Negative) Urine Bilirubin Negative (Negative) Urine Urobilinogen 0.2 (0.2-1.0) Ur Leukocyte Esterase Negative (Negative) Urine RBC 0-2 (0-2) Urine WBC 5-10 A (0-5) Ur Squamous Epith Cells Few (None-Few) Urine Bacteria Few A (None) POC Creatinine 0.8 (0.6-1.3) mg/dl Imaging Data CT scan - abdomen: Attestation: I have reviewed the pertinent imaging results. My impression: Inflamed pancreas, some reactive changes around the 1st part of the small intestine as well. Nonobstructive kidney stone. No perforation or obstruction. Radiologist's impression: IMPRESSION: Acute uncomplicated pancreatitis of moderate severity. Please note that all CT scans at this facility use dose modulation, iterative reconstruction, and/or weight-based dosing when appropriate to reduce radiation dose to as low as reasonably achievable. Dictated by Derik Vásquez MD @ 03/07/2025 6:49:01 AM Discharge Plan Discharge Clinical Impression: Acute pancreatitis Patient Disposition: Admitted As Inpatient Condition: Stable
[2025-03-07 06:10] LABS: Lactate Sepsis w/Reflex* 1.2 mmol/L (0.5-1.9)
[2025-03-07 06:17] LABS: Immature Granulocytes Abs Auto 0.10 K/uL (0.00-0.30); Lymphocytes Absolute Auto 1.10 K/uL (0.90-2.90); Slide Review Reflex No
[2025-03-07 06:57] LABS: Appearance Urine Clear (Clear)
[2025-03-07 07:17] LABS: Albumin* 4.5 g/dL (3.3-5.0); Chloride* 103 mmol/L (96-114); Sodium* 141 mmol/L (135-149)
[2025-03-07 07:18] LABS: Potassium* 3.5 mmol/L (3.6-5.1)
[2025-03-07] MEDS: LACTATED RINGERS 1000 ML 1,000 ML 125 ML IV ×2 (07:19→17:34)
[2025-03-07 07:20] LABS: Alanine Aminotransferase* 35 U/L (4-35); Aspartate Amino Transferase* 47 U/L (12-35); Blood Urea Nitrogen* 21 mg/dL (7-30); Creatinine* 0.7 mg/dL (0.5-1.5); Est. Creatinine Clearance* 49.72; Estimated Glomerular Filt Rate 97 ml/min
[2025-03-07 07:21] LABS: Alkaline Phosphatase* 93 U/L (40-150); Anion Gap 12 mEq/L (7-15); Bilirubin Total* 0.6 mg/dL (0.1-1.5); Calcium* 10.0 mg/dL (8.4-10.6); Carbon Dioxide* 26 mmol/L (20-32); Glucose* 158 mg/dL (60-115); Total Protein* 7.7 g/dL (6.0-8.3)
[2025-03-07 07:37] LABS: Procalcitonin* 0.04 ng/mL (<0.50)
--- NOTE | 2025-03-07 08:04 | MR_ITS ---
Patient: SERENITY ESTRADA Facility:?[facility] Patient ID:?[id number] Site Patient ID:?[id number]. Site :?[id number] Study:?MRI-Abdomen/Pelvis MRCP WO-03/07/2025 5:23:28 PM Ordering Physician:?Yeison Alcantara Final Report: INDICATION: Acute pancreatitis. Post cholecystectomy. COMPARISON: CT scans of the abdomen and pelvis dated 07 March 2025 and 31 January 2025. TECHNIQUE: MRCP with heavily T2 weighted 2D and 3D MRCP images. T1 in and out of phase and T2 weighted images also performed. No gadolinium administered. Findings : Minimal diffuse fatty infiltration of the liver. 5.6 x 4.2 x 3.9 cm hemangioma in segment 5 and 6 of the liver is better evaluated on the previous CT scans. No other focal abnormalities identified in the visualized portions of the liver, spleen, adrenal glands, and kidneys. No hydronephrosis. Diffuse pancreatic/peripancreatic edema. No intra or extrahepatic bile duct dilation with the common bile duct measuring 6 mm. No filling defects in the biliary system. Normal size of the main pancreatic duct. Cholecystectomy. Impression : 1. Diffuse pancreatic/peripancreatic edema represents acute pancreatitis. No evidence of pancreatic necrosis on the previous CT scan. 2. No bile duct dilation. No choledocholithiasis. Normal size of the main pancreatic duct. Dictated by Rex Rodriguez MD @ 03/07/2025 6:04:15 PM (Electronic Signature)
[2025-03-07 08:06] LABS: Cholesterol* 241 mg/dL (90-199); HDL Cholesterol* 63 mg/dL (>=50); Triglycerides* 189 mg/dL (40-149)
--- NOTE | 2025-03-07 08:43 | PM.IMHP1 ---
Assessment and Plan Assessment and plan (1) Acute pancreatitis: Problem comment: -BISAP score 2. 2+SIRS (WBC and HR) and age >60 -intermediate risk for severe disease, organ failure, mortality -LR fluid, enteral feeds when able, MRCP, pain management, close monitoring Status: Acute (2) Status post laparoscopic cholecystectomy: Problem comment: 12/07/2024, Dr. Carnes. transferred to [facility] (12/14/24) 7 days post op for ERCP, retained stone Status: Acute (3) LAUREANO (obstructive sleep apnea): Problem comment: -History of sleep apnea treated with an oral appliance which caused TMJ problems and no longer fit so she no longer uses it. 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 -12/07 uncomplicated laparoscopic cholecystectomy with Dr. Carnes -12/13 admitted here with recurrent abdominal pain. Concern for choledocholithiasis -12/14 transferred to [facility] for an ERCP. Dr. Dumas we removed a 4 mm stone in the common bile duct via biliary sphincterotomy and balloon extraction. One pancreatic stent was placed into the ventral pancreatic duct. She was released later that day. -12/17 back to our ER. Transferred again to [place]. There was some thought because of very quick resolution of her symptoms that maybe she had past the stent that had been placed in her pancreas. -12/30 unclear abdominal pain that resolved quickly without admission or transfer -01/31 unclear abdominal pain that resolved quickly without admission or transfer -today acute pancreatitis ER COURSE: CT scan showing acute uncomplicated pancreatitis. Morphine, fluids. Admitted for treatment of acute pancreatitis. Etiology is unclear but may be related to previous procedures, ERCP on 12/14/2024. CODE STATUS: FULL CODE PCP: Koki De EMERGENCY CONTACT PLAN: Her spouse I've updated the PFSH, medications and allergies in the [facility] tabs. INVESTIGATIONS: LABS/MICRO/ECG/IMAGING Afebrile. Hypertensive. Minimally tachycardic. Respiratory rate unlabored. However mildly hypoxic requiring 1 to 1.5 L per nasal cannula oxygen CBC shows a markedly elevated white blood cell count at 20.77 Hemoglobin 14, platelets 359. Neutrophils 87%. Chemistries reveal a mildly low potassium at 3.5. Blood sugar 158. Essentially normal LFTs, normal bilirubin CRP is actually undetectable, procalcitonin 0.04 Triglycerides are only 189. LDL 140 Lipase 31,000 UA shows trace ketones, 1+ protein some 5-10 white blood cells. Urine culture pending. EKG is normal sinus rhythm with a rate of 88 CT abdomen pelvis Acute uncomplicated pancreatitis of moderate severity. REVIEW OF SYSTEMS: 12-point ROS completed with patient and negative unless otherwise stated in HPI or below. PHYSICAL EXAM: CONSTITUTIONAL: Conversive, good historian. A/O. Knows setting and context. GENERAL: Well-developed and above ideal body weight, in no respiratory distress. VITAL SIGNS: see record. HEENT: Sclerae are anicteric. No petechiae. CARDIAC: rhythm is regular. There is no S3 or rub. No harsh murmurs. Extremities show trace edema with symmetrical pulses. PULM: good air entry with no wheeze. ABDOMEN: Mildly distended, generally tender worse in the mid epigastric region. No guarding. NEURO: Speech is fluent. A brief neurologic exam is negative. SKIN: No rashes, petechiae, concerning changes PSYCHIATRIC: Euthymic. [facility] DVT: Lovenox GI: PO intake, IV PPI Time spent: Today I spent 75 minutes seeing the patient, discussing the patient with ER staff, reviewing [facility] and [facility] notes/diagnostics, discussing the care plan with our care time that includes social work, PT/OT, pharmacy, RT, long-term and documenting my impressions and plan in the medical record. MEDICAL NECESSITY FOR HOSPITALIZATION Anticipated midnights in the hospital: Admitting diagnosis: Acute pancreatitis Risk of morbidity and mortality: high Acuity is characterized as high and reflected in: Advanced age, SIRS signs with tachycardia and elevated white blood cell count at admission. Unclear etiology. Previous history of instrumentation and stenting. Need for IV fluids, IV pain medicine, IV analgesics. This patient will require hospital services as outlined in the assessment and plan in order to stabilize and be safely discharged to a lower level of care. Because of the risk and acuity as described above, this patient cannot be managed at a lower level of care. LENGTH OF STAY: 2 IP ? Anticipated LOS>2 midnights due to acuity of clinical presentation requiring inpatient level of care Medical Decision Making Medical Decision Making Has patient completed a Health Care Directive: No PFSH [facility] Medical History (Updated 03/07/25 @ 08:57 by Maricruz Latham MD) Biliary colic ?K80.50 - Calculus of bile duct without cholangitis or cholecystitis without obstruction (ICD-10) Chronic hepatitis ?K73.9 - Chronic hepatitis, unspecified (ICD-10) Sciatica ?M54.30 - Sciatica, unspecified side (ICD-10) Sleep apnea ?G47.30 - Sleep apnea, unspecified (ICD-10) Hair thinning ?L65.9 - Nonscarring hair loss, unspecified (ICD-10) Tear of medial meniscus of right knee ?S83.241A - Other tear of medial meniscus, current injury, right knee, initial encounter (ICD-10) Osteoarthritis of left knee ?M17.12 - Unilateral primary osteoarthritis, left knee (ICD-10) Osteoarthritis of right knee ?M17.11 - Unilateral primary osteoarthritis, right knee (ICD-10) Eczema ?L30.9 - Dermatitis, unspecified (ICD-10) Binge eating ?R63.2 - Polyphagia (ICD-10) Irritable bowel syndrome ?K58.9 - Irritable bowel syndrome without diarrhea (ICD-10) Actinic keratosis ?L57.0 - Actinic keratosis (ICD-10) Left carpal tunnel syndrome ?G56.02 - Carpal tunnel syndrome, left upper limb (ICD-10) GERD (gastroesophageal reflux disease) ?K21.9 - Gastro-esophageal reflux disease without esophagitis (ICD-10) On postmenopausal hormone replacement therapy ?Z79.890 - Hormone replacement therapy (ICD-10) Environmental and seasonal allergies ?J30.89 - Other allergic rhinitis (ICD-10) Difficulty sleeping ?G47.9 - Sleep disorder, unspecified (ICD-10) Depression ?F32.A - Depression, unspecified (ICD-10) Asthma ?J45.909 - Unspecified asthma, uncomplicated (ICD-10) Guillain-[place] syndrome (~1996) ?G61.0 - Guillain-[place] syndrome (ICD-10) LAUREANO (obstructive sleep apnea) ?G47.33 - Obstructive sleep apnea (adult) (pediatric) (ICD-10) Recurrent subluxation of left temporomandibular joint ?M24.49 - Recurrent dislocation, other specified joint (ICD-10) Surgical History (Updated 03/07/25 @ 08:57 by Maricruz Latham MD) Status post laparoscopic cholecystectomy ?Z90.49 - Acquired absence of other specified parts of digestive tract (ICD-10) H/O gastrostomy ?Z98.890 - Other specified postprocedural states (ICD-10) H/O tracheostomy ?Z98.890 - Other specified postprocedural states (ICD-10) H/O hernia repair ?Z98.890 - Other specified postprocedural states (ICD-10) ?Z87.19 - Personal history of other diseases of the digestive system (ICD-10) History of vaginal hysterectomy ?Z90.710 - Acquired absence of both cervix and uterus (ICD-10) Family History Mother High blood pressure Osteoarthritis Osteoporosis Father Atrial fibrillation Melanoma Renal cell carcinoma Cancer Family history of alcohol abuse Heart disease Paternal Grandmother Stroke Atrial fibrillation Diabetes Son Diabetes Brother FHx: cancer of prostate Other Alcohol dependence Drug dependence Family history of psychiatric disorder Family history of substance abuse Social History Narrative: . 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 No drug use. 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 She exercises intermittently. What is your current living situation?: I presently have a place to live Problems where you live: no known problems Problems where you live details: none In the past 12 months, utilities in danger of being shut off: no In past 12 months, lack of transportation kept you from medical appts, meetings, work, or getting things needed for daily living: no In the past 12 mos, have been you worried that your food would run out before you had money to buy more?: never true In the past 12 mos, the food you bought just didn't last and you didn't have money to buy more?: never true Highest level of school completed/degree received: Doctoral degree Smoking Status: Never smoker Do you use any of these nicotine containing products: None Second hand tobacco smoke exposure: No How often do you have a drink containing alcohol: monthly or less How often do you have six or more drinks on one occasion: Never AUDIT-C Alcohol total score: 1 Non-prescribed substance use: denies use Caffeine: No How often does anyone, including family, friends and others, physically hurt you: never How often does anyone, including family, friends and others, insult or talk down to you: never How often does anyone, including family, friends and others, threaten you with harm: never How often does anyone, including family, friends and others, scream or curse at you: never service: No Meds Home Medications and Allergies Home Medications ?Medication ?Instructions ?Recorded ?Confirmed ?Type cholecalciferol (vitamin D3) 50 2,000 unit PO DAILY 02/28/22 03/07/25 History mcg (2,000 unit) tablet fluorouracil 5 % topical cream 1 applic topical .UD #40 grams 06/06/23 03/07/25 Rx albuterol sulfate 90 mcg/actuation 2 puff inhalation Q6H PRN 01/28/24 03/07/25 Rx aerosol inhaler bronchospasm #8.5 grams epinephrine 0.3 mg/0.3 mL 0.3 mg (0.3 mL) IM .As Needed PRN 01/28/24 03/07/25 Rx injection, auto-injector anaphylaxis #2 ea estradiol 0.01% (0.1 mg/gram) 1 g vaginal QWEEK #42.5 grams 01/28/24 03/07/25 Rx vaginal cream omeprazole 20 mg capsule,delayed 20 mg PO DAILY #90 caps 01/28/24 03/07/25 Rx release triamcinolone acetonide 0.1 % 1 applic topical BID PRN skin 01/28/24 03/07/25 Rx topical cream reaction #80 grams budesonide-formoterol HFA 160 2 puff inhalation BID #10.2 grams 02/06/24 03/07/25 Rx mcg-4.5 mcg/actuation aerosol inhaler (Symbicort) finasteride 5 mg tablet 5 mg PO DAILY #90 tabs 04/23/24 03/07/25 Rx SAMe butanedisulfonate 400 ea PO 12/04/24 02/25/25 History mg-betaine 600 mg oral powder packet acetaminophen 650 mg 650 mg PO Q12H 12/04/24 03/07/25 History tablet,extended release (Tylenol Arthritis Pain) multivitamin 1 tab PO QAM 12/04/24 03/07/25 History tamsulosin 0.4 mg capsule (Flomax) 0.4 mg PO DAILY 12/04/24 03/07/25 History escitalopram oxalate 10 mg tablet 10 mg PO DAILY 12/14/24 03/07/25 History fexofenadine 180 mg tablet 180 mg PO DAILY 12/14/24 03/07/25 History (Carmenza Allergy) phentermine 30 mg capsule 30 mg PO DAILY 12/14/24 03/07/25 History trazodone 50 mg tablet 50 - 100 mg PO HS 12/14/24 03/07/25 History albuterol sulfate 2.5 mg/3 mL 2.5 mg (3 mL) inhalation Q4-6H PRN 01/15/25 03/07/25 Rx (0.083 %) solution for nebulization shortness of breath or wheezing #180 mL prednisone 10 mg tablet 10 mg PO DIRECTED #27 tabs 01/15/25 02/25/25 Rx estradiol 0.05 mg/24 hr semiweekly 1 patch transdermal .Twice Weekly 02/16/25 03/07/25 Rx transdermal patch #8 ea Allergies Allergy/AdvReac Type Severity Reaction Status Date / Time bupropion Allergy Unknown Tremors Verified 03/07/25 06:24 Cephalosporins Allergy Unknown GI upset Verified 03/07/25 06:24 latex Allergy Unknown Rash Verified 03/07/25 06:24 promethazine Allergy Unknown Legs jump Verified 03/07/25 06:24 Macrolide Antibiotics Allergy Gastrointestinal Verified 03/07/25 06:24 Upset venlafaxine Allergy Verified 03/07/25 06:24 erythromycin base AdvReac Gastrointestinal Verified 03/07/25 06:24 Upset Exam Const: Vital Signs, click to edit/add: Vital Signs - 24 hr 03/07/25 05:03 03/07/25 06:28 Temperature 97.4 F L Pulse Rate [Pulse Oximeter] 76 93 Respiratory Rate 16 18 Blood Pressure [Ri ght Upper Arm] 174/119 H 175/112 H Pulse Oximetry 95 97 Oxygen Delivery Me thod Room Air Room Air Hospitalist - H&P: Result Labs Labs: Short CBC 03/07/25 Range/Units 05:50 WBC 20.77 H (4.50-11.00) K/uL Hgb 14.6 (12.0-16.0) gm/dL Hct 44.4 (33.0-51.0) % Plt Count 359 (140-440) K/uL BMP 03/07/25 05:50 Sodium 141 Potassium 3.5 L Chloride 103 Carbon Dioxide 26 BUN 21 Creatinine 0.7 Glucose 158 H Calcium 10.0 Liver Function 03/07/25 Range/Units 05:50 Total Bilirubin 0.6 (0.1-1.5) mg/dL AST 47 H (12-35) U/L ALT 35 (4-35) U/L Alkaline Phosphatase 93 (40-150) U/L Albumin 4.5 (3.3-5.0) g/dL Urine 03/07/25 Range/Units 06:34 Urine Color Yellow (Yellow) Urine Appearance Clear (Clear) Urine pH 8.0 (5.0-8.5) Ur Specific [place] 1.015 (1.000-1.030) Urine Protein 1+ A (Negative) Urine Glucose (UA) Negative (Negative)
[2025-03-07] MEDS: ACETAMINOPHEN INJ 1,000 MG/100 ML VIAL 400 MG IVPB ×3 (09:58→21:43)
[2025-03-07] MEDS: PANTOPRAZOLE SODIUM 40 MG INJ 80 MG IVP (09:58)
[2025-03-07] MEDS: SODIUM CHLORIDE 0.9 % (FLUSH) 10 ML SYRINGE 5 ML IVF ×2 (09:59)
[2025-03-07] MEDS: ONDANSETRON ODT 4 MG TAB PO (16:07)
--- NOTE | 2025-03-07 18:16 | PC.NURSE ---
End of shift-- Very pleasant and cooperative, alert and oriented patient was admitted to med/surg. VSS, though mildly hypertensive, and pt is afebrile. SPO2 maintained >90% on RA while awake. While sleeping pt using O2 at 1.5L for LAUREANO and sats maintained >95% on 1.5L per n.c. She c/o abdominal pain which she rated as high as 5 out of 10 that appears well managed with IV Tylenol, Toradol and Dilaudid PRN. She c/o nausea once and was given Zofran Odt with stated relief. Tolerating small amounts of clear liquids without apparent difficulty. LS CTA. EKG showed NSR. She was up to the BR independently and tolerated it well.
[2025-03-07] MEDS: ENOXAPARIN 40 MG/0.4 ML INJ SUBCUT (21:43)
[2025-03-08] VITALS (7 sets, daily range): BP systolic 120–138; BP diastolic 77–88; PULSE 76–90; RESP 12–16; TEMP 36.2–37.3; O2SAT 93–98
[2025-03-08] MEDS: LACTATED RINGERS 1000 ML 1,000 ML 125 ML IV (01:10)
[2025-03-08] MEDS: ACETAMINOPHEN INJ 1,000 MG/100 ML VIAL 400 MG IVPB (02:59)
[2025-03-08 06:17] LABS: HCO3 VBG 31 mmol/L (21-28); PCO2 VBG 51 mmHG (40-50); PO2 VBG 40.8 mmHG (25-47); pH VBG 7.387 (7.32-7.43)
[2025-03-08 06:26] LABS: Hematocrit 38.4 % (33.0-51.0); Hemoglobin* 12.4 gm/dL (12.0-16.0); Mean Corpuscular HGB Conc 32 gm/dL (32-36); Mean Corpuscular Hemoglobin 29 pg (26-34); Mean Corpuscular Volume 90 fL (80-100); Red Blood Count 4.28 m/uL (4.00-5.20); White Blood Count* 6.79 K/uL (4.50-11.00)
[2025-03-08 06:39] LABS: Slide Review Reflex No
[2025-03-08 06:53] LABS: Albumin* 3.3 g/dL (3.3-5.0); Chloride* 103 mmol/L (96-114); Sodium* 137 mmol/L (135-149)
[2025-03-08 06:54] LABS: Potassium* 4.0 mmol/L (3.6-5.1)
[2025-03-08 06:56] LABS: Alanine Aminotransferase* 22 U/L (4-35); Anion Gap 4 mEq/L (7-15); Aspartate Amino Transferase* 28 U/L (12-35); Blood Urea Nitrogen* 14 mg/dL (7-30); Carbon Dioxide* 30 mmol/L (20-32); Creatinine* 0.7 mg/dL (0.5-1.5); Est. Creatinine Clearance* 49.72; Estimated Glomerular Filt Rate 97 ml/min
[2025-03-08 06:57] LABS: Alkaline Phosphatase* 63 U/L (40-150); Bilirubin Total* 0.6 mg/dL (0.1-1.5); Calcium* 8.8 mg/dL (8.4-10.6); Glucose* 103 mg/dL (60-115); Total Protein* 5.9 g/dL (6.0-8.3)
--- NOTE | 2025-03-08 07:09 | PC.NURSE ---
The patients abdominal pain is managed with multiple PRN medications. LR infusing @ 125, up ad shola. Clear liquid diet. Oxygen on PRN for low O2 due to LAUREANO. Call light within reach. No N/V. Asya WALLACE BSN
[2025-03-08] MEDS: PANTOPRAZOLE SODIUM 40 MG INJ IVP (08:44)
[2025-03-08] MEDS: SODIUM CHLORIDE 0.9 % (FLUSH) 10 ML SYRINGE 5 ML IVF ×3 (08:48→20:06)
[2025-03-08] MEDS: ACETAMINOPHEN 500 MG TABLET 1000 MG PO ×2 (11:43→19:27)
--- NOTE | 2025-03-08 12:06 | PM.GSCN ---
History of Present Illness Consult details Date Seen: 03/08/25 Consult date: 03/08/25 Narrative: Patient is a 64-year-old female who underwent laparoscopic cholecystectomy on 12/07/2024 for episodes of biliary colic. Preoperatively, AST was 139 and ALT was 100. Lipase, bilirubin and alkaline phosphatase were all within normal limits. There was no evidence of biliary obstruction with the common bile duct of 4 mm seen preoperatively. Approximately 10 days postoperatively (on 12/13), she presented to the emergency department with the abrupt onset of severe right upper quadrant pain similar to her prior episodes of biliary colic. Total bilirubin was normal, however direct bilirubin was noted to be slightly elevated at 0.6. AST was 252, ALT was 102. Lipase on presentation was again normal. She was admitted to the hospital and the following morning her labs were Total bilirubin 3.3 Direct bilirubin 2.5 AST 1280 ALT 882 Alkaline phosphatase 185 She was transferred to [facility] and underwent ERCP on 12/14. A 4 mm stone was found. She underwent sphincterotomy and stone removal. A pancreatic stent was placed into the ventral pancreatic duct. The following day, bilirubin returned to normal. Alkaline phosphatase was still mildly elevated at 217 and ALT and AST were still mildly elevated at 605 and 360. She presented again to the hospital with ongoing pain and was found to have a normal bilirubin and with persistently elevated transaminases and alkaline phosphatase, though these were coming down overall. She was again admitted at [facility]. Her pancreatic stent had been noted on CT scan to have migrated. Labs were trending down and she was discharged home on 12/18. She was seen in follow-up in clinic on 12/22. Liver tests were completely normal. She had 2 additional episodes of similar pain and was seen in the emergency department, on 12/31 and 01/31. Both times, lipase was normal, bilirubin and alkaline phosphatase were normal but AST and ALT were mildly elevated at 37 and 40. She states that she has been doing well other than these episodes, having no abdominal pain, when she developed sudden onset of right upper quadrant pain yesterday morning. This was accompanied by nausea vomiting and diarrhea. She does have a history of irritable bowel syndrome since her 20s. She thought that this may be related to that, however the pain persisted and was severe enough that she was brought to the emergency department. There she was found to have a lipase of 31, 000. She was admitted to the hospital and underwent MRCP this morning which did not show biliary obstruction, masses and the pancreatic duct was found to be normal. Today she is feeling better. She is getting Dilaudid for pain which makes her very sleepy. [facility] Medical History (Updated 03/07/25 @ 08:57 by Maricruz Latham MD) Biliary colic ?K80.50 - Calculus of bile duct without cholangitis or cholecystitis without obstruction (ICD-10) Chronic hepatitis ?K73.9 - Chronic hepatitis, unspecified (ICD-10) Sciatica ?M54.30 - Sciatica, unspecified side (ICD-10) Sleep apnea ?G47.30 - Sleep apnea, unspecified (ICD-10) Hair thinning ?L65.9 - Nonscarring hair loss, unspecified (ICD-10) Tear of medial meniscus of right knee ?S83.241A - Other tear of medial meniscus, current injury, right knee, initial encounter (ICD-10) Osteoarthritis of left knee ?M17.12 - Unilateral primary osteoarthritis, left knee (ICD-10) Osteoarthritis of right knee ?M17.11 - Unilateral primary osteoarthritis, right knee (ICD-10) Eczema ?L30.9 - Dermatitis, unspecified (ICD-10) Binge eating ?R63.2 - Polyphagia (ICD-10) Irritable bowel syndrome ?K58.9 - Irritable bowel syndrome without diarrhea (ICD-10) Actinic keratosis ?L57.0 - Actinic keratosis (ICD-10) Left carpal tunnel syndrome ?G56.02 - Carpal tunnel syndrome, left upper limb (ICD-10) GERD (gastroesophageal reflux disease) ?K21.9 - Gastro-esophageal reflux disease without esophagitis (ICD-10) On postmenopausal hormone replacement therapy ?Z79.890 - Hormone replacement therapy (ICD-10) Environmental and seasonal allergies ?J30.89 - Other allergic rhinitis (ICD-10) Difficulty sleeping ?G47.9 - Sleep disorder, unspecified (ICD-10) Depression ?F32.A - Depression, unspecified (ICD-10) Asthma ?J45.909 - Unspecified asthma, uncomplicated (ICD-10) 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 (ICD-10) LAUREANO (obstructive sleep apnea) ?G47.33 - Obstructive sleep apnea (adult) (pediatric) (ICD-10) Recurrent subluxation of left temporomandibular joint ?M24.49 - Recurrent dislocation, other specified joint (ICD-10) Surgical History (Updated 03/07/25 @ 08:57 by Maricruz Latham MD) Status post laparoscopic cholecystectomy ?Z90.49 - Acquired absence of other specified parts of digestive tract (ICD-10) H/O gastrostomy ?Z98.890 - Other specified postprocedural states (ICD-10) H/O tracheostomy ?Z98.890 - Other specified postprocedural states (ICD-10) H/O hernia repair ?Z98.890 - Other specified postprocedural states (ICD-10) ?Z87.19 - Personal history of other diseases of the digestive system (ICD-10) History of vaginal hysterectomy ?Z90.710 - Acquired absence of both cervix and uterus (ICD-10) Family History Mother High blood pressure Osteoarthritis Osteoporosis Father Atrial fibrillation Melanoma Renal cell carcinoma Cancer Family history of alcohol abuse Heart disease Paternal Grandmother Stroke Atrial fibrillation Diabetes Son Diabetes Brother FHx: cancer of prostate Other Alcohol dependence Drug dependence Family history of psychiatric disorder Family history of substance abuse Social History Narrative: . 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 No drug use. 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 She exercises intermittently. What is your current living situation?: I presently have a place to live Problems where you live: no known problems Problems where you live details: none In the past 12 months, utilities in danger of being shut off: no In past 12 months, lack of transportation kept you from medical appts, meetings, work, or getting things needed for daily living: no In the past 12 mos, have been you worried that your food would run out before you had money to buy more?: never true In the past 12 mos, the food you bought just didn't last and you didn't have money to buy more?: never true Highest level of school completed/degree received: Doctoral degree Smoking Status: Never smoker Do you use any of these nicotine containing products: None Second hand tobacco smoke exposure: No How often do you have a drink containing alcohol: monthly or less How often do you have six or more drinks on one occasion: Never AUDIT-C Alcohol total score: 1 Non-prescribed substance use: denies use Caffeine: No How often does anyone, including family, friends and others, physically hurt you: never How often does anyone, including family, friends and others, insult or talk down to you: never How often does anyone, including family, friends and others, threaten you with harm: never How often does anyone, including family, friends and others, scream or curse at you: never service: No Meds Home Medications and Allergies Home Medications ?Medication ?Instructions ?Recorded ?Confirmed ?Type cholecalciferol (vitamin D3) 50 2,000 unit PO DAILY 02/28/22 03/07/25 History mcg (2,000 unit) tablet fluorouracil 5 % topical cream 1 applic topical .UD #40 grams 06/06/23 03/07/25 Rx albuterol sulfate 90 mcg/actuation 2 puff inhalation Q6H PRN 01/28/24 03/07/25 Rx aerosol inhaler bronchospasm #8.5 grams epinephrine 0.3 mg/0.3 mL 0.3 mg (0.3 mL) IM .As Needed PRN 01/28/24 03/07/25 Rx injection, auto-injector anaphylaxis #2 ea estradiol 0.01% (0.1 mg/gram) 1 g vaginal QWEEK #42.5 grams 01/28/24 03/07/25 Rx vaginal cream omeprazole 20 mg capsule,delayed 20 mg PO DAILY #90 caps 01/28/24 03/07/25 Rx release triamcinolone acetonide 0.1 % 1 applic topical BID PRN skin 01/28/24 03/07/25 Rx topical cream reaction #80 grams budesonide-formoterol HFA 160 2 puff inhalation BID #10.2 grams 02/06/24 03/07/25 Rx mcg-4.5 mcg/actuation aerosol inhaler (Symbicort) finasteride 5 mg tablet 5 mg PO DAILY #90 tabs 04/23/24 03/07/25 Rx SAMe butanedisulfonate 400 ea PO 12/04/24 02/25/25 History mg-betaine 600 mg oral powder packet acetaminophen 650 mg 650 mg PO Q12H 12/04/24 03/07/25 History tablet,extended release (Tylenol Arthritis Pain) multivitamin 1 tab PO QAM 12/04/24 03/07/25 History tamsulosin 0.4 mg capsule (Flomax) 0.4 mg PO DAILY 12/04/24 03/07/25 History escitalopram oxalate 10 mg tablet 10 mg PO DAILY 12/14/24 03/07/25 History fexofenadine 180 mg tablet 180 mg PO DAILY 12/14/24 03/07/25 History (Carmenza Allergy) phentermine 30 mg capsule 30 mg PO DAILY 12/14/24 03/07/25 History trazodone 50 mg tablet 50 - 100 mg PO HS 12/14/24 03/07/25 History albuterol sulfate 2.5 mg/3 mL 2.5 mg (3 mL) inhalation Q4-6H PRN 01/15/25 03/07/25 Rx (0.083 %) solution for nebulization shortness of breath or wheezing #180 mL prednisone 10 mg tablet 10 mg PO DIRECTED #27 tabs 01/15/25 02/25/25 Rx estradiol 0.05 mg/24 hr semiweekly 1 patch transdermal .Twice Weekly 02/16/25 03/07/25 Rx transdermal patch #8 ea Allergies Allergy/AdvReac Type Severity Reaction Status Date / Time bupropion Allergy Unknown Tremors Verified 03/07/25 06:24 Cephalosporins Allergy Unknown GI upset Verified 03/07/25 06:24 latex Allergy Unknown Rash Verified 03/07/25 06:24 promethazine Allergy Unknown Legs jump Verified 03/07/25 06:24 Macrolide Antibiotics Allergy Gastrointestinal Verified 03/07/25 06:24 Upset venlafaxine Allergy Verified 03/07/25 06:24 erythromycin base AdvReac Gastrointestinal Verified 03/07/25 06:24 Upset Exam Narrative: Exam Narrative: General: No acute distress Const: Vital Signs, click to edit/add: Vital Signs - 24 hr 03/07/25 15:00 03/07/25 15:00 03/07/25 19:30 Temperature 97.5 F L Pulse Rate [Right Radial] 71 71 79 Respiratory Rate 18 18 18 Blood Pressure [Le ft Arm] Blood Pressure [Ri ght Arm] 152/98 H 154/96 H Pulse Oximetry 99 99 Oxygen Delivery Me thod Nasal Cannula Room Air Oxygen Flow Rate 1.5 03/07/25 23:00 03/08/25 03:00 03/08/25 07:00 Temperature 97.4 F L 97.1 F L Pulse Rate [Right Radial] 77 77 79 Respiratory Rate 16 16 14 Blood Pressure [Le ft Arm] 133/74 Blood Pressure [Ri ght Arm] 138/85 Pulse Oximetry 100 95 Oxygen Delivery Me thod Nasal Cannula Room Air Oxygen Flow Rate 1 03/08/25 08:35 03/08/25 11:00 Temperature 99.2 F 97.4 F L Pulse Rate [Right Radial] 79 76 Respiratory Rate 14 12 Blood Pressure [Le ft Arm] Blood Pressure [Ri ght Arm] 120/77 136/85 Pulse Oximetry 97 98 Oxygen Delivery Me thod Room Air Nasal Cannula Oxygen Flow Rate 1.5 Results Labs Labs: Lipase 12/04: 92 5: 145 12/14: 27.2 12/17: 237 (normal) 12/30: 92 01/31: 150 03/07: 31,000 03/08: 1864 Triglycerides on 03/07/25: 189 Bilirubin has never been elevated since 12/14/2024 AST and ALT have been mildly elevated it did return to normal on 03/08/2025 Imaging Additional studies: Patient: SERENITY ESTRADA :?1960 Study:?MRI-Abdomen/Pelvis MRCP WO-03/07/2025 5:23:28 PM Ordering Physician:Jacky Alcantara Final Report: INDICATION: Acute pancreatitis. Post cholecystectomy. COMPARISON: CT scans of the abdomen and pelvis dated 07 March 2025 and 31 January 2025. TECHNIQUE: MRCP with heavily T2 weighted 2D and 3D MRCP images. T1 in and out of phase and T2 weighted images also performed. No gadolinium administered. Findings : Minimal diffuse fatty infiltration of the liver. 5.6 x 4.2 x 3.9 cm hemangioma in segment 5 and 6 of the liver is better evaluated on the previous CT scans. No other focal abnormalities identified in the visualized portions of the liver, spleen, adrenal glands, and kidneys. No hydronephrosis. Diffuse pancreatic/peripancreatic edema. No intra or extrahepatic bile duct dilation with the common bile duct measuring 6 mm. No filling defects in the biliary system. Normal size of the main pancreatic duct. Cholecystectomy. Impression : 1. Diffuse pancreatic/peripancreatic edema represents acute pancreatitis. No evidence of pancreatic necrosis on the previous CT scan. 2. No bile duct dilation. No choledocholithiasis. Normal size of the main pancreatic duct. Dictated by Rex Rodriguez MD @ 03/07/2025 6:04:15 PM Progress Note:A&P Assessment and plan (1) Acute pancreatitis: Status: Acute (2) Status post laparoscopic cholecystectomy: Status: Acute Plan Lorenza is a 64-year-old female all fluid status post laparoscopic cholecystectomy 3 months ago with intermittent right upper quadrant pain of unclear etiology, now with acute pancreatitis. She has not previously had pancreatitis. MRCP was normal. Differential includes a 2nd retained common bile duct stone that has passed versus possible scarring from ERCP. Triglycerides have been normal. Calcium normal. Consider pharmacy review of medications. -elevated liver test would suggest biliary pathology. Autoimmune pancreatitis is rare though could consider IgG4 testing. -management of pancreatitis with NPO status IV fluids and pain meds until pain has resolved. -consider advancing diet tomorrow pain improves. -patient will benefit from discussion with GI given ongoing symptoms. Is there potential for biliary abnormality that could be seen on EUS that is not visible on MRCP?
--- NOTE | 2025-03-08 12:34 | NUTR.NU ---
RDN with nutrition screen for acute pancreatitis. RDN attempted to visit with patient x3. RDN will attempt to visit with patient and provide nutrition education at a later date.
--- NOTE | 2025-03-08 14:48 | PC.NURSE ---
[id number]: Pt. Is AOX4. VSS. Afebrile. Pt. Stated pain, meds given , pt. Reported improvement-see EMAR. Pt. Has tenderness LUQ ABD region. Pt. Tolerating full liquids well- per MD may have oatmeal as well. Pt. Ate, denied any N/V or pain post-meal. Pt. Saline locked, LR discontinued-see EMAR. Pt. Moving independently in room. Family visited. ?
--- NOTE | 2025-03-08 14:53 | P.IMPN_ITS ---
Assessment and Plan Assessment and plan (1) Acute pancreatitis: Problem comment: -on admission: BISAP score 2. 2+SIRS (WBC and HR) and age >60. intermediate risk for severe disease, organ failure, mortality -improving. -LR fluid resuscitation complete, enteral feeds advancing, MRCP reassuring, pain management Status: Acute (2) Status post laparoscopic cholecystectomy: Problem comment: 12/07/2024, Dr. Carnes. transferred to [facility] (12/14/24) 7 days post op for ERCP, retained stone Status: Acute (3) LAUREANO (obstructive sleep apnea): Problem comment: -History of sleep apnea treated with an oral appliance which caused TMJ problems and no longer fit so she no longer uses it. -patient will need to revisit sleep apnea evaluation and treatment Status: Acute (4) GERD (gastroesophageal reflux disease): Problem comment: On omeprazole Status: Acute (5) Depression: Problem comment: On Lexapro Status: Acute (6) Asthma: Status: Acute Subjective Date Seen: 03/08/25 Interval history: DAILY PROGRESS NOTE - HOSPITAL MEDICINE DAY #: 2 CC: Acute Pancreatitis 24 HOUR UPDATE: Pain is somewhat better. Lipase is down. Vital signs are stable. She is wanting to try some p.o. intake. NOTABLE LABS, MICRO, RADS, INTERVENTIONS: Vital signs stable. Still on 1.5 L nasal cannula oxygen. She satting 98%. White blood cell count has come down nicely. VBG is reassuring. Chemistries are normal. CRP is up a little bit was undetectable yesterday. Triglycerides are 189. Lipase is gone from 30/1 1000 down to 1800 Urine culture negative MRCP Impression : 1. Diffuse pancreatic/peripancreatic edema represents acute pancreatitis. No evidence of pancreatic necrosis on the previous CT scan. 2. No bile duct dilation. No choledocholithiasis. Normal size of the main pancreatic duct. OBJECTIVE: Alert, insightful VITALS: SEE ABOVE LUNGS: CLEAR. CARDIAC: S1S2. ABDOMEN: Soft. Mildly tender across the mid epigastrium. DISPOSITION/POTENTIAL DISCHARGE - Home in 2-3 days. TODAY I SPENT 50MINUTES SEEING THE PATIENT, REVIEWING EXPANSE AND EPIC NOTES/DIAGNOSTICS, DISCUSSING THE CARE PLAN WITH OUR CARE TIME THAT INCLUDES SOCIAL WORK, PT/OT, PHARMACY, RT, DETENTION AND DOCUMENTING MY IMPRESSIONS AND PLAN IN THE MEDICAL RECORD. Exam Const: Vital Signs, click to edit/add: Vital Signs - 24 hr 03/07/25 15:00 03/07/25 15:00 03/07/25 19:30 Temperature 97.5 F L Pulse Rate [Right Radial] 71 71 79 Respiratory Rate 18 18 18 Blood Pressure [Le ft Arm] Blood Pressure [Ri ght Arm] 152/98 H 154/96 H Pulse Oximetry 99 99 Oxygen Delivery Me thod Nasal Cannula Room Air Oxygen Flow Rate 1.5 03/07/25 23:00 03/08/25 03:00 03/08/25 07:00 Temperature 97.4 F L 97.1 F L Pulse Rate [Right Radial] 77 77 79 Respiratory Rate 16 16 14 Blood Pressure [Le ft Arm] 133/74 Blood Pressure [Ri ght Arm] 138/85 Pulse Oximetry 100 95 Oxygen Delivery Me thod Nasal Cannula Room Air Oxygen Flow Rate 1 03/08/25 08:35 03/08/25 11:00 Temperature 99.2 F 97.4 F L Pulse Rate [Right Radial] 79 76 Respiratory Rate 14 12 Blood Pressure [Le ft Arm] Blood Pressure [Ri ght Arm] 120/77 136/85 Pulse Oximetry 97 98 Oxygen Delivery Me thod Room Air Nasal Cannula Oxygen Flow Rate 1.5 Labs Labs: Laboratory Results - last 24 hr 03/08/25 03/08/25 05:56 07:45 WBC 6.79 RBC 4.28 Hgb 12.4 Hct 38.4 MCV 90 MCH 29 MCHC 32 Plt Count 260 VBG pH 7.387 VBG pCO2 51 H VBG pO2 40.8 VBG HCO3 31 H Sodium 137 Potassium 4.0 Chloride 103 Carbon Dioxide 30 Anion Gap 4 L BUN 14 Creatinine 0.7 Estimated Creat Clear 49.72 Estimated GFR 97 Glucose 103 Calcium 8.8 Total Bilirubin 0.6 AST 28 ALT 22 Alkaline Phosphatase 63 C-Reactive Protein 6.7 H Total Protein 5.9 L Albumin 3.3 Lipase 1864 H Lab Acknowledgement Test Added
--- NOTE | 2025-03-08 17:37 | PC.NURSE ---
End of shift [id number]: Pt AxOx4, pleasant, cooperative with cares. Requested pain medication for generalized abdomen pain, rated 2/10. Relief noted. Indep in room. Continent of bladder and bowels. Denies N/V/SOB/CP. Pt tolerating diet/fluids well. Pt in bed reading, call light within reach.
[2025-03-08] MEDS: ENOXAPARIN 40 MG/0.4 ML INJ SUBCUT (20:06)
[2025-03-09 03:00] VITALS: BP 151/87; PULSE 77; RESP 16; TEMP 36.3; O2SAT 92
[2025-03-09] MEDS: ACETAMINOPHEN 500 MG TABLET 1000 MG PO (03:03)
[2025-03-09] MEDS: SIMETHICONE 80 MG TAB.CHEW 160 MG PO (04:35)
--- NOTE | 2025-03-09 05:56 | PC.NURSE ---
End of shift report [id number]: VSS. Afebrile. Rates pain a 2/10, prn pain meds offered and given with relief. Bowel sounds active. Pt reports passing gas, denies nausea. Tolerating full liquid diet. Pt is ind in room, call light within reach.?
[2025-03-09 06:39] LABS: Hematocrit 35.8 % (33.0-51.0); Hemoglobin* 11.6 gm/dL (12.0-16.0); Mean Corpuscular HGB Conc 32 gm/dL (32-36); Mean Corpuscular Hemoglobin 29 pg (26-34); Mean Corpuscular Volume 89 fL (80-100); Red Blood Count 4.03 m/uL (4.00-5.20); White Blood Count* 6.98 K/uL (4.50-11.00)
[2025-03-09 06:45] LABS: Slide Review Reflex No
[2025-03-09 06:53] LABS: Chloride* 103 mmol/L (96-114)
[2025-03-09 06:54] LABS: Albumin* 3.6 g/dL (3.3-5.0); Potassium* 3.7 mmol/L (3.6-5.1); Sodium* 139 mmol/L (135-149)
[2025-03-09 06:56] LABS: Alanine Aminotransferase* 21 U/L (4-35); Aspartate Amino Transferase* 29 U/L (12-35); Blood Urea Nitrogen* 8 mg/dL (7-30); Creatinine* 0.6 mg/dL (0.5-1.5); Est. Creatinine Clearance* 49.72; Estimated Glomerular Filt Rate 101 ml/min
[2025-03-09 06:57] LABS: Alkaline Phosphatase* 68 U/L (40-150); Anion Gap 5 mEq/L (7-15); Bilirubin Total* 0.4 mg/dL (0.1-1.5); Calcium* 9.0 mg/dL (8.4-10.6); Carbon Dioxide* 31 mmol/L (20-32); Glucose* 98 mg/dL (60-115); Total Protein* 6.3 g/dL (6.0-8.3)
[2025-03-09 07:00] VITALS: BP 143/73; PULSE 69; RESP 16; TEMP 36.4; O2SAT 96
--- NOTE | 2025-03-09 10:22 | PC.NURSE ---
Discharge - Pt alert, oriented, pleasant. Independent in room. Denied pain, n/v, SOB. Tolerating advancing diet per MD. D/C education provided, RN discussed dietary options with pt verbalizing understanding. IV removed with catheter intact. Pt d/c to home with spouse via ambulation.
--- NOTE | 2025-03-09 13:19 | PM.DS1 ---
DS: Providers Provider Date Seen: 03/09/25 Date of admission: 03/07/25 08:22 Primary care physician: Koki De MD Admitting Clinician: Maricruz Latham MD Attending Physician on discharge: Gaurang Dorantes MD Date of Discharge: 03/09/25 DS: Diagnosis Discharge Diagnosis (1) Acute pancreatitis: Status: Acute Problem details: -on admission: BISAP score 2. 2+SIRS (WBC and HR) and age >60. intermediate risk for severe disease, organ failure, mortality -improving. -LR fluid resuscitation complete, enteral feeds advancing, MRCP reassuring, pain management (2) Status post laparoscopic cholecystectomy: Status: Acute Problem details: 12/07/2024, Dr. Carnes. 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 -12/07 uncomplicated laparoscopic cholecystectomy with Dr. Carnes -12/13 admitted here with recurrent abdominal pain. Concern for choledocholithiasis -12/14 transferred to [facility] for an ERCP. Dr. Dumas we removed a 4 mm stone in the common bile duct via biliary sphincterotomy and balloon extraction. One pancreatic stent was placed into the ventral pancreatic duct. She was released later that day. -12/17 back to our ER. Transferred again to [facility]. There was some thought because of very quick resolution of her symptoms that maybe she had past the stent that had been placed in her pancreas. -12/30 unclear abdominal pain that resolved quickly without admission or transfer -01/31 unclear abdominal pain that resolved quickly without admission or transfer -03/07 onset of severe epigastric pain with marked elevation of lipase and CT showing acute pancreatitis Patient was treated conservatively during her hospital stay. She had rapid resolution of her symptoms without specific intervention. Status at Discharge Overall status at discharge: patient is back to baseline Time Spent with Patient Time attestation: Total time spent providing and/or coordinating discharge services: Time spent: Greater than 30 minutes Exam Narrative: Exam Narrative: She is alert and appears in no distress. She gives her own history. Abdomen: Bowel sounds active. Abdomen is soft without tenderness or mass. Const: Vital Signs, click to edit/add: Vital Signs - 24 hr 03/08/25 15:00 03/08/25 19:00 03/08/25 23:00 Temperature 97.7 F 98.3 F 97.7 F Pulse Rate [Right Radial] 88 90 86 Respiratory Rate 16 16 16 Blood Pressure [Le ft Arm] 120/78 133/88 Blood Pressure [Ri ght Arm] 123/77 Pulse Oximetry 94 95 93 Oxygen Delivery Me thod Room Air Room Air Room Air 03/08/25 23:00 03/09/25 03:00 03/09/25 07:00 Temperature 97.4 F L 97.5 F L Pulse Rate [Right Radial] 86 77 69 Respiratory Rate 16 16 16 Blood Pressure [Le ft Arm] 151/87 H 143/73 H Blood Pressure [Ri ght Arm] Pulse Oximetry 92 96 Oxygen Delivery Me thod Room Air Room Air Documenting provider has reviewed patient's vital signs: yes DS: Data Data Completed and Pending Labs on day of discharge: Labs from last 24 hours 03/09/25 05:57 WBC 6.98 RBC 4.03 Hgb 11.6 L Hct 35.8 MCV 89 MCH 29 MCHC 32 Plt Count 260 Sodium 139 Potassium 3.7 Chloride 103 Carbon Dioxide 31 Anion Gap 5 L BUN 8 Creatinine 0.6 Estimated Creat Clear 49.72 Estimated GFR 101 Glucose 98 Calcium 9.0 Total Bilirubin 0.4 AST 29 ALT 21 Alkaline Phosphatase 68 C-Reactive Protein 14.6 H Total Protein 6.3 Albumin 3.6 Lipase 206 Imaging MRI - abdomen: Radiologist's impression: INDICATION: Acute pancreatitis. Post cholecystectomy. COMPARISON: CT scans of the abdomen and pelvis dated 07 March 2025 and 31 January 2025. TECHNIQUE: MRCP with heavily T2 weighted 2D and 3D MRCP images. T1 in and out of phase and T2 weighted images also performed. No gadolinium administered. Findings : Minimal diffuse fatty infiltration of the liver. 5.6 x 4.2 x 3.9 cm hemangioma in segment 5 and 6 of the liver is better evaluated on the previous CT scans. No other focal abnormalities identified in the visualized portions of the liver, spleen, adrenal glands, and kidneys. No hydronephrosis. Diffuse pancreatic/peripancreatic edema. No intra or extrahepatic bile duct dilation with the common bile duct measuring 6 mm. No filling defects in the biliary system. Normal size of the main pancreatic duct. Cholecystectomy. Impression : 1. Diffuse pancreatic/peripancreatic edema represents acute pancreatitis. No evidence of pancreatic necrosis on the previous CT scan. 2. No bile duct dilation. No choledocholithiasis. Normal size of the main pancreatic duct. CT scan - abdomen: Radiologist's impression: INDICATION: Nausea, vomiting and diarrhea. Epigastric abdomen pain. TECHNIQUE: CT abdomen and pelvis acquired with 89 cc Isovue 370 IV contrast. COMPARISON: January 31, 2025. FINDINGS: Lower chest: Unremarkable. Liver: A 4 cm cavernous hemangioma in the inferior right lobe. Otherwise unremarkable. Gallbladder and bile ducts: Cholecystectomy. Pancreas: Mild peripancreatic edema. No focal lesion. Spleen: Unremarkable. Normal in size. No masses. Adrenal glands: Unremarkable. No nodules. Kidneys: A 1 cm nonobstructive stone in an inferior calyx of the right kidney. Kidneys otherwise unremarkable. GI tract: Unremarkable. Normal in caliber. No sign of mass or inflammation. Normal appendix. Vasculature: Abdominal aorta is normal in caliber. Mesenteric arteries are patent. Lymph nodes: No lymphadenopathy. Peritoneum/Abdominal Wall: Unremarkable. No sign of mass or infiltration. No free air or significant free fluid. Pelvis: Unremarkable. Bones: Unremarkable for age. IMPRESSION: Acute uncomplicated pancreatitis of moderate severity. Discharge Plan Discharge Disposition: Home, Self-Care Date of Admission: 03/07/25 08:22 Attending Provider on Discharge: Greg Dorantes Primary Care Provider: Koki De I Condition: Stable Anticipated Discharge Date/Time: 03/09/25 08:40 Discharge Medications: Continued cholecalciferol (vitamin D3) 50 mcg (2,000 unit) tablet 2,000 unit PO DAILY fluorouracil 5 % cream 1 applic topical .UD Qty: 40 0RF Rx Instructions: apply topically to affected area/zone once weekly albuterol sulfate 90 mcg/actuation HFA aerosol inhaler 2 puff inhalation Q6H PRN (Reason: bronchospasm) Qty: 8.5 12RF epinephrine 0.3 mg/0.3 mL auto-injector 0.3 mg IM .As Needed PRN (Reason: anaphylaxis) Qty: 2 12RF estradiol 0.01 % (0.1 mg/gram) cream 1 g vaginal QWEEK Qty: 42.5 3RF omeprazole 20 mg capsule,delayed release(DR/EC) 20 mg PO DAILY Qty: 90 3RF triamcinolone acetonide 0.1 % cream 1 applic topical BID PRN (Reason: skin reaction) Qty: 80 3RF tamsulosin [Flomax] 0.4 mg capsule 0.4 mg PO DAILY acetaminophen [Tylenol Arthritis Pain] 650 mg tablet extended release 650 mg PO Q12H multivitamin Tablet 1 tab PO QAM SAMe butanedisulfonate-betaine 400-600 mg powder in packet PO prednisone 10 mg tablet 10 mg PO DIRECTED Qty: 27 1RF Rx Instructions: Take 4 pills per day for the first 3 days, 3 pills per day for the next 3 days, 2 pills for 2 days and 1 pill per day for the last 2 days. albuterol sulfate 2.5 mg /3 mL (0.083 %) solution for nebulization 2.5 mg inhalation Q4-6H PRN (Reason: shortness of breath or wheezing) Qty: 180 0RF phentermine 30 mg capsule 30 mg PO DAILY trazodone 50 mg tablet 50 - 100 mg PO HS fexofenadine [Carmenza Allergy] 180 mg tablet 180 mg PO DAILY escitalopram oxalate 10 mg tablet 10 mg PO DAILY budesonide-formoterol [Symbicort] 160-4.5 mcg/actuation HFA aerosol inhaler 2 puff inhalation BID Qty: 10.2 12RF finasteride 5 mg tablet 5 mg PO DAILY Qty: 90 3RF estradiol 0.05 mg/24 hr patch semiweekly 1 patch transdermal .Twice Weekly Qty: 8 0RF Discharge Orders: Discharge Order (Routine); Ordered 03/09/25 Ordered By: Greg Dorantes Patient Education: Pancreatitis (DC) Activity Level: No Restrictions Discharge Diet: Heart Healthy (2 gm sodium, low fat) and High Fiber Follow Up Appointments: Koki De MD [Primary Care Provider, Obstetrics] Provider,Not a Local [Non-Staff, Family Practice] Alen Dumas MD [Referring, Gastroenterology] Referral Note: next available appointment Forms: [facility] Info Instructions
== END 2025-03-09 08:30 | disposition home or self-care (01) | DRG 440 ==
LOC: ED 07:52 → MEDSURG 08:22
PROVIDERS: Admitting Provider Family Medicine; Emergency Provider Family Medicine; PCP Family Medicine; Visit Provider Family Medicine
DX: K85.90 Acute pancreatitis without necrosis or infection, unspecified (principal); Z90.49 Acquired absence of other specified parts of digestive tract; G47.33 Obstructive sleep apnea (adult) (pediatric); K21.9 Gastro-esophageal reflux disease without esophagitis; K58.9 Irritable bowel syndrome, unspecified; Z79.890 Hormone replacement therapy; J45.909 Unspecified asthma, uncomplicated; F32.A Depression, unspecified
CPT/HCPCS: 36415; 74177; 74181; 80053; 80061; 81001; 82565; 82803; 83605; 83690; 84145; 85025; 85027; 86140; 87086; 93005; 99284; 99285; A9270; J0131; J1171; J1650; J1885; J2405; J2470; J7120; Q9967

== ENCOUNTER 2025-03-24 14:55 | Outpatient (CLI) | payer OTHER, SELFPAY | END 2025-03-24 14:56 | disposition home or self-care (01) | PROVIDERS: PCP Family Medicine; Visit Provider Physician Assistant Surgical | DX: R10.9 Unspecified abdominal pain (principal) | CPT/HCPCS: 80053; 83690; 85651; 86140 ==

== ENCOUNTER 2025-04-09 15:07 | Outpatient (CLI) | payer OTHER, SELFPAY | END 2025-04-09 15:08 | disposition home or self-care (01) | PROVIDERS: PCP Family Medicine; Visit Provider Physician Assistant | DX: R10.11 Right upper quadrant pain (principal) | CPT/HCPCS: 80076; 83690 ==

== ENCOUNTER 2025-05-04 02:02 | Inpatient (IN) | payer OTHER, SELFPAY ==
--- OUTSIDE RECORDS SUMMARY | 2025-04-08 19:00 | XMS_ITS | Continuity of Care Document ---
Author Organization [facility] Address [address] [address] [place] [address] Phone Care Team Providers Care Assistant Spa Director Name Role Phone Alen Dumas MD Unavailable Unavailable Procedures Procedure Date Init Inpt E&M High Prolonged inpatient/obser Init Inpt E&M Moderate Subsqt Inpt Moderate Ugi Endo; W/endo Ultrasound Ex Ercp; W/sphincterotomy/papillo Ercp; W/endo Retro Remov Stone ERCP w/stent & sphinc Advance Directives Directive Yes / No Effective Date File Name No Information Encounters Encounter Description Practice Location Reason(s) For Visit Diagnoses Date Provider Providers Copied on Encounter [facility], [address] [address], [place], [place], [address], [place] tel:[phone] [facility] No Information 5 Alesia Lowry. [address] [facility] [facility] [address], [place], [address] , [place]. tel: [phone] [facility], [address] [address], [place], [place], [address], [place] tel:[phone] [facility] No Information 5 Alesia Lowry. [address], [address], [place], [place], [address] , [place]. tel: [phone] [facility], [address] [address], [place], [address], [place] tel:[phone] [facility] Abnormal LFTs Feb- 5 Alesia Lowry. [address] [facility] [address], [address], [place], [place], [address] , [place]. tel: [phone] [facility], [address] [address], [place], [place], [address], [place] tel:[phone] [facility] Choledocholithia sis 5 Jasurda DO German. [address] [facility] [address], [address], [place], [place], [address] , [place]. tel: [phone] Init Inpt E&M High [facility], [address] [address], [place], [place], [address], [place] tel:[phone] [facility] No Information 5 Ever Cast. [address] [facility] [address], [address], [place], [place], [address] , [place]. tel: [phone] Referring Provider: Koki De MD, [address], [place], [address] . tel:[phone] [facility], [address] [address], [place], [place], [address], [place] tel:[phone] [facility] Choledocholithia sis 5 Alesia Lowry. [address] [facility] [address], [address], [place], [place], [address] , [place]. tel: [phone] Init Inpt E&M Moderate [facility], [address] [address], [place], [address], [place] tel:[phone] [facility] No Information 5 Jasurda DO German. [address] [facility] [address], [address], [place], [place], [address] , [place]. tel: [phone] Referring Provider: Koki De MD, [address], [place], [address] . tel:[phone] [facility], [address] [address], [place], [address], [place] tel:[phone] [facility] No Information Alesia Lowry. [address], [address], [place], [id number] , [place]. tel:[phone] Referring Provider: Alen Dumas MD, [address] [facility] [address], [place], [address] . tel:[phone] Family History Family Member Type Diagnosis Age At Onset No Information Immunizations Vaccine Date Status Comments Pneumococcal conjugate vacci ne 20-valent (PCV20), polysaccharide [id number] conjugate, adjuvant, preservative free administered Note: [facility] bi-direct ional interface ; Source: Other Registry SARS-COV-2 (COVID-19) vaccin e, mRNA, spike protein, LNP, preservative free, 50 mcg/0.5 mL dose administered Note: [facility] bi-direct ional interface ; Source: Other Registry Respiratory syncytial virus (RSV), vaccine, recombinant, protein subunit RSV prefusion F, adjuvant reconstituted, 0.5 mL, preservative free administered Note: [facility] bi-direct ional interface ; Source: Other Registry tetanus toxoid, reduced diphtheria toxoid, and acellular pertussis vaccine, adsorbed administered Note: [facility] b i-directional interface ; Source: Other Registry tetanus toxoid, reduced diphtheria toxoid, and acellular pertussis vaccine, adsorbed administered Note: [facility] b i-directional interface ; Source: Other Registry SARS-COV-2 (COVID-19) vaccin e, mRNA, spike protein, LNP, preservative free, 50 mcg/0.5 mL dose administered Note: [facility] bi-direct ional interface ; Source: Other Registry Afluria Qd administered Note: M IIC bi-directional interface ; Source: Other Registry SARS-COV-2 (COVID-19) vaccin e, mRNA, spike protein, LNP, bivalent, preservative free, 50 mcg/0.5 mL or 25 mcg/0.25 mL dose administered Note: [facility] bi- directional interface ; Source: Other Registry Afluria Qd administered Note: M [facility] bi-directional interface ; Source: Other Registry SARS-COV-2 (COVID-19) vaccin e, mRNA, spike protein, LNP, preservative free, 100 mcg/0.5mL dose or 50 mcg/0.25mL dose administered Note: [facility] bi -directional interface ; Source: Other Registry SARS-COV-2 (COVID-19) vaccin e, mRNA, spike protein, LNP, preservative free, 100 mcg/0.5mL dose or 50 mcg/0.25mL dose administered Note: [facility] bi -directional interface ; Source: Other Registry Afluria Qd administered Note: M [facility] bi-directional interface ; Source: Other Registry zoster vaccine recombinant administered N ote: [facility] bi-directional interface ; Source: Other Registry zoster vaccine recombinant administered N ote: [facility] bi-directional interface ; Source: Other Registry SARS-COV-2 (COVID-19) vaccin e, mRNA, spike protein, LNP, preservative free, 100 mcg/0.5mL dose or 50 mcg/0.25mL dose administered Note: [facility] bi -directional interface ; Source: Other Registry SARS-COV-2 (COVID-19) vaccin e, mRNA, spike protein, LNP, preservative free, 100 mcg/0.5mL dose or 50 mcg/0.25mL dose administered Note: [facility] bi -directional interface ; Source: Other Registry Afluria Qd administered Note: M [facility] bi-directional interface ; Source: Other Registry Afluria Qd administered Note: M [facility] bi-directional interface ; Source: Other Registry Afluria Qd administered Note: M [facility] bi-directional interface ; Source: Other Registry Influenza administered Note: [facility] bi-d irectional interface ; Source: Other Registry Havrix administered Note: [facility] bi-d irectional interface ; Source: Other Registry Havrix administered Note: [facility] bi-d irectional interface ; Source: Other Registry Prevnar 13 administered Note: [facility] bi-d irectional interface ; Source: Other Registry influenza virus vaccine, unspecified formulation administered Note: [facility] bi-di rectional interface ; Source: Other Registry seasonal influenza, intrader mal, preservative free administered Note: [facility] bi-direct ional interface ; Source: Other Registry tetanus toxoid, reduced diphtheria toxoid, and acellular pertussis vaccine, adsorbed administered Note: [facility] b i-directional interface ; Source: Other Registry influenza virus vaccine, unspecified formulation administered Note: [facility] bi-di rectional interface ; Source: Other Registry Influenza, split virus, trivalent, injectable, contains preservative administered Note: [facility] bi-direct ional interface ; Source: Other Registry influenza virus vaccine, unspecified formulation administered Note: [facility] bi-di rectional interface ; Source: Other Registry influenza virus vaccine, unspecified formulation administered Note: [facility] bi-di rectional interface ; Source: Other Registry Afluria Qd [id number] administered Note: M IIC bi-directional interface ; Source: Other Registry Novel [id number], all formulations administered Note: [facility] bi-direct ional interface ; Source: Other Registry Influenza, split virus, trivalent, injectable, preservative free administered Note: [facility] bi-direct ional interface ; Source: Other Registry Influenza, split virus, trivalent, injectable, contains preservative administered Note: [facility] bi-direct ional interface ; Source: Other Registry Influenza, split virus, trivalent, injectable, contains preservative administered Note: [facility] bi-direct ional interface ; Source: Other Registry Pneumovax 23 administered Note: [facility] bi-d irectional interface ; Source: Other Registry hepatitis B vaccine, unspeci fied formulation administered Note: [facility] bi-direct ional interface ; Source: Other Registry measles, mumps and rubella v irus vaccine administered Note: [facility] bi-direct ional interface ; Source: Other Registry hepatitis B vaccine, unspeci fied formulation administered Note: [facility] bi-direct ional interface ; Source: Other Registry hepatitis B vaccine, unspeci fied formulation administered Note: [facility] bi-direct ional interface ; Source: Other Registry measles virus vaccine administered Note: [facility] bi-directional interface ; Source: Other Registry mumps virus vaccine administered Note: [place] [facility] bi-directional interface ; Source: Other Registry Vaccinia (smallpox, mpox) vaccine, live administered Note: [facility] bi-direct ional interface ; Source: Other Registry mumps virus vaccine administered Note: [place] [facility] bi-directional interface ; Source: Other Registry Payers Payer name Insurance type Covered green party ID Authoriza tion(s) No Information Social History Type Description Quantity Date Captured Comments Sex Female Smoking Status No Information Chief Complaint And Reason For Visit No Information Reason For Referral Reason For Referral No Information Plan Of Treatment Date Type Action Status Referral Ordered: EUS Appointment date/timeframe: 04/09/2025 ordered Referral Ordered: ERCP Appointment date/timeframe: 04/09/2025 ordered Referral Ordered: CMP Appointment date/timeframe: 01/04/2025 ordered Referral Ordered: Xray Abdomen Complete Appointment date/timeframe: 01/04/2025 ordered Referral Ordered: Xray Abdomen; Limited (AP View Only) (KUB) Appointment date/timeframe: 12/29/2024 ordered History Of Present Illness Encounter Date Complaint History Of Prese nt Illness No Information Functional Status Date Functional Assessmen t No Information Instructions Date Instruction Additional Infor mation No Information Assessments Type Assessment Date No Information Patient Care Teams Name Effective Dates (start - stop) Status Members No Information
--- OUTSIDE RECORDS SUMMARY | 2025-04-08 19:00 | XMS_ITS | Continuity of Care Document ---
Author Organization [facility] Address [address] [address] [place] [address] Phone Care Team Providers Care Color Television Console Monitor Name Role Phone Alen Dumas MD Unavailable [...] Diagnoses Date Provider Providers Copied on Encounter [facility], [address] [address], [place], [place], [address], [place] tel:[phone] [facility] No Information 5 Alesia Lowry. [address] [facility] [facility] [address], [place], [address] , [place]. tel: [phone] [facility], [address] [address], [place], [place], [address], [place] tel:[phone] [facility] No Information 5 Alesia Lowry. [address] [facility], [address], [place], [place], [address] , [place]. tel: [phone] [facility], [address] [address], [place], [place], [address], [place] tel:[phone] [facility] Abnormal LFTs Feb- 5 Alesia Lowry. [address] [facility] [address], [address], [place], [place], [address] , [place]. tel: [phone] [facility], [address] [address], [place], [place], [address], [place] tel:[phone] [facility] Choledocholithia sis 5 Jasurda DO German. [address] [facility] [address], [address], [place], [place], [address] , [place]. tel: [phone] Init Inpt E&M High [facility], [address] [address], [place], [place], [address], [place] tel:[phone] [facility] No Information 5 Ever Cast. [address] [facility] [address], [address], [place], [address] , [place]. tel: [phone] Referring Provider: Koki De MD, [address], [place], [address] . tel:[phone] [facility], [address] [address], [place], [place], [address], [place] tel:[phone] [facility] Choledocholithia sis 5 Alesia Lowry. [address] [facility] [address], [address], [place], [address] , [place]. tel: [phone] Init Inpt E&M Moderate [facility], [address] [address], [place], [address], [place] tel:[phone] [facility] No Information 5 Jasurda DO German. [address] [facility] [address], [address], [place], [place], [address] , [place]. tel: [phone] Referring Provider: Koki De MD, [address], [place], [address] . tel:[phone] [facility], [address] [address], [place], [address], [place] tel:[phone] [facility] No Information Alesia Lowry. [address] [facility], [address], [place], [address] , [place]. tel:[phone] Referring Provider: Alen Dumas MD, [address] [facility] [address], [place], [address] . tel:[phone] Family History Family Member Type Diagnosis Age At Onset No Information Immunizations Vaccine Date Status Comments Pneumococcal conjugate vacci ne 20-valent (PCV20), polysaccharide [id number] conjugate, adjuvant, preservative free administered Note: [facility] [...] interface ; Source: Other Registry Afluria Qd 4191-4597 administered Note: M [facility] bi-directional interface ; Source: Other Registry Novel [id number], all formulations administered Note: [facility] bi-direct ional [...] Other Registry mumps virus vaccine administered Note: [place] [facility] bi-directional interface ; Source: Other Registry Vaccinia (smallpox, mpox) vaccine, live administered Note: [facility] bi-direct ional interface ; Source: Other Registry mumps virus vaccine administered Note: [place] [facility] bi-directional interface ; Source: Other Registry Payers Payer name Insurance type Covered democrat [...]
[2025-05-04] VITALS (53 sets, daily range): BP systolic 119–188; BP diastolic 63–99; PULSE 61–84; RESP 16–20; TEMP 36.5–37; O2SAT 87–98; BMI 30.6; BMI 30.2; BMI 30.3
--- OUTSIDE RECORDS SUMMARY | 2025-05-04 02:04 | XMS_ITS | Clinical Summary ---
Author Organization [facility] Address [facility] [place] [address] Care Team Providers Care Manager Customs Name Role Phone Koki De MD Primary Care Provider [phone] Allergies Active Allergy Reactions Criticality Noted Date Comments Citalopram Behavioral Disturbances 11/09/2020 Excessive eating but does tolerate Escitalopram Cephalosporins Diarrhea 05/18/2011 Milk *Unknown 04/26/2025 Erythromycin GI Upset 05/18/2011 Gluten Other - Describe In Comment Field 11/09/2020 Asthma exacerbation - organic gluten products are ok Latex Rash 05/18/2011 Penicillins GI Upset 05/18/2011 Promethazine Anxiety 08/05/2012 Venlafaxine Other - Describe In Comment Field 03/18/2025 Sweating Bupropion *Unknown 11/09/2020 Medications cholecalciferol (Vitamin D-3) 2,000 unit capsule Take 1 Capsule (2,000 units) by mouth once daily. 0 021 Active ondansetron (ZOFRAN ODT) [address] 4 mg on the tongue every 8 hours if needed for Nausea/Vomiting . 024 Active benzonatate (TESSALON) 200 mg capsule Take 200 mg by mouth 3 times daily if needed for Cough. 024 Active EPINEPHrine 0.3 mg/0.3 mL auto-injectorInd ications:Hx of anaphylaxis Inject 0.3 mg (1 Pen) intramuscular each time if needed for Allergic Reaction. 2 Each Active escitalopram oxalate 10 mg tabletIndication s:Depression, major, in remission Take 1 Tablet (10 mg) by mouth once daily. 100 Tablet 3 Active estradioL 0.01% (0.1 mg/g) vaginal creamIndications :Menopausal symptoms Insert 1 g into the vagina once weekly. 42.5 g Active omeprazole 20 mg Delayed-Release capsuleIndicatio ns:Chronic GERD Take 1 Capsule (20 mg) by mouth once daily before a meal. 100 Capsule Active Ventolin HFA 90 mcg/actuation inhalerIndicatio ns:Moderate persistent asthma without complication (HC) Inhale 1-2 Puffs by mouth every 4 hours if needed for Shortness Of Breath. 18 g Active budesonide-formo teroL 160-4.5 mcg/actuation (160-4.5 mcg each actuation) inhalerIndicatio ns:Moderate persistent asthma without complication (HC) Inhale 2 Puffs by mouth two times daily. 10.2 g Active fexofenadine (Carmenza Allergy) 60 mg tablet Take 60 mg by mouth two times daily. Active fluorouracil 5 % cream Apply topically to affected area(s) once weekly. APPLY TOPICALLY TO AFFECTED AREA / ZONE OF FACE ONCE WEEKLY Active triamcinolone 0.1 % cream Apply topically to affected area(s) 2 times daily if needed. Active Phentermine HCl 30 mg capsuleIndicatio ns:Overweight TAKE 1 CAPSULE (30 MG) BY MOUTH ONCE DAILY BEFORE A MEAL. 30 Capsule 5 025 Active Qw-G-hflnl-B12-L .acid,plan-inu 65 mg iron- 50 mg-1 mg DFE cap Take 65 mg by mouth. Active prochlorperazine (Compazine) 25 mg suppositoryIndic ations:Acute pancreatitis without infection or necrosis, unspecified pancreatitis type (HC) Insert 1 Suppository (25 mg) rectally every 12 hours if needed for Nausea/Vomiting . 6 Suppository 025 Active traZODone (DESYREL) 50 mg tabletIndication s:Sleep disturbance Take 1.5 Tablets (75 mg) by mouth at bedtime. 145 Tablet 3 025 Active ketoconazole 2 % creamIndications :Seborrheic dermatitis Apply topically to affected area(s) two times daily. 60 g 025 Active finasteride (PROSCAR) 5 mg tabletIndication s:Hair loss TAKE ONE TABLET BY MOUTH (5MG) DAILY 93 Tablet 3 025 Active ondansetron (ZOFRAN) 8 mg tabletIndication s:Acute pancreatitis without infection or necrosis, unspecified pancreatitis type (HC) Take 1 Tablet (8 mg) by mouth every 8 hours if needed for Nausea/Vomiting . Active SEMIWEEKLY patch estradiol 0.05 mg/24 hr SEMIWEEKLY transdermal patchIndications :Menopausal symptoms Apply 1 Patch on dry, clean, hairless skin every Saturday and Saturday. 24 Patch 3 025 Active finasteride 5 mg tablet Take 1 Tablet (5 mg) by mouth once daily. 025 04/22 Discontinued ondansetron (ZOFRAN) 8 mg tabletIndication s:Acute pancreatitis without infection or necrosis, unspecified pancreatitis type (HC) Take 1 Tablet (8 mg) by mouth two times daily. 30 Tablet 025 04/26 Discontinued( *Medication adjustment) SEMIWEEKLY patch estradiol 0.05 mg/24 hr SEMIWEEKLY transdermal patch Apply 1 Patch on dry, clean, hairless skin every Saturday and Saturday. 024 04/26 Discontinued( Reorder (E-cancel not sent)) Active Problems Problem Noted [...] Encounters Date Type Department Care Team Description 04/26/2025 3:35 PM CDT Office Visit [facility] [address] [place] [address] Koki De MD Hospital F/U 04/26/2025 Travel 04/20/2025 Refill [facility] [address] [place] [address] Koki De MD Refill Request (Finasteride, Estradiol) 04/09/2025 11:20 AM CDT Anesthesia Event [facility] [address] [place] [address] Sridevi Dotson MD 04/09/2025 11:05 AM CDT - 04/09/2025 12:35 PM CDT Surgery [facility] [address] [place] [address] Alen Dumas MD ENDOSCOPIC ULTRASOUND UPPER 04/09/2025 9:33 AM CDT - 04/09/2025 1:15 PM CDT Hospital Encounter [facility] [address] [place] [address] Alen Dumas MD Abnormal liver enzymes Discharge Disposition: Home Self Care 04/08/2025 Travel 04/07/2025 3:35 PM CDT Office Visit [facility] [address] [place] [address] Koki De MD Preoperative Exam (preop 04/09 ) 04/07/2025 Travel 04/02/2025 Travel 03/18/2025 12:40 PM CDT [facility] [address] [facility] [address] Koki De MD Hospital F/U (Patient was at [facility] from the 03/07-03/09 for pancreatitis do to gallstones. Patient is feeling better since that visit. /Patient would also like to discuss medications.) 03/17/2025 Travel 03/07/2025 Orders Only [facility] Scanner 1 scan: (1-Ord) [facility], MR ABDOMEN WO CON, 03/07/2025 03/07/2025 Orders Only [facility] Scanner 1 scan: (1-Ord) [facility], CT ABDOMEN PELVIS WO CON, 03/07/2025 02/10/2025 Refill [facility] [address] [place] [address] Koki De MD Refill Request (Estradiol patches) from Last 3 Months Immunizations Immunization Administration Dates Next Due COVID-19 VACCINE SPIKEVAX (M ODERNA 50MCG/0.5ML) 12YO+ PFS 05/20/2024 COVID-19 vaccine (Moderna 100mcg/0.5mL) PF, MDV 09/06/2020,08/11/2020 COVID-19 vaccine (Moderna 50 mcg/0.5mL) 12YO+ BIVALENT PF, MDV 07/10/2022 Hepatitis A (Adult) 10/17/2016,09/22/2015 Hepatitis B, Unspecified 08/12/2002,08/12/1989,0 08/12/1988 INFLUENZA, IIV3 PF (AGE >= 6 MO) 05/20/2024 Influenza A (H1N1), Inactivated 06/16/2009 Influenza, High-dose Quadriv alent Inactivated 05/20/2017,05/16/2016,06/12/2014,06/09,06/02/2013,05/13/2012,06/07/2011 ,07/04/2010,06/16/2009,05/10/2009,11/12/2006,05/20/2006 Influenza, IIV3 (Age >=3 years) 07/04/2010 Influenza, IIV4 05/14/2023, 2,06/15/2021,05/17,05/27/2019,05/14/2018 MMR 08/12/1991 Measles 08/12/1978 Mumps 08/12/1971,08/12/1962 Pneumococcal Conj 20-valent (Prevnar 20) 11/05/2024 Pneumococcal Poly,23-Valent (Pneumovax) 11/29/2003 Pneumococcal conj 13-Valent (Prevnar 13) 09/22/2015 Polio Virus, Unspecified 08/12/1973 RSV, Recombinant ADJ Reconst ituted (Arexvy 120MCG/0.5mL) 03/11/2024 Smallpox (Vaccinia) Live [id number] 08/12/1968 Td (Age >=7 Years) 08/12/2001,08/12/1991, 982 Tdap 03/06/2024,08/28/2023,06/02/2013 Zoster (Shingrix-RZV, recombinant) 01/10/2021, Family History Medical History Relation Name Comments Cancer-prostate Brother Alcoholism Father Gene Atrial fibrillation Father Gene Melanoma Father Gene Scalp, metastas ized Obesity Father Gene Renal cell carcinoma of left kidney (HC) Father Gene s/p nephrectomy Anxiety disorder Mother Melissa Hypertension Mother Melissa Osteoarthritis Mother Melissa Osteoporosis Mother Melissa Depression Sister Lali Allergies Son 1 Kiran Asthma Son 1 Kiran Diabetes Son 1 Kiran Obesity Son 1 Kiran Allergies Son 2 Ponce Asthma Son 2 Ponce Relation Name Status Comments Brother Father Gene Alive Mother Melissa Alive Sister Lali Alive Son 1 Kiran Alive Son 2 Ponce Alive Social History Tobacco Use Types Packs/Day [...] on file Legal Sex Female 6:07 AM BREAD STACKER Gender Identity Not on file Sexual Orientation Not on file 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 Not on file Not on file Obstetrics History Last Filed Vital Signs Vital Sign Reading Time Taken Comments Blood Pressure 132/84 04/26/2025 4:19 PM CDT Pulse 73 04/26/2025 3:37 PM CDT Temperature 36.4 C (97.6 F) 04/09/2025 11:50 AM CDT Respiratory Rate 18 04/09/2025 11:50 AM CDT Oxygen Saturation 99% 04/26/2025 3:37 PM CDT Inhaled Oxygen Concentration - - Weight 79.4 kg (175 lb) 04/26/2025 3:37 PM CDT Height 163.8 cm (5' 4.49) 01/27/2025 3:59 PM CD T Body Mass Index 29.59 01/27/2025 3:59 PM CDT Plan of Treatment [...] 11/21/2022, Additional history exists Fecal testing sDNA-FIT ([place] guard) for age 45-75 01/27/2028 01/26/2025, 06/13/2022, [...] Completed 01/06/2025 Medical Devices Implanted Type Area Director Of Laboratory Operations Device Identifier Shelf Expiration Date Model / Serial / Lot Mesh Hernia Inguinal Rt - [id number] Implanted:Qty: 1 on 05/24/2011 at [facility] Right: Inguinal 09/12/2015 [id number] R# / / [id number] Stent Pancreatic [id number] Geenen Sof-Flex No Flap - [id number] Implanted:Qty: 1 on 12/14/2024 by Alen Dumas MD at [facility] 08/21/2027 GPSOS-SF- 5-5 / / [id number] Explanted Type Area Director Of Laboratory Operations Device Identifier Shelf Expiration Date Model / Serial / Lot Stent Pancreatic [id number] Geenen Sof-Flex No Flap - [id number] Explanted:Qty: 1 on 12/14/2024 at [facility] 08/21/2027 GPSOS-SF-5 - 5 / / [id number] Procedures Procedure Name Priority Date/Time Associated Diagnosis Comments XR ERCP BILIARY ONLY Routine 04/09/2025 11:51 AM CDT Abnormal liver enzymes ENDOSCOPY 04/09/2025 11:19 AM CDT ENDOSCOPY 04/09/2025 11:19 AM CDT ENDOSCOPIC RETROGRADE CHOLANGIOPANCREATOGRAPHY Tier 3: within 90 days 04/09/2025 11:10 AM CDT see md dictation ENDOSCOPIC ULTRASOUND professional sports scout 3: within 90 days 04/09/2025 11:10 AM CDT see md dictation SCAN-MRI INTERPRETATION 03/07/20 12:00 AM CDT SCAN-CT INTERPRETATION 12:00 AM CDT SCAN-MAMMOGRAPHY REPORT 01/28/20 12:00 AM CDT ANTI HIV 1/2 Routine 01/06/2025 3:02 PM CDT Screening for HIV (human immunodeficiency virus) ANTI HCV Routine 01/06/2025 3:02 PM CDT Abnormal liver ultrasound LIPID PANEL W REFLEX MEASURED LDL Routine 09/16/2023 7:43 AM BREAD STACKER Lipid screening SDNA-FIT EXTERNAL (COLOGUARD) Routine 06/13/2022 10:15 AM CDT Screening for colon cancer from Last 3 Months or Most Recently Relevant to Health Maintenance Results * XR ERCP BILIARY ONLY (04/09/2025 11:51 AM CDT) Anatomical Region Laterality Modality GALLBLADDER, PANCREAS, LIVER Oth er Narrative 04/09/2025 11:26 AM CDT 48 seconds fluoroscopy time was provided. See operative/procedure report for further information. Alen Dumas MD FLUOROSCOPY Final Result * ENDOSCOPY (04/09/2025 11:19 AM CDT) 04/09/2025 11:1 9 AM CDT Narrative Transcriptions Aeln Dumas MD - 04/09/2025 12:07 PM CDT [facility] Patient Name: Martita Steel Procedure Date: 04/09/2025 Gender: Female Date of : 1960 Admit Type: Ambulatory Procedure: ERCP Proceduralist: Alen Dumas MD - [facility] Referring MD: Alen Dumas MD Indications/Pre-Op Diagnosis: Abdominal pain of suspected biliary origin, Follow-up of bile duct stone(s) Medications: Monitored Anesthesia Care Procedure Description: Risk of bleeding, infection, perforation, pancreatitis, need for surgery, remote chance of and alternatives were discussed, andthe patient gave informed consent. The endoscope ERCP [id number] was passed through the mouth,and advanced to the duodenum and used to inject contrast into the bileduct. The ERCP was accomplished without difficulty. The patient toleratedthe procedure well. Complications: No immediate complications. Estimated Blood Loss & Specimen: Estimated blood loss: none. Specimen collected: None Findings: The scope was passed under direct vision through the upper GI tract.The entire examined stomach was normal. The examined duodenum was normal.A biliary sphincterotomy had been performed. The sphincterotomyappeared open. The bile duct was deeply cannulated with the 9 mm balloon and guidewire. Contrast was injected. I personally interpreted the bileduct images. There was brisk flow of contrast through the ducts. Image quality was excellent. Contrast extended to the hepatic ducts. The intra-hepatic and extra-hepatic biliary duct system was normal. The biliary tree was swept with a 9 mm balloon starting at thebifurcation. Nothing was found. Impressions/Post-Op Diagnosis: - Prior biliary sphincterotomy appeared open. - The cholangiogram was normal. - The biliary tree was swept and nothing was found. Recommendation: - Watch for pancreatitis, bleeding, perforation, and cholangitis. Alen Dumas MD 04/09/2025 12:07:11 PM This report has been signed electronically. Note Initiated On: 04/09/2025 11:19 AM us Alen Dumas MD PROCEDURE ORD Final Result * ENDOSCOPY (04/09/2025 11:19 AM CDT) 04/09/2025 11:1 9 AM CDT Narrative Transcriptions Alen Dumas MD - 04/09/2025 12:05 PM CDT [facility] Patient Name: Martita Steel Procedure Date: 04/09/2025 Gender: Female Date of : 1960 Admit Type: Ambulatory Procedure: Upper EUS Proceduralist: Alen Dumas MD - [facility] Referring MD: Alen Dumas MD Indications/Pre-Op Diagnosis: Acute pancreatitis, Epigastric abdominalpain Medications: Monitored Anesthesia Care Procedure Description: Risk of bleeding, infection, perforation, pancreatitis, need for surgery, remote chance of and alternatives were discussed, andthe patient gave informed consent. The endoscope [id number] was introduced through the mouth, and advanced [...] in the ampulla. No masses were identified. There was no sign of significant endosonographic abnormality in the common bile duct. The maximum diameter of the duct was 6 mm. Nostones, no biliary sludge, ducts of normal caliber and ducts with regular contour were identified. There was no sign of significant endosonographic abnormality in theleft lobe of the liver and in the right lobe of the liver. No focalpathology was identified. There was no sign of significant endosonographic abnormality in the pancreatic head, pancreatic body and pancreatic tail. The pancreatic duct measured up to 2 mm in diameter. No masses, no cysts. The aortopulmonary region (level 5), subcarinal mediastinum (level 7) and celiac region (level 20) nodes were endosonographically normal.No pathologic lymphadenopathy was identified. Impressions/Post-Op Diagnosis: - Normal stomach. - Normal examined duodenum. - There was no sign of significant pathology in the ampulla. - There was no sign of significant pathology in the common bileduct. - There was no evidence of significant pathology in the left lobe ofthe liver and in the right lobe of the liver. - There was no sign of significant pathology in the pancreatic head, pancreatic body and pancreatic tail. Recommendation: - Perform an ERCP. Alen Dumas MD 04/09/2025 12:05:24 PM This report has been signed electronically. Note Initiated On: 04/09/2025 11:19 AM us Alen Dumas MD PROCEDURE ORD Final Result * SCAN-MRI INTERPRETATION (03/07/2025 12:00 AM CDT) Anatomical Region Laterality Modality Other us Scanner OTHER Final Result * SCAN-CT INTERPRETATION (03/07/2025 12:00 AM CDT) Anatomical Region Laterality Modality Other us Scanner OTHER Final Result * SCAN-MAMMOGRAPHY REPORT (01/27/2025 12:00 AM CDT) Anatomical Region Laterality Modality Other us Scanner OTHER Final Result * ANTI HCV (01/06/2025 3:02 PM CDT) HEPATITIS C ANTIBODY NON-REACTI VE NON-REACT [facility] [employer] Comment: HCV antibody was non-reactive. There is no laboratory evidence of HCV infection. In most cases, no further action is required. However, if recent HCV exposure is suspected, a test for HCV RNA (test code 64556) is suggested. For additional information please refer to http://education.Hydrocision/faq/NYZ73u0 (This link is being provided for informational/ educational purposes only.) Blood BLOOD SPECIMEN / Unknown 01/06/2025 3:02 PM CDT 01/06/2025 3:03 PM CDT us Koki De MD SEND OUTS Final Resul t [facility] [address] [place] [address], [facility] [address] [place] [address] * ANTI HIV 1/2 [90667.0] (01/06/2025 3:02 PM CDT) Pathologist [facility] HIV AG/AB, 4TH GEN NON-REACT UC[facility] NON-REACT [facility] Comment: HIV-1 antigen and HIV-1/HIV-2 antibodies [...] purpose. For additional information please refer to http://education.Hydrocision/faq/ZJJ691 (This link is being provided for informational/ educational purposes only.) The performance of this assay has not been clinically validated in patients less than 2 years old. Blood BLOOD SPECIMEN / Unknown 01/06/2025 3:02 PM CDT 01/06/2025 3:03 PM CDT us Koki De MD SEND OUTS Final Resul t [facility] [address] [place] [address], [facility] [address] [place] [address] * LIPID PANEL W REFLEX MEASURED LDL (09/16/2023 7:43 AM BREAD STACKER) CHOLESTEROL,TOTAL 198 100 - 199 mg/dL 09/16/2023 4:22 PM BREAD STACKER [facility] Comment: Cholesterol, Total Reference Ranges Desirable <200 mg/dL Borderline 200-239 mg/dL High >=240 mg/dL TRIGLYCERIDES 88 <150 mg/dL 09/16/2023 4:22 PM BREAD STACKER [facility] HDL CHOLESTEROL 62 >40 mg/dL 4:22 PM BREAD STACKER [facility] NON-HDL CHOLESTEROL 136 <145 mg/dl 09/16/2023 4:22 PM BREAD STACKER [facility] CHOL/HDL RATIO 3.19 <4.50 09/16/2023 4:22 PM BREAD STACKER [facility] LDL CHOLESTEROL 118 <=130 mg/dL 09/16/2023 4:22 PM BREAD STACKER [facility] VLDL CHOLESTEROL 18 <=30 mg/dL 09/16/2023 4:22 PM BREAD STACKER [facility] PROVIDER ORDERED STATUS RANDOM 09/16/2023 4:22 PM BREAD STACKER [facility] Blood BLOOD SPECIMEN / Unknown Venipuncture / Unknown 09/16/2023 7:43 AM BREAD STACKER 09/16/2023 7:45 AM BREAD STACKER us Koki De MD CHEMISTRY Final Resul t [facility] [address] [place] [address], * sDNA-FIT External (Cologuard) [[id number]] (06/13/2022 10:15 AM CDT) NONINV COLON CA DNA+OCC BLD SCRN STL-IMP Negative Negative 06/21/2022 4:46 AM BREAD STACKER [facility] (CLIA #:[id number]) Comment: NEGATIVE TEST RESULT. A negative Cologuard [...] (Deacon Klein al, N Engl J Med 2014;370(14):5423-6459) The normal value (reference range) for this assay is negative. COLOGUARD RE-SCREENING RECOMMENDATION: Periodic colorectal cancer screening is an important part of preventive healthcare for asymptomatic individuals at average risk for colorectal cancer. Following a negative Cologuard result, the [place] [employer] and U.S. Multi-Society Task Force screening guidelines recommend a Cologuard re-screening interval of 3 years. References: [place] [employer] Guideline for Colorectal Cancer Screening: https://www.cancer.org/cancer/bwblm-vdmdpt-ezeboq/nnnpysdmn-zsbthjnvv-rvgykxv/ac s-rec ommendations.html.; Diogo DK, Gray CR, Eliot OneillK, Colorectal Cancer Screening: Recommendations for Physicians and Patients from the U.S. Multi-Society Task Force on Colorectal Cancer Screening , Am J Gastroenterology 2017; 112:2928-0075. TEST DESCRIPTION: Composite algorithmic analysis of stool [...] (Deacon Klein al, N Engl J Med 2014;370(14):6115-1776.) Cologuard may produce a false negative or false positive result (no colorectal cancer or precancerous polyp present at colonoscopy follow up). A negative Cologuard test result does not guarantee the absence of CRC or advanced adenoma (pre-cancer). The current Cologuard screening interval is every 3 years. ([place] [employer] and U.S. Multi-Society Task Force). Cologuard performance data in a 10,000 patient pivotal study using colonoscopy as the reference method can be accessed at the following location: www.[facility]/results. Additional description of the Cologuard test process, warnings and precautions can be found at www.Bion[employer].com. Stool specimen (specimen) (Rectum) 06/13/2022 10:15 AM CDT 06/14/2022 5:14 PM CDT Caryl Huang MD URINE Final Result [facility] (CLIA #:[id number]) [address] [place] [address], from Last 3 Months or Most Recently Relevant to Health Maintenance Insurance [facility] INDIV[employer] FAMILY PLANS Advance Directives * Full Code (Latest Code Status on File) Date Activated Date Inactivated Comments 04/09/2025 10:26 AM 04/09/2025 3:25 PM Question Answer Comments Code Status Discussion: Unable to Assess Preferences, Provider to review later * Full Code Date Activated Date Inactivated Comments 04/09/2025 10:26 AM 04/09/2025 10:26 AM Question Answer Comments Code Status Discussion: Unable to Assess Preferences, Provider to review later * Full Code Date Activated Date Inactivated Comments 12/18/2024 4:13 AM 12/18/2024 4:51 PM Question Answer Comments Code Status Discussion: Reviewed Preferences * Full Code Date Activated Date Inactivated Comments 12/14/2024 3:46 PM 12/15/2024 1:22 PM Question Answer Comments Code Status Discussion: Unable to Assess Preferences, Provider to review later * Full Code Date Activated Date Inactivated Comments 05/24/2011 9:05 AM 05/24/2011 7:25 PM Care Teams Manager Customs Relationship Specialty Start Date End Date Koki De MD [address] [place] [address] PCP - General Family Practice 12/18/22
--- NOTE | 2025-05-04 02:21 | ED.GENADULT ---
HPI - General Adult General Chief complaint: Abdominal Pain Stated complaint: abdominal pain Time Seen by Provider: 05/04/25 02:21 History of Present Illness HPI narrative: . CC: Epigastric Pain, Nausea pain started around 0045. took 8mg po zofran and 600 mg ibuprofen with no relief. denies diarrhea, vomiting. 64-year-old woman presenting to the emergency department with concern of epigastric area pain. Actually it seemed to be radiating throughout her chest and even into her left arm she gestures. And into her back. History of pancreatitis and she believes this is likely the same thing. Began about 2-1/2 hours prior to this interview and has escalated. She believes she has been having smaller episodes that seem to settle with some Zofran. She did take 8 mg of Zofran as well as ibuprofen but has not found relief with this. Does have a history of irritable bowel syndrome and has been having regular but small soft bowel movements. History is a little complicated with a history of gallstones and biliary colic and laparoscopic cholecystectomy at and November this year. She was hospitalized with pain ultimately receiving an ERCP and retrieval of a 4 mm stone and placement of a pancreatic duct stent. On follow-up visits with concern of pain, stent was noted to have migrated and she was transferred. Stent was removed. Then experienced subsequent flares of pain with unclear source. On March 07, 2025 significant lipase elevation of over 30,[address] imaging confirming acute pancreatitis but otherwise unremarkable. Dr. Steel notes that there was a question apparently a whether not she might still be forming/Juve stones to be contributing to pain in the absence of other findings; that maybe sooner evaluation with onset of pain might capture more convincing elevation of transaminases? No fever. No vomiting Related Data Home Medications ?Medication ?Instructions ?Recorded ?Confirmed cholecalciferol (vitamin D3) 50 2,000 unit PO DAILY 02/28/22 04/13/25 mcg (2,000 unit) tablet SAMe butanedisulfonate 400 ea PO 12/04/24 04/13/25 mg-betaine 600 mg oral powder packet acetaminophen 650 mg 650 mg PO Q12H 12/04/24 04/13/25 tablet,extended release (Tylenol Arthritis Pain) multivitamin 1 tab PO QAM 12/04/24 04/13/25 escitalopram oxalate 10 mg tablet 10 mg PO DAILY 12/14/24 04/13/25 fexofenadine 180 mg tablet 180 mg PO DAILY 12/14/24 04/13/25 (Carmenza Allergy) phentermine 30 mg capsule 30 mg PO DAILY 12/14/24 04/13/25 trazodone 50 mg tablet 50 - 100 mg PO HS 12/14/24 04/13/25 ondansetron HCl 8 mg tablet 8 mg PO BID 04/09/25 04/13/25 Previous Rx's ?Medication ?Instructions ?Recorded fluorouracil 5 % topical cream 1 applic topical .UD #40 grams 06/06/23 albuterol sulfate 90 mcg/actuation 2 puff inhalation Q6H PRN 01/28/24 aerosol inhaler bronchospasm #8.5 grams epinephrine 0.3 mg/0.3 mL 0.3 mg (0.3 mL) IM .As Needed PRN 01/28/24 injection, auto-injector anaphylaxis #2 ea estradiol 0.01% (0.1 mg/gram) 1 g vaginal QWEEK #42.5 grams 01/28/24 vaginal cream omeprazole 20 mg capsule,delayed 20 mg PO DAILY #90 caps 01/28/24 release triamcinolone acetonide 0.1 % 1 applic topical BID PRN skin 01/28/24 topical cream reaction #80 grams budesonide-formoterol HFA 160 2 puff inhalation BID #10.2 grams 02/06/24 mcg-4.5 mcg/actuation aerosol inhaler (Symbicort) finasteride 5 mg tablet 5 mg PO DAILY #90 tabs 04/23/24 albuterol sulfate 2.5 mg/3 mL 2.5 mg (3 mL) inhalation Q4-6H PRN 01/15/25 (0.083 %) solution for nebulization shortness of breath or wheezing #180 mL estradiol 0.05 mg/24 hr semiweekly 1 patch transdermal .Twice Weekly 02/16/25 transdermal patch #8 ea indomethacin 25 mg capsule See Rx Instructions PO TID #30 caps 03/24/25 Allergies Allergy/AdvReac Type Severity Reaction Status Date / Time bupropion Allergy Unknown Tremors Verified 05/04/25 02:12 Cephalosporins Allergy Unknown GI upset Verified 05/04/25 02:12 latex Allergy Unknown Rash Verified 05/04/25 02:12 promethazine Allergy Unknown Legs jump Verified 05/04/25 02:12 Macrolide Antibiotics Allergy Gastrointestinal Verified 05/04/25 02:12 Upset venlafaxine Allergy Verified 05/04/25 02:12 erythromycin base AdvReac Gastrointestinal Verified 05/04/25 02:12 Upset Review of Systems Status of ROS: Reports: 6 or more systems reviewed and unremarkable except as noted in History and below [facility] Medical History Tear of medial meniscus of right knee ?S83.241A - Other tear of medial meniscus, current injury, right knee, initial encounter (ICD-10) Osteoarthritis of left knee ?M17.12 - Unilateral primary osteoarthritis, left knee (ICD-10) Left carpal tunnel syndrome ?G56.02 - Carpal tunnel syndrome, left upper limb (ICD-10) Osteoarthritis of right knee ?M17.11 - Unilateral primary osteoarthritis, right knee (ICD-10) Biliary colic ?K80.50 - Calculus of bile duct without cholangitis or cholecystitis without obstruction (ICD-10) Chronic hepatitis ?K73.9 - Chronic hepatitis, unspecified (ICD-10) Sciatica ?M54.30 - Sciatica, unspecified side (ICD-10) Sleep apnea ?G47.30 - Sleep apnea, unspecified (ICD-10) Hair thinning ?L65.9 - Nonscarring hair loss, unspecified (ICD-10) Eczema ?L30.9 - Dermatitis, unspecified (ICD-10) Binge eating ?R63.2 - Polyphagia (ICD-10) Irritable bowel syndrome ?K58.9 - Irritable bowel syndrome without diarrhea (ICD-10) Actinic keratosis ?L57.0 - Actinic keratosis (ICD-10) GERD (gastroesophageal reflux disease) ?K21.9 - Gastro-esophageal reflux disease without esophagitis (ICD-10) On postmenopausal hormone replacement therapy ?Z79.890 - Hormone replacement therapy (ICD-10) Environmental and seasonal allergies ?J30.89 - Other allergic rhinitis (ICD-10) Difficulty sleeping ?G47.9 - Sleep disorder, unspecified (ICD-10) Depression ?F32.A - Depression, unspecified (ICD-10) Asthma ?J45.909 - Unspecified asthma, uncomplicated (ICD-10) Guillain-[place] syndrome (~1996) ?G61.0 - Guillain-[place] syndrome (ICD-10) LAUREANO (obstructive sleep apnea) ?G47.33 - Obstructive sleep apnea (adult) (pediatric) (ICD-10) Recurrent subluxation of left temporomandibular joint ?M24.49 - Recurrent dislocation, other specified joint (ICD-10) Surgical History Status post laparoscopic cholecystectomy ?Z90.49 - Acquired absence of other specified parts of digestive tract (ICD-10) H/O gastrostomy ?Z98.890 - Other specified postprocedural states (ICD-10) H/O tracheostomy ?Z98.890 - Other specified postprocedural states (ICD-10) H/O hernia repair ?Z98.890 - Other specified postprocedural states (ICD-10) ?Z87.19 - Personal history of other diseases of the digestive system (ICD-10) History of vaginal hysterectomy ?Z90.710 - Acquired absence of both cervix and uterus (ICD-10) Family History Mother High blood pressure Osteoarthritis Osteoporosis Father Atrial fibrillation Melanoma Renal cell carcinoma Cancer Family history of alcohol abuse Heart disease Paternal Grandmother Stroke Atrial fibrillation Diabetes Son Diabetes Brother FHx: cancer of prostate Other Alcohol dependence Drug dependence Family history of psychiatric disorder Family history of substance abuse Social History Narrative: . 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 No drug use. 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 She exercises intermittently. What is your current living situation?: I presently have a place to live Problems where you live: no known problems Problems where you live details: none In the past 12 months, utilities in danger of being shut off: no In past 12 months, lack of transportation kept you from medical appts, meetings, work, or getting things needed for daily living: no In the past 12 mos, have been you worried that your food would run out before you had money to buy more?: never true In the past 12 mos, the food you bought just didn't last and you didn't have money to buy more?: never true Highest level of school completed/degree received: Doctoral degree Smoking Status: Never smoker Do you use any of these nicotine containing products: None Second hand tobacco smoke exposure: No How often do you have a drink containing alcohol: monthly or less How often do you have six or more drinks on one occasion: Never AUDIT-C Alcohol total score: 1 Non-prescribed substance use: denies use Caffeine: No How often does anyone, including family, friends and others, physically hurt you: never How often does anyone, including family, friends and others, insult or talk down to you: never How often does anyone, including family, friends and others, threaten you with harm: never How often does anyone, including family, friends and others, scream or curse at you: never service: No Exam Narrative: Exam Narrative: Pleasant. Calm. Appears though to be quietly in pain. Discomfort is not pleuritic. Lungs are clear. Breath sounds throughout. No reproduction of pain to palpation of the back. Heart in regular rate and rhythm with bowel murmur rub or gallop. Bowel sounds are present but diminished. Moderately tender in the epigastrium. Maybe a little bit in the right upper quadrant under the ribs as well. Extremities are well perfused without edema. Const: Vital Signs, click to edit/add: Vital Signs - 24 hr 05/04/25 02:10 05/04/25 02:50 05/04/25 03:10 Temperature 98.0 F 98.0 F Pulse Rate Pulse Rate [Right Pulse Oximeter] 84 Respiratory Rate 18 Blood Pressure Blood Pressure [Ri ght Upper Arm] 188/99 H Pulse Oximetry 98 98 Oxygen Delivery Me thod Room Air 05/04/25 03:27 05/04/25 03:32 05/04/25 03:56 Temperature 98.0 F 98.0 F Pulse Rate 76 Pulse Rate [Right Pulse Oximeter] 84 Respiratory Rate 18 18 Blood Pressure 132/70 Blood Pressure [Ri ght Upper Arm] 181/89 H Pulse Oximetry 93 93 Oxygen Delivery Me thod Room Air 05/04/25 04:02 05/04/25 04:32 05/04/25 05:02 Temperature 98.1 F Pulse Rate 71 72 61 Pulse Rate [Right Pulse Oximeter] Respiratory Rate 18 18 18 Blood Pressure 122/74 124/81 129/75 Blood Pressure [Ri ght Upper Arm] Pulse Oximetry 93 92 95 Oxygen Delivery Me thod 05/04/25 05:32 05/04/25 06:04 05/04/25 06:32 Temperature Pulse Rate 72 71 68 Pulse Rate [Right Pulse Oximeter] Respiratory Rate 18 18 18 Blood Pressure 119/71 155/63 H 137/79 Blood Pressure [Ri ght Upper Arm] Pulse Oximetry 91 96 92 Oxygen Delivery Me thod 05/04/25 06:33 05/04/25 06:45 05/04/25 07:00 Temperature Pulse Rate 67 65 68 Pulse Rate [Right Pulse Oximeter] Respiratory Rate Blood Pressure Blood Pressure [Ri ght Upper Arm] Pulse Oximetry 92 92 91 Oxygen Delivery Me thod 05/04/25 07:02 05/04/25 07:15 05/04/25 07:30 Temperature Pulse Rate 68 64 71 Pulse Rate [Right Pulse Oximeter] Respiratory Rate Blood Pressure 132/77 Blood Pressure [Ri ght Upper Arm] Pulse Oximetry 92 93 92 Oxygen Delivery Me thod 05/04/25 07:32 Temperature Pulse Rate 69 Pulse Rate [Right Pulse Oximeter] Respiratory Rate Blood Pressure 134/82 Blood Pressure [Ri ght Upper Arm] Pulse Oximetry 92 Oxygen Delivery Me thod Documenting provider has reviewed patient's vital signs: yes Course Vital Signs Vital signs: Initial Vital Signs Temperature 98.0 F 05/04/25 02:10 Temperature Source Temporal Artery Scan 05/04/25 02:10 Pulse Rate 84 05/04/25 02:10 Respiratory Rate 18 05/04/25 02:10 Blood Pressure 188/99 H 05/04/25 02:10 Blood Pressure Mean 128 H 05/04/25 02:10 Blood Pressure Position Sitting 05/04/25 02:10 Pulse Oximetry 98 05/04/25 02:10 Oxygen Delivery Method Room Air 05/04/25 02:10 Vital Signs Temperature 98.0 F 05/04/25 02:10 Pulse Rate 84 05/04/25 02:10 Respiratory Rate 18 05/04/25 02:10 Blood Pressure 188/99 H 05/04/25 02:10 Pulse Oximetry 98 05/04/25 02:10 Oxygen Delivery Method Room Air 05/04/25 02:10 Temperature 98.1 F 05/04/25 04:32 Pulse Rate 69 05/04/25 07:32 Respiratory Rate 18 05/04/25 06:32 Blood Pressure 134/82 05/04/25 07:32 Pulse Oximetry 92 05/04/25 07:32 Oxygen Delivery Method Room Air 05/04/25 03:27 Medications Administered Medications: Discontinued Medications Generic Name Dose Route Start Last Admin Trade Name Joeq PRN Reason Stop Dose Admin Diphenhydramine HCl 25 mg 05/04/25 02:33 05/04/25 02:48 Diphenhydramine 50 Mg/Ml Inj IVP 05/04/25 02:34 25 mg ONCE ONE Administration Hydromorphone HCl 1 mg 05/04/25 02:33 05/04/25 03:00 Hydromorphone 0.5 Mg/0.5 Ml Inj IVP 05/04/25 02:34 1 mg ONCE ONE Administration Hydromorphone HCl 0.5 mg 05/04/25 07:25 05/04/25 07:33 Hydromorphone 0.5 Mg/0.5 Ml Inj IVP 05/04/25 07:26 0.5 mg ONCE ONE Administration Sodium Chloride 1,000 mls @ 1,000 mls/hr 05/04/25 02:33 05/04/25 03:56 0.9 % Sodium Chloride 1000 Ml IV 05/04/25 03:32 Infused .Q1H ONE Infusion Metoclopramide HCl 10 mg/ 102 mls @ 306 mls/hr 05/04/25 02:33 05/04/25 03:11 Sodium Chloride IVPB 05/04/25 02:34 Infused ONCE ONE Infusion Lactated Ringer's 1,000 mls @ 1,000 mls/hr 05/04/25 03:32 05/04/25 05:27 Lactated Ringers 1000 Ml IV 05/04/25 04:31 Infused .Q1H ONE Infusion Ketorolac Tromethamine 15 mg 05/04/25 02:39 05/04/25 02:50 Ketorolac 15 Mg/Ml Inj IVP 05/04/25 02:40 15 mg ONCE ONE Administration Medical Decision Making MDM Narrative Medical decision making narrative: Could be ischemic cardiovascular event or vascular dissection. Will evaluate for pancreatitis of course as well. I think pancreatitis is most likely source of her pain given history and location of pain on physical exam. Discussed options for pain management and antiemetic. Have requested IV normal saline, Dilaudid (that Dr. Steel notes a concerns of flushing in headache which tends to be temporary) also ketorolac though she did recently take ibuprofen. We will be hydrating. Diphenhydramine preceding Reglan piggyback. White count returns normal as is CRP. Mild elevation in LDH. Transaminases are only with mild elevation of AST at 73. Normal alkaline phosphatase D-dimer is reassuring On reassessment is markedly improved with pain now about a 1. She has been resting comfortably. Finally lipase returns at 33,830. This is a little higher than the 31,[address] visualized ?acute uncomplicated pancreatitis of moderate severity? in 03/07/2025. 24 hours later lipase had plummeted. White count at that time was quite high. Today as noted white count is normal. MRCP also at end of February showing only acute pancreatitis. Labs today, brevity of symptoms and improvement of symptoms I do not think suggest retained stone; recently rolled stone? Dr. Steel wonders if MRCP will likely need to be repeated Normal D-dimer. Doubtful vascular dissection and then again with high lipase this is the likely explanation for pain. While remarkably high lipase, I'm not sure that CT imaging will likely be much different than in the past particularly with otherwise essentially normal labs. Anticipating admission at least for bowel rest, hydration and pain control. Discussed admission and best imaging with hospitalist overnight. Understandably reluctant to admit without confirming that there is not a retained stone/plugged duct. CT imaging likely to be inconclusive. After some phone calls it sounds as though MRCP would be possible at some point in the morning. Has been resting comfortably though finally with some escalation in pain has requested re-dosing of Dilaudid. Ordered for another 0.5 mg. Pending MRCP at this morning remains in the emergency department. Anticipating handoff at change of shift. Medical Records Medical records reviewed: Yes I reviewed the patient's medical records Lab Data Lab results reviewed: Yes I reviewed the patient's lab results Labs: Lab Results 05/04/25 Range/Units 02:15 WBC 9.91 (4.50-11.00) K/uL RBC 4.54 (4.00-5.20) m/uL Hgb 13.0 (12.0-16.0) gm/dL Hct 40.8 (33.0-51.0) % MCV 90 (80-100) fL MCH 29 (26-34) pg MCHC 32 (32-36) gm/dL RDW Coeff of Jim 12.9 (11.5-15.5) % Plt Count 354 (140-440) K/uL Neut % (Auto) 72.5 H (42.0-72.0) % Lymph % (Auto) 16.2 L (20-44) % Starke % (Auto) 9.4 (0.0-11.0) % Eos % (Auto) 1.2 (0.0-7.0) % Baso % (Auto) 0.5 (0.0-3.0) % Neut # (Auto) 7.20 H (1.7-7.0) K/uL Lymph # (Auto) 1.60 (0.90-2.90) K/uL Starke # (Auto) 0.90 (0.00-0.90) K/UL Eos # (Auto) 0.12 (0.00-0.50) K/uL Baso # (Auto) 0.05 (0.00-0.30) K/uL Abs Immat Gran (auto) 0.02 (0.00-0.30) K/uL Imm/Tot Granulo (auto) 0.2 % D-Dimer Quant (PE/DVT) 0.30 (0.00-0.50) ug/ml Total Bilirubin 0.3 (0.1-1.5) mg/dL Direct Bilirubin 0.2 (0.0-0.5) mg/dL AST 73 H (12-35) U/L ALT 35 (4-35) U/L Alkaline Phosphatase 91 (40-150) U/L Lactate Dehydrogenase 275 H (120-246) U/L Troponin I < 0.01 (0.01-0.04) ng/mL C-Reactive Protein < 0.5 L (0.5-1.0) mg/dL Total Protein 7.4 (6.0-8.3) g/dL Albumin 4.3 (3.3-5.0) g/dL Lipase 22067 H (23-300) U/L ECG Data Attestation: I personally reviewed and interpreted this ECG as follows: (Normal sinus rhythm at rate 72. Without ischemic changes) Discharge Plan Discharge Clinical Impression: Pancreatitis, Abdominal pain Patient Disposition: Admitted As Inpatient Condition: Stable
[2025-05-04] MEDS: METOCLOPRAMIDE HCL 10 MG in 0.9 % SODIUM CHLORIDE 100 ml 100 ML 306 MG IVPB (02:50)
[2025-05-04 03:05] LABS: Hematocrit* 40.8 % (33.0-51.0); Hemoglobin* 13.0 gm/dL (12.0-16.0); Immature Granulocytes Abs Auto 0.02 K/uL (0.00-0.30); Immature Granulocytes Pct Auto 0.2 %; Mean Corpuscular HGB Conc 32 gm/dL (32-36); Mean Corpuscular Hemoglobin 29 pg (26-34); Mean Corpuscular Volume 90 fL (80-100); RDW Coefficient of Variation % 12.9 % (11.5-15.5); Red Blood Count* 4.54 m/uL (4.00-5.20); White Blood Count* 9.91 K/uL (4.50-11.00)
[2025-05-04 03:06] LABS: Lymphocytes Absolute Auto 1.60 K/uL (0.90-2.90)
[2025-05-04 03:07] LABS: Slide Review Reflex No
[2025-05-04 03:09] LABS: Albumin* 4.3 g/dL (3.3-5.0)
[2025-05-04 03:12] LABS: D Dimer Quantitative* 0.30 ug/ml (0.00-0.50)
[2025-05-04 03:13] LABS: Alanine Aminotransferase* 35 U/L (4-35); Alkaline Phosphatase* 91 U/L (40-150); Aspartate Amino Transferase* 73 U/L (12-35); Bilirubin Direct* 0.2 mg/dL (0.0-0.5); Bilirubin Total* 0.3 mg/dL (0.1-1.5); Total Protein* 7.4 g/dL (6.0-8.3)
[2025-05-04] MEDS: LACTATED RINGERS 1000 ML 1,000 ML IV (04:33)
--- NOTE | 2025-05-04 07:13 | CRLHL7_ITS ---
For Patients: As a result of the Century Cures Act, medical imaging exams and procedure reports are released immediately into your electronic medical record. You may view this report before your referring provider. If you have questions, please contact your health care provider. Indication: Epigastric pain and pancreatitis Technique: MRCP of the abdomen performed without intravenous contrast at 1.5 [place]. Reconstructed images/MIPS were created. Comparison: 03/07/2025 MRI of the abdomen Findings: No pleural effusion. Smooth hepatic contour. A right hepatic lobe 5.6 centimeter T2 markedly hyperintense lesion is similar in size since the prior exam and was previously demonstrated to be a hemangioma on earlier contrast-enhanced imaging (04/02). Status post cholecystectomy. No intrahepatic biliary ductal dilation. Similar mild fullness of the extrahepatic biliary tree which is probably within normal limits for the post cholecystectomy state. No choledocholithiasis is detected. No splenomegaly. Normal caliber of the main pancreatic duct. There is prominent peripancreatic soft tissue edema with some extension of the edema into the adjacent retroperitoneum and peritoneal cavity. No discrete peripancreatic fluid collection is identified. Normal adrenal glands. No hydronephrosis. No focal abnormally dilated loops of bowel within the field of view. Moderate to large colonic stool volume. No enlarged regional lymph nodes are detected. Normal caliber of the abdominal aorta. Normal abdominal wall. There are osseous degenerative changes. Impression: Acute pancreatitis. Additional findings as above. Dictated by Tobias Malone MD @ 05/04/2025 1:06:08 PM (Electronically Signed)
[2025-05-04 14:47] LABS: Chloride* 105 mmol/L (96-114); Potassium* 3.9 mmol/L (3.6-5.1); Sodium* 139 mmol/L (135-149)
[2025-05-04 14:50] LABS: Anion Gap 6 mEq/L (7-15); Blood Urea Nitrogen* 14 mg/dL (7-30); Calcium* 8.9 mg/dL (8.4-10.6); Carbon Dioxide* 28 mmol/L (20-32); Creatinine* 0.7 mg/dL (0.5-1.5); Est. Creatinine Clearance* 49.72; Estimated Glomerular Filt Rate 97 ml/min; Glucose* 102 mg/dL (60-115)
[2025-05-04 15:04] LABS: Triglycerides* 261 mg/dL (40-149)
--- NOTE | 2025-05-04 18:07 | PC.NURSE ---
End of Shift Note: Patient arrived to the unit around 1400 from the ER for Abd pain. Admission was completed. She complain of 2/10 pain but this was tolerable as she received toradol in the ER before she arrived her. Have checked in with her a couple of times provided a warm blanket but has not request much more. Will continue to monitor until next shift arrives.
[2025-05-04] MEDS: ONDANSETRON 2 MG/ML inj 4 MG IVP (18:49)
--- NOTE | 2025-05-04 19:45 | P.IMHP_ITS ---
Assessment and Plan Assessment and plan (1) Pancreatitis: Problem comment: Recurrent episodes requiring hospitalization over the past 5 months. Questionable mild episodes once or twice a week. Normal EUS and ERCP 3 weeks ago. Cause for pancreatitis is unclear Status: Acute (2) Status post laparoscopic cholecystectomy: Problem comment: 12/07/2024, Dr. Carnes. transferred to [facility] (12/14/24) 7 days post op for ERCP, retained stone Status: Acute Plan Admit to the hospital for ongoing management of pancreatitis, pain control, IV fluids and monitoring for complications. Total Time Spent Total Time Spent: Total time spent today is 65 minutes in reviewing outside records, coordination of care and discussing with patient ongoing management of pancreatitis Hospitalist- H&P: HPI History of Present Illness Date Seen: 05/04/25 Chief complaint: abdominal pain Narrative: Martita Steel is a 64 year old female admitted to the hospital with onset of epigastric pain and back pain starting last night. 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 -12/07 uncomplicated laparoscopic cholecystectomy with Dr. Carnes -12/13 admitted here with recurrent abdominal pain. Concern for choledocholithiasis -12/14 transferred to [facility] for an ERCP. Dr. Dumas we removed a 4 mm stone in the common bile duct via biliary sphincterotomy and balloon extraction. One pancreatic stent was placed into the ventral pancreatic duct. She was released later that day. -12/17 back to our ER. Transferred again to [place]. There was some thought because of very quick resolution of her symptoms that maybe she had past the stent that had been placed in her pancreas. -12/30 unclear abdominal pain that resolved quickly without admission or transfer -01/31 unclear abdominal pain that resolved quickly without admission or transfer -03/07 onset of severe epigastric pain with marked elevation of lipase and CT showing acute pancreatitis April 09: Normal ERCP and EUS with Dr. Dumas. Since February she reports that she has mild episodes of nausea and back pain once or twice a week. She treats he is at home with Zofran and NSAID medications and does not get medical attention until today. Today her symptoms were serve your and persistent bring her to the emergency department. She rarely drinks alcohol. She had 1 drink 4 days ago but otherwise reports no alcohol this month. Relatively normal triglyceride levels Review of Systems Narrative: Except as noted above she reports feeling fine. Medical Decision Making Medical Decision Making Has patient completed a Health Care Directive: No PFSH PFS Medical History Tear of medial meniscus of right knee ?S83.241A - Other tear of medial meniscus, current injury, right knee, initial encounter (ICD-10) Osteoarthritis of left knee ?M17.12 - Unilateral primary osteoarthritis, left knee (ICD-10) Left carpal tunnel syndrome ?G56.02 - Carpal tunnel syndrome, left upper limb (ICD-10) Osteoarthritis of right knee ?M17.11 - Unilateral primary osteoarthritis, right knee (ICD-10) Biliary colic ?K80.50 - Calculus of bile duct without cholangitis or cholecystitis without obstruction (ICD-10) Chronic hepatitis ?K73.9 - Chronic hepatitis, unspecified (ICD-10) Sciatica ?M54.30 - Sciatica, unspecified side (ICD-10) Sleep apnea ?G47.30 - Sleep apnea, unspecified (ICD-10) Hair thinning ?L65.9 - Nonscarring hair loss, unspecified (ICD-10) Eczema ?L30.9 - Dermatitis, unspecified (ICD-10) Binge eating ?R63.2 - Polyphagia (ICD-10) Irritable bowel syndrome ?K58.9 - Irritable bowel syndrome without diarrhea (ICD-10) Actinic keratosis ?L57.0 - Actinic keratosis (ICD-10) GERD (gastroesophageal reflux disease) ?K21.9 - Gastro-esophageal reflux disease without esophagitis (ICD-10) On postmenopausal hormone replacement therapy ?Z79.890 - Hormone replacement therapy (ICD-10) Environmental and seasonal allergies ?J30.89 - Other allergic rhinitis (ICD-10) Difficulty sleeping ?G47.9 - Sleep disorder, unspecified (ICD-10) Depression ?F32.A - Depression, unspecified (ICD-10) Asthma ?J45.909 - Unspecified asthma, uncomplicated (ICD-10) Guillain-[place] syndrome (~1996) ?G61.0 - Guillain-[place] syndrome (ICD-10) LAUREANO (obstructive sleep apnea) ?G47.33 - Obstructive sleep apnea (adult) (pediatric) (ICD-10) Recurrent subluxation of left temporomandibular joint ?M24.49 - Recurrent dislocation, other specified joint (ICD-10) Surgical History Status post laparoscopic cholecystectomy ?Z90.49 - Acquired absence of other specified parts of digestive tract (ICD- 10) H/O gastrostomy ?Z98.890 - Other specified postprocedural states (ICD-10) H/O tracheostomy ?Z98.890 - Other specified postprocedural states (ICD-10) H/O hernia repair ?Z98.890 - Other specified postprocedural states (ICD-10) ?Z87.19 - Personal history of other diseases of the digestive system (ICD-10) History of vaginal hysterectomy ?Z90.710 - Acquired absence of both cervix and uterus (ICD-10) Family History Mother High blood pressure Osteoarthritis Osteoporosis Father Atrial fibrillation Melanoma Renal cell carcinoma Cancer Family history of alcohol abuse Heart disease Paternal Grandmother Stroke Atrial fibrillation Diabetes Son Diabetes Brother FHx: cancer of prostate Other Alcohol dependence Drug dependence Family history of psychiatric disorder Family history of substance abuse Social History Narrative: . 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 No drug use. 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 She exercises intermittently. What is your current living situation?: I presently have a place to live Problems where you live: no known problems Problems where you live details: none In the past 12 months, utilities in danger of being shut off: no In past 12 months, lack of transportation kept you from medical appts, meetings, work, or getting things needed for daily living: no In the past 12 mos, have been you worried that your food would run out before you had money to buy more?: never true In the past 12 mos, the food you bought just didn't last and you didn't have money to buy more?: never true Highest level of school completed/degree received: Doctoral degree Smoking Status: Never smoker Do you use any of these nicotine containing products: None Second hand tobacco smoke exposure: No How often do you have a drink containing alcohol: monthly or less How often do you have six or more drinks on one occasion: Never AUDIT-C Alcohol total score: 1 Non-prescribed substance use: denies use Caffeine: No How often does anyone, including family, friends and others, physically hurt you : never How often does anyone, including family, friends and others, insult or talk down to you: never How often does anyone, including family, friends and others, threaten you with harm: never How often does anyone, including family, friends and others, scream or curse at you: never service: No Meds Home Medications and Allergies Home Medications ?Medication ?Instructions ?Recorded ?Confirmed ?Type cholecalciferol (vitamin D3) 50 2,000 unit PO DAILY 05/04/25 History mcg (2,000 unit) tablet albuterol sulfate 90 mcg/actuation 2 puff inhalation Q 6H PRN 01/28/24 05/04/25 Rx aerosol inhaler bronchospasm #8.5 grams estradiol 0.01% (0.1 mg/gram) 1 g vaginal QWEEK #42.5 grams 01/28/24 05/04/25 Rx vaginal cream omeprazole 20 mg capsule,delayed 20 mg PO DAILY #90 ca ps 01/28/24 05/04/25 Rx release triamcinolone acetonide 0.1 % 1 applic topical BID PRN skin 01/28/24 05/04/25 Rx topical cream reaction #80 grams budesonide-formoterol HFA 160 2 puff inhalation BID #1 0.2 grams 02/06/24 05/04/25 Rx mcg-4.5 mcg/actuation aerosol inhaler (Symbicort) finasteride 5 mg tablet 5 mg PO DAILY #90 tabs 04/2305/04/25 Rx acetaminophen 650 mg 1,300 mg PO BID 12/04/24 History tablet,extended release (Tylenol Arthritis Pain) multivitamin 1 tab PO QAM 12/04/24 History escitalopram oxalate 10 mg tablet 10 mg PO DAILY 12/1405/04/25 History fexofenadine 180 mg tablet 180 mg PO BID 12/14/2404/13 History (Carmenza Allergy) phentermine 30 mg capsule 30 mg PO DAILY 12/14/2404/13 History trazodone 50 mg tablet 50 mg PO HS 12/14/24 5 History albuterol sulfate 2.5 mg/3 mL 2.5 mg (3 mL) inhalation Q4-6H PRN 01/15/25 05/04/25 Rx (0.083 %) solution for nebulization shortness of breat h or wheezing #180 mL indomethacin 25 mg capsule See Rx Instructions PO TID #30 caps 03/24/25 05/04/25 Rx ondansetron HCl 8 mg tablet 8 mg PO BID PRN 04/09/25 0 05/04/25 History epinephrine 0.3 mg/0.3 mL 0.3 mg IM DAILY PRN anaphyla xis 05/04/25 05/04/25 History injection, auto-injector estradiol 0.05 mg/24 hr semiweekly 1 patch transdermal 2XW 05/04/25 05/04/25 History transdermal patch fluorouracil 5 % topical cream 1 applic topical Q7D 05/04/25 History s-adenosylmethionine 400 mg tablet 400 mg PO DAILY 05/04/25 History (WALTER-e) Allergies Allergy/AdvReac Type Severity Reaction Status Date / Time bupropion Allergy Unknown Tremors Verified 05/04/25 02:12 Cephalosporins Allergy Unknown GI upset Verified 05/04/25 02:12 latex Allergy Unknown Rash Verified 05/04/25 02:12 promethazine Allergy Unknown Legs jump Verified 05/04/25 02:12 gluten Allergy Verified 05/04/25 13:53 Macrolide Antibiotics Allergy Gastrointestinal Verified 05/04/25 02:12 Upset venlafaxine Allergy Verified 05/04/25 02:12 wheat Allergy Verified 05/04/25 13:53 erythromycin base AdvReac Gastrointestinal Verified 05/04/25 02:12 Upset pencillin Allergy Gastrointestinal Uncoded 05/04/25 13:54 Upset Exam Narrative: Exam Narrative: She is alert and appears in no distress. Currently her pain is much improved. Eyes normal. Oropharynx normal. Neck is supple without mass or adenopathy. Respirations are clear to auscultation. Cardiovascular: S1, S2, regular rate and rhythm. Abdomen is soft. Bowel sounds are active. She has mild epigastric and right upper quadrant tenderness. No flank tenderness or CVA tenderness. Extremities without edema. No rash. Const: Vital Signs, click to edit/add: Vital Signs - 24 hr 05/04/25 02:10 05/04/25 02:50 05/04/25 03:10 Temperature 98.0 F 98.0 F Pulse Rate Pulse Rate [Right Pulse Oximeter] 84 Pulse Rate [Right Radial] Respiratory Rate 18 Blood Pressure Blood Pressure [Ri ght Arm] Blood Pressure [Ri ght Upper Arm] 188/99 H Pulse Oximetry 98 98 Oxygen Delivery Me thod Room Air 05/04/25 03:27 05/04/25 03:32 05/04/25 03:56 Temperature 98.0 F 98.0 F Pulse Rate 76 Pulse Rate [Right Pulse Oximeter] 84 Pulse Rate [Right Radial] Respiratory Rate 18 18 Blood Pressure 132/70 Blood Pressure [Ri ght Arm] Blood Pressure [Ri ght Upper Arm] 181/89 H Pulse Oximetry 93 93 [facility] 05/04/25 04:02 05/04/25 04:32 05/04/25 05:02 Temperature 98.1 F Pulse Rate 71 72 61 Pulse Rate [Right Pulse Oximeter] Pulse Rate [Right Radial] Respiratory Rate 18 18 18 Blood Pressure 122/74 124/81 129/75 Blood Pressure [Ri ght Arm] Blood Pressure [Ri ght Upper Arm] Pulse Oximetry 93 92 95 Oxygen Delivery Ma thod 05/04/25 05:32 05/04/25 06:04 05/04/25 06:32 Temperature Pulse Rate 72 71 68 Pulse Rate [Right Pulse Oximeter] Pulse Rate [Right Radial] Respiratory Rate 18 18 18 Blood Pressure 119/71 155/63 H 137/79 Blood Pressure [Ri ght Arm] Blood Pressure [Ri ght Upper Arm] Pulse Oximetry 91 96 92 Oxygen Delivery Ma thod 05/04/25 06:33 05/04/25 06:45 05/04/25 07:00 Temperature Pulse Rate 67 65 68 Pulse Rate [Right Pulse Oximeter] Pulse Rate [Right Radial] Respiratory Rate Blood Pressure Blood Pressure [Ri ght Arm] Blood Pressure [Ri ght Upper Arm] Pulse Oximetry 92 92 91 Oxygen Delivery Ma thod 05/04/25 07:02 05/04/25 07:15 05/04/25 07:30 Temperature Pulse Rate 68 64 71 Pulse Rate [Right Pulse Oximeter] Pulse Rate [Right Radial] Respiratory Rate Blood Pressure 132/77 Blood Pressure [Ri ght Arm] Blood Pressure [Ri ght Upper Arm] Pulse Oximetry 92 93 92 Oxygen Delivery Me thod 05/04/25 07:32 05/04/25 07:33 05/04/25 07:45 Temperature Pulse Rate 69 72 72 Pulse Rate [Right Pulse Oximeter] Pulse Rate [Right Radial] Respiratory Rate Blood Pressure 134/82 Blood Pressure [Ri ght Arm] Blood Pressure [Ri ght Upper Arm] Pulse Oximetry 92 97 88 Oxygen Delivery Me thod 05/04/25 08:00 05/04/25 08:02 05/04/25 08:15 Temperature Pulse Rate 70 69 69 Pulse Rate [Right Pulse Oximeter] Pulse Rate [Right Radial] Respiratory Rate Blood Pressure 140/75 H Blood Pressure [Ri ght Arm] Blood Pressure [Ri ght Upper Arm] Pulse Oximetry 96 97 94 [facility] 05/04/25 08:30 05/04/25 08:31 05/04/25 08:45 Temperature Pulse Rate 71 70 71 Pulse Rate [Right Pulse Oximeter] Pulse Rate [Right Radial] Respiratory Rate Blood Pressure Blood Pressure [Ri ght Arm] Blood Pressure [Ri ght Upper Arm] Pulse Oximetry 91 91 91 [facility] 05/04/25 09:03 05/04/25 09:15 05/04/25 09:35 Temperature Pulse Rate 75 68 Pulse Rate [Right Pulse Oximeter] Pulse Rate [Right Radial] Respiratory Rate Blood Pressure 122/77 Blood Pressure [Ri ght Arm] Blood Pressure [Ri ght Upper Arm] Pulse Oximetry 92 94 Oxygen Delivery Ma thod 05/04/25 09:36 05/04/25 09:45 05/04/25 10:00 Temperature Pulse Rate 76 69 74 Pulse Rate [Right Pulse Oximeter] Pulse Rate [Right Radial] Respiratory Rate Blood Pressure Blood Pressure [Ri ght Arm] Blood Pressure [Ri ght Upper Arm] Pulse Oximetry 95 92 93 Oxygen Delivery Ma thod 05/04/25 10:02 05/04/25 10:15 05/04/25 10:30 Temperature Pulse Rate 76 73 67 Pulse Rate [Right Pulse Oximeter] Pulse Rate [Right Radial] Respiratory Rate Blood Pressure 133/82 Blood Pressure [Ri ght Arm] Blood Pressure [Ri ght Upper Arm] Pulse Oximetry 95 92 92 Oxygen Delivery Me thod 05/04/25 10:32 05/04/25 11:38 05/04/25 11:45 Temperature Pulse Rate 68 82 79 Pulse Rate [Right Pulse Oximeter] Pulse Rate [Right Radial] Respiratory Rate Blood Pressure 140/87 H Blood Pressure [Ri ght Arm] Blood Pressure [Ri ght Upper Arm] Pulse Oximetry 94 87 L 93 Oxygen Delivery Me thod 05/04/25 12:01 05/04/25 12:02 05/04/25 12:06 Temperature Pulse Rate 79 78 Pulse Rate [Right Pulse Oximeter] Pulse Rate [Right Radial] Respiratory Rate Blood Pressure 139/84 Blood Pressure [Ri ght Arm] Blood Pressure [Ri ght Upper Arm] Pulse Oximetry 93 92 Oxygen Delivery Me thod 05/04/25 12:15 05/04/25 12:30 05/04/25 12:32 Temperature Pulse Rate 76 78 82 Pulse Rate [Right Pulse Oximeter] Pulse Rate [Right Radial] Respiratory Rate Blood Pressure 147/85 H Blood Pressure [Ri ght Arm] Blood Pressure [Ri ght Upper Arm] Pulse Oximetry 93 95 93 Oxygen Delivery Me thod 05/04/25 12:45 05/04/25 13:04 05/04/25 13:05 Temperature Pulse Rate 75 81 79 Pulse Rate [Right Pulse Oximeter] Pulse Rate [Right Radial] Respiratory Rate Blood Pressure 126/65 Blood Pressure [Ri ght Arm] Blood Pressure [Ri ght Upper Arm] Pulse Oximetry 91 92 93 Oxygen Delivery Me thod 05/04/25 13:15 05/04/25 13:50 Temperature 98.4 F Pulse Rate 74 Pulse Rate [Right Pulse Oximeter] Pulse Rate [Right Radial] 74 Respiratory Rate 20 16 Blood Pressure Blood Pressure [Ri ght Arm] 144/79 H Blood Pressure [Ri ght Upper Arm] Pulse Oximetry 94 97 Oxygen Delivery Me thod Room Air Documenting provider has reviewed patient's vital signs: yes Hospitalist - H&P: Result Labs Labs: Short CBC 05/04/25 Range/Units 02:15 WBC 9.91 (4.50-11.00) K/uL Hgb 13.0 (12.0-16.0) gm/dL Hct 40.8 (33.0-51.0) % Plt Count 354 (140-440) K/uL BMP 05/04/25 02:15 Sodium 139 Potassium 3.9 Chloride 105 Carbon Dioxide 28 BUN 14 Creatinine 0.7 Glucose 102 Calcium 8.9 Cardiac Enzymes 05/04/25 Range/Units 02:15 Troponin I < 0.01 (0.01-0.04) ng/mL Liver Function 05/04/25 Range/Units 02:15 Total Bilirubin 0.3 (0.1-1.5) mg/dL Direct Bilirubin 0.2 (0.0-0.5) mg/dL AST 73 H (12-35) U/L ALT 35 (4-35) U/L Alkaline Phosphatase 91 (40-150) U/L Albumin 4.3 (3.3-5.0) g/dL Imaging MRCP: Radiologist's impression: Indication: Epigastric pain and pancreatitis Technique: MRCP of the abdomen performed without intravenous contrast at 1.5 [place]. Reconstructed images/MIPS were created. Comparison: 03/07/2025 MRI of the abdomen Findings: No pleural effusion. Smooth hepatic contour. A right hepatic lobe 5.6 centimeter T2 markedly hyperintense lesion is similar in size since the prior exam and was previously demonstrated to be a hemangioma on earlier contrast-enhanced imaging (04/02). Status post cholecystectomy. No intrahepatic biliary ductal dilation. Similar mild fullness of the extrahepatic biliary tree which is probably within normal limits for the post cholecystectomy state. No choledocholithiasis is detected. No splenomegaly. Normal caliber of the main pancreatic duct. There is prominent peripancreatic soft tissue edema with some extension of the edema into the adjacent retroperitoneum and peritoneal cavity. No discrete peripancreatic fluid collection is identified. Normal adrenal glands. No hydronephrosis. No focal abnormally dilated loops of bowel within the field of view. Moderate to large colonic stool volume. No enlarged regional lymph nodes are detected. Normal caliber of the abdominal aorta. Normal abdominal wall. There are osseous degenerative changes. Impression: Acute pancreatitis. Additional findings as above.
[2025-05-04] MEDS: TRAZODONE HCL 50 MG TABLET PO (21:00)
[2025-05-04] MEDS: ACETAMINOPHEN 650 MG TABLET ER 1300 MG PO (21:00)
[2025-05-04] MEDS: SODIUM CHLORIDE 0.9 % (FLUSH) 10 ML SYRINGE 5 ML IVF (21:00)
[2025-05-04] MEDS: BUDESONIDE FORMOTEROL 2 EACH IH (21:01)
[2025-05-04] MEDS: FEXOFENADINE 180 MG TABLET PO (21:41)
[2025-05-04] MEDS: LACTATED RINGERS 1000 ML 1,000 ML 125 ML IV (21:42)
[2025-05-04] MEDS: SIMETHICONE 80 MG TAB.CHEW 160 MG PO (21:42)
--- NOTE | 2025-05-04 23:14 | PC.NURSE ---
End of Shift (): Patient pleasant and cooperative. Afebrile. Rating pain in abdomen 2-5/10. Up independently in room. Tolerating clear liquids with no nausea.
[2025-05-05 03:33] VITALS: BP 110/68; PULSE 66; RESP 14; TEMP 36.8; O2SAT 94
[2025-05-05] MEDS: LACTATED RINGERS 1000 ML 1,000 ML 125 ML IV (05:20)
[2025-05-05 06:29] LABS: Hematocrit* 37.8 % (33.0-51.0); Hemoglobin* 12.1 gm/dL (12.0-16.0); Immature Granulocytes Abs Auto 0.02 K/uL (0.00-0.30); Immature Granulocytes Pct Auto 0.3 %; Mean Corpuscular HGB Conc 32 gm/dL (32-36); Mean Corpuscular Hemoglobin 29 pg (26-34); Mean Corpuscular Volume 90 fL (80-100); RDW Coefficient of Variation % 12.8 % (11.5-15.5); Red Blood Count* 4.21 m/uL (4.00-5.20); White Blood Count* 7.07 K/uL (4.50-11.00)
[2025-05-05 06:31] LABS: Lymphocytes Absolute Auto 1.00 K/uL (0.90-2.90); Slide Review Reflex No
[2025-05-05 06:39] LABS: Albumin* 3.6 g/dL (3.3-5.0)
[2025-05-05 06:42] LABS: Alanine Aminotransferase* 32 U/L (4-35); Alkaline Phosphatase* 82 U/L (40-150); Aspartate Amino Transferase* 37 U/L (12-35); Bilirubin Direct* 0.1 mg/dL (0.0-0.5); Bilirubin Total* 0.5 mg/dL (0.1-1.5); Total Protein* 6.3 g/dL (6.0-8.3)
--- NOTE | 2025-05-05 06:52 | PC.NURSE ---
End of shift (0960-1294): Pt pleasant, alert and oriented. VSS. Pain rated 0-2/10 throughout shift, pt stated pain is tolerable. Clear liquid diet tolerated well. Up independently, tolerated well. Pt in bed, appears to be resting, call light within reach. ?
[2025-05-05 08:18] VITALS: BP 137/79; PULSE 75; RESP 22; TEMP 37; O2SAT 93
[2025-05-05] MEDS: BUDESONIDE FORMOTEROL 2 EACH IH (08:20)
[2025-05-05] MEDS: OMEPRAZOLE 20 MG CAPSULE DR PO (08:21)
[2025-05-05] MEDS: ACETAMINOPHEN 650 MG TABLET ER 1300 MG PO (08:21)
[2025-05-05] MEDS: ESCITALOPRAM 10 MG TABLET PO (08:21)
[2025-05-05] MEDS: FINASTERIDE 5 MG TABLET PO (08:22)
--- NOTE | 2025-05-05 09:47 | PM.DS1 ---
DS: Providers Provider Date Seen: 05/05/25 Date of admission: 05/04/25 14:27 Primary care physician: Koki De MD Admitting Clinician: Janett Turner PA-C Attending Physician on discharge: Nicol Mccracken MD Date of Discharge: 05/05/25 DS: Diagnosis Discharge Diagnosis (1) Pancreatitis: Status: Acute Problem details: - recurrent over past 5 months, has required hospitalization for some of these - normal EUS and ERCP 04/09/25 (2) Status post laparoscopic cholecystectomy: Status: Acute Problem details: - 12/07/2024, Dr. Carnes. - transferred to [facility] (12/14/24) 7 days post op for ERCP, retained stone DS: Summary Hospital Course Hospital Course: Lorenza was admitted to the hospital on 05/04/25 for abdominal pain in the setting of known recurrent pancreatitis since laparoscopic cholecystectomy this spring. She was noted to have a lipase of MRCP performed with + acute pancreatitis, no other concerning abnormalities. History: -12/07: uncomplicated laparoscopic cholecystectomy with Dr. Carnes -12/13: presented to ER with recurrent abdominal pain and concern for choledocholithiasis, admitted to [facility] -12/14: transferred to [facility] for ERCP; Dr. Dumas removed a 4 mm stone in the common bile duct via biliary sphincterotomy and balloon extraction. One pancreatic stent was placed into the ventral pancreatic duct, released later that day -12/17: presented to ER, transferred again to [facility]. There was some thought because of very quick resolution of her symptoms that maybe she had past the stent that had been placed in her pancreas. -12/30, 01/31: presented to ER with unclear abdominal pain that resolved quickly without admission or transfer -03/07-03/09: admitted to [facility] for acute pancreatitis -04/09: Normal ERCP and EUS with Dr. Dumas Cause of recurrent pancreatitis unclear; query recurrent stone formation. No concerning alcohol use, triglycerides 261. Lorenza felt better on 05/05; tolerating low fat diet and felt comfortable with discharge home and PCP f/u. She is well versed on appropriate diet and outpatient management for recurrent pancreatitis. Status at Discharge Functional status at discharge: independent ambulation Overall status at discharge: patient is progressing back to baseline Time Spent with Patient Time attestation: Total time spent providing and/or coordinating discharge services: Time spent: Greater than 30 minutes Exam Narrative: Exam Narrative: GEN: Alert and oriented, sitting comfortably in hospital bed, nontoxic HEENT: No scleral icterus CV: RRR, No concerning murmurs R: LCTA bilaterally without wheezing Ab: Soft, hypoactive bowel sounds, tolerates stethoscope Ext: wwp, no concerning edema Skin: No concerning skin lesions or rashes on exposed skin Psych: Appropriate Const: Vital Signs, click to edit/add: Vital Signs - 24 hr 05/04/25 10:00 05/04/25 10:02 05/04/25 10:15 Temperature Pulse Rate 74 76 73 Pulse Rate [Pulse Oximeter] Pulse Rate [Right Radial] Respiratory Rate Blood Pressure 133/82 Blood Pressure [Ri ght Arm] Pulse Oximetry 93 95 92 Oxygen Delivery [facility] 05/04/25 10:30 05/04/25 10:32 05/04/25 11:38 Temperature Pulse Rate 67 68 82 Pulse Rate [Pulse Oximeter] Pulse Rate [Right Radial] Respiratory Rate Blood Pressure 140/87 H Blood Pressure [Ri ght Arm] Pulse Oximetry 92 94 87 L Oxygen Delivery [facility] 05/04/25 11:45 05/04/25 12:01 05/04/25 12:02 Temperature Pulse Rate 79 79 Pulse Rate [Pulse Oximeter] Pulse Rate [Right Radial] Respiratory Rate Blood Pressure 139/84 Blood Pressure [Ri ght Arm] Pulse Oximetry 93 93 Oxygen Delivery [facility] 05/04/25 12:06 05/04/25 12:15 05/04/25 12:30 Temperature Pulse Rate 78 76 78 Pulse Rate [Pulse Oximeter] Pulse Rate [Right Radial] Respiratory Rate Blood Pressure Blood Pressure [Ri ght Arm] Pulse Oximetry 92 93 95 Oxygen Delivery [facility] 05/04/25 12:32 05/04/25 12:45 05/04/25 13:04 Temperature Pulse Rate 82 75 81 Pulse Rate [Pulse Oximeter] Pulse Rate [Right Radial] Respiratory Rate Blood Pressure 147/85 H Blood Pressure [Ri ght Arm] Pulse Oximetry 93 91 92 Oxygen Delivery [facility] 05/04/25 13:05 05/04/25 13:15 05/04/25 13:50 Temperature 98.4 F Pulse Rate 79 74 Pulse Rate [Pulse Oximeter] Pulse Rate [Right Radial] 74 Respiratory Rate 20 16 Blood Pressure 126/65 Blood Pressure [Ri ght Arm] 144/79 H Pulse Oximetry 93 94 97 Oxygen Delivery [facility] 05/04/25 19:00 05/04/25 23:00 05/04/25 23:49 Temperature 98.6 F 97.7 F Pulse Rate Pulse Rate [Pulse Oximeter] 84 84 Pulse Rate [Right Radial] 73 Respiratory Rate 16 16 16 Blood Pressure Blood Pressure [Ri ght Arm] 142/85 H 140/82 H Pulse Oximetry 96 92 Oxygen Delivery Me thod Room Air Room Air 05/05/25 03:33 05/05/25 08:18 Temperature 98.2 F 98.6 F Pulse Rate Pulse Rate [Pulse Oximeter] 66 75 Pulse Rate [Right Radial] Respiratory Rate 14 22 Blood Pressure Blood Pressure [Ri ght Arm] 110/68 137/79 Pulse Oximetry 94 93 Oxygen Delivery Me thod Room Air Room Air DS: Data Data Completed and Pending Labs on day of discharge: Labs from last 24 hours 05/05/25 05/04/25 05/04/25 06:08 14:51 14:27 WBC 7.07 RBC 4.21 Hgb 12.1 Hct 37.8 MCV 90 MCH 29 MCHC 32 RDW Coeff of Jim 12.8 Plt Count 284 Neut % (Auto) 71.3 Lymph % (Auto) 14.6 L Republic % (Auto) 11.0 Eos % (Auto) 2.7 Baso % (Auto) 0.1 Neut # (Auto) 5.04 Lymph # (Auto) 1.00 Republic # (Auto) 0.80 Eos # (Auto) 0.19 Baso # (Auto) 0.01 Abs Immat Gran (auto) 0.02 Imm/Tot Granulo (auto) 0.3 Sodium Potassium Chloride Carbon Dioxide Anion Gap BUN Creatinine Estimated Creat Clear Estimated GFR Glucose Calcium Magnesium Total Bilirubin 0.5 Direct Bilirubin 0.1 AST 37 H ALT 32 Alkaline Phosphatase 82 Total Protein 6.3 Albumin 3.6 Triglycerides Lipase 2802 H Lab Acknowledgement Test Added Test Added 05/04/25 02:15 WBC RBC Hgb Hct MCV MCH MCHC RDW Coeff of Jim Plt Count Neut % (Auto) Lymph % (Auto) Republic % (Auto) Eos % (Auto) Baso % (Auto) Neut # (Auto) Lymph # (Auto) Republic # (Auto) Eos # (Auto) Baso # (Auto) Abs Immat Gran (auto) Imm/Tot Granulo (auto) Sodium 139 Potassium 3.9 Chloride 105 Carbon Dioxide 28 Anion Gap 6 L BUN 14 Creatinine 0.7 Estimated Creat Clear 49.72 Estimated GFR 97 Glucose 102 Calcium 8.9 Magnesium 2.2 Total Bilirubin Direct Bilirubin AST ALT Alkaline Phosphatase Total Protein Albumin Triglycerides 261 H Lipase Lab Acknowledgement Discharge Plan Discharge Disposition: Home, Self-Care Date of Admission: 05/04/25 14:27 Attending Provider on Discharge: Nicol Mccracken Primary Care Provider: Koki De I Condition: Improved Anticipated Discharge Date/Time: 05/05/25 09:43 Discharge Medications: Continued cholecalciferol (vitamin D3) 50 mcg (2,000 unit) tablet 2,000 unit PO DAILY albuterol sulfate 90 mcg/actuation HFA aerosol inhaler 2 puff inhalation Q6H PRN (Reason: bronchospasm) Qty: 8.5 12RF estradiol 0.01 % (0.1 mg/gram) cream 1 g vaginal QWEEK Qty: 42.5 3RF omeprazole 20 mg capsule,delayed release(DR/EC) 20 mg PO DAILY Qty: 90 3RF triamcinolone acetonide 0.1 % cream 1 applic topical BID PRN (Reason: skin reaction) Qty: 80 3RF acetaminophen [Tylenol Arthritis Pain] 650 mg tablet extended release 1,300 mg PO BID multivitamin Tablet 1 tab PO QAM albuterol sulfate 2.5 mg /3 mL (0.083 %) solution for nebulization 2.5 mg inhalation Q4-6H PRN (Reason: shortness of breath or wheezing) Qty: 180 0RF indomethacin 25 mg capsule See Rx Instructions PO TID Qty: 30 3RF Rx Instructions: Take 1-2 caps PO TID prn pain ondansetron HCl 8 mg tablet 8 mg PO BID PRN WALTER-e 400 mg tablet 400 mg PO DAILY Rx Instructions: administer on an empty stomach fluorouracil 5 % cream 1 applic topical Q7D Rx Instructions: apply topically to affected area/zone once weekly estradiol 0.05 mg/24 hr patch semiweekly 1 patch transdermal 2XW epinephrine 0.3 mg/0.3 mL auto-injector 0.3 mg IM DAILY PRN (Reason: anaphylaxis) trazodone 50 mg tablet 50 mg PO HS fexofenadine [Carmenza Allergy] 180 mg tablet 180 mg PO BID escitalopram oxalate 10 mg tablet 10 mg PO DAILY budesonide-formoterol [Symbicort] 160-4.5 mcg/actuation HFA aerosol inhaler 2 puff inhalation BID Qty: 10.2 12RF finasteride 5 mg tablet 5 mg PO DAILY Qty: 90 3RF Held phentermine 30 mg capsule 30 mg PO DAILY Hold Instructions: continue holding until PCP f/u Discharge Orders: Discharge Order (Routine); Ordered 05/05/25 Ordered By: Nicol Mccracken Patient Education: Pancreatitis (DC) Additional Instructions: Continue low fat diet, routine f/u with PCP, GI, General Surgery Activity Level: Activity as Tolerated Discharge Diet: Low Fat/Low Cholesterol Follow Up Appointments: Koki De MD [Primary Care Provider, Obstetrics] - 05/13/25 12:40 pm Referral Note: [facility] for hospital follow-up. Forms: Patient Belongings, [facility] Info Instructions
--- NOTE | 2025-05-05 12:30 | PC.NURSE ---
End of Shift: Patient pleasant and cooperative. Patient vitally stable, lungs clear, BS WNL, IV removed, catheter intact. Patient rates abdominal pain 1-2/10, no pain medication given. Patient tolerating clear liquid diet, eating jello this morning. Patient is up independently, urinating well, and had 1 small BM. Patient signed belongings sheet and discharge form, with no further questions regarding discharge information. Patient left the floor by foot to home at 1115.
== END 2025-05-05 11:15 | disposition home or self-care (01) | DRG 440 ==
LOC: ED 12:13 → MEDSURG 13:30
PROVIDERS: Admitting Provider Family Medicine; Emergency Provider Family Medicine; PCP Family Medicine; Visit Provider Physician Assistant
DX: K85.90 Acute pancreatitis without necrosis or infection, unspecified (principal); Z90.49 Acquired absence of other specified parts of digestive tract; K21.9 Gastro-esophageal reflux disease without esophagitis; G47.33 Obstructive sleep apnea (adult) (pediatric); J45.909 Unspecified asthma, uncomplicated
CPT/HCPCS: 36415; 74181; 80048; 80076; 80321; 83615; 83690; 83735; 84478; 84484; 85025; 85379; 86140; 93005; 94761; 99284; 99285; A9270; J1171; J1200; J1885; J2405; J2765; J7030; J7120

== ENCOUNTER 2025-05-20 11:14 | Outpatient (CLI) | payer OTHER, SELFPAY | END 2025-05-20 11:15 | disposition home or self-care (01) | PROVIDERS: PCP Family Medicine; Visit Provider Physician Assistant | DX: R10.9 Unspecified abdominal pain (principal) | CPT/HCPCS: 80076; 83690 ==

== ENCOUNTER 2025-05-23 11:09 | Outpatient (CLI) | payer OTHER, SELFPAY | END 2025-05-23 11:10 | disposition home or self-care (01) | PROVIDERS: PCP Family Medicine; Visit Provider Physician Assistant | DX: R10.11 Right upper quadrant pain (principal) | CPT/HCPCS: 80076; 83690 ==

== ENCOUNTER 2025-06-17 17:56 | Emergency (ER) | payer OTHER, SELFPAY ==
--- OUTSIDE RECORDS SUMMARY | 2025-06-17 05:58 | XMS_ITS | Continuity of Care Document ---
Author Organization [facility] Address [address] [address] [place] [address] Phone Care Team Providers Care Etiologist Name Role Phone Alen Dumas MD Unavailable Unavailable Allergies, Adverse Reactions, Alerts Substance Reaction Status Criticality adhesive tape Rash Active No Information latex ItchingItching Active No Informatio n Cephalosporins GI distress Active No Informatio n erythromycin base GI distress Active No Informa tion PENICILLIN GI distress Active No Information Procedures Procedure Date Established Level 4 Moderate Init Inpt E&M High Prolonged inpatient/obser Init Inpt E&M Moderate Subsqt Inpt Moderate Ugi Endo; W/endo Ultrasound Ex Ercp; W/sphincterotomy/papillo Ercp; W/endo Retro Remov Stone ERCP w/stent & sphinc Advance Directives Directive Yes / No Effective Date File Name No Information Encounters Encounter Description Practice Location Reason(s) For Visit Diagnoses Date Provider Providers Copied on Encounter [facility], [address] [address], [place], [id number], [place] tel:[phone] [facility] No Information 5 Alesia Lowry. [address] [facility], [place], [id number] , [place]. tel:[phone] Established Level 4 Moderate [facility], [address] [address], [place], [id number], [place] tel:[phone] [facility] GI Symptoms or Concerns (chief complaint) Idiopathic acute pancreatitis without infection or necrosis 5 Alesia Lowry. [address] [facility] [address], [address], [place], [place], [address] , [place]. tel: [phone] Referring Provider: Alen Dumas MD, [address] [facility] [address], [place], [address] . tel:[phone] [facility], [address] [address], [place], [place], [id number], [place] tel:[phone] [facility] No Information 5 Alesia Lowry. [address] [facility] [address], [address], [place], [place], [id number] , [place]. tel: [phone] [facility], [address] [address], [place], [address], [place] tel:[phone] [facility] No Information 5 Alesia Lowry. [address] [facility] [address], [address], [place], [place], [id number] , [place]. tel: [phone] [facility], [address] [address], [place], [place], [address], [place] tel:[phone] [facility] Abnormal LFTs 5 Alesia Lowry. [address] [facility] [address], [address], [place], [place], [id number] , [place]. tel: [phone] [facility], [address] [address], [place], [place], [id number], [place] tel:[phone] [facility] Choledocholithia sis 5 Adali Ackerman. [address] [facility] [address], [address], [place], [place], [id number] , [place]. tel: [phone] In In [facility], [address] [address], [place], [place], [address], [place] tel:[phone] [facility] No Information 0 5 Ever Cast. [address] [facility], [address], [place], [id number] , [place]. tel:[phone] Referring Provider: Koki De MD, [address] [facility], [place], [address] . tel:[phone] [facility], [address] [address], [place], [id number], [place] tel:[phone] [facility] Choledocholithia sis 5 Alesia Lowry. [address] [facility], [facility] [address], [place], [id number] , [place]. tel:[phone] Init Inpt E&M Moderate [facility], [address] [address], [place], [id number], [place] tel:[phone] [facility] No Information 0 5 Adali Ackerman. [address] [facility], [facility] [address], [place], [id number] , [place]. tel:[phone] Referring Provider: Koki De MD, [address] [facility], [place], [address] . tel:[phone] [facility], [address] [address], [place], [id number], [place] tel:[phone] [facility] No Information 5 Alesia Lowry. [address] [facility], [facility] [address], [place], [id number] , [place]. tel:[phone] Referring Provider: Alen Dumas MD, [address] [facility] [address], [place], [address] . tel:[phone] Family History Family Member Type Diagnosis Age At Onset No Information Immunizations Vaccine Date Status Comments Influenza, split virus, trivalent, injectable, preservative free administered Note: [facility] bi-direct ional interface ; Source: Other Registry SARS-COV-2 (COVID-19) vaccin e, mRNA, spike protein, LNP, preservative free, shakira-sucrose, 10 mcg/0.3 mL dose administered Note: [facility] bi-direct ional interface ; Source: Other Registry Pneumococcal conjugate vacci ne 20-valent (PCV20), polysaccharide [id number] conjugate, adjuvant, preservative free administered Note: [facility] [...] interface ; Source: Other Registry Afluria Qd 7294-5344 administered Note: M [facility]IC bi-directional interface ; Source: Other Registry Novel [id number], all formulations administered Note: [facility] bi-direct ional [...] Other Registry mumps virus vaccine administered Note: [place] IC bi-directional interface ; Source: Other Registry Vaccinia (smallpox, mpox) vaccine, live administered Note: [facility] bi-direct ional interface ; Source: Other Registry mumps virus vaccine administered Note: [place] IC bi-directional interface ; Source: Other Registry Payers Payer name Insurance type Covered democrat ID Tiffanie mcallister(s) Jonnie Individual Family [id number] Social History Type Description Quantity Date Captured Comments Sex Female Smoking Status No Information Chief Complaint And Reason For Visit No Information Reason For Referral Reason For Referral No Information Plan Of Treatment Date Type Action Status Referral Ordered: CT Abdomen And Pelvis WITH Contrast Appointment date/timeframe: 07/01/2025 ordered Referral Ordered: EUS Appointment date/timeframe: 04/09/2025 ordered Referral Ordered: ERCP Appointment date/timeframe: 04/09/2025 ordered Referral Ordered: CMP Appointment date/timeframe: 01/04/2025 ordered Referral Ordered: Xray Abdomen Complete Appointment date/timeframe: 01/04/2025 ordered Referral Ordered: Xray Abdomen; Limited (AP View Only) (KUB) Appointment date/timeframe: 12/29/2024 ordered History Of Present Illness Encounter Date Complaint History Of Prese nt Illness GI Symptoms or Concerns 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 She underwent ERCP with sphincterotomy and stone extraction. And she had her gallbladder removed. Unfortunately, she has since developed at least three episodes of documented mild pancreatitis. One of them did require hospitalization. She reports that at least once a week, she will get epigastric discomfort and nausea and workup has revealed elevation in her lipase. Imaging has substantiated the diagnosis with some edema around the pancreas. she has had no weight loss. Her most recent cross-sectional imaging was in April revealed some pancreas edema on MRI and at that time she did have marked elevation in her lipase. Functional Status Date Functional Assessmen t No Information Instructions Date Instruction Additional Infor tawnya At this point, I wou ld like to repeat a CAT scan with IV contrast to reevaluate her pancreas and have also obtained the MRCP images obtained from April. We will contemplate whether she may need an ERCP in the future with evaluation of her pancreas duct or whether we should simply wait and watch for the moment. I have asked her to call, however, when she has recurrence of symptoms, so at least we can get both liver function tests and pancreas enzymes and cross-sectional imaging if indicated. She has good questions and has a good understanding of the issues in hand. Related to Idiopathic acute pancreatitis without infection or necrosis Assessments Type Assessment Date No Information Patient Care Teams Name Effective Dates (start - stop) Status Members No Information
--- OUTSIDE RECORDS SUMMARY | 2025-06-17 05:58 | XMS_ITS | Continuity of Care Document ---
Author Organization [facility] Address [address] [address] [place] [address] Phone Care Team Providers Care Silk Weaver Name Role Phone Alen Dumas MD Unavailable [...] Diagnoses Date Provider Providers Copied on Encounter [facility], [address] [address], [place], [id number], [place] tel:[phone] [facility] No Information 5 Alesia Lowry. [address] [facility], [place], [id number] , [place]. tel:[phone] Established Level 4 Moderate [facility], [address] [address], [place], [id number], [place] tel:[phone] [facility] GI Symptoms or Concerns (chief complaint) Idiopathic acute pancreatitis without infection or necrosis 5 Alesia Lowry. [address] [facility] [address], [address], [place], [place], [address] , [place]. tel: [phone] Referring Provider: Alen Dumas MD, [address] [facility] [address], [place], [address] . tel:[phone] [facility], [address] [address], [place], [id number], [place] tel:[phone] [facility] No Information 5 Alesia Lowry. [address] [facility] [address], [address], [place], [address] , [place]. tel: [phone] [facility], [address] [address], [place], [address], [place] tel:[phone] [facility] No Information 5 Alesia Lowry. [address] [facility] [address], [address], [place], [id number] , [place]. tel: [phone] [facility], [address] [address], [place], [place], [id number], [place] tel:[phone] [facility] Abnormal LFTs 5 Alesia Lowry. [address] [facility] [address], [address], [place], [address] , [place]. tel: [phone] [facility], [address] [address], [place], [id number], [place] tel:[phone] [facility] Choledocholithia sis 5 Adali Ackerman. [address] [facility] [address], [address], [place], [place], [address] , [place]. tel: [phone] In In E&M [facility], [address] [address], [place], [address], [place] tel:[phone] [facility] No Information 0 5 Ever Cast. [address] [facility], [address], [place], [id number] , [place]. tel:[phone] Referring Provider: Koki De MD, [address] [facility], [place], [address] . tel:[phone] [facility], [address] [address], [place], [id number], [place] tel:[phone] [facility] Choledocholithia sis 5 Alesia Lowry. [address] [facility] [facility] [address], [place], [id number] , [place]. tel:[phone] Init Inpt E&M Moderate [facility], [address] [address], [place], [id number], [place] tel:[phone] [facility] No Information 0 5 Adali Ackerman. [address] [facility], [facility] [address], [place], [id number] , [place]. tel:[phone] Referring Provider: Koki De MD, [address] [facility], [place], [address] . tel:[phone] [facility], [address] [address], [place], [id number], [place] tel:[phone] [facility] No Information 5 Alesia Lowry. [address] [facility], [facility] [address], [place], [id number] , [place]. tel:[phone] Referring Provider: Alen Dumas MD, [address] [facility] [address], [place], [address] . tel:[phone] Family History Family Member Type Diagnosis Age [...] Pneumococcal conjugate vacci ne 20-valent (PCV20), polysaccharide [id number] conjugate, adjuvant, preservative free administered Note: [facility] [...] interface ; Source: Other Registry Afluria Qd 5160-6277 administered Note: M [facility] bi-directional interface ; Source: Other Registry Novel [id number], all formulations administered Note: [facility] bi-direct ional [...] Other Registry mumps virus vaccine administered Note: [place] IC bi-directional interface ; Source: Other Registry Vaccinia (smallpox, mpox) vaccine, live administered Note: [facility] bi-direct ional interface ; Source: Other Registry mumps virus vaccine administered Note: [place] IC bi-directional interface ; Source: Other Registry Payers Payer name Insurance type Covered republican ID Tiffanie mcallister(s) Jonnie Individual Family [id number] Social History Type Description Quantity Date Captured [...]
--- OUTSIDE RECORDS SUMMARY | 2025-06-17 17:58 | XMS_ITS | Clinical Summary ---
Author Organization [employer] [facility] Address [address] [place] [address] Care Team Providers Care Photo Journalist Name Role Phone Koki De MD Primary [...] by mouth once daily. 0 021 Active benzonatate (TESSALON) 200 mg capsule Take 200 mg by mouth 3 times daily if needed for Cough. 024 Active EPINEPHrine 0.3 mg/0.3 mL auto-injectorIndi cations:Hx of anaphylaxis Inject 0.3 mg (1 Pen) intramuscular each time if needed for Allergic Reaction. 2 Each 3 025 Active escitalopram oxalate 10 mg tabletIndications :Depression, major, in remission Take 1 Tablet (10 mg) by mouth once daily. 100 Tablet 3 025 Active estradioL 0.01% (0.1 mg/g) vaginal creamIndications: Menopausal symptoms Insert 1 g into the vagina once weekly. 42.5 g 2 025 Active omeprazole 20 mg Delayed-Release capsuleIndication s:Chronic GERD Take 1 Capsule (20 mg) by mouth once daily before a meal. 100 Capsule 3 025 Active Ventolin HFA 90 mcg/actuation inhalerIndication s:Moderate persistent asthma without complication (HC) Inhale 1-2 Puffs by mouth every 4 hours if needed for Shortness Of Breath. 18 g 3 025 Active budesonide-formot Zuri 160-4.5 mcg/actuation (160-4.5 mcg each actuation) inhalerIndication s:Moderate persistent asthma without complication (HC) Inhale 2 Puffs by mouth two times daily. 10.2 g 11 025 Active fluorouracil 5 % cream Apply topically to affected area(s) once weekly. APPLY TOPICALLY TO AFFECTED AREA / ZONE OF FACE ONCE WEEKLY Active triamcinolone 0.1 % cream Apply topically to affected area(s) 2 times daily if needed. Active Phentermine HCl 30 mg capsuleIndication s:Overweight TAKE 1 CAPSULE (30 MG) BY MOUTH ONCE DAILY BEFORE A MEAL. 30 Capsule 5 025 Active Mm-B-tnuxh-B12-L. acid,plan-inu 65 mg iron- 50 mg-1 mg DFE cap Take 65 mg by mouth. Active prochlorperazine (Compazine) 25 mg suppositoryIndica tions:Acute pancreatitis without infection or necrosis, unspecified pancreatitis type (HC) Insert 1 Suppository (25 mg) rectally every 12 hours if needed for Nausea/Vomiting. 6 Suppository 025 Active traZODone (DESYREL) 50 mg tabletIndications :Sleep disturbance Take 1.5 Tablets (75 mg) by mouth at bedtime. 145 Tablet 3 025 Active ketoconazole 2 % creamIndications: Seborrheic dermatitis Apply topically to affected area(s) two times daily. 60 g 025 Active finasteride (PROSCAR) 5 mg tabletIndications :Hair loss TAKE ONE TABLET BY MOUTH (5MG) DAILY 93 Tablet 3 025 Active SEMIWEEKLY patch estradiol 0.05 mg/24 hr SEMIWEEKLY transdermal patchIndications: Menopausal symptoms Apply 1 Patch on dry, clean, hairless skin every Saturday and Saturday. 24 Patch 3 025 Active ondansetron (ZOFRAN ODT) 4 mg disintegrating tabletIndications :Acute recurrent pancreatitis (HC) Place 1 Tablet (4 mg) on the tongue every 8 hours if needed for Nausea/Vomiting. 90 Tablet 1 025 Active fexofenadine (Carmenza Allergy) 60 mg tablet Take 60 mg by mouth two times daily. 2024 Disconti nued(*Me d complete /Regimen complete /Level of care change) Active Problems Problem Noted Date Diagnosed Date Choledocholithiasis 12/14/2024 Overview (12/14/2024): -conferenced with our gen surgery, [facility]. likely needs ERCP today given dramatic rise in bili, AST, ALT, Alk phos and ongoing pain with IV opioid need. Accepted and transfering am of 5 Hx of anaphylaxis 05/09/2022 Menopausal symptoms 05/09/2022 Overweight 05/09/2022 Overview (07/24/2022): Using phentermine off label for weight maintenance(infomred consent given). Uses as needed. Environmental allergies 11/10/2020 Asthma, moderate persistent 11/09/2020 Osteopenia 11/09/2020 LARUEANO (obstructive sleep apnea) 11/09/2020 Depression, major, in remission 11/09/2020 Overview (06/15/2021): Psychologist: Zandra Sanches Chronic GERD 11/09/2020 Encounters Date Type Department Care Team Description 06/10/2025 1:30 PM CDT Office Visit [facility] [address] [place] [address] Koki De MD Preoperative Exam (Right knee replacement @ [facility]/Dr. Arteaga DOS 06/23/2025) 06/09/2025 Travel 05/13/2025 12:40 PM CDT Office Visit [facility] [address] [facility] [place] [address] Koki De MD ER Follow up (discharge on 05/05/2025 pancreatitis) 05/13/2025 Travel 05/08/2025 Travel 05/04/2025 Orders Only [facility] Scanner 1 scan: (1-Ord) [facility], MR ABDOMEN W/O CONTRAST, 05/04/2025 04/26/2025 3:35 PM CDT Office Visit [facility] [address] [facility] [place] [address] Koki De MD Hospital F/U 04/26/2025 Travel 04/20/2025 Refill [facility] [address] [place] [address] Koki De MD Refill Request (Finasteride, Estradiol) 04/09/2025 11:20 AM CDT Anesthesia Event [facility] [address] [place] [address] Sridevi Dotson MD 04/09/2025 11:05 AM CDT - 04/09/2025 12:[address] [facility] [address] [place] [address] Alen Dumas MD ENDOSCOPIC ULTRASOUND UPPER 04/09/2025 9:33 AM CDT - 04/09/2025 1:15 PM CDT Hospital Encounter [facility] [address] [place] [address] Alen Dumas MD Abnormal liver enzymes Discharge Disposition: Home Self Care 04/08/2025 Travel 04/07/2025 3:35 PM CDT Office Visit [facility] [address] [facility] [place] [address] Koki De MD Preoperative Exam (preop 04/09 ) 04/07/2025 Travel 04/02/2025 Travel 03/18/2025 12:40 PM CDT Office Visit [facility] [address] [place] [address] Koki De MD Hospital F/U (Patient was at [facility] from the 03/07-03/09 for pancreatitis do to gallstones. Patient is feeling better since that visit. /Patient would also like to discuss medications.) 03/17/2025 Travel from Last 3 Months Immunizations Immunization [...] 06/16/2009 Influenza, High-dose Quadriv alent Inactivated 05/20/2017,05/16/2016,06/12/2014,06/09,06/02/2013,05/13/2012,06/07/2011 ,07/04/2010,06/16/2009,05/10/2009,11/0 12/2006,05/20/2006 Influenza, IIV3 (Age >=3 years) 07/04/2010 Influenza, IIV4 05/14/2023, 2,06/15/2021,05/17,05/27/2019,05/14/2018 MMR 08/12/1991 Measles 08/12/1978 Mumps 08/12/1971,08/12/1962 Pneumococcal Conj 20-valent (Prevnar 20) 11/05/2024 Pneumococcal Poly,23-Valent (Pneumovax) 11/29/2003 Pneumococcal conj 13-Valent (Prevnar 13) 09/22/2015 Polio Virus, Unspecified 08/12/1973 RSV, Recombinant ADJ Reconst ituted (Arexvy 120MCG/0.5mL) 03/11/2024 Smallpox (Vaccinia) Live [id number] 08/12/1968 Td (Age >=7 Years) 08/12/2001,08/12/1991, 982 [...] isolated from those around you? 0 12/18/2024 Alcohol Use Answer Date Recorded How often do you have a drink containing alcohol ? 2 05/13/2025 How many drinks containing a lcohol do you have on a typical day when you are drinking? 0 05/13/2025 How often do you have five or more drinks on one occasion? 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 Not on file Not on file Obstetrics History Last Filed Vital Signs Vital Sign Reading Time Taken Comments Blood Pressure 133/83 06/10/2025 1:28 PM CDT Pulse 78 06/10/2025 1:28 PM CDT Temperature 37.2 C (98.9 F) 06/10/2025 1:28 PM CDT Respiratory Rate 18 04/09/2025 11:50 AM CDT Oxygen Saturation 98% 06/10/2025 1:28 PM CDT Inhaled Oxygen Concentration - - Weight 79 kg (174 lb 3.2 oz) 06/10/2025 1:28 PM CDT Height 162.6 cm (5' 4) 06/10/2025 1:28 PM CDT Body Mass Index 29.9 06/10/2025 1:28 PM CDT Plan of Treatment Health Maintenance Due Date Last Done Comments Influenza Vaccine (#1) 2025 , 05/14/2023, 06/18/2022, Additional history exists Depression screening for age 12+ 11/05/2025 11/05/2024, 05/20/2024, 01/03/2023, Additional history exists Mammogram for age 45-75 01/27/2026 01/28/20 25, 05/06/2024, 11/21/2022, Additional history exists BMI (ht and wt on same day) for age 18+ 06/10/2026 06/10/2025, 05/13/2025, 01/27/2025, Additional history exists Fecal testing sDNA-FIT (Waldo guard) for age 45-75 01/27/2028 01/26/2025, 06/13/2022, 05/20/2019 Lipids for age 45-75 09/16/2028 09/16/2023, 12/22/19 21 Tetanus booster 03/06/2034 03/06/2024, 08/12, 06/02/2013, Additional history exists Hepatitis B series for 19+ Completed 08/12, 08/12/1989, 08/12/1988 Zoster (shingles) series for age 50+ Completed 01/10/2021, 11/09/2020 RSV vaccine for adults or Completed 03/11/2024 Pneumococcal series for age 50+ Completed 11/05/2024, 09/22/2015, 11/29/2003 HIV for age 15-65 Completed 01/06/2025 Hepatitis C screening for ag e 18-79 Completed 01/06/2025 Medical Devices Implanted Type Area Filter Press Pumper Device Identifier Shelf Expiration Date Model / Serial / Lot Mesh Hernia Inguinal Rt - [id number] Implanted:Qty: 1 on 05/24/[address] [facility] Right: Inguinal 09/12/2015 [id number] R# / / [id number] Stent Pancreatic [id number] Geenen Sof-Flex No Flap - [id number] Implanted:Qty: 1 on 12/14/2024 by Alen Dumas MD at [facility] 08/21/2027 GPSOS-SF- 5-5 / / [id number] Explanted Type Area Filter Press Pumper Device Identifier Shelf Expiration Date Model / Serial / Lot Stent Pancreatic [id number] Geenen Sof-Flex No Flap - [id number] Explanted:Qty: 1 on 12/14/2024 at [facility] 08/21/2027 GPSOS-SF-5 - 5 / / [id number] Procedures Procedure Name Priority Date/Time Associated Diagnosis Comments LIPASE Routine 06/10/2025 2:23 PM CDT History of pancreatitis HEPATIC FUNCTION PANEL Routine 2:23 PM CDT History of pancreatitis HEMOGLOBIN Routine 06/10/2025 2:23 PM CDT Pre-op exam LIPASE Routine 05/13/2025 1:25 PM CDT Acute recurrent pancreatitis (HC) HEPATIC FUNCTION PANEL Routine 1:25 PM CDT Acute recurrent pancreatitis (HC) SCAN-MRI INTERPRETATION 05/04/20 12:00 AM CDT XR ERCP BILIARY ONLY Routine 04/09/2025 11:51 AM CDT Abnormal liver enzymes ENDOSCOPY 04/09/2025 11:19 AM CDT ENDOSCOPY 04/09/2025 11:19 AM CDT ENDOSCOPIC RETROGRADE CHOLANGIOPANCREATOGRAPHY Tier 3: within 90 days 04/09/2025 11:10 AM CDT see md dictation ENDOSCOPIC ULTRASOUND customs entry writer 3: within 90 days 04/09/2025 11:10 AM CDT see md dictation SCAN-MAMMOGRAPHY REPORT 01/28/20 12:00 AM CDT ANTI HIV 1/2 Routine 01/06/2025 3:02 PM CDT Screening for HIV (human immunodeficiency virus) ANTI HCV Routine 01/06/2025 3:02 PM CDT Abnormal liver ultrasound LIPID PANEL W REFLEX MEASURED LDL Routine 09/16/2023 7:43 AM [employer] O[employer] Lipid screening SDNA-FIT EXTERNAL (COLOGUARD) Routine 06/13/2022 10:15 AM CDT Screening for colon cancer from Last 3 Months or Most Recently Relevant to Health Maintenance Results * HEMOGLOBIN (06/10/2025 2:23 PM CDT) HEMOGLOBIN 12.5 11.7 - 15.5 g/dL 06/11/2025 3:55 AM CDT [facility] MCV 88.3 80.0 - 100.0 fL 06/11/2025 3:55 AM CDT [facility] Blood BLOOD SPECIMEN / Unknown [facility] / Unknown 06/10/2025 2:23 PM CDT 06/10/2025 2:23 PM CDT us Koki De MD HEMATOLOGY Final Resul t Performing Organization Address [facility] de Phone Number [facility] [address] [address], [place] [phone] * (ABNORMAL) LIPASE (06/10/2025 2:23 PM CDT) Only the most recent of2 resultswithin the time period is included. LIPASE 387(H) 7 - 60 U/L 06/11/2025 7:14 AM CDT [facility] Comment:Verified by repeat a nalysis. Blood BLOOD SPECIMEN / Unknown [facility] / Unknown 06/10/2025 2:23 PM CDT 06/10/2025 2:23 PM CDT us Koki De MD CHEMISTRY Final Resul t Performing Organization Address [facility] Phone Number [facility] [address] [address], [place] [phone] * LIVER PANEL (HEPATIC FUNCTION PANEL) (06/10/2025 2:23 PM CDT) Only the most recent of2 resultswithin the time period is included. ALBUMIN 4.2 3.6 - 5.1 g/dL 06/11/2025 7:14 AM CDT [facility] PROTEIN, TOTAL 6.9 6.1 - 8.1 g/dL 06/11/2025 7:14 AM CDT [facility] BILIRUBIN, TOTAL 0.3 0.2 - 1.2 mg/dL 06/11/2025 7:14 AM CDT [facility] BILIRUBIN, DIRECT 0.1 < OR = 0.2 mg/dL 06/11/2025 7:14 AM CDT [facility] BILIRUBIN, INDIRECT 0.2 0.2 - 1.2 mg/dL (calc) 06/11/2025 7:14 AM CDT [facility] ALKALINE PHOSPHATASE 80 37 - 153 U/L 06/11/2025 7:14 AM CDT [facility] ALT 19 6 - 29 U/L 06/11/2025 7:14 AM CDT [facility] AST 21 10 - 35 U/L 06/11/2025 7:14 AM CDT [facility] GLOBULIN 2.7 1.9 - 3.7 g/dL (calc) 06/11/2025 7:14 AM CDT [facility] ALBUMIN/GLOBULIN RATIO 1.6 1.0 - 2.5 (calc) 06/11/2025 7:14 AM CDT [facility] Blood BLOOD SPECIMEN / Unknown [facility] / Unknown 06/10/2025 2:23 PM CDT 06/10/2025 2:23 PM CDT us Koki De MD CHEMISTRY Final Resul t [facility] [address] [address], * SCAN-MRI INTERPRETATION (05/04/2025 12:00 AM CDT) Anatomical Region Laterality Modality Other us Scanner OTHER Final Result * XR ERCP BILIARY ONLY (04/09/2025 11:51 AM CDT) Anatomical Region Laterality Modality GALLBLADDER, PANCREAS, LIVER Oth er Narrative 04/09/2025 11:26 AM CDT 48 seconds fluoroscopy time was provided. See operative/procedure report for further information. us Alen Dumas MD FLUOROSCOPY Final Result * ENDOSCOPY (04/09/2025 11:19 AM CDT) 04/09/2025 11:1 9 AM CDT Narrative Transcriptions Alen Dumas MD - 04/09/2025 12:07 PM CDT [facility] Patient Name: Martita Steel Procedure Date: 04/09/2025 Gender: Female Date of : 1960 Admit Type: Ambulatory Procedure: ERCP Proceduralist: Alen Dumas MD - [facility] Referring MD: Alen Dumas MD Indications/Pre-Op Diagnosis: Abdominal pain of suspected biliary origin, Follow-up of bile duct stone(s) Medications: Monitored Anesthesia Care Procedure Description: Risk of bleeding, infection, perforation, pancreatitis, need for surgery, remote chance of and alternatives were discussed, andthe patient gave informed consent. The endoscope ERCP [id number] was passed through the mouth,and advanced to [...] Dumas MD - 04/09/2025 12:05 PM CDT [facility] Patient Name: Martita Steel Procedure Date: 04/09/2025 Gender: Female Date of : 1960 Admit Type: Ambulatory Procedure: Upper EUS Proceduralist: Alen Dumas MD - [facility] Referring MD: Alen Dumas MD Indications/Pre-Op Diagnosis: Acute pancreatitis, Epigastric abdominalpain Medications: Monitored Anesthesia Care Procedure Description: Risk of bleeding, infection, perforation, pancreatitis, need for surgery, remote chance of and alternatives were discussed, andthe patient gave informed consent. The endoscope [id number] was introduced through the mouth, and advanced [...] electronically. Note Initiated On: 04/09/2025 11:19 AM Alen Dumas MD PROCEDURE ORD Final Result * SCAN-MAMMOGRAPHY REPORT (01/27/2025 12:00 AM CDT) Anatomical Region Laterality Modality Other us Scanner OTHER Final Result * ANTI HCV (01/06/2025 3:02 PM CDT) HEPATITIS C ANTIBODY NON-REACTI VE NON-REACT UCHE [facility] Comment: HCV antibody was non-reactive. There is no laboratory evidence of HCV infection. In most cases, no further action is required. However, if recent HCV exposure is suspected, a test for HCV RNA (test code 06046) is suggested. For additional information please refer to http://Burpple.iZotope/faq/SAZ96q2 (This link is being provided for informational/ educational purposes only.) Blood BLOOD SPECIMEN / Unknown 01/06/2025 3:02 PM CDT 01/06/2025 3:03 PM CDT Koki De MD SEND OUTS Final Resul t [facility] [address] [place] [address], [email or web address] [address] [place] [address] * ANTI HIV 1/2 [54090.0] (01/06/2025 3:02 PM CDT) HIV AG/AB, 4TH GEN NON-REACT UCHE NON-REACT UCHE [facility] Comment: HIV-1 antigen and HIV-1/HIV-2 antibodies were [...] purpose. For additional information please refer to http://Burpple.iZotope/faq/ZEY967 (This link is being provided for informational/ educational purposes only.) The performance of this assay has not been clinically validated in patients less than 2 years old. Blood BLOOD SPECIMEN / Unknown 01/06/2025 3:02 PM CDT 01/06/2025 3:03 PM CDT Koki De MD SEND OUTS Final Resul t [facility] [address] [place] [address], [email or web address] [address] [place] [address] * LIPID PANEL W REFLEX MEASURED LDL (09/16/2023 7:43 AM COATER OPER[employer]) CHOLESTEROL,TOTAL 198 100 - 199 mg/dL 09/16/2023 4:22 PM [facility] Comment: Cholesterol, Total Reference Ranges Desirable <200 mg/dL Borderline 200-239 mg/dL High >=240 mg/dL TRIGLYCERIDES 88 <150 mg/dL 09/16/2023 4:22 PM [employer] [facility] HDL CHOLESTEROL 62 >40 mg/dL 4:22 PM [employer] [facility] NON-HDL CHOLESTEROL 136 <145 mg/dl 09/16/2023 4:22 PM [facility] CHOL/HDL RATIO 3.19 <4.50 09/16/2023 4:22 PM [employer] [facility] LDL CHOLESTEROL 118 <=130 mg/dL 09/16/2023 4:22 PM [facility] VLDL CHOLESTEROL 18 <=30 mg/dL 09/16/2023 4:22 PM [facility] PROVIDER ORDERED STATUS RANDOM 09/16/2023 4:22 PM [facility] Blood BLOOD SPECIMEN / Unknown Venipuncture / Unknown 09/16/2023 7:43 AM [employer] 09/16/2023 7:45 AM [employer] us Koki De MD CHEMISTRY Final Resul t [facility] [address] [place] [address], [place] * sDNA-FIT External (Cologuard) [[id number]] (06/13/2022 10:15 AM CDT) NONINV COLON CA DNA+OCC BLD SCRN STL-IMP Negative Negative 06/21/2022 4:46 AM CO[employer] OPER[employer] [facility] (CLIA #:[id number]) Comment: NEGATIVE TEST RESULT. A negative Cologuard [...] Hutton. et al, N Engl J Med 2014;370(14):7129-1739) The normal value (reference range) for this assay is negative. COLOGUARD RE-SCREENING RECOMMENDATION: Periodic colorectal cancer screening is an important part of preventive healthcare for asymptomatic individuals at average risk for colorectal cancer. Following a negative Cologuard result, the [place] Cancer Society and U.S. Multi-Society Task Force screening guidelines recommend a Cologuard re-screening interval of 3 years. References: [place] [employer] Guideline for Colorectal Cancer Screening: https://www.cancer.org/cancer/fikzz-xgxfpu-udvcic/sgfaringx-jptagkwks-lsyjxuz/ac s-rec ommendations.html.; Diogo LOUIS, Gray GARCIA, Eliot BOYD, Colorectal Cancer Screening: Recommendations for Physicians and Patients from the U.S. Multi-Society Task Force on Colorectal Cancer Screening , Am J Gastroenterology 2017; 112:9602-1627. TEST DESCRIPTION: Composite algorithmic analysis of stool [...] (Deacon Klein al, N Engl J Med 2014;370(14):5974-8343.) Cologuard may produce a false negative or false positive result (no colorectal cancer or precancerous polyp present at colonoscopy follow up). A negative Cologuard test result does not guarantee the absence of CRC or advanced adenoma (pre-cancer). The current Cologuard screening interval is every 3 years. ([place] [employer] Society and U.S. Multi-Society Task Force). Cologuard performance data in a 10,000 patient pivotal study using colonoscopy as the reference method can be accessed at the following location: www.MarketGid/results. Additional description of the Cologuard test process, warnings and precautions can be found at www.TalkBox Limitedrd.com. Stool specimen (specimen) (Rectum) 06/13/2022 10:15 AM CDT 06/14/2022 5:14 PM CDT Caryl Huang MD URINE Final Result [facility] (CLIA #:[id number]) [place] [address], [place] [phone] from Last 3 Months or Most Recently Relevant to Health Maintenance [facility] Advance [...] 9:05 AM 05/24/2011 7:25 PM Care Teams Photo Journalist Relationship Specialty Start Date End Date Koki De MD [address] [place] [address] PCP - General Family Practice 12/18/22
[2025-06-17 18:11] VITALS: BP 146/92; PULSE 86; RESP 20; TEMP 36.6; O2SAT 98; BMI 29.2
--- NOTE | 2025-06-17 20:00 | CRLHL7_ITS ---
For Patients: As a result of the Century Cures Act, medical imaging exams and procedure reports are released immediately into your electronic medical record. You may view this report before your referring provider. If you have questions, please contact your health care provider. INDICATION: Right upper quadrant pain, nausea, vomiting. TECHNIQUE: CT abdomen and pelvis acquired with 83 cc Isovue 370 IV contrast. COMPARISON: MRI abdomen 05/04/2025. FINDINGS: Lower chest: Unremarkable. Liver: Right hepatic lobe hemangioma, unchanged. Gallbladder and bile ducts: Status post cholecystectomy. Spleen: Unremarkable. Normal in size. No masses. Adrenal glands: Unremarkable. No nodules. Pancreas: Unremarkable. No mass or inflammation. Kidneys: Nonobstructive right renal calculi. No hydronephrosis. GI tract: Unremarkable. Normal in caliber. No evidence of obstruction. Normal appendix. Lymph nodes: No lymphadenopathy. Vasculature: Unremarkable. Omentum/Peritoneum/Abdominal Wall: Small fat containing umbilical hernia. No free air or significant free fluid. Pelvis: Status post hysterectomy. Bones: Lower lumbar spondylosis. IMPRESSION: 1. No acute abdominal or pelvic abnormality. 2. Other incidental findings as above. Please note that all CT scans at this facility use dose modulation, iterative reconstruction, and/or weight-based dosing when appropriate to reduce radiation dose to as low as reasonably achievable. Dictated by Raad Reynolds MD @ 06/17/2025 9:30:30 PM (Electronically Signed)
--- NOTE | 2025-06-17 20:28 | ED.ABDPAIN ---
HPI - Abdominal Pain General Chief Complaint: Abdominal Pain Stated Complaint: nausea, vomiting Time Seen by Provider: 06/17/25 17:59 History of Present Illness HPI narrative: This 64-year-old female comes in with upper epigastric abdominal pain radiating through to her back. She has some associated nausea and vomiting. Her symptoms are distinctly worse when taking food or drink. She does have a history of pancreatitis related to gallstones. She had her gallbladder removed but has continued to have recurrent pancreatitis symptoms for unknown reasons. These symptoms are very typical today. She tries to forego coming in here with some change in her diet and home medications which worked for a while but she returns now because she has worsening symptoms with taking any kind of food or drink. She rates her nausea and her pain at around 5/10 in severity for each. Related Data Home Medications ?Medication ?Instructions ?Recorded ?Confirmed cholecalciferol (vitamin D3) 50 2,000 unit PO DAILY 02/28/22 06/17/25 mcg (2,000 unit) tablet acetaminophen 650 mg 1,300 mg PO BID 12/04/24 06/17/25 tablet,extended release (Tylenol Arthritis Pain) multivitamin 1 tab PO QAM 12/04/24 06/17/25 escitalopram oxalate 10 mg tablet 10 mg PO DAILY 12/14/24 06/17/25 fexofenadine 180 mg tablet 180 mg PO BID 12/14/24 06/17/25 (Carmenza Allergy) phentermine 30 mg capsule 30 mg PO DAILY 12/14/24 06/17/25 trazodone 50 mg tablet 50 mg PO HS 12/14/24 06/17/25 epinephrine 0.3 mg/0.3 mL 0.3 mg IM DAILY PRN anaphylaxis 05/04/25 06/17/25 injection, auto-injector estradiol 0.05 mg/24 hr semiweekly 1 patch transdermal 2XW 05/04/25 06/17/25 transdermal patch fluorouracil 5 % topical cream 1 applic topical Q7D 05/04/25 06/17/25 s-adenosylmethionine 400 mg tablet 400 mg PO DAILY 05/04/25 06/17/25 (WALTER-e) Previous Rx's ?Medication ?Instructions ?Recorded albuterol sulfate 90 mcg/actuation 2 puff inhalation Q6H PRN 01/28/24 aerosol inhaler bronchospasm #8.5 grams estradiol 0.01% (0.1 mg/gram) 1 g vaginal QWEEK #42.5 grams 01/28/24 vaginal cream omeprazole 20 mg capsule,delayed 20 mg PO DAILY #90 caps 01/28/24 release triamcinolone acetonide 0.1 % 1 applic topical BID PRN skin 01/28/24 topical cream reaction #80 grams budesonide-formoterol HFA 160 2 puff inhalation BID #10.2 grams 02/06/24 mcg-4.5 mcg/actuation aerosol inhaler (Symbicort) finasteride 5 mg tablet 5 mg PO DAILY #90 tabs 04/23/24 albuterol sulfate 2.5 mg/3 mL 2.5 mg (3 mL) inhalation Q4-6H PRN 01/15/25 (0.083 %) solution for nebulization shortness of breath or wheezing #180 mL Allergies Allergy/AdvReac Type Severity Reaction Status Date / Time bupropion Allergy Unknown Tremors Verified 06/17/25 20:39 Cephalosporins Allergy Unknown GI upset Verified 06/17/25 20:39 latex Allergy Unknown Rash Verified 06/17/25 20:39 promethazine Allergy Unknown Legs jump Verified 06/17/25 20:39 gluten Allergy Verified 06/17/25 20:39 Macrolide Antibiotics Allergy Gastrointestinal Verified 06/17/25 20:39 Upset venlafaxine Allergy Verified 06/17/25 20:39 wheat Allergy Verified 06/17/25 20:39 erythromycin base AdvReac Gastrointestinal Verified 06/17/25 20:39 Upset Review of Systems Status of ROS Reports: 10 or more systems reviewed and unremarkable except as noted in History and below Narrative Constitutional: No fevers, no weight gain or loss. Eyes: No discharge. No vision changes. HENT: No congestion, no sore throat, no ear pain. Cardiovascular: No chest pain, no palpitations. Respiratory: No shortness of breath, no wheezes, no cough. Gastrointestinal: Abdominal pain with nausea and vomiting as described above. Genitourinary: No dysuria, no hematuria. Musculoskeletal: Normal range of motion. Skin: No rashes, no pruritis. Neurological: No dizziness, weakness, sensory change, speech change. Endo/Heme/Allergies: No bruising or bleeding. No polydipsia. Pysch: no suicidality, no anxiety, no insomnia. All other systems reviewed and are negative. [facility] Medical History Tear of medial meniscus of right knee ?S83.241A - Other tear of medial meniscus, current injury, right knee, initial encounter (ICD-10) Osteoarthritis of left knee ?M17.12 - Unilateral primary osteoarthritis, left knee (ICD-10) Left carpal tunnel syndrome ?G56.02 - Carpal tunnel syndrome, left upper limb (ICD-10) Osteoarthritis of right knee ?M17.11 - Unilateral primary osteoarthritis, right knee (ICD-10) Biliary colic ?K80.50 - Calculus of bile duct without cholangitis or cholecystitis without obstruction (ICD-10) Chronic hepatitis ?K73.9 - Chronic hepatitis, unspecified (ICD-10) Sciatica ?M54.30 - Sciatica, unspecified side (ICD-10) Sleep apnea ?G47.30 - Sleep apnea, unspecified (ICD-10) Hair thinning ?L65.9 - Nonscarring hair loss, unspecified (ICD-10) Eczema ?L30.9 - Dermatitis, unspecified (ICD-10) Binge eating ?R63.2 - Polyphagia (ICD-10) Irritable bowel syndrome ?K58.9 - Irritable bowel syndrome without diarrhea (ICD-10) Actinic keratosis ?L57.0 - Actinic keratosis (ICD-10) GERD (gastroesophageal reflux disease) ?K21.9 - Gastro-esophageal reflux disease without esophagitis (ICD-10) On postmenopausal hormone replacement therapy ?Z79.890 - Hormone replacement therapy (ICD-10) Environmental and seasonal allergies ?J30.89 - Other allergic rhinitis (ICD-10) Difficulty sleeping ?G47.9 - Sleep disorder, unspecified (ICD-10) Depression ?F32.A - Depression, unspecified (ICD-10) Asthma ?J45.909 - Unspecified asthma, uncomplicated (ICD-10) Guillain-Voss syndrome (~1996) ?G61.0 - Guillain-Voss syndrome (ICD-10) LAUREANO (obstructive sleep apnea) ?G47.33 - Obstructive sleep apnea (adult) (pediatric) (ICD-10) Recurrent subluxation of left temporomandibular joint ?M24.49 - Recurrent dislocation, other specified joint (ICD-10) Surgical History Status post laparoscopic cholecystectomy ?Z90.49 - Acquired absence of other specified parts of digestive tract (ICD-10) H/O gastrostomy ?Z98.890 - Other specified postprocedural states (ICD-10) H/O tracheostomy ?Z98.890 - Other specified postprocedural states (ICD-10) H/O hernia repair ?Z98.890 - Other specified postprocedural states (ICD-10) ?Z87.19 - Personal history of other diseases of the digestive system (ICD-10) History of vaginal hysterectomy ?Z90.710 - Acquired absence of both cervix and uterus (ICD-10) Family History Mother High blood pressure Osteoarthritis Osteoporosis Father Atrial fibrillation Melanoma Renal cell carcinoma Cancer Family history of alcohol abuse Heart disease Paternal Grandmother Stroke Atrial fibrillation Diabetes Son Diabetes Brother FHx: cancer of prostate Other Alcohol dependence Drug dependence Family history of psychiatric disorder Family history of substance abuse Social History Narrative: . 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 No drug use. 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 She exercises intermittently. What is your current living situation?: I presently have a place to live Problems where you live: no known problems Problems where you live details: none In the past 12 months, utilities in danger of being shut off: no In past 12 months, lack of transportation kept you from medical appts, meetings, work, or getting things needed for daily living: no In the past 12 mos, have been you worried that your food would run out before you had money to buy more?: never true In the past 12 mos, the food you bought just didn't last and you didn't have money to buy more?: never true Highest level of school completed/degree received: Doctoral degree Smoking Status: Never smoker Do you use any of these nicotine containing products: None Second hand tobacco smoke exposure: No How often do you have a drink containing alcohol: monthly or less How often do you have six or more drinks on one occasion: Never AUDIT-C Alcohol total score: 1 Non-prescribed substance use: denies use Caffeine: No How often does anyone, including family, friends and others, physically hurt you: never How often does anyone, including family, friends and others, insult or talk down to you: never How often does anyone, including family, friends and others, threaten you with harm: never How often does anyone, including family, friends and others, scream or curse at you: never service: No Exam Narrative: Exam Narrative: Constitutional: Well-developed, well-nourished, no acute distress. HEENT: Normocephalic, atraumatic. Neck: Normal range of motion. Nontender. Supple. Heart: Regular. No murmurs. Normal rate. Intact distal pulses. Lungs: Clear to auscultation. No chest discomfort. No wheezes, rhonchi, or rales. Abdomen: Normal bowel sounds. Upper epigastric abdominal pain.. No rebound tenderness. Genitalia: Deferred. Back: No midline tenderness. Normal range of motion. Extremities: Normal range of motion. No injury. Skin: Intact. No rash. Warm. No erythema or pallor. Neurologic: No altered sensation. No weakness. Alert and oriented. Psychiatric: No suicidality. No anxiety or depression. No insomnia. Nursing notes and vitals signs are reviewed. Const: Vital Signs, click to edit/add: Vital Signs - 24 hr 06/17/25 18:11 06/17/25 21:08 Temperature 97.9 F Pulse Rate [Pulse Oximeter] 86 69 Respiratory Rate 20 Blood Pressure [Ri ght Upper Arm] 146/92 H 136/70 Pulse Oximetry 98 Oxygen Delivery Me thod Room Air Course Vital Signs Vital signs: Initial Vital Signs Temperature 97.9 F 06/17/25 18:11 Temperature Source Temporal Artery Scan 06/17/25 18:11 Pulse Rate 86 06/17/25 18:11 Respiratory Rate 20 06/17/25 18:11 Blood Pressure 146/92 H 06/17/25 18:11 Blood Pressure Mean 110 H 06/17/25 18:11 Pulse Oximetry 98 06/17/25 18:11 Oxygen Delivery Method Room Air 06/17/25 18:11 Vital Signs Temperature 97.9 F 06/17/25 18:11 Pulse Rate 86 06/17/25 18:11 Respiratory Rate 20 06/17/25 18:11 Blood Pressure 146/92 H 06/17/25 18:11 Pulse Oximetry 98 06/17/25 18:11 Oxygen Delivery Method Room Air 06/17/25 18:11 Temperature 97.9 F 06/17/25 18:11 Pulse Rate 69 06/17/25 21:08 Respiratory Rate 20 06/17/25 18:11 Blood Pressure 136/70 06/17/25 21:08 Pulse Oximetry 98 06/17/25 18:11 Oxygen Delivery Method Room Air 06/17/25 18:11 Medications Administered Medications: Discontinued Medications Generic Name Dose Route Start Last Admin Trade Name Joeq PRN Reason Stop Dose Admin Sodium Chloride 1,000 mls @ 1,000 mls/hr 06/17/25 20:00 06/17/25 22:06 0.9 % Sodium Chloride 1000 Ml IV 06/17/25 20:59 Infused .Q1H CARRI Infusion Ketorolac Tromethamine 30 mg 06/17/25 20:00 06/17/25 20:32 Ketorolac 30 Mg/Ml Inj IVP 06/17/25 20:01 30 mg ONCE ONE Administration Ondansetron HCl 4 mg 06/17/25 20:00 06/17/25 20:33 Ondansetron 2 Mg/Ml Inj IVP 06/17/25 20:01 4 mg ONCE ONE Administration MDM - Abdominal Pain MDM Narrative Medical decision making narrative: This patient comes in with upper epigastric pain with nausea and vomiting. These symptoms are worse when taking food or drink and she is suspicious of another episode of pancreatitis. She was scheduled to have a CT scan tomorrow with her GI doctor's recommendation. An IV was established here where she received a L of normal saline along with Toradol 30 mg and Zofran 4 mg. This brought great relief to her symptoms and she was able to take liquids without problem. CT images are obtained and show no acute findings. Additionally her labs are all in normal range. In particular her lipase is normal. This was very reassuring to the patient. She is okay to be discharged home. She states that she has medicines treat treat symptoms if needed and will follow up with her GI specialist. Lab Data Labs: Lab Results 06/17/25 Range/Units 20:23 WBC 5.85 (4.50-11.00) K/uL RBC 4.35 (4.00-5.20) m/uL Hgb 12.5 (12.0-16.0) gm/dL Hct 39.1 (33.0-51.0) % MCV 90 (80-100) fL MCH 29 (26-34) pg MCHC 32 (32-36) gm/dL RDW Coeff of Jim 12.3 (11.5-15.5) % Plt Count 323 (140-440) K/uL Neut % (Auto) 70.6 (42.0-72.0) % Lymph % (Auto) 17.9 L (20-44) % [place] % (Auto) 9.2 (0.0-11.0) % Eos % (Auto) 1.5 (0.0-7.0) % Baso % (Auto) 0.5 (0.0-3.0) % Neut # (Auto) 4.12 (1.7-7.0) K/uL Lymph # (Auto) 1.00 (0.90-2.90) K/uL [place] # (Auto) 0.50 (0.00-0.90) K/UL Eos # (Auto) 0.09 (0.00-0.50) K/uL Baso # (Auto) 0.03 (0.00-0.30) K/uL Abs Immat Gran (auto) 0.02 (0.00-0.30) K/uL Imm/Tot Granulo (auto) 0.3 % Sodium 140 (135-149) mmol/L Potassium 3.6 (3.6-5.1) mmol/L Chloride 106 (96-114) mmol/L Carbon Dioxide 30 (20-32) mmol/L Anion Gap 4 L (7-15) mEq/L BUN 15 (7-30) mg/dL Creatinine 0.7 (0.5-1.5) mg/dL Estimated Creat Clear 49.72 Estimated GFR 97 ml/min Glucose 105 (60-115) mg/dL Calcium 9.3 (8.4-10.6) mg/dL Total Bilirubin 0.5 (0.1-1.5) mg/dL Direct Bilirubin 0.2 (0.0-0.5) mg/dL AST 34 (12-35) U/L ALT 27 (4-35) U/L Alkaline Phosphatase 79 (40-150) U/L Total Protein 7.4 (6.0-8.3) g/dL Albumin 4.2 (3.3-5.0) g/dL Lipase 62 (23-300) U/L Discharge Plan Discharge Clinical Impression: Abdominal pain Qualifiers: Abdominal location: unspecified location Qualified Code(s): R10.9 - Unspecified abdominal pain Patient Disposition: Home w/ Parent or Adult Condition: Improved Additional Instructions: Continue current plans. Increase liquids and diet as tolerated. Follow up with MD return if symptoms are recurrent or worsening. Prescriptions: No Action cholecalciferol (vitamin D3) 50 mcg (2,000 unit) tablet 2,000 unit PO DAILY albuterol sulfate 90 mcg/actuation HFA aerosol inhaler 2 puff inhalation Q6H PRN (Reason: bronchospasm) Qty: 8.5 12RF estradiol 0.01 % (0.1 mg/gram) cream 1 g vaginal QWEEK Qty: 42.5 3RF omeprazole 20 mg capsule,delayed release(DR/EC) 20 mg PO DAILY Qty: 90 3RF triamcinolone acetonide 0.1 % cream 1 applic topical BID PRN (Reason: skin reaction) Qty: 80 3RF acetaminophen [Tylenol Arthritis Pain] 650 mg tablet extended release 1,300 mg PO BID multivitamin Tablet 1 tab PO QAM albuterol sulfate 2.5 mg /3 mL (0.083 %) solution for nebulization 2.5 mg inhalation Q4-6H PRN (Reason: shortness of breath or wheezing) Qty: 180 0RF WALTER-e 400 mg tablet 400 mg PO DAILY Rx Instructions: administer on an empty stomach fluorouracil 5 % cream 1 applic topical Q7D Rx Instructions: apply topically to affected area/zone once weekly estradiol 0.05 mg/24 hr patch semiweekly 1 patch transdermal 2XW epinephrine 0.3 mg/0.3 mL auto-injector 0.3 mg IM DAILY PRN (Reason: anaphylaxis) phentermine 30 mg capsule 30 mg PO DAILY trazodone 50 mg tablet 50 mg PO HS fexofenadine [Carmenza Allergy] 180 mg tablet 180 mg PO BID escitalopram oxalate 10 mg tablet 10 mg PO DAILY budesonide-formoterol [Symbicort] 160-4.5 mcg/actuation HFA aerosol inhaler 2 puff inhalation BID Qty: 10.2 12RF finasteride 5 mg tablet 5 mg PO DAILY Qty: 90 3RF Follow Up/Referrals: Koki De MD [Primary Care Provider, Obstetrics] Stand Alone Forms: [employer] Info Instructions
[2025-06-17 20:32] LABS: Hematocrit* 39.1 % (33.0-51.0); Hemoglobin* 12.5 gm/dL (12.0-16.0); Immature Granulocytes Abs Auto 0.02 K/uL (0.00-0.30); Immature Granulocytes Pct Auto 0.3 %; Mean Corpuscular HGB Conc 32 gm/dL (32-36); Mean Corpuscular Hemoglobin 29 pg (26-34); Mean Corpuscular Volume 90 fL (80-100); RDW Coefficient of Variation % 12.3 % (11.5-15.5); Red Blood Count* 4.35 m/uL (4.00-5.20); White Blood Count* 5.85 K/uL (4.50-11.00)
[2025-06-17 20:33] LABS: Lymphocytes Absolute Auto 1.00 K/uL (0.90-2.90); Slide Review Reflex No
[2025-06-17] MEDS: ONDANSETRON 2 MG/ML inj 4 MG IVP (20:33)
[2025-06-17 20:45] LABS: Albumin* 4.2 g/dL (3.3-5.0); Chloride* 106 mmol/L (96-114); Potassium* 3.6 mmol/L (3.6-5.1); Sodium* 140 mmol/L (135-149)
[2025-06-17 20:48] LABS: Alanine Aminotransferase* 27 U/L (4-35); Alkaline Phosphatase* 79 U/L (40-150); Anion Gap 4 mEq/L (7-15); Aspartate Amino Transferase* 34 U/L (12-35); Bilirubin Direct* 0.2 mg/dL (0.0-0.5); Bilirubin Total* 0.5 mg/dL (0.1-1.5); Blood Urea Nitrogen* 15 mg/dL (7-30); Calcium* 9.3 mg/dL (8.4-10.6); Carbon Dioxide* 30 mmol/L (20-32); Creatinine* 0.7 mg/dL (0.5-1.5); Est. Creatinine Clearance* 49.72; Estimated Glomerular Filt Rate 97 ml/min; Glucose* 105 mg/dL (60-115); Total Protein* 7.4 g/dL (6.0-8.3)
[2025-06-17 21:08] VITALS: BP 136/70; PULSE 69
--- NOTE | 2025-06-17 21:09 | ED.NURSE ---
Patient rates pain /10. States that the tordal did help along wth the [place]
== END 2025-06-17 22:19 | disposition home or self-care (01) ==
PROVIDERS: Emergency Provider Emergency Medicine Emergency Medical Services; PCP Family Medicine
DX: R10.13 Epigastric pain (principal); R11.2 Nausea with vomiting, unspecified
CPT/HCPCS: 36415; 74177; 80048; 80076; 83690; 85025; 96361; 96374; 96375; 99284; 99285; J1885; J2405; J7030; Q9967

== ENCOUNTER 2025-06-23 07:14 | Day surgery (SDC) | payer OTHER, SELFPAY ==
[2025-06-23] VITALS (17 sets, daily range): BP systolic 116–160; BP diastolic 67–95; PULSE 59–70; RESP 16; TEMP 36.1–36.7; O2SAT 93–100; BMI 29.9
--- NOTE | 2025-06-23 07:36 | W.PM.H&PU ---
History & Physical Update History & Physical Update H&P Reviewed and patient assessed: No changes noted
[2025-06-23] MEDS: ACETAMINOPHEN 500 MG TABLET 1000 MG PO (07:45)
[2025-06-23] MEDS: OXYCODONE (CR) 10 MG TAB.ER.12H PO (07:45)
[2025-06-23] MEDS: SODIUM CHLORIDE 0.9 % (FLUSH) 10 ML SYRINGE IVF (08:00)
[2025-06-23] MEDS: LACTATED RINGERS 1000 ML 1,000 ML 100 ML IV ×2 (08:00→11:13)
[2025-06-23] MEDS: MIDAZOLAM HCL 1 MG/ML inj IVP (08:35)
--- NOTE | 2025-06-23 08:53 | SUR.PREOP ---
TIME?OUT:?0835 PT/RN/MDA?VERIFICATION?OF?SURGICAL?SITE,?PROCEDURE,?AND?CONSENT OBTAINED?PRIOR?TO?INVASIVE?PROCEDURE.
[2025-06-23] MEDS: TRANEXAMIC ACID 100 MG/ML INJ 1000 MG IV (09:20)
--- NOTE | 2025-06-23 09:26 | W.PM.NB ---
Nerve Block Nerve Block Time Seen by Provider: 08:40 Date Seen: 06/23/25 Type of block requested by surgeon for post-operative analgesia: adductor canal Side: right Time out performed: Yes Verification of patient name: Yes Verification of date of : Yes Site marking: site marked Name of person performing procedure: Rosalind Fraser Assistants, if any: Alberto Silva Continuous monitoring Was continuous monitoring of O2 sat, B/P, director of cardiac cath lab, recorded every 15 minutes?: Yes Procedure Checklist: sterile prep, needles and gloves Ultrasound guided. Images saved: Yes Medications given in 5ml increments after negative aspiration: Ropivicaine %: 0.5 mL: 20 Needle gauge: 20 Precedex (mcg): 25 Patient tolerated procedure well: Yes Block Charges Block Charge (with Pro Fee): Femoral Nerve Use of Ultrasound Machine for Block: Yes- US Guidance/pain block
--- NOTE | 2025-06-23 09:28 | W.PM.NB ---
Nerve Block Nerve Block Time Seen by Provider: 08:40 Date Seen: 06/23/25 Type of block requested by surgeon for post-operative analgesia: geniculars Side: right Time out performed: Yes Verification of patient name: Yes Verification of date of : Yes Site marking: site marked Name of person performing procedure: Rosalind Fraser Assistants, if any: Alberto Silva Continuous monitoring Was continuous monitoring of O2 sat, B/P, cardiac surgeon, recorded every 15 minutes?: Yes Procedure Checklist: sterile prep, needles and gloves Ultrasound guided. Images saved: Yes Medications given in 5ml increments after negative aspiration: Ropivicaine %: 0.5 mL: 10 Needle gauge: 22 Patient tolerated procedure well: Yes Block Charges Block Charge (with Pro Fee): Genicular Nerve Block Use of Ultrasound Machine for Block: Yes- US Guidance/pain block
--- NOTE | 2025-06-23 09:29 | SUR.OPER ---
PATIENT QUESTIONS ANSWERED SATISFACTORILY PREOPERATIVELY.? PATIENT BROUGHT TO OR #2 PER CART AFTER ADMINISTRATION OF A BLOCK.? Patient positioned supine on OR #2 bed.? The perioperative?team supported arms bilaterally on arm boards.? Final approval of positioning by surgeon.?
--- NOTE | 2025-06-23 09:34 | CRLHL7_ITS ---
For Patients: As a result of the Cures Act, medical imaging exams and procedure reports are released immediately into your electronic medical record. You may view this report before your referring provider. If you have questions, please contact your health care provider. Indication: TKA post op Technique: Two views right knee Findings/Impression: Hardware from a right total knee arthroplasty is in satisfactory position. Bone alignment is normal. No sign of acute fracture. Postop changes are within normal limits. Dictated by Noble Bedolla MD @ 06/23/2025 2:08:03 PM (Electronically Signed)
--- NOTE | 2025-06-23 10:27 | P.ORPRC_ITS ---
Procedure Note Date of procedure: 06/23/25 Procedure: PREOPERATIVE DIAGNOSIS: 1. Right knee osteoarthritis, primary, severe POSTOPERATIVE DIAGNOSIS: 1. Right knee osteoarthritis, primary, severe PROCEDURE: 1. Right total knee arthroplasty, Press-Fit, Rotating Platform - No tourniquet SURGEON: Anuj Russ MD. PATTERNMAKER APPRENTICE WOOD: Alexandru Ross PA-C - Of note, a skilled front office medical assistant was critical for this case to aid in patient positioning, tissue retraction, limb manipulati on/positioning, and closure. ANESTHESIA: Spinal anesthetic EBL: 100ml IMPLANTS: DePuy J&J uncemented TKA - Attune PS pressfit femur size 6 narrow Size 4 pressfit tibia Rotating Platform 5mm RP poly spacer 35 mm Affixium patella TOURNIQUET: None COMPLICATIONS: None evident INDICATIONS: The patient is a pleasant 64-year-old female who has experienced severe right knee pain and difficulty bearing weight. Workup included x-rays which revealed severe osteoarthrosis in the knee. Given the deformity, the dysfunction, and the pain, as well as the failure of nonoperative management, recommendation was made for surgery. FINDINGS: Full-thickness chondral loss medial femoral condyle with erosion of the bone. Significant chondromalacia patellofemoral and to a lesser degree lateral compartment as well. Degenerative meniscus pathology medial greater than lateral. Moderate to large effusion upon entering the joint. Generalized synovitis noted diffusely throughout the knee with synovial hyperplasia. DESCRIPTION OF PROCEDURE: Following a thorough discussion of risks, benefits, and alternatives consent was obtained and the right knee was marked. The patient was brought to the operating room and placed supine on the operating table. Induction of anesthesia was undertaken. 2 g IV Ancef and 1 g tranexamic acid was administered within 1 hr of incision preoperatively. Proper time-out was performed identifying proper patient, site, procedure. The operative extremity was prepped and draped in the appropriate sterile fashion using ChloraPrep after the patient was positioned supine with all bony prominences well padded. A longitudinal, anterior, midline skin incision was made starting approximately 3cm proximal to the superior pole of the patella and advanced distal to the tibial tubercle. A sub vastus approach was utilized. After mobilizing the patella, the retropatellar fatpad was resected and the synovium in the suprapatellar pouch excised to visualize the anterior femoral cortex. Patellar prep showed initial measurement/thickness of 21 mm. It was resected back to approximately 14 mm. The patella prep was completed with drilling and a trial placed followed by a protector plate until final component implantation. Femoral preparation was performed via an intramedullary guide. Step drill allowed access into the femoral canal. The distal cutting guide was placed with 5? of valgus and 10 mm cut on the distal femur. Femur was sized using a anterior referencing guide in 3? of external rotation. This was found to have a best fit with the sizing noted above. The 4 in 1 cutting block was then placed, and the distal femur shaped accordingly. The box cut was then completed. We turned our attention to the proximal tibia. Extramedullary guide was utilized for cutting with the goal of being 90 degree cut from the mechanical axis of the tibia in the varus/valgus plane utilizing tibial crest as the primary alignment. Initially a 2 mm resection was performed from the medial tibial plateau. An additional 2 mm of tibial resection was needed to achieve proper balance in both flexion & extension. Ultimately, balancing was achieved in both flexion and extension in both varus and valgus. The knee was able to achieve full extension comfortably. It was sized to be a best fit with as noted above. At this stage, trial implants were removed, the tibia and femoral and patellar components were opened and inserted. The real poly spacer was opened and inserted. A 3 min Betadine soak performed. Finally, a final irrigation round with normal saline was performed. Closure performed with 0 PDS and #0 Stratafix for the quad tendon/retinaculum. 2-0 Vicryl/Stratafix for the subcutaneous and 4-0 Monocryl for subcuticular closure. Dressings were applied and the patient was awoken from anesthesia and transferred the PACU in stable condition. A skilled front office medical assistant was critical for this case to aid in patient positioning, tissue retraction, bone exposure, limb manipulation/positioning, patient safety, and closure. PLAN: 1. Weight bear as tolerated operative extremity. 2. 23 hr perioperative antibiotics. 3. Ice. 4. PT/OT consults for ambulation assistance/mobility education. 5. Social work consult for discharge planning. 6. DVT prophylaxis with at SCDs, and aspirin twice daily.
--- NOTE | 2025-06-23 11:04 | P.ANES_ITS ---
Anesthesia Charges Start Date/Time Anesthesia Start Date: 06/23/25 Anesthesia Start Time: 08:57 Stop Date/Time Anesthesia Stop Date: 06/23/25 Anesthesia Stop Time: 11:03 Coding CPT Codes CPT Codes: ANESTH KNEE ARTHROPLASTY - 52699 ([id number]) P3 - PATIENT W/SEVERE SYS DISEASE, QZ - WASTEWATER ENGINEER SVC W/O DIPLOMATIC INTERPRETER/TRANSLATOR BY
--- NOTE | 2025-06-23 11:04 | W.ANESCHARGE ---
Anesthesia Charges Start Date/Time Anesthesia Start Date: 06/23/25 Anesthesia Start Time: 08:57 Stop Date/Time Anesthesia Stop Date: 06/23/25 Anesthesia Stop Time: 11:03 Coding CPT Codes CPT Codes: ANESTH KNEE ARTHROPLASTY - 50478 ([id number]) P3 - PATIENT W/SEVERE SYS DISEASE, QZ - MOLD MAKER HELPER SVC W/O SUPERINTENDENT OIL WELL SERVICES BY
[2025-06-23] MEDS: IBUPROFEN 200 MG TABLET 600 MG PO (12:00)
--- NOTE | 2025-06-23 14:02 | SUR.PHASEII ---
Patient/RN Donnell signed discharge paperwork, patient has no further questions. Signed paperwork sent home with patient by accident with the rest of discharge paperwork.
== END 2025-06-23 13:50 | disposition home or self-care (01) ==
PROVIDERS: PCP Family Medicine; Visit Provider Orthopaedic Surgery Sports Medicine
PROC: (CPT 27447; principal; 2025-06-23 09:00)
DX: M17.11 Unilateral primary osteoarthritis, right knee (principal); G89.18 Other acute postprocedural pain; M65.861 Other synovitis and tenosynovitis, right lower leg; M94.261 Chondromalacia, right knee; G47.33 Obstructive sleep apnea (adult) (pediatric); J45.40 Moderate persistent asthma, uncomplicated; K21.9 Gastro-esophageal reflux disease without esophagitis; E66.3 Overweight; Z68.29 Body mass index [BMI] 29.0-29.9, adult
CPT/HCPCS: 27447; 01402; 64447; 64454; 73560; 76942; 97110; 97116; 97161; A9270; C1776; J0690; J1100; J2250; J2405; J2704; J2795; J3010; J7120